=== PATIENT | female | born 1940 | race Caucasian/White ===

== ENCOUNTER 2022-06-08 12:00 | Outpatient (CLI) | payer MEDICARE, BC, OTHER, SELFPAY ==
[2022-06-08 17:24] LABS: Chloride* 105 mmol/L (96-114); Potassium* 4.5 mmol/L (3.6-5.1); Sodium* 137 mmol/L (135-149)
[2022-06-08 17:27] LABS: Blood Urea Nitrogen* 34 mg/dL (7-30); Carbon Dioxide* 27 mmol/L (20-32); Cholesterol* 129 mg/dL (90-199); Estimated Glomerular Filt Rate 56 ml/min; Glucose* 78 mg/dL (60-115); Triglycerides* 92 mg/dL (40-149)
[2022-06-08 17:28] LABS: Calcium* 8.8 mg/dL (8.4-10.6); HDL Cholesterol* 63 mg/dL (>=50); LDL Cholesterol Calculated 48 mg/dL (<100)
== END 2022-06-08 12:01 | disposition home or self-care (01) ==
PROVIDERS: PCP Family Medicine; Visit Provider Family Medicine
DX: I10 Essential (primary) hypertension (principal); R53.83 Other fatigue; E78.5 Hyperlipidemia, unspecified; I48.0 Paroxysmal atrial fibrillation; M10.9 Gout, unspecified; I50.30 Unspecified diastolic (congestive) heart failure; K21.9 Gastro-esophageal reflux disease without esophagitis; G47.00 Insomnia, unspecified
CPT/HCPCS: 80048; 80061; 84443

== ENCOUNTER 2022-07-10 09:15 | Emergency (ER) | payer MEDICARE, OTHER, BC, SELFPAY ==
[2022-07-10 09:28] VITALS: BP 163/100; PULSE 82; RESP 18; TEMP 36.3; O2SAT 97; BMI 27.4
--- NOTE | 2022-07-10 09:42 | CRLHL7_ITS ---
For Patients: As a result of the Cures Act, medical imaging exams and procedure reports are released immediately into your electronic medical record. You may view this report before your referring provider. If you have questions, please contact your health care provider. Indication: Injury and pain. Technique: Right knee 3 views Comparison: Findings: Osteopenia. Chondrocalcinosis. Vascular calcifications. Mild degenerative changes. No joint effusion or fracture. Impression: No sign of acute injury. Dictated by Barry Boss MD @ 07/10/2022 10:36:30 AM (Electronically Signed)
--- NOTE | 2022-07-10 09:42 | CRLHL7_ITS ---
For Patients: As a result of the Cures Act, medical imaging exams and procedure reports are released immediately into your electronic medical record. You may view this report before your referring provider. If you have questions, please contact your health care provider. Indication: Injury and pain. Technique: Left knee 3 views Comparison: None Findings: Osteopenia. No fracture. No joint effusion. Vascular calcifications. Mild chondrocalcinosis. Patellofemoral narrowing. Impression: No sign of acute injury. Dictated by Barry Boss MD @ 07/10/2022 10:35:25 AM (Electronically Signed)
--- NOTE | 2022-07-10 10:14 | ED.LOWEXIN ---
HPI - Extremity Injury (Lower) General Date Seen: 07/10/22 Chief Complaint: Extremity Pain/Injury, Lower Stated Complaint: Fell hurt right knee Time Seen by Provider: 07/10/22 09:20 Source: patient and family Mode of arrival: ambulatory Limitations: no limitations History of Present Illness HPI Narrative: Patient is a delightful 82-year-old female who presents here with right knee but really bilateral knee symptoms. She was getting offer deck approximately 1 week ago and fell with blunt force to her knees bilaterally. Since then she has had increased pain more in her right than her left knee, more swelling, and pain with mobility and moving around. She took some leftover medication hydrocodone she had from previous surgery, that help this discomfort. She feels she needs an x-ray, given the length of time that her pain has been. She denies any history of fevers chills or sweats, she has decreased range of motion of her right knee, and she showed me pictures of her right knee with considerable bruising that is now abated. This knee as a history of previous infection with the wound VAC just below the right knee secondary to vein ligation and stripping. complaint: knee injury Onset (ago): week(s) Injury: Bilateral: knee Type of Injury: blunt Place: home Severity: moderate Relieving factors: NSAID and cold therapy Exacerbating factors: weight bearing and movement Context: fall and direct blow Associated symptoms: able to partially bear weight and ambulatory Other symptoms: none Treatments prior to arrival: cold therapy and NSAIDS Related Data Home Medications Medication Instructions Recorded Confirmed acetaminophen 500 mg tablet 1,000 mg PO Q6H PRN 06/08/22 ascorbic acid (vitamin C) 250 mg 250 mg PO DAILY 06/08/22 tablet ferrous gluconate 324 mg (38 mg 324 mg PO QDAY 06/08/22 iron) tablet melatonin 3 mg capsule 3 mg PO .Bedtime as needed PRN 06/08/22 multivitamin 1 tab PO QDAY 06/08/22 omega-3 fatty acids-fish oil 300 cap PO 06/08/22 mg-500 mg capsule (Fish Oil) oxycodone 5 mg tablet 5 mg PO Q4H PRN 06/08/22 Previous Rx's Medication Instructions Recorded allopurinol 100 mg tablet 100 mg PO QDAY #90 tabs 06/08/22 apixaban 2.5 mg tablet 2.5 mg PO BID #180 tabs 06/08/22 atorvastatin 40 mg tablet 40 mg PO .QHS #90 tabs 06/08/22 escitalopram oxalate 5 mg tablet 5 mg PO DAILY #90 tabs 06/08/22 furosemide 40 mg tablet 40 mg PO BID #180 tabs 06/08/22 metoprolol tartrate 25 mg tablet 25 mg PO BID #180 tabs 06/08/22 omeprazole 20 mg capsule,delayed 20 mg PO DAILY #90 caps 06/08/22 release tramadol 50 mg tablet 50 mg PO Q6H PRN pain #60 tabs 06/08/22 trazodone 50 mg tablet 25 - 50 mg PO QPM #90 tabs 06/08/22 Allergies Allergy/AdvReac Type Severity Reaction Status Date / Time cephalexin Allergy Unknown RASH/HIVES Verified 06/08/22 11:15 Review of Systems Status of ROS: Reports: 6 or more systems reviewed and unremarkable except as noted in History and below [facility] Medical History Health care directive on file Surgical History H/O Whipple procedure History of blepharoplasty History of bunionectomy (06/19/09) Status post cataract extraction Status post tubal ligation Social History Smoking Status: Former smoker Do you use any of these nicotine containing products: None How often do you have a drink containing alcohol: monthly or less AUDIT-C Alcohol total score: 1 Non-prescribed substance use: denies use Exam Narrative: Exam Narrative: Patient is delightful lady, she has notable valgus deformity of her right knee in comparison to the left, is able to extend her knee fully, and flex it to 90? on the right she can come approximately 12/16/2019 on the left. Scarring from previous surgeries noted inferiorly medial on the right knee. Mildly tender along the joint line on the right side, her ACL PCL MCL and LCL are all seemingly intact. Popliteal fossa is normal, patella is normal has full range of motion, popliteal artery and posterior tibial artery are palpated and normal. Sensation is normal also. Her bruising on the right knee is abating. But still visible on the lateral part of her knee. Left knee has full range of motion from 0-120, and no palpable tenderness no free fluid, ligaments are all intact, normal pulses in the left leg. Const: Vital Signs, click to edit/add: Vital Signs - 24 hr 07/10/22 09:28 Temperature 97.4 F L Pulse Rate [Right Pulse Oximeter] 82 Respiratory Rate 18 Blood Pressure [Ri ght Upper Arm] 163/100 H Pulse Oximetry 97 Oxygen Delivery Me thod Room Air Documenting provider has reviewed patient's vital signs: yes Course Course Hospital Course: I discussed with her and her daughter that the x-ray looked good there is no evidence of acute fracture, I think this is more of a cartilage type injury. And I recommend Tylenol more regularly, icing, and she will slowly improve if she is not then follow up with Orthopedics is suggested. And she was comfortable with this plan. Vital Signs Vital signs: Initial Vital Signs Temperature 97.4 F L 07/10/22 09:28 Temperature Source Temporal Artery Scan 07/10/22 09:28 Pulse Rate 82 07/10/22 09:28 Respiratory Rate 18 07/10/22 09:28 Blood Pressure 163/100 H 07/10/22 09:28 Blood Pressure Mean 121 07/10/22 09:28 Pulse Oximetry 97 07/10/22 09:28 Oxygen Delivery Method 07/10/22 09:28 Vital Signs Temperature 97.4 F L 07/10/22 09:28 Pulse Rate 82 07/10/22 09:28 Respiratory Rate 18 07/10/22 09:28 Blood Pressure 163/100 H 07/10/22 09:28 Pulse Oximetry 97 07/10/22 09:28 Oxygen Delivery Method 07/10/22 09:28 Temperature 97.4 F L 07/10/22 09:28 Pulse Rate 82 07/10/22 09:28 Respiratory Rate 18 07/10/22 09:28 Blood Pressure 163/100 H 07/10/22 09:28 Pulse Oximetry 97 07/10/22 09:28 Oxygen Delivery Method 07/10/22 09:28 MDM - Extremity Injury (Lower) MDM Narrative Medical decision making narrative: I discussed with her that I am in agreement that an x-ray should be done of both of her knees bilaterally, we will go ahead with this. See suspect this is more of a cartilage type situation, and less likely a fracture,. I am reassured by the fact there is no significant hematoma formation despite the fact she is on Eliquis. Medical Records Attestation: I reviewed the patient's medical records. Imaging Data xray: Attestation: I have reviewed the pertinent imaging results. My impression: No evidence of acute findings, mild to moderate arthritis Radiologist's impression: No acute fracture seen Discharge Plan Discharge Clinical Impression: Strain of right knee Patient Disposition: Home w/ Parent or Adult Condition: Stable Instructions: Knee Sprain (ED), Knee Pain (ED) Additional Instructions: Home rest icing 2 to 3 times a day decrease activity use your crutches to offload her knee. This will slowly improve, Tylenol extra-strength 1 tablet 4 times a day is suggested. If this is not improving in the next 10 days then consideration of follow-up with orthopedics. Reassuring knee x-ray Prescriptions: No Action melatonin 3 mg capsule 3 mg PO .Bedtime as needed PRN ascorbic acid (vitamin C) 250 mg tablet 250 mg PO DAILY ferrous gluconate 324 mg (38 mg iron) tablet 324 mg PO QDAY multivitamin Tablet 1 tab PO QDAY oxycodone 5 mg tablet 5 mg PO Q4H PRN acetaminophen 500 mg tablet 1,000 mg PO Q6H PRN Rx Instructions: NO MORE THAN 4000 MG/DAY Fish Oil 300-500 mg capsule PO allopurinol 100 mg tablet 100 mg PO QDAY Qty: 90 3RF apixaban 2.5 mg tablet 2.5 mg PO BID Qty: 180 3RF atorvastatin 40 mg tablet 40 mg PO .QHS Qty: 90 3RF escitalopram oxalate 5 mg tablet 5 mg PO DAILY Qty: 90 3RF furosemide 40 mg tablet 40 mg PO BID Qty: 180 3RF metoprolol tartrate 25 mg tablet 25 mg PO BID Qty: 180 3RF omeprazole 20 mg capsule,delayed release(DR/EC) 20 mg PO DAILY Qty: 90 3RF trazodone 50 mg tablet 25 - 50 mg PO QPM Qty: 90 3RF Rx Instructions: 1/2 tab at HS tramadol 50 mg tablet 50 mg PO Q6H PRN (Reason: pain) Qty: 60 1RF Follow Up/Referrals: Gómez Bermudez MD [Primary Care Provider] - Stand Alone Forms: [facility] Info Instructions
== END 2022-07-10 11:35 | disposition home or self-care (01) ==
PROVIDERS: Emergency Provider Family Medicine; PCP Family Medicine
DX: S83.91XA Sprain of unspecified site of right knee, initial encounter (principal); W17.89XA Other fall from one level to another, initial encounter
CPT/HCPCS: 73562; 99283

== ENCOUNTER 2023-01-23 07:36 | Inpatient (IN) | payer MEDICARE, OTHER, BC, SELFPAY ==
[2023-01-23] VITALS (13 sets, daily range): BP systolic 160–213; BP diastolic 63–95; PULSE 49–71; RESP 18–26; TEMP 36.3–36.7; O2SAT 92–97; BMI 28.3; BMI 28.4
--- NOTE | 2023-01-23 08:15 | ED_ITS ---
HPI - General Adult General Time Seen by Provider: 08:15 Date Seen: 01/23/23 Chief complaint: Shortness of Breath/Dyspnea Stated complaint: difficulty breathing Time Seen by Provider: 01/23/23 07:48 Source: patient Mode of arrival: wheelchair Limitations: no limitations History of Present Illness HPI narrative: Patient is a 82-year-old female that feels progressive shortness of breath with exertion over the last week. She reports she has had some nasal congestion and a slight cough. 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 She has had mitral valve regurgitation as well. The patient is on blood thinner apixaban. She has had congestion as mention, had a negative COVID in I believe RSV test this week in the clinic. She does not had any orthopnea she does have dyspnea on exertion has occasional cough nasal congestion. She has not had leg swelling or edema. Not notice substantial weight gain. She is not under a good amount of stress as she is oxygenating her home items as her has passed and she is quite stressed by this. She is here with her daughter Hermila. Patient also complains of dysuria and urine odor and will get a urinalysis, she feels like she has got some urinary frequency as well. Related Data Home Medications Medication Instructions Recorded Confirmed acetaminophen 500 mg tablet 1,000 mg PO Q6H PRN 06/08/22 01/23/23 ascorbic acid (vitamin C) 250 mg 250 mg PO DAILY 06/08/22 01/23/23 tablet melatonin 3 mg capsule 3 mg PO HS PRN 06/08/22 01/23/23 multivitamin 1 tab PO DAILY 06/08/22 01/23/23 omega-3 fatty acids-fish oil 300 1 cap PO DAILY 06/08/22 01/23/23 mg-500 mg capsule (Fish Oil) oxycodone 5 mg tablet 5 mg PO Q4H PRN 06/08/22 01/23/23 allopurinol 100 mg tablet 100 mg PO DAILY 01/23/23 01/23/23 atorvastatin 40 mg tablet 40 mg PO HS 01/23/23 01/23/23 trazodone 50 mg tablet 25 mg PO HS 01/23/23 01/23/23 triamcinolone acetonide 0.1 % 1 applic topical BID PRN 01/23/23 01/23/23 topical cream Previous Rx's Medication Instructions Recorded apixaban 2.5 mg tablet 2.5 mg PO BID #180 tabs 06/08/22 escitalopram oxalate 5 mg tablet 5 mg PO DAILY #90 tabs 06/08/22 furosemide 40 mg tablet 40 mg PO BID #180 tabs 06/08/22 metoprolol tartrate 25 mg tablet 25 mg PO BID #180 tabs 06/08/22 omeprazole 20 mg capsule,delayed 20 mg PO DAILY #90 caps 06/08/22 release ferrous gluconate 324 mg (38 mg 324 mg PO BID #100 tabs 07/12/22 iron) tablet tramadol 50 mg tablet 50 mg PO Q6H PRN pain #60 tabs 12/30/22 Allergies Allergy/AdvReac Type Severity Reaction Status Date / Time cephalexin Allergy Unknown RASH/HIVES Verified 01/23/23 07:54 Review of Systems Status of ROS: Reports: 10 or more systems reviewed and unremarkable except as noted in History and below [facility] Medical History (Updated 01/23/23 @ 13:12 by Eris Bal MD) Anemia Anxiety Articular gout Chronic back pain Chronic kidney disease Diastolic congestive heart failure GERD (gastroesophageal reflux disease) Health care directive on file Hyperlipemia Hypertension (06/19/09) Insomnia Left shoulder pain Methicillin resistant Staphylococcus aureus culture positive Mitral valve regurgitation (07/24/09) Paroxysmal atrial fibrillation Peripheral vascular disease Pulmonary hypertension (07/24/09) Stasis edema (06/19/09) Venous stasis dermatitis Surgical History H/O Whipple procedure History of blepharoplasty History of bunionectomy (06/19/09) Status post cataract extraction Status post tubal ligation Social History Smoking Status: Never smoker Do you use any of these nicotine containing products: None Second hand tobacco smoke exposure: Yes How often do you have a drink containing alcohol: monthly or less How many standard drinks containing alcohol do you have on a typical day: 1 or 2 How often do you have six or more drinks on one occasion: Never AUDIT-C Alcohol total score: 1 Non-prescribed substance use: denies use service: No Exam Narrative: Exam Narrative: Objective: Patient's vital signs show elevated blood pressure 213/95, otherwise respiratory rate is just minimally elevated, O2 sat 93% on room air. HEENT is unremarkable, takes patient talks in even unlabored sentences, no cyanosis Neck is supple Chest is diminished air exchange bilaterally some crackles at the base Heart rhythm regular with 2/6 out murmur occasional ectopic beat noted abdomen benign soft nontender extremities are no edema neurologic nonfocal good peripheral perfusion noted Const: Vital Signs, click to edit/add: Vital Signs - 24 hr 01/23/23 07:55 01/23/23 08:12 01/23/23 08:32 Temperature 97.8 F Pulse Rate 53 L Pulse Rate [Apical ] 60 Respiratory Rate 26 H Blood Pressure 187/87 H Blood Pressure [Ri ght Upper Arm] 213/95 H Pulse Oximetry 93 93 94 Oxygen Delivery Me thod Room Air 01/23/23 09:06 01/23/23 09:30 01/23/23 10:02 Temperature Pulse Rate 55 L 71 52 L Pulse Rate [Apical ] Respiratory Rate Blood Pressure 204/91 H Blood Pressure [Ri ght Upper Arm] Pulse Oximetry 96 92 95 Oxygen Delivery Me thod Course Vital Signs Vital signs: Initial Vital Signs Temperature 97.8 F 01/23/23 07:55 Temperature Source Temporal Artery Scan 01/23/23 07:55 Pulse Rate 60 01/23/23 07:55 Pulse Rhythm 01/23/23 07:55 Respiratory Rate 26 H 01/23/23 07:55 Blood Pressure 213/95 H 01/23/23 07:55 Blood Pressure Mean 134 01/23/23 07:55 Blood Pressure Position Supine 01/23/23 07:55 Pulse Oximetry 93 01/23/23 07:55 Oxygen Delivery Method 01/23/23 07:55 Vital Signs Temperature 97.8 F 01/23/23 07:55 Pulse Rate 60 01/23/23 07:55 Respiratory Rate 26 H 01/23/23 07:55 Blood Pressure 213/95 H 01/23/23 07:55 Pulse Oximetry 93 01/23/23 07:55 Oxygen Delivery Method 01/23/23 07:55 Temperature 97.8 F 01/23/23 07:55 Pulse Rate 52 L 01/23/23 10:02 Respiratory Rate 26 H 01/23/23 07:55 Blood Pressure 204/91 H 01/23/23 10:02 Pulse Oximetry 95 01/23/23 10:02 Oxygen Delivery Method 01/23/23 07:55 Medical Decision Making MDM Narrative Medical decision making narrative: Patient is an 82 year white female with a history of paroxysmal atrial fibrillation, congestive heart failure, chronic renal disease. Who is on apixaban. She presents with shortness of breath primarily with exertion over the last week. She denies diaphoresis, nausea vomiting, neck or arm pain other than her chronic rotator cuff tenderness. The patient has had no leg swelling of significance, had a negative COVID test earlier in the week. At this point I think could be appropriate to rule out any pulmonary issue with a chest x-ray, will given she is on apixaban a wood and has chronic renal disease would not do CT of the chest with contrast as pulmonary embolus would be very unlikely given her presentation, would also do a troponin, EKG, awake overnight monitor, oximetry, will give her Lasix 40 mg IV and aspirin orally. Disposition pending findings and labs in her clinical status. Certainly there is lot of anxiety overlay over her situation but I think rule out of organic issues would be appropriate. Patient has had urinary frequency and some malodorous urine and will check a UA she has had says history of increased urine frequency as well. Addendum: Patient has elevated troponin I think that is likely related to cardiac strain given her congestive heart failure. Her BNP is markedly elevated, I think it be reasonable to diurese her keep her in the hospital watch cardiac monitoring her EKG appears reassuring, follow troponins. Dr. Aaron kindly will follow in hospital. Patient family were in agreement with the plan Lab Data Labs: Lab Results 01/23/23 01/23/23 01/23/23 Range/Units 08:30 08:30 08:30 WBC 8.58 (4.50-11.00) K/uL RBC 3.96 L (4.00-5.20) m/uL Hgb 12.1 (12.0-16.0) gm/dL Hct 37.5 (33.0-51.0) % MCV 95 (80-100) fL MCH 31 (26-34) pg MCHC 32 (32-36) gm/dL RDW Coeff of Phoebe 13.8 (11.5-15.5) % Plt Count 207 (140-440) K/uL Neut % (Auto) 78.6 H (42.0-72.0) % Lymph % (Auto) 13.3 L (20-44) % Kimball % (Auto) 6.6 (0.0-11.0) % Eos % (Auto) 0.9 (0.0-7.0) % Baso % (Auto) 0.3 (0.0-3.0) % Neut # (Auto) 6.70 (1.7-7.0) K/uL Lymph # (Auto) 1.10 (0.90-2.90) K/uL Kimball # (Auto) 0.60 (0.00-0.90) K/UL Eos # (Auto) 0.08 (0.00-0.50) K/uL Baso # (Auto) 0.03 (0.00-0.30) K/uL INR (0.91-1.10) APTT (23-33) Seconds VBG pH (7.32-7.43) VBG pCO2 (40-50) mmHG VBG pO2 (25-47) mmHG VBG HCO3 (21-28) mmol/L Sodium 135 (135-149) mmol/L Potassium 3.9 (3.6-5.1) mmol/L Chloride 103 (96-114) mmol/L Carbon Dioxide 27 (20-32) mmol/L BUN 26 (7-30) mg/dL Creatinine 0.9 (0.5-1.5) mg/dL Estimated Creat Clear 33.12 Estimated GFR 63 ml/min Glucose 164 H (60-115) mg/dL Calcium 8.7 (8.4-10.6) mg/dL Total Bilirubin (0.1-1.5) mg/dL Direct Bilirubin (0.0-0.5) mg/dL AST (12-35) U/L ALT (4-35) U/L Alkaline Phosphatase (40-150) U/L Troponin I (0.01-0.04) ng/mL C-Reactive Protein 2.6 H (0.5-1.0) mg/dL NT-Pro-B Natriuret Pep pg/mL Total Protein (6.0-8.3) g/dL Albumin (3.3-5.0) g/dL Urine Color (Yellow) Urine Appearance (Clear) Urine pH (5.0-8.5) Ur Specific Elim (1.000-1.030) Urine Protein (Negative) Urine Glucose (UA) (Negative) Urine Ketones (Negative) Urine Blood (Negative) Urine Nitrite (Negative) Urine Bilirubin (Negative) Urine Urobilinogen (0.2-1.0) Ur Leukocyte Esterase (Negative) Urine RBC (0-2) Urine WBC (0-5) Ur Squamous Epith Cells (None-Few) Urine Bacteria (None) SARS-CoV-2 (PCR) Negative SARS-CoV-2 (Negative) Influenza Type A (PCR) Negative PCR FLU A (Negative) Influenza Type B (PCR) Negative PCR FLU B (Negative) RSV (PCR) Negative PCR RSV (Negative) 01/23/23 01/23/23 01/23/23 Range/Units 08:30 08:30 08:30 WBC (4.50-11.00) K/uL RBC (4.00-5.20) m/uL Hgb (12.0-16.0) gm/dL Hct (33.0-51.0) % MCV (80-100) fL MCH (26-34) pg MCHC (32-36) gm/dL RDW Coeff of Phoebe (11.5-15.5) % Plt Count (140-440) K/uL Neut % (Auto) (42.0-72.0) % Lymph % (Auto) (20-44) % Kimball % (Auto) (0.0-11.0) % Eos % (Auto) (0.0-7.0) % Baso % (Auto) (0.0-3.0) % Neut # (Auto) (1.7-7.0) K/uL Lymph # (Auto) (0.90-2.90) K/uL Kimball # (Auto) (0.00-0.90) K/UL Eos # (Auto) (0.00-0.50) K/uL Baso # (Auto) (0.00-0.30) K/uL INR 1.15 H (0.91-1.10) APTT 35 H (23-33) Seconds VBG pH 7.392 (7.32-7.43) VBG pCO2 45 (40-50) mmHG VBG pO2 29.9 (25-47) mmHG VBG HCO3 27 (21-28) mmol/L Sodium (135-149) mmol/L Potassium (3.6-5.1) mmol/L Chloride (96-114) mmol/L Carbon Dioxide (20-32) mmol/L BUN (7-30) mg/dL Creatinine (0.5-1.5) mg/dL Estimated Creat Clear Estimated GFR ml/min Glucose (60-115) mg/dL Calcium (8.4-10.6) mg/dL Total Bilirubin 0.6 (0.1-1.5) mg/dL Direct Bilirubin 0.2 (0.0-0.5) mg/dL AST 53 H (12-35) U/L ALT 42 H (4-35) U/L Alkaline Phosphatase 78 (40-150) U/L Troponin I 0.08 H* (0.01-0.04) ng/mL C-Reactive Protein (0.5-1.0) mg/dL NT-Pro-B Natriuret Pep 4480 pg/mL Total Protein 6.9 (6.0-8.3) g/dL Albumin 3.6 (3.3-5.0) g/dL Urine Color (Yellow) Urine Appearance (Clear) Urine pH (5.0-8.5) Ur Specific Elim (1.000-1.030) Urine Protein (Negative) Urine Glucose (UA) (Negative) Urine Ketones (Negative) Urine Blood (Negative) Urine Nitrite (Negative) Urine Bilirubin (Negative) Urine Urobilinogen (0.2-1.0) Ur Leukocyte Esterase (Negative) Urine RBC (0-2) Urine WBC (0-5) Ur Squamous Epith Cells (None-Few) Urine Bacteria (None) SARS-CoV-2 (PCR) (Negative) Influenza Type A (PCR) (Negative) Influenza Type B (PCR) (Negative) RSV (PCR) (Negative) 01/23/23 Range/Units 09:03 WBC (4.50-11.00) K/uL RBC (4.00-5.20) m/uL Hgb (12.0-16.0) gm/dL Hct (33.0-51.0) % MCV (80-100) fL MCH (26-34) pg MCHC (32-36) gm/dL RDW Coeff of Phoebe (11.5-15.5) % Plt Count (140-440) K/uL Neut % (Auto) (42.0-72.0) % Lymph % (Auto) (20-44) % Kimball % (Auto) (0.0-11.0) % Eos % (Auto) (0.0-7.0) % Baso % (Auto) (0.0-3.0) % Neut # (Auto) (1.7-7.0) K/uL Lymph # (Auto) (0.90-2.90) K/uL Kimball # (Auto) (0.00-0.90) K/UL Eos # (Auto) (0.00-0.50) K/uL Baso # (Auto) (0.00-0.30) K/uL INR (0.91-1.10) APTT (23-33) Seconds VBG pH (7.32-7.43) VBG pCO2 (40-50) mmHG VBG pO2 (25-47) mmHG VBG HCO3 (21-28) mmol/L Sodium (135-149) mmol/L Potassium (3.6-5.1) mmol/L Chloride (96-114) mmol/L Carbon Dioxide (20-32) mmol/L BUN (7-30) mg/dL Creatinine (0.5-1.5) mg/dL Estimated Creat Clear Estimated GFR ml/min Glucose (60-115) mg/dL Calcium (8.4-10.6) mg/dL Total Bilirubin (0.1-1.5) mg/dL Direct Bilirubin (0.0-0.5) mg/dL AST (12-35) U/L ALT (4-35) U/L Alkaline Phosphatase (40-150) U/L Troponin I (0.01-0.04) ng/mL C-Reactive Protein (0.5-1.0) mg/dL NT-Pro-B Natriuret Pep pg/mL Total Protein (6.0-8.3) g/dL Albumin (3.3-5.0) g/dL Urine Color Yellow (Yellow) Urine Appearance Clear (Clear) Urine pH 7.0 (5.0-8.5) Ur Specific Elim 1.020 (1.000-1.030) Urine Protein 1+ A (Negative) Urine Glucose (UA) Negative (Negative) Urine Ketones Negative (Negative) Urine Blood Trace-lysed A (Negative) Urine Nitrite Negative (Negative) Urine Bilirubin Negative (Negative) Urine Urobilinogen 0.2 (0.2-1.0) Ur Leukocyte Esterase Trace A (Negative) Urine RBC 2-5 A (0-2) Urine WBC 2-5 (0-5) Ur Squamous Epith Cells Few (None-Few) Urine Bacteria Few A (None) SARS-CoV-2 (PCR) (Negative) Influenza Type A (PCR) (Negative) Influenza Type B (PCR) (Negative) RSV (PCR) (Negative) Discharge Plan Discharge Clinical Impression: Diastolic congestive heart failure Patient Disposition: Admitted As Inpatient Condition: Stable
--- NOTE | 2023-01-23 08:17 | CRLHL7_ITS ---
For Patients: As a result of the Century Cures Act, medical imaging exams and procedure reports are released immediately into your electronic medical record. You may view this report before your referring provider. If you have questions, please contact your health care provider. INDICATION: SOB TECHNIQUE: Chest 1 views. COMPARISON: June 19, 2018. FINDINGS: Moderate cardiomegaly. Central vascular congestion and interstitial prominence. Bibasilar atelectasis and moderate pleural effusions. No pneumothorax. IMPRESSION: Cardiomegaly with pulmonary edema pattern and moderate bibasilar fluid and atelectasis. Dictated by Jayden Hdaley MD @ 01/23/2023 8:56:27 AM (Electronically Signed)
[2023-01-23 08:34] LABS: HCO3 VBG 27 mmol/L (21-28); PCO2 VBG 45 mmHG (40-50); PO2 VBG 29.9 mmHG (25-47); pH VBG 7.392 (7.32-7.43)
[2023-01-23] MEDS: FUROSEMIDE 10 MG/ML inj 40 MG IV (08:34)
[2023-01-23] MEDS: ASPIRIN 81 MG TAB.CHEW 324 MG PO (08:34)
[2023-01-23 08:38] LABS: Basophils Absolute Auto 0.03 K/uL (0.00-0.30); Basophils Percent Auto 0.3 % (0.0-3.0); Eosinophils Absolute Auto 0.08 K/uL (0.00-0.50); Eosinophils Percent Auto 0.9 % (0.0-7.0); Hematocrit 37.5 % (33.0-51.0); Hemoglobin* 12.1 gm/dL (12.0-16.0); Immature Granulocytes Abs Auto 0.03 K/uL (0.00-0.30); Immature Granulocytes Pct Auto 0.3 %; Lymphocytes Percent Auto 13.3 % (20-44); Mean Corpuscular HGB Conc 32 gm/dL (32-36); Mean Corpuscular Hemoglobin 31 pg (26-34); Mean Corpuscular Volume 95 fL (80-100); Monocytes Percent Auto 6.6 % (0.0-11.0); Neutrophils Percent Auto 78.6 % (42.0-72.0); Platelet Count* 207 K/uL (140-440); RDW Coefficient of Variation % 13.8 % (11.5-15.5); Red Blood Count 3.96 m/uL (4.00-5.20); White Blood Count* 8.58 K/uL (4.50-11.00)
[2023-01-23 08:40] LABS: Slide Review Reflex No
[2023-01-23 08:51] LABS: INR 1.15 (0.91-1.10); Prothrombin Time 15.4 Seconds
[2023-01-23 08:52] LABS: Partial Thromboplastin Time* 35 Seconds (23-33)
--- NOTE | 2023-01-23 08:55 | ED.NURSE ---
House Sup notified of possible admission.
[2023-01-23 09:07] LABS: Chloride* 103 mmol/L (96-114)
[2023-01-23 09:08] LABS: Potassium* 3.9 mmol/L (3.6-5.1); Sodium* 135 mmol/L (135-149)
[2023-01-23 09:10] LABS: Creatinine* 0.9 mg/dL (0.5-1.5); Est. Creatinine Clearance* 33.12; Estimated Glomerular Filt Rate 63 ml/min
[2023-01-23 09:11] LABS: Albumin* 3.6 g/dL (3.3-5.0); Blood Urea Nitrogen* 26 mg/dL (7-30); Calcium* 8.7 mg/dL (8.4-10.6); Carbon Dioxide* 27 mmol/L (20-32); Glucose* 164 mg/dL (60-115)
[2023-01-23 09:12] LABS: Appearance Urine Clear (Clear); Bilirubin Urine Negative (Negative); Blood Urine Trace-lysed (Negative); Color Urine Yellow (Yellow); Glucose Urine Negative (Negative); Ketones Urine Negative (Negative); Leukocyte Esterase Urine Trace (Negative); Nitrite Urine Negative (Negative); Protein Urine 1+ (Negative); Urobilinogen Urine 0.2 (0.2-1.0)
[2023-01-23 09:14] LABS: Alkaline Phosphatase* 78 U/L (40-150); Aspartate Amino Transferase* 53 U/L (12-35); Bilirubin Direct* 0.2 mg/dL (0.0-0.5); Bilirubin Total* 0.6 mg/dL (0.1-1.5); C Reactive Protein* 2.6 mg/dL (0.5-1.0); Total Protein* 6.9 g/dL (6.0-8.3)
[2023-01-23 09:15] LABS: Alanine Aminotransferase* 42 U/L (4-35)
[2023-01-23 09:23] LABS: Bacteria Urine Few; Squamous Epithelial Cell Urine Few (None-Few)
[2023-01-23 09:33] LABS: NT Pro B Type NatriureticPept* 4480 pg/mL; Troponin I* 0.08 ng/mL (0.01-0.04)
--- NOTE | 2023-01-23 09:36 | ED.NURSE ---
dr mcmillan aware of cr trop of 0.08.
[2023-01-23 09:54] LABS: PCR FLU A Negative PCR FLU A (Negative); PCR FLU B Negative PCR FLU B (Negative); PCR RSV Negative PCR RSV (Negative)
[2023-01-23 09:56] LABS: SARS PCR* Negative SARS-CoV-2 (Negative)
--- NOTE | 2023-01-23 10:06 | ED.NURSE ---
Per Dr. lAaniz, Hospitalist has not accepted until hospitalist exam of Pt in ED is complete.
--- NOTE | 2023-01-23 10:29 | ED.NURSE ---
Hospitalist now at bedside to speak with Pt.
--- NOTE | 2023-01-23 11:12 | ED.NURSE ---
Report given to Sajan Toure RN. Pt will go to [facility].
--- NOTE | 2023-01-23 11:24 | P.IMHP_ITS ---
Hospitalist- H&P: HPI History of Present Illness Time Seen by Provider: 11:00 Date Seen: 01/23/23 Chief complaint: difficulty breathing Narrative: Corine Foreman is a 82 year old woman presents to the emergency department for further assessment and supportive increasing dyspnea with exertion. Was in her usual state of health until earlier in the week. About 4 days ago she noticed a definite increase in dyspnea with exertion. Has has intermittent 1 pillow paroxysmal nocturnal dyspnea without orthopnea. No cough, fevers, rigors, or diaphoresis. Has noted gradual increase in dependent edema bilaterally. Has chronic venous insufficiency. Uses compression wraps in lower extremities during the day. Also uses a venous pumping system for lower extremities daily. Denies dyspnea at rest. Daughter notes tachypnea at rest. Patient denies chest heaviness, pressure, tightness, or pain. She denies syncope or near-syncope. Denies nausea or vomiting. Denies palpitations or chest fluttering. She tells me how her weight has increased by about 10 lb over 2 days. Denies change in her diet, including denies increasing sodium consumption. Patient and daughter acknowledge patient undergoing a number of anxiety evoking experiences in relation to the recent passing of her , trying to downsize, getting ready for an auction, trying to deal with family members who are refusing to receive vaccines against COVID or take any measures to try to pr event the spread of COVID. These anxiety evoking experiences are taking their toll on her. Review of Systems Status of ROS: Reports: 10 or more systems reviewed and unremarkable except as noted in History and below Narrative: Still grieving the passing away of her . Lives alone in her home with daughters visiting her daily. Generally doing well with this arrangement. Bowel and bladder function are satisfactory for the most part. Over the past couple of days patient notes urinary frequency with foul-smelling urine. Denies dysuria, urgency, or hematuria. No focal motor neurologic deficits. Fastidious about taking care of her lower extremities daily with compression wraps and use of her venous compression pumps. Designates her daughter, Naomie, as her power of manufacturing weaver for health should that be required. Naomie cell phone number is [phone]. Patient elects DNR DNI resuscitation status. Her primary care physician is Dr. Bermudez. [facility] Medical History (Updated 01/23/23 @ 13:12 by Eris Bal MD) Anemia Anxiety Articular gout Chronic back pain Chronic kidney disease Diastolic congestive heart failure GERD (gastroesophageal reflux disease) Health care directive on file Hyperlipemia Hypertension (06/19/09) Insomnia Left shoulder pain Methicillin resistant Staphylococcus aureus culture positive Mitral valve regurgitation (07/24/09) Paroxysmal atrial fibrillation Peripheral vascular disease Pulmonary hypertension (07/24/09) Stasis edema (06/19/09) Venous stasis dermatitis Surgical History H/O Whipple procedure History of blepharoplasty History of bunionectomy (06/19/09) Status post cataract extraction Status post tubal ligation Social History Smoking Status: Never smoker Do you use any of these nicotine containing products: None Second hand tobacco smoke exposure: Yes How often do you have a drink containing alcohol: monthly or less How many standard drinks containing alcohol do you have on a typical day: 1 or 2 How often do you have six or more drinks on one occasion: Never AUDIT-C Alcohol total score: 1 Non-prescribed substance use: denies use service: No Meds Home Medications and Allergies Home Medications Medication Instructions Recorded Confirmed Type acetaminophen 500 mg tablet 1,000 mg PO Q6H PRN 06/08/22 01/23/23 History ascorbic acid (vitamin C) 250 mg 250 mg PO DAILY 06/08/22 01/23/23 History tablet melatonin 3 mg capsule 3 mg PO HS PRN 06/08/22 01/23/23 History multivitamin 1 tab PO DAILY 06/08/22 01/23/23 History omega-3 fatty acids-fish oil 300 1 cap PO DAILY 06/08/22 01/23/23 History mg-500 mg capsule (Fish Oil) oxycodone 5 mg tablet 5 mg PO Q4H PRN 06/08/22 01/23/23 History allopurinol 100 mg tablet 100 mg PO DAILY 01/23/23 01/23/23 History atorvastatin 40 mg tablet 40 mg PO HS 01/23/23 01/23/23 History trazodone 50 mg tablet 25 mg PO HS 01/23/23 01/23/23 History triamcinolone acetonide 0.1 % 1 applic topical BID PRN 01/23/23 01/23/23 History topical cream Allergies Allergy/AdvReac Type Severity Reaction Status Date / Time cephalexin Allergy Unknown RASH/HIVES Verified 01/23/23 07:54 Exam Narrative: Exam Narrative: Tachypneic at rest. Claims she is not dyspneic. Appears anxious otherwise in no acute distress. Friendly, articulate, cooperative. Alert and oriented to self, place, time, situation. Mood and affect are congruent. Vision and hearing are grossly normal. Right conjunctival injection. No icterus. Neck is supple. Has jugular venous distention and hepatojugular reflux in the sitting upright position. No carotid bruits. Bibasilar end inspiratory rales without wheezing. Occasional scattered rhonchi. Chest wall excursions full. Heart tones with regular rhythm, normal S1-S2. Murmur across the precordium, grade 2/6. Abdomen with active bowel sounds, soft, nontender. Edema of lower extremities and the feet and pretibial area. No edema in the thighs. Trace edema in presacral area. No focal motor neurologic deficits. Independent transfer, station, and gait. Skin is intact. Const: Vital Signs, click to edit/add: Vital Signs - 24 hr 01/23/23 07:55 01/23/23 08:12 01/23/23 08:32 Temperature 97.8 F Pulse Rate 53 L Pulse Rate [Apical ] 60 Respiratory Rate 26 H Blood Pressure 187/87 H Blood Pressure [Ri ght Upper Arm] 213/95 H Pulse Oximetry 93 93 94 Oxygen Delivery Me thod Room Air 01/23/23 09:06 01/23/23 09:30 01/23/23 10:02 Temperature Pulse Rate 55 L 71 52 L Pulse Rate [Apical ] Respiratory Rate Blood Pressure 204/91 H Blood Pressure [Ri ght Upper Arm] Pulse Oximetry 96 92 95 [facility] - [facility]: Result Labs Labs: Short CBC 01/23/23 Range/Units 08:30 WBC 8.58 (4.50-11.00) K/uL Hgb 12.1 (12.0-16.0) gm/dL Hct 37.5 (33.0-51.0) % Plt Count 207 (140-440) K/uL [facility] 01/23/23 08:30 Sodium 135 Potassium 3.9 Chloride 103 Carbon Dioxide 27 BUN 26 Creatinine 0.9 Glucose 164 H Calcium 8.7 Cardiac Enzymes 01/23/23 Range/Units 08:30 Troponin I 0.08 H* (0.01-0.04) ng/mL Liver Function 01/23/23 Range/Units 08:30 Total Bilirubin 0.6 (0.1-1.5) mg/dL Direct Bilirubin 0.2 (0.0-0.5) mg/dL AST 53 H (12-35) U/L ALT 42 H (4-35) U/L Alkaline Phosphatase 78 (40-150) U/L Albumin 3.6 (3.3-5.0) g/dL Urine 01/23/23 Range/Units 09:03 Urine Color Yellow (Yellow) Urine Appearance Clear (Clear) Urine pH 7.0 (5.0-8.5) Ur Specific [place] 1.020 (1.000-1.030) Urine Protein 1+ A (Negative) Urine Glucose (UA) Negative (Negative) Assessment and Plan Assessment and plan (1) Acute on chronic heart failure with preserved ejection fraction (HFpEF): Status: Acute (2) Hypertensive heart disease with acute diastolic congestive heart failure: Status: Acute (3) Hypertensive urgency: Status: Acute (4) Hypertensive cardiomegaly with heart failure: Status: Acute (5) Demand ischemia of myocardium: Status: Acute (6) Mitral valve regurgitation: Problem comment: Transthoracic echocardiogram 06/19/2018: Normal left ventricular function, wall thickness, ejection fraction of 60%. Severe left atrial enlargement. Moderate mitral regurgitation. Moderate elevation in pulmonary artery pressures, 51 mmHg plus right atrial pressure. Status: Acute (7) Paroxysmal atrial fibrillation: Problem comment: Transthoracic echocardiogram 06/19/2018: Normal left ventricular function, wall thickness, ejection fraction of 60%. Severe left atrial enlargement. Moderate mitral regurgitation. Moderate elevation in pulmonary artery pressures, 51 mmHg plus right atrial pressure. Chronically anticoagulated with apixaban 2.5 mg twice daily. On metoprolol tartrate 25 mg twice daily. Status: Acute (8) Anxiety: Status: Acute Plan 1. Reviewed impression with the patient and her daughter, Naomie. 2. Answered their questions. 3. Admit to inpatient status. Telemetry, serial troponins and EKGs, and recheck echocardiogram. 4. IV furosemide. In time will attempt to change back to oral furosemide. 5. Switch from metoprolol tartrate to metoprolol succinate. 6. Add losartan. 7. Daily weight, low-sodium diet, resume home compression wraps and lower extremity venous pumps. 8. Patient and daughter agreeable to above stated plans and recommendations.
--- NOTE | 2023-01-23 11:31 | ED.NURSE ---
Pt brought to CCU2 via w/c with belongings. Continues to ambulate independently and tolerate well. Does report some SOB w/exertion, that resolves with rest.
[2023-01-23] MEDS: LOSARTAN POTASSIUM 50 MG TABLET PO (12:17)
[2023-01-23 12:32] LABS: Troponin I* 0.12 ng/mL (0.01-0.04)
[2023-01-23] MEDS: METOPROLOL SUCCINATE (XL) 50 MG TAB PO (12:43)
[2023-01-23] MEDS: FUROSEMIDE 10 MG/ML inj 40 MG IVP (14:08)
[2023-01-23] MEDS: SODIUM CHLORIDE 0.9 % (FLUSH) 10 ML SYRINGE 5 ML IVF ×2 (14:08→21:20)
--- NOTE | 2023-01-23 15:55 | PC.NURSE ---
Pt up independently with use of personal 4prong cane. 3 daughters attentive and supportive. Pt is alert and oriented, pleasant and cooperative. Educated on medication changes. Pt brought in personal bilat lymphedema pumps,she uses them for 1 hr daily around the lunch hour, okay to use per Dr. Banks. Educated on daily weight to monitor fluid retention.
[2023-01-23] MEDS: FERROUS SULFATE 325 MG TABLET PO (18:02)
--- NOTE | 2023-01-23 18:08 | PC.NURSE ---
Shift Summary 15-19: Patient pleasant and cooperative. Up independently in room with cane. Tolerating regular diet well. States she still feels some SOB with exertion, o2 sats >90% on RA following ambulation. Denies SOB at rest. Denies pain and nausea.
[2023-01-23] MEDS: ATORVASTATIN CALCIUM 40 MG TABLET PO (21:20)
[2023-01-23] MEDS: TRAZODONE HCL 50 MG TABLET 25 MG PO (21:21)
[2023-01-23] MEDS: MELATONIN 3 MG TABLET PO (21:21)
[2023-01-23] MEDS: APIXABAN 5 MG TABLET 2.5 MG PO (21:21)
[2023-01-24] VITALS (7 sets, daily range): BP systolic 147–195; BP diastolic 63–107; PULSE 54–74; RESP 18; TEMP 36.2–36.8; O2SAT 95–98
[2023-01-24 07:01] LABS: Troponin I* 0.06 ng/mL (0.01-0.04)
[2023-01-24] MEDS: OMEPRAZOLE 20 MG CAPSULE DR PO (07:11)
--- NOTE | 2023-01-24 07:11 | PC.NURSE ---
Pt pleasant and cooperative. Up Independantly in her room. Uses a quad cane during the day and [facility] to help her get around. Lung sounds are clear she is on RA with sats in the mid 90's. Other VSS. Trop at .06 this am.
[2023-01-24 07:46] LABS: Potassium* 3.6 mmol/L (3.6-5.1)
[2023-01-24 07:49] LABS: Est. Creatinine Clearance* 34.64; Estimated Glomerular Filt Rate 56 ml/min
[2023-01-24 07:50] LABS: Magnesium* 2.1 mg/dL (1.5-2.6)
[2023-01-24] MEDS: ASCORBIC ACID 500 MG TABLET 250 MG PO (08:28)
[2023-01-24] MEDS: ESCITALOPRAM 10 MG TABLET 5 MG PO (08:28)
[2023-01-24] MEDS: FERROUS SULFATE 325 MG TABLET PO ×2 (08:28→18:00)
[2023-01-24] MEDS: METOPROLOL SUCCINATE (XL) 50 MG TAB PO (08:29)
[2023-01-24] MEDS: FUROSEMIDE 10 MG/ML inj 40 MG IVP (08:29)
[2023-01-24] MEDS: APIXABAN 5 MG TABLET 2.5 MG PO ×2 (08:29→20:56)
[2023-01-24] MEDS: SODIUM CHLORIDE 0.9 % (FLUSH) 10 ML SYRINGE 5 ML IVF ×2 (08:29→20:56)
[2023-01-24] MEDS: LOSARTAN POTASSIUM 50 MG TABLET PO (08:29)
[2023-01-24] MEDS: allopurinoL 100 MG TABLET PO (08:29)
--- NOTE | 2023-01-24 15:30 | PM.IMPN1 ---
Progress Note: A&P Assessment and plan (1) Acute on chronic heart failure with preserved ejection fraction (HFpEF): Status: Acute Assessment and Plan: Transthoracic echocardiogram from today is still pending. Weight today 71.5 kg. Weight yesterday 72.2 kg. Responding to diuresis efforts. Will administer another 40 mg of intravenous furosemide this morning then switch her to 60 mg of furosemide orally twice daily starting this afternoon. (2) Hypertensive heart disease with acute diastolic congestive heart failure: Status: Acute Assessment and Plan: Slowly improving. (3) Hypertensive urgency: Status: Acute Assessment and Plan: Despite changes in antihypertensive medication regimen she remains hypertensive at this time. Will double the dose of losartan to 50 mg twice daily. (4) Hypertensive cardiomegaly with heart failure: Status: Acute (5) Demand ischemia of myocardium: Status: Acute Assessment and Plan: Troponin I is gradually normalizing. (6) Mitral valve regurgitation: Problem details: Transthoracic echocardiogram 06/19/2018: Normal left ventricular function, wall thickness, ejection fraction of 60%. Severe left atrial enlargement. Moderate mitral regurgitation. Moderate elevation in pulmonary artery pressures, 51 mmHg plus right atrial pressure. Status: Acute Assessment and Plan: Await results of today's echo. (7) Paroxysmal atrial fibrillation: Problem details: Transthoracic echocardiogram 06/19/2018: Normal left ventricular function, wall thickness, ejection fraction of 60%. Severe left atrial enlargement. Moderate mitral regurgitation. Moderate elevation in pulmonary artery pressures, 51 mmHg plus right atrial pressure. Chronically anticoagulated with apixaban 2.5 mg twice daily. Came in on metoprolol tartrate 25 mg twice daily. We switched to metoprolol succinate 50 mg once daily. Status: Acute Assessment and Plan: Continue with current plan of care. (8) Anxiety: Status: Acute Assessment and Plan: Stable at this juncture. Plan 1. Reviewed with patient. 2. Answered her questions. 3. Patient agreeable to above stated plans and recommendations. Time Spent With Patient Total time spent: 30 minutes Subjective Time Seen by Provider: 08:30 Date Seen: 01/24/23 Interval history: 82-year-old woman with exacerbation of diastolic heart failure. This is hospital day 2. She feels a little improved compared to yesterday. Dyspnea on exertion is less profound than yesterday. Able to more easily walk from bedside to bathroom and back with less dyspnea on exertion. Denies paroxysmal nocturnal dyspnea or orthopnea. Denies chest heaviness, pressure, tightness, or pain. Denies syncope or near-syncope. Denies orthostasis. Exam Narrative: Exam Narrative: The most part appears comfortable. Less tachypneic than previously. On room air now with saturations in the mid to upper 90s. Right conjunctival injection unchanged from yesterday. Vision and hearing are grossly normal. Midline trachea. Supple neck. Positive JVD and hepatojugular reflux in the sitting upright position. Still has trace edema pretibially bilaterally. Lungs for the most part clear with scattered rhonchi left more so than right. No wheezing. No rales. Moves all 4 extremities without focal motor deficits. No tremor, asterixis, or ataxia Skin with diffuse subcutaneous atrophy with areas of ecchymosis upper and lower extremities. Const: Vital Signs, click to edit/add: Vital Signs - 24 hr 01/23/23 15:05 01/23/23 16:08 01/23/23 16:08 Temperature 97.4 F L Pulse Rate 56 L Pulse Rate [Pulse Oximeter] 57 L Respiratory Rate 20 20 Blood Pressure [Le ft Arm] 184/76 H Pulse Oximetry 96 96 Oxygen Delivery Me thod Room Air Room Air 01/23/23 23:05 01/23/23 23:21 01/23/23 23:32 Temperature Pulse Rate 49 L Pulse Rate [Pulse Oximeter] 51 L Respiratory Rate Blood Pressure [Le ft Arm] Pulse Oximetry Oxygen Delivery Me thod Room Air 01/23/23 19:25 01/23/23 19:00 01/24/23 03:00 Temperature 98 F 98.2 F Pulse Rate 62 Pulse Rate [Pulse Oximeter] 57 L 56 L Respiratory Rate 20 18 Blood Pressure [Le ft Arm] 160/63 H 166/63 H Pulse Oximetry 97 97 Oxygen Delivery Me thod Room Air 01/24/23 08:09 01/24/23 08:10 01/24/23 08:10 Temperature 97.5 F L Pulse Rate 60 Pulse Rate [Pulse Oximeter] 74 Respiratory Rate 18 18 Blood Pressure [Le ft Arm] 188/107 H Pulse Oximetry 97 97 Oxygen Delivery Me thod Room Air Room Air 01/24/23 11:00 Temperature 97.4 F L Pulse Rate Pulse Rate [Pulse Oximeter] 57 L Respiratory Rate 18 Blood Pressure [Le ft Arm] 195/75 H Pulse Oximetry 98 Oxygen Delivery Me thod Room Air Documenting provider has reviewed patient's vital signs: yes Labs Labs: Laboratory Results - last 24 hr 01/23/23 01/24/23 15:15 05:57 Potassium 3.6 Creatinine 1.0 Estimated Creat Clear 34.64 Estimated GFR 56 Magnesium 2.1 Troponin I 0.10 H* 0.06 H* ECG Attestation: I personally reviewed and interpreted this ECG as follows: Prior ECG tracings: available for review Interpretation: Sinus rhythm, bradycardia. Unchanged from yesterday.
[2023-01-24] MEDS: FUROSEMIDE 20 MG TABLET 60 MG PO (15:52)
[2023-01-24] MEDS: DOCUSATE SODIUM 100 MG CAPSULE PO (18:00)
--- NOTE | 2023-01-24 19:02 | PC.NURSE ---
shift note: pt up indept in room with cane. pt states she becomes sob with ambulating in room but it resolved after sitting for a short time. LS clr. HR reg. pt requested colace for constipation. colace ordered and given. Echo done
[2023-01-24] MEDS: ATORVASTATIN CALCIUM 40 MG TABLET PO (20:55)
[2023-01-24] MEDS: TRAZODONE HCL 50 MG TABLET 25 MG PO (20:56)
[2023-01-24] MEDS: MELATONIN 3 MG TABLET PO (20:56)
[2023-01-25 05:30] VITALS: BP 174/72; PULSE 54; RESP 18; TEMP 36.6; O2SAT 97
[2023-01-25] MEDS: OMEPRAZOLE 20 MG CAPSULE DR PO (06:20)
[2023-01-25 07:00] VITALS: BP 192/84; PULSE 58; RESP 18; TEMP 36.5; O2SAT 97
--- NOTE | 2023-01-25 07:03 | PC.NURSE ---
Pt pleasant and cooperative. VSS. Moved rooms and she was a little upset with that although understood. Just didn't sleep well. VSS. Up Independantly.
[2023-01-25] MEDS: FUROSEMIDE 20 MG TABLET 60 MG PO (08:41)
[2023-01-25] MEDS: FERROUS SULFATE 325 MG TABLET PO (08:41)
[2023-01-25] MEDS: ESCITALOPRAM 10 MG TABLET 5 MG PO (08:41)
[2023-01-25] MEDS: allopurinoL 100 MG TABLET PO (08:44)
[2023-01-25] MEDS: ASCORBIC ACID 500 MG TABLET 250 MG PO (08:44)
[2023-01-25] MEDS: METOPROLOL SUCCINATE (XL) 50 MG TAB PO (08:44)
[2023-01-25] MEDS: LOSARTAN POTASSIUM 50 MG TABLET PO (08:45)
[2023-01-25] MEDS: APIXABAN 5 MG TABLET 2.5 MG PO (08:45)
--- NOTE | 2023-01-25 11:55 | NUTR.NU ---
OPALn with MD consult for diet education related to CHF Exacerbation. RDN visited with patient and daughter (Chelsi) whom reported she has had low sodium diet education multiple times in the past. She declined diet education at this time, for her and designated caregiver. RDN did provide educational materials to patient's daughter. RDN's contact information was provided and patient/family was encouraged to call with questions.
[2023-01-25 12:44] VITALS: BP 204/91; PULSE 56; RESP 18; TEMP 36.5
--- NOTE | 2023-01-25 14:02 | PC.NURSE ---
Discharge: Pt pleasant and cooperative. VSS. Up Independantly in room and tolerating well. Pt. denies, pain, N/V/SOB. Pt. has a Productive cough. Discharged today at 1330 accompanied by dtr. Pt's IV removed intact. Discharge instructions given and signed, pt. verbalized understanding of instructions.
--- NOTE | 2023-01-25 15:59 | P.DS_ITS ---
DS: Providers Provider Time Seen by Provider: 11:00 Date Seen: 01/25/23 Date of admission: 01/23/23 11:43 Primary care physician: Gómez Butler MD Admitting Clinician: Eris Bal MD Consults: 01/23/23 11:43 Consult to Nutrition [CONS] Routine Comment: Reason for consult:: Miscellaneous Comment: HFpEF Attending Physician on discharge: Eris Bal MD Date of Discharge: 01/25/23 DS: Diagnosis Discharge Diagnosis (1) Acute on chronic heart failure with preserved ejection fraction (HFpEF): Status: Acute (2) Hypertensive heart disease with acute diastolic congestive heart failure: Status: Acute (3) Hypertensive cardiomegaly with heart failure: Status: Acute (4) Demand ischemia of myocardium: Status: Acute (5) Hypertensive urgency: Status: Acute (6) Paroxysmal atrial fibrillation: Status: Acute Problem details: Transthoracic echocardiogram 06/19/2018: Normal left ventricular function, wall thickness, ejection fraction of 60%. Severe left atrial enlargement. Moderate mitral regurgitation. Moderate elevation in pulmonary artery pressures, 51 mmHg plus right atrial pressure. Chronically anticoagulated with apixaban 2.5 mg twice daily. Came in on metoprolol tartrate 25 mg twice daily. We switched to metoprolol succinate 50 mg once daily. (7) Mitral valve regurgitation: Status: Acute Problem details: Transthoracic echocardiogram 06/19/2018: Normal left ventricular function, wall thickness, ejection fraction of 60%. Severe left atrial enlargement. Moderate mitral regurgitation. Moderate elevation in pulmonary artery pressures, 51 mmHg plus right atrial pressure. (8) Anxiety: Status: Acute DS: Summary Hospital Course Hospital Course: Corine Foreman is a 82 year old woman presents to the emergency department for further assessment and supportive increasing dyspnea with exertion.? Was in her usual state of health until earlier in the week.? About 4 days ago she noticed a definite increase in dyspnea with exertion.? Has has intermittent 1 pillow paroxysmal nocturnal dyspnea without orthopnea.? No cough, fevers, rigors, or diaphoresis.? Has noted gradual increase in dependent edema bilaterally.? Has chronic venous insufficiency.? Uses compression wraps in lower extremities during the day.? Also uses a venous pumping system for lower extremities daily.? Denies dyspnea at rest.? Daughter notes tachypnea at rest.? Patient denies chest heaviness, pressure, tightness, or pain.? She denies syncope or near-syncope.? Denies nausea or vomiting.? Denies palpitations or chest fluttering.? She tells me how her weight has increased by about 10 lb over 2 days.? Denies change in her diet, including denies increasing sodium consumption. Patient and daughter acknowledge patient undergoing a number of anxiety evoking experiences in relation to the recent passing of her , trying to downs ize, getting ready for an auction, trying to deal with family members who are refusing to receive vaccines against COVID or take any measures to try to prevent the spread of COVID.? These anxiety evoking experiences are taking their toll on her. On initial assessment she has jugular venous distention and hepatojugular reflux in the sitting upright position. She has minimal bilateral lower extremity edema. Bibasilar end inspiratory rales. Chest X-ray demonstrates pulmonary edema. She is admitted to the hospital and treated with furosemide 40 mg IV twice daily until such time as we switched over to furosemide 60 mg p.o. twice daily (was taking furosemide 40 mg p.o. b.i.d. on presentation). Weight on presentation was 72.7 kg. Weight at time of discharge down to 70.9 kg. She lost roughly a 5 lb while in hospital. No longer has dyspnea with minimal exertion. Able to walk up and down the halls in the hospital twice without dyspnea or hypoxia. Blood pressure is markedly elevated on presentation with systolic values of 210- 230 and diastolic values of 100-130. I switched her metoprolol tartrate 25 mg p.o. b.i.d. to metoprolol succinate 50 mg once daily. I added losartan 50 mg o nce daily. The dose of both of these medicines may need to be adjusted in the future. Blood pressures much improved prior to discharge. Still has elevated blood pressures nonetheless. Status at Discharge Functional status at discharge: uses cane/walker Overall status at discharge: patient is progressing back to baseline Time Spent with Patient Time attestation: Total time spent providing and/or coordinating discharge services: Time spent: Greater than 30 minutes Exam Narrative: Exam Narrative: Somewhat anxious. Nevertheless friendly, cooperative. Articulate. Alert and oriented to self, place, time, situation. Her jugular venous distention hepatojugular reflux are improved from presentation. When she 1st presented was up to the angle of the jaw. Now it is down to half way upper neck. No longer has dependent edema. Lungs now clear to auscultation without wheezing, rhonchi, or rales. Heart tones with regular rhythm, normal S1-S2. Independent transfer, station, and gait. Independent with her walker and walking up and down the halls in a hospital. Const: Vital Signs, click to edit/add: Vital Signs - 24 hr 01/24/23 19:00 01/24/23 23:00 01/24/23 23:00 Temperature 97.9 F Pulse Rate 56 L Pulse Rate [Pulse Oximeter] 54 L Respiratory Rate 18 Blood Pressure Blood Pressure [Le ft Arm] 147/73 H Pulse Oximetry 95 95 Oxygen Delivery Me thod Room Air Room Air 01/24/23 23:00 01/25/23 05:30 01/25/23 07:00 Temperature 97.2 F L 98 F Pulse Rate Pulse Rate [Pulse Oximeter] 54 L 54 L 58 L Respiratory Rate 18 18 18 Blood Pressure Blood Pressure [Le ft Arm] 167/71 H 174/72 H Pulse Oximetry 95 97 Oxygen Delivery Me thod Room Air Room Air 01/25/23 07:00 01/25/23 07:00 01/25/23 12:44 Temperature 97.7 F 97.7 F Pulse Rate 56 L Pulse Rate [Pulse Oximeter] 58 L Respiratory Rate 18 18 18 Blood Pressure 204/91 H Blood Pressure [Le ft Arm] 192/84 H Pulse Oximetry 97 97 Oxygen Delivery Me thod Room Air Room Air Documenting provider has reviewed patient's vital signs: yes DS: Data Imaging Echo: Radiologist's impression: Preliminary report of transthoracic echocardiogram obtained during the course hospitalization demonstrates hyperdynamic LV function with no regional wall motion abnormalities. Await final report. Discharge Plan Discharge Disposition: Home, Self-Care Date of Admission: 01/23/23 11:43 Attending Provider on Discharge: Eris Bal Primary Care Provider: Gómez Butler Condition: Improved Anticipated Discharge Date/Time: 01/25/23 13:00 Discharge Medications: New metoprolol succinate 50 mg Tablet Extended Release 24 Hr 50 mg PO DAILY 30 Days Qty: 30 1RF furosemide 20 mg Tablet 60 mg PO BID@0800,1400 30 Days Qty: 180 1RF losartan 50 mg Tablet 50 mg PO DAILY 30 Days Qty: 30 1RF Continued melatonin 3 mg capsule 3 mg PO HS PRN ascorbic acid (vitamin C) 250 mg tablet 250 mg PO DAILY multivitamin Tablet 1 tab PO DAILY oxycodone 5 mg tablet 5 mg PO Q4H PRN acetaminophen 500 mg tablet 1,000 mg PO Q6H PRN Rx Instructions: NO MORE THAN 4000 MG/DAY Fish Oil 300-500 mg capsule 1 cap PO DAILY apixaban 2.5 mg tablet 2.5 mg PO BID Qty: 180 3RF escitalopram oxalate 5 mg tablet 5 mg PO DAILY Qty: 90 3RF omeprazole 20 mg capsule,delayed release(DR/EC) 20 mg PO DAILY Qty: 90 3RF atorvastatin 40 mg tablet 40 mg PO HS trazodone 50 mg tablet 25 mg PO HS Rx Instructions: 1/2 tab at HS allopurinol 100 mg tablet 100 mg PO DAILY triamcinolone acetonide 0.1 % cream 1 applic topical BID PRN ferrous gluconate 324 mg (38 mg iron) tablet 324 mg PO BID Qty: 100 3RF tramadol 50 mg tablet 50 mg PO Q6H PRN (Reason: pain) Qty: 60 1RF Discontinued furosemide 40 mg tablet 40 mg PO BID Qty: 180 3RF metoprolol tartrate 25 mg tablet 25 mg PO BID Qty: 180 3RF Discharge Orders: Discharge Order (Routine); Ordered 01/25/23 Ordered By: Eris Bal Patient Education: Metoprolol (By mouth), Furosemide (By mouth), Losartan (By mouth), Heart Failure (IP), Low-Sodium Diet (GEN) Activity Level: Activity as Tolerated Discharge Diet: 2 gm Sodium Follow Up Appointments: Gómez Butler MD [Primary Care Provider] - 02/02/23 9:00 am (Dr. Butler follow-up in 4-7 days with pre-visit kidney function panel. MERLENE PIERCE, DR BUTLER is not available ) Forms: Virtual 3-D Display for Smartphones Info Instructions
== END 2023-01-25 13:30 | disposition home or self-care (01) | DRG 291 ==
LOC: ED 08:55 → MEDSURG 11:30
PROVIDERS: Admitting Provider Internal Medicine; Emergency Provider Family Medicine; PCP Family Medicine; Visit Provider Internal Medicine
DX: I13.0 Hypertensive heart and chronic kidney disease with heart failure and stage 1 through stage 4 chronic kidney disease, or unspecified chronic kidney disease (principal); I50.33 Acute on chronic diastolic (congestive) heart failure; I24.8 Other forms of acute ischemic heart disease; N18.9 Chronic kidney disease, unspecified; I16.0 Hypertensive urgency; I34.0 Nonrheumatic mitral (valve) insufficiency; I48.0 Paroxysmal atrial fibrillation; F41.9 Anxiety disorder, unspecified; I73.9 Peripheral vascular disease, unspecified; I87.2 Venous insufficiency (chronic) (peripheral); K21.9 Gastro-esophageal reflux disease without esophagitis; E78.5 Hyperlipidemia, unspecified; M10.9 Gout, unspecified; Z79.01 Long term (current) use of anticoagulants; R30.0 Dysuria; R35.0 Frequency of micturition
CPT/HCPCS: 36415; 71045; 80048; 80076; 81001; 82565; 82803; 83735; 83880; 84132; 84484; 85025; 85610; 85730; 86140; 87086; 87502; 87631; 87634; 87635; 93005; 93306; 94761; 99285; A9270; J1940

== ENCOUNTER 2023-02-01 09:12 | Emergency (ER) | payer MEDICARE, OTHER, BC, SELFPAY ==
[2023-02-01 09:19] VITALS: BP 169/84; PULSE 64; RESP 16; TEMP 36.1; O2SAT 98; BMI 27.6
[2023-02-01 10:21] LABS: Lactate* 0.8 mmol/L (0.5-1.9)
[2023-02-01 10:25] LABS: Basophils Absolute Auto 0.02 K/uL (0.00-0.30); Basophils Percent Auto 0.2 % (0.0-3.0); Eosinophils Absolute Auto 0.04 K/uL (0.00-0.50); Eosinophils Percent Auto 0.4 % (0.0-7.0); Hematocrit 38.9 % (33.0-51.0); Hemoglobin* 12.3 gm/dL (12.0-16.0); Immature Granulocytes Abs Auto 0.02 K/uL (0.00-0.30); Immature Granulocytes Pct Auto 0.2 %; Mean Corpuscular HGB Conc 32 gm/dL (32-36); Mean Corpuscular Hemoglobin 30 pg (26-34); Mean Corpuscular Volume 96 fL (80-100); Neutrophils Percent Auto 79.2 % (42.0-72.0); Platelet Count* 180 K/uL (140-440); RDW Coefficient of Variation % 14.4 % (11.5-15.5); Red Blood Count 4.06 m/uL (4.00-5.20); White Blood Count* 10.91 K/uL (4.50-11.00)
[2023-02-01 10:34] LABS: Slide Review Reflex No
[2023-02-01 10:44] LABS: Chloride* 104 mmol/L (96-114); Potassium* 4.3 mmol/L (3.6-5.1); Sodium* 136 mmol/L (135-149)
[2023-02-01 10:46] LABS: Est. Creatinine Clearance* 34.64; Estimated Glomerular Filt Rate 56 ml/min
[2023-02-01 10:47] LABS: Blood Urea Nitrogen* 32 mg/dL (7-30); Carbon Dioxide* 26 mmol/L (20-32); Glucose* 94 mg/dL (60-115)
[2023-02-01 10:50] LABS: C Reactive Protein* 1.4 mg/dL (0.5-1.0)
[2023-02-01 11:43] LABS: Erythrocyte SedimentationRate* 46 mm/hr (2-20)
[2023-02-01 11:48] VITALS: BP 152/61; PULSE 57; RESP 18; TEMP 36.6; O2SAT 96
--- NOTE | 2023-02-01 14:31 | ED_ITS ---
HPI - General Adult General Date Seen: 02/01/23 Chief complaint: Skin/Abscess/Foreign Body Stated complaint: Facial rash Time Seen by Provider: 02/01/23 09:31 Source: patient and family Mode of arrival: ambulatory Limitations: no limitations History of Present Illness HPI narrative: Patient is an 82-year-old woman here with her daughter for evaluation of a rash. She was admitted to the hospital recently with congestive heart failure and was discharged on 2 new medications, metoprolol and losartan secondary to worsening hypertension. Her dose of Lasix was also increased. Her daughter is concerned because her blood pressure is not yet under control. Medications were changed 6 days ago. This morning she woke up with a rash across her face, essentially across both cheeks and the bridge of her nose. The area above her upper lip is spared. The rash is not itchy, it is tender to touch and slightly warm. She is not running fevers. She has never had a rash like this before. She does have a daughter with lupus but does not carry this diagnosis herself. She is not having any breathing symptoms, she is still having little bit of dyspnea with exertion but says it is much better than it was. She has been taking her medications, has generally been checking her weight although she forgot the past couple of days. They are wondering if we could check it today here. They were concerned that her rash might be an allergic reaction to 1 of her medications. Related Data Home Medications Medication Instructions Recorded Confirmed acetaminophen 500 mg tablet 1,000 mg PO Q6H PRN 06/08/22 02/01/23 ascorbic acid (vitamin C) 250 mg 250 mg PO DAILY 06/08/22 02/01/23 tablet melatonin 3 mg capsule 3 mg PO HS PRN 06/08/22 02/01/23 multivitamin 1 tab PO DAILY 06/08/22 02/01/23 omega-3 fatty acids-fish oil 300 1 cap PO DAILY 06/08/22 02/01/23 mg-500 mg capsule (Fish Oil) oxycodone 5 mg tablet 5 mg PO Q4H PRN 06/08/22 02/01/23 allopurinol 100 mg tablet 100 mg PO DAILY 01/23/23 02/01/23 atorvastatin 40 mg tablet 40 mg PO HS 01/23/23 02/01/23 trazodone 50 mg tablet 25 mg PO HS 01/23/23 01/23/23 triamcinolone acetonide 0.1 % 1 applic topical BID PRN 01/23/23 02/01/23 topical cream Previous Rx's Medication Instructions Recorded apixaban 2.5 mg tablet 2.5 mg PO BID #180 tabs 06/08/22 escitalopram oxalate 5 mg tablet 5 mg PO DAILY #90 tabs 06/08/22 omeprazole 20 mg capsule,delayed 20 mg PO DAILY #90 caps 06/08/22 release ferrous gluconate 324 mg (38 mg 324 mg PO BID #100 tabs 07/12/22 iron) tablet tramadol 50 mg tablet 50 mg PO Q6H PRN pain #60 tabs 12/30/22 furosemide 20 mg tablet 60 mg PO BID@0800,1400 30 days 01/25/23 #180 tabs losartan 50 mg tablet 50 mg PO DAILY 30 days #30 tabs 01/25/23 metoprolol succinate 50 mg 50 mg PO DAILY 30 days #30 tabs 01/25/23 tablet,extended release 24 hr Allergies Allergy/AdvReac Type Severity Reaction Status Date / Time cephalexin Allergy Unknown RASH/HIVES Verified 02/01/23 09:26 Review of Systems Status of ROS: Reports: 6 or more systems reviewed and unremarkable except as noted in History and below [facility] Medical History Anemia Anxiety Articular gout Chronic back pain Chronic kidney disease Diastolic congestive heart failure GERD (gastroesophageal reflux disease) Health care directive on file Hyperlipemia Hypertension (06/19/09) Insomnia Left shoulder pain Methicillin resistant Staphylococcus aureus culture positive Mitral valve regurgitation (07/24/09) Paroxysmal atrial fibrillation Peripheral vascular disease Pulmonary hypertension (07/24/09) Stasis edema (06/19/09) Venous stasis dermatitis Surgical History H/O Whipple procedure History of blepharoplasty History of bunionectomy (06/19/09) Status post cataract extraction Status post tubal ligation Social History Smoking Status: Never smoker Do you use any of these nicotine containing products: None Second hand tobacco smoke exposure: Yes How often do you have a drink containing alcohol: never How often do you have six or more drinks on one occasion: Never AUDIT-C Alcohol total score: 0 Non-prescribed substance use: denies use service: No Exam Narrative: Exam Narrative: Vital signs as noted above. In general, an alert, nontoxic elderly woman. Head: Normocephalic, atraumatic. Eyes: Pupils are equal reactive. Extraocular movements are full. Conjunctivae are normal. ENT: Mucous membranes are moist. Throat is normal. No intraoral lesions. Neck: Supple without lymphadenopathy. Heart: Regular rate and rhythm. No murmur or rub. Lungs: Clear bilaterally. No increased work of breathing, crackles or wheezes. Extremities: Well perfused. No edema. Neurologic: Patient is alert and oriented to person and place. Speech is fluent. Face is symmetric. Moves all extremities equally. Affect: Normal. Skin: Warm and dry. Well perfused. She has an erythematous and slightly warm rash noted across her cheeks and the bridge of her nose with sparing of the nasal labial folds and area above her upper lip. Slightly tender to palpation without fluctuance or blisters. No other rashes. Const: Vital Signs, click to edit/add: Vital Signs - 24 hr 02/01/23 09:19 02/01/23 11:48 Temperature 97.0 F L 97.8 F Pulse Rate [Right Pulse Oximeter] 64 57 L Respiratory Rate 16 18 Blood Pressure [Ri ght Upper Arm] 169/84 H 152/61 H Pulse Oximetry 98 96 Oxygen Delivery Me thod Room Air Documenting provider has reviewed patient's vital signs: yes Course Course Hospital Course: Patient presents with a malar rash. I have read about her medications, none seem to be associated with significant side effects of rash, particularly this type of rash. Given that it is somewhat painful, i.e. do think that cellulitis has to be considered, something like erysipelas. Certainly would be unusual to diagnose lupus at her age unless it has been quiescent to this point. I did do a couple of labs, her white blood cell count is normal at 10.9, slight left shift. Her CRP is minimally elevated at 1.4, sed rate is somewhat more elevated at 46. Electrolytes are normal, potassium is 4.3 today. Creatinine is 1.0. Lactate is 0.8. She has an appointment scheduled tomorrow with Dr. Vallejo to follow-up on her blood pressure medications. I would doubt that this is a side effect from her medications so for now I have recommended that she stay on those. Her weight today is 70.76, which is stable from hospital discharge, so I have congratulated her on that. I would start her on doxycycline, she does have a Keflex allergy. If she worsens at any point in the next 24 hours, return to the emergency department, otherwise follow up for recheck with Dr. Vallejo, will see how she responds to antibiotics and proceed from there in terms of whether she needs any further workup. Vital Signs Vital signs: Initial Vital Signs Temperature 97.0 F L 02/01/23 09:19 Temperature Source Temporal Artery Scan 02/01/23 09:19 Pulse Rate 64 02/01/23 09:19 Respiratory Rate 16 02/01/23 09:19 Blood Pressure 169/84 H 02/01/23 09:19 Blood Pressure Mean 112 02/01/23 09:19 Blood Pressure Position Sitting 02/01/23 09:19 Pulse Oximetry 98 02/01/23 09:19 Oxygen Delivery Method 02/01/23 09:19 Vital Signs Temperature 97.0 F L 02/01/23 09:19 Pulse Rate 64 02/01/23 09:19 Respiratory Rate 16 02/01/23 09:19 Blood Pressure 169/84 H 02/01/23 09:19 Pulse Oximetry 98 02/01/23 09:19 Oxygen Delivery Method 02/01/23 09:19 Temperature 97.8 F 02/01/23 11:48 Pulse Rate 57 L 02/01/23 11:48 Respiratory Rate 18 02/01/23 11:48 Blood Pressure 152/61 H 02/01/23 11:48 Pulse Oximetry 96 02/01/23 11:48 Oxygen Delivery Method 02/01/23 09:19 Medical Decision Making Lab Data Labs: Lab Results 02/01/23 02/01/23 02/01/23 Range/Units 10:16 10:16 10:16 WBC 10.91 (4.50-11.00) K/uL RBC 4.06 (4.00-5.20) m/uL Hgb 12.3 (12.0-16.0) gm/dL Hct 38.9 (33.0-51.0) % MCV 96 (80-100) fL MCH 30 (26-34) pg MCHC 32 (32-36) gm/dL RDW Coeff of Phoebe 14.4 (11.5-15.5) % Plt Count 180 (140-440) K/uL Neut % (Auto) 79.2 H (42.0-72.0) % Lymph % (Auto) 12.0 L (20-44) % [place] % (Auto) 8.0 (0.0-11.0) % Eos % (Auto) 0.4 (0.0-7.0) % Baso % (Auto) 0.2 (0.0-3.0) % Neut # (Auto) 8.60 H (1.7-7.0) K/uL Lymph # (Auto) 1.30 (0.90-2.90) K/uL [place] # (Auto) 0.90 (0.00-0.90) K/UL Eos # (Auto) 0.04 (0.00-0.50) K/uL Baso # (Auto) 0.02 (0.00-0.30) K/uL ESR 46 H (2-20) mm/hr Sodium 136 (135-149) mmol/L Potassium 4.3 (3.6-5.1) mmol/L Chloride 104 (96-114) mmol/L Carbon Dioxide 26 (20-32) mmol/L BUN 32 H (7-30) mg/dL Creatinine 1.0 (0.5-1.5) mg/dL Estimated Creat Clear 34.64 Estimated GFR 56 ml/min Glucose 94 (60-115) mg/dL Lactate (0.5-1.9) mmol/L Calcium 9.0 (8.4-10.6) mg/dL C-Reactive Protein 1.4 H (0.5-1.0) mg/dL 02/01/23 Range/Units 10:16 WBC (4.50-11.00) K/uL RBC (4.00-5.20) m/uL Hgb (12.0-16.0) gm/dL Hct (33.0-51.0) % MCV (80-100) fL MCH (26-34) pg MCHC (32-36) gm/dL RDW Coeff of Phoebe (11.5-15.5) % Plt Count (140-440) K/uL Neut % (Auto) (42.0-72.0) % Lymph % (Auto) (20-44) % [place] % (Auto) (0.0-11.0) % Eos % (Auto) (0.0-7.0) % Baso % (Auto) (0.0-3.0) % Neut # (Auto) (1.7-7.0) K/uL Lymph # (Auto) (0.90-2.90) K/uL [place] # (Auto) (0.00-0.90) K/UL Eos # (Auto) (0.00-0.50) K/uL Baso # (Auto) (0.00-0.30) K/uL ESR (2-20) mm/hr Sodium (135-149) mmol/L Potassium (3.6-5.1) mmol/L Chloride (96-114) mmol/L Carbon Dioxide (20-32) mmol/L BUN (7-30) mg/dL Creatinine (0.5-1.5) mg/dL Estimated Creat Clear Estimated GFR ml/min Glucose (60-115) mg/dL Lactate 0.8 (0.5-1.9) mmol/L Calcium (8.4-10.6) mg/dL C-Reactive Protein (0.5-1.0) mg/dL Discharge Plan Discharge Clinical Impression: Malar rash Patient Disposition: Home, Self-Care Condition: Stable Instructions: Cellulitis (ED) Additional Instructions: For now, I am going to treat this as possible infection. I do not think this rash is likely due to your medications. I would recommend taking the antibiotic as prescribed and then will have you follow-up with Dr. Vallejo tomorrow as planned. If you are worsening in the meantime, developed fever, significant worsening redness, pain, swelling etcetera, return to the emergency department. In the meantime, continue your current blood pressure medicines. Your weight today is 70.8 kilos, stable compared to hospital discharge. Prescriptions: No Action melatonin 3 mg capsule 3 mg PO HS PRN ascorbic acid (vitamin C) 250 mg tablet 250 mg PO DAILY multivitamin Tablet 1 tab PO DAILY oxycodone 5 mg tablet 5 mg PO Q4H PRN acetaminophen 500 mg tablet 1,000 mg PO Q6H PRN Rx Instructions: NO MORE THAN 4000 MG/DAY Fish Oil 300-500 mg capsule 1 cap PO DAILY apixaban 2.5 mg tablet 2.5 mg PO BID Qty: 180 3RF escitalopram oxalate 5 mg tablet 5 mg PO DAILY Qty: 90 3RF omeprazole 20 mg capsule,delayed release(DR/EC) 20 mg PO DAILY Qty: 90 3RF atorvastatin 40 mg tablet 40 mg PO HS trazodone 50 mg tablet 25 mg PO HS Rx Instructions: 1/2 tab at HS allopurinol 100 mg tablet 100 mg PO DAILY triamcinolone acetonide 0.1 % cream 1 applic topical BID PRN metoprolol succinate 50 mg Tablet Extended Release 24 Hr 50 mg PO DAILY 30 Days Qty: 30 1RF furosemide 20 mg Tablet 60 mg PO BID@0800,1400 30 Days Qty: 180 1RF losartan 50 mg Tablet 50 mg PO DAILY 30 Days Qty: 30 1RF ferrous gluconate 324 mg (38 mg iron) tablet 324 mg PO BID Qty: 100 3RF tramadol 50 mg tablet 50 mg PO Q6H PRN (Reason: pain) Qty: 60 1RF Follow Up/Referrals: Gómez Bermudez MD [Primary Care Provider] - Stand Alone Forms: [facility] Info Instructions
== END 2023-02-01 12:00 | disposition home or self-care (01) ==
PROVIDERS: Emergency Provider Emergency Medicine; PCP Family Medicine
DX: R21 Rash and other nonspecific skin eruption (principal)
CPT/HCPCS: 36415; 80048; 83605; 85025; 85651; 86140; 99283; 99284

== ENCOUNTER 2023-02-08 09:29 | Outpatient (CLI) | payer MEDICARE, BC, OTHER, SELFPAY | END 2023-02-08 09:30 | disposition home or self-care (01) | PROVIDERS: PCP Family Medicine; Visit Provider Internal Medicine | DX: I50.33 Acute on chronic diastolic (congestive) heart failure (principal) | CPT/HCPCS: 80048 ==

== ENCOUNTER 2023-02-18 10:22 | Outpatient (CLI) | payer MEDICARE, BC, OTHER, SELFPAY ==
--- OUTSIDE RECORDS SUMMARY | 2023-03-06 00:07 | XMS_ITS | Continuity of Care Document ---
Author Name Unknown Organization [facility] Address [address] [address] [place] [address] Phone Care Team Providers Care Guest Services Name Role Phone Rafael Artis MD Unavailable Unavailable Allergies, Adverse Reactions, Alerts Substance Reaction Status Criticality No Known allergies Medications Medication Instructions Dosage Effective Dates (start - stop) Status Comments SODIUM CHLORIDE (unknown strength) One tablet 3 time daily Not Available - Active multivitamin Tab Take one tablet by mouth daily - Active lisinopril 40 mg Tab Take one tablet by mouth daily - Active atenolol 50 mg Tab one tablet a day - Acti ve Procedures Procedure Date Ugi Endo; W/us Guid Asp/bx Ugi Endo; W/bx 1/mx Offic Cons New/estab Mod-hi 60 09 [id number] Advance Directives Directive Yes / No Effective Date File Name No Information Encounters Encounter Description Practice Location Reason(s) For Visit Diagnoses Date Provider Providers Copied on Encounter [facility], [address] [address], [place], [id number], [place] tel:[phone] [facility] No Information [address] [facility], [facility] [address], [place], [place], [id number], [place]. tel:[phone] Referring Provider: [place], [address] [facility], [place], [address]. tel:[phone] Offic Cons New/estab Mod-hi 60 [facility], [address] [address], [place], [id number], tel:[phone] [facility] Abnormal GI study (chief complaint) Dis Of Biliary Tract Nec 9 No Information Referring Provider: Angel Bermudez MD C, [address], [place], [address]. tel:[phone] Family History Family Member Type Diagnosis Age At Onset First degree family history Problem (finding) No history of Cancer, colon First degree family history Problem (finding) asthma First degree family history Problem (finding) No history of Crohn's First degree family history Problem (finding) No history of Ulcerative Colitis First degree family history Problem (finding) No Family history of No history of Colon Polyps Payers Payer name Insurance type Covered constitution party ID Authoriza titracy(s) Medicare NGS MB [id number] [facility] [employer] [place] [id number] [facility] [id number] For Life CI [id number] Social History Type Description Quantity Date Captured Comments Sex Female Smoking Status No Information Chief Complaint And Reason For Visit No Information Reason For Referral Reason For Referral No Information Plan Of Treatment Date Type Action Status No Information History Of Present Illness Encounter Date Complaint History Of Prese nt Illness No Information Functional Status Date Functional Assessmen t No Information Instructions Date Instruction Additional Infor mation No Information Assessments Type Assessment Date No Information Patient Care Teams Name Effective Dates (start - stop) Status Members No Information
== END 2023-02-18 10:23 | disposition home or self-care (01) ==
LOC: AMB 03-06 00:05
PROVIDERS: PCP Internal Medicine; Visit Provider Internal Medicine
DX: S59.912A Unspecified injury of left forearm, initial encounter (principal); W18.30XA Fall on same level, unspecified, initial encounter; Y92.003 Bedroom of unspecified non-institutional (private) residence as the place of occurrence of the external cause
CPT/HCPCS: A0425; A0427

== ENCOUNTER 2023-02-18 11:08 | Inpatient (IN) | payer MEDICARE, BC, OTHER, SELFPAY ==
[2023-02-18] VITALS (18 sets, daily range): BP systolic 122–154; BP diastolic 61–88; PULSE 80–130; RESP 16–22; TEMP 36.3–39.3; O2SAT 92–96; BMI 27.5
--- NOTE | 2023-02-18 11:20 | CRLHL7_ITS ---
For Patients: As a result of the Century Cures Act, medical imaging exams and procedure reports are released immediately into your electronic medical record. You may view this report before your referring provider. If you have questions, please contact your health care provider. INDICATION: Injury COMPARISON: None TECHNIQUE: CT examination of the cervical spine is performed without contrast using spiral technique. Thin axial, sagittal and coronal reconstructions were made. Please note that all CT scans at this facility use dose modulation, iterative reconstruction, and/or weight-based dosing when appropriate to reduce radiation dose to as low as reasonably achievable. FINDINGS: : Decreased bone mineral density. Moderate to severe degenerative changes mainly affect in the mid and lower cervical spine. No acute fracture, dislocation or destructive process. Atherosclerotic vascular calcifications. Right thyroid nodule which would best be studied by sonography. This is only marginally visualized. IMPRESSION: Demineralization and degenerative change. No visible acute fracture, dislocation or destructive process. Partial visualization of a right thyroid nodule. This would best be studied by sonography. Please note that all CT scans at this facility use dose modulation, iterative reconstruction, and/or weight-based dosing when appropriate to reduce radiation dose to as low as reasonably achievable. Dictated by Nathan Moore MD @ 02/18/2023 2:09:27 PM (Electronically Signed)
--- NOTE | 2023-02-18 11:20 | CRLHL7_ITS ---
For Patients: As a result of the Cures Act, medical imaging exams and procedure reports are released immediately into your electronic medical record. You may view this report before your referring provider. If you have questions, please contact your health care provider. INDICATION: Fall. COMPARISON: None. TECHNIQUE: AP and lateral views. FINDINGS: The bones are osteopenic. There are degenerative arthritic changes within the elbow and wrist joints. No displaced fracture or dislocation is identified. The forearm soft tissues are unremarkable. IMPRESSION: No acute fracture or dislocation. Dictated by Roman Rodriguez MD @ 02/18/2023 2:31:30 PM (Electronically Signed)
--- NOTE | 2023-02-18 11:20 | CRLHL7_ITS ---
For Patients: As a result of the Century Cures Act, medical imaging exams and procedure reports are released immediately into your electronic medical record. You may view this report before your referring provider. If you have questions, please contact your health care provider. INDICATION: Injury COMPARISON: None TECHNIQUE: CT examination of the head was performed as axial sections without intravenous contrast. Images were obtained from the vertex of the skull through the skull base. Please note that all CT scans at this facility use dose modulation, iterative reconstruction, and/or weight-based dosing when appropriate to reduce radiation dose to as low as reasonably achievable. FINDINGS: The brain shows no sign of mass lesion, mass effect, hemorrhage, or edema. There are involutional changes. There is moderate to severe cortical atrophy and there is moderate white matter disease. There is no hydrocephalus. Nonacute infarcts including subcortical infarcts and old inferomedial right cerebellar infarct. The visualized portions of the orbits are normal in appearance. The osseous structures are normal in appearance with no sign of abnormality in the skull base or calvarium. IMPRESSION: Involutional changes consisting of atrophy and white matter disease. 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 No evidence for acute posttraumatic finding Please note that all CT scans at this facility use dose modulation, iterative reconstruction, and/or weight-based dosing when appropriate to reduce radiation dose to as low as reasonably achievable. Dictated by Nathan Moore MD @ 02/18/2023 2:06:09 PM (Electronically Signed)
[2023-02-18 11:49] LABS: Appearance Urine Cloudy (Clear); Bilirubin Urine Negative (Negative); Blood Urine 3+ (Negative); Color Urine Amber (Yellow); Glucose Urine Negative (Negative); Ketones Urine Trace (Negative); Leukocyte Esterase Urine 1+ (Negative); Nitrite Urine Negative (Negative); Protein Urine 3+ (Negative); Urobilinogen Urine 0.2 (0.2-1.0); pH Urine 5.5 (5.0-8.5)
[2023-02-18 11:59] LABS: Bacteria Urine Many; Squamous Epithelial Cell Urine Few (None-Few); WBC Urine 50-100 (0-5)
--- NOTE | 2023-02-18 11:59 | CRLHL7_ITS ---
For Patients: As a result of the Cures Act, medical imaging exams and procedure reports are released immediately into your electronic medical record. You may view this report before your referring provider. If you have questions, please contact your health care provider. INDICATION: Fall. COMPARISON: None. TECHNIQUE: Three views of the left shoulder were obtained. FINDINGS: The acromion is nearly absent, either the sequelae of previous surgical resection or chronic erosion and bone resorption. There is hypertrophy at the distal clavicle. The humerus is superiorly elevated consistent with chronic rotator cuff rupture. 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 The bones are osteopenic. No acute fracture or dislocation is identified. IMPRESSION: No fracture. Dictated by Roman Rodriguez MD @ 02/18/2023 2:28:56 PM (Electronically Signed)
--- NOTE | 2023-02-18 12:25 | P.GSCN_ITS ---
History of Present Illness Consult details Date Seen: 02/18/23 Consult date: 02/18/23 Narrative: The patient is an 82-year-old female who sometime last evening got up in the middle the night and fell. She is not sure why she fell or what time of the evening it was. She laid there for some time until she was able to call for help. She sustained a laceration to her left forearm either on the bed or on the table. She does not think she lost consciousness. She denies any other pain at this time. I was asked to evaluate her wound. [facility] Medical History Anemia ?D64.9 - Anemia, unspecified (ICD-10) Anxiety ?F41.9 - Anxiety disorder, unspecified (ICD-10) 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 - Gout, unspecified (ICD-10) Back pain ?M54.9 - Dorsalgia, unspecified (ICD-10) Chronic back pain ?M54.9 - Dorsalgia, unspecified (ICD-10) ?G89.29 - Other chronic pain (ICD-10) Chronic kidney disease ?N18.9 - Chronic kidney disease, unspecified (ICD-10) Diastolic congestive heart failure ?I50.30 - Unspecified diastolic (congestive) heart failure (ICD-10) Facial cellulitis ?L03.211 - Cellulitis of face (ICD-10) GERD (gastroesophageal reflux disease) ?K21.9 - Gastro-esophageal reflux disease without esophagitis (ICD-10) Health care directive on file ?Z78.9 - Other specified health status (ICD-10) Hyperlipemia ?E78.5 - Hyperlipidemia, unspecified (ICD-10) Hypertension (06/19/09) ?I10 - Essential (primary) hypertension (ICD-10) Insomnia ?G47.00 - Insomnia, unspecified (ICD-10) Insomnia ?G47.00 - Insomnia, unspecified (ICD-10) Left shoulder pain ?M25.512 - Pain in left shoulder (ICD-10) Methicillin resistant Staphylococcus aureus culture positive ?Z22.322 - Carrier or suspected carrier of Methicillin resistant Staphylococcus aureus (ICD-10) Mitral valve regurgitation (07/24/09) ?I34.0 - Nonrheumatic mitral (valve) insufficiency (ICD-10) Paroxysmal atrial fibrillation ?I48.0 - Paroxysmal atrial fibrillation (ICD-10) Peripheral vascular disease ?I73.9 - Peripheral vascular disease, unspecified (ICD-10) Pulmonary hypertension (07/24/09) ?I27.20 - Pulmonary hypertension, unspecified (ICD-10) Stasis edema (06/19/09) ?I87.309 - Chronic venous hypertension (idiopathic) without complications of unspecified lower extremity (ICD-10) Venous stasis dermatitis ?I87.2 - Venous insufficiency (chronic) (peripheral) (ICD-10) Surgical History 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) ?Z90.49 - Acquired absence of other specified parts of digestive tract (ICD- 10) History of blepharoplasty ?Z98.890 - Other specified postprocedural states (ICD-10) History of bunionectomy (06/19/09) ?Z98.890 - Other specified postprocedural states (ICD-10) Status post cataract extraction ?Z98.49 - Cataract extraction status, unspecified eye (ICD-10) Status post tubal ligation ?Z98.51 - Tubal ligation status (ICD-10) Social History Smoking Status: Never smoker Do you use any of these nicotine containing products: None Second hand tobacco smoke exposure: Yes How often do you have a drink containing alcohol: never How often do you have six or more drinks on one occasion: Never AUDIT-C Alcohol total score: 0 Non-prescribed substance use: denies use service: No Meds Home Medications and Allergies Home Medications Medication Instructions Recorded Confirmed Type acetaminophen 500 mg tablet 1,000 mg PO Q6H PRN 06/08/22 02/08/23 History ascorbic acid (vitamin C) 250 mg 250 mg PO DAILY 06/08/22 02/08/23 History tablet melatonin 3 mg capsule 3 mg PO HS PRN 06/08/22 02/08/23 History multivitamin 1 tab PO DAILY 06/08/22 02/08/23 History omega-3 fatty acids-fish oil 300 1 cap PO DAILY 06/08/22 02/08/23 History mg-500 mg capsule (Fish Oil) oxycodone 5 mg tablet 5 mg PO Q4H PRN 06/08/22 02/08/23 History allopurinol 100 mg tablet 100 mg PO DAILY 01/23/23 02/08/23 History atorvastatin 40 mg tablet 40 mg PO HS 01/23/23 02/08/23 History triamcinolone acetonide 0.1 % 1 applic topical BID PRN 01/23/23 02/08/23 History topical cream Allergies Allergy/AdvReac Type Severity Reaction Status Date / Time cephalexin Allergy Unknown RASH/HIVES Verified 02/18/23 11:34 Exam Narrative: Exam Narrative: General: No acute distress Respiratory: Breathing nonlabored on room air Extremities: Using on both upper arms. Left is worse than right. She has approximately 4 x 4 cm laceration of her skin down to fascia. The wound appears clean. No bleeding noted. There is devitalized skin at the edges. Neuro: No focal deficits Procedure: Sharp excisional debridement down to fascia, left forearm, 4 x 4 cm Description: The area was irrigated with saline. Necrotic skin was sharply debrided on the edges of the wound. Devascularized fat at the radial aspect of the wound was then also sharply debrided with a scissor down to the fascia. The remainder of the wound appeared to be healthy. This was then irrigated with Betadine and saline. Adaptic was placed over the wound followed by wet to dry dressing. This was wrapped in Kerlix and Coban. Const: Vital Signs, click to edit/add: Vital Signs - 24 hr 02/18/23 11:34 Temperature 97.3 F L Pulse Rate [Pulse Oximeter] 95 Respiratory Rate 18 Blood Pressure [Ri ght Upper Arm] 147/76 H Pulse Oximetry 95 Oxygen Delivery Me thod Room Air Results Labs Labs: Abnormal lab results 02/18/23 Range/Units 11:40 Urine Color Lynn A (Yellow) Urine Appearance Cloudy A (Clear) Urine Protein 3+ A (Negative) Urine Ketones Trace A (Negative) Urine Blood 3+ A (Negative) Ur Leukocyte Esterase 1+ A (Negative) Urine RBC 2-5 A (0-2) Urine WBC 50-100 A (0-5) Urine Bacteria Many A (None) White blood cell count is 26. Imaging Additional studies: Images and reports reviewed Shoulder x-ray showed no fracture. forearm x-ray shows no fracture. No acute findings on head CT or C-spine CT. Assessment and Plan Assessment and plan (1) Laceration of left forearm: Status: Acute (2) Fall: Status: Acute (3) Urinary tract infection: Status: Acute Plan The patient is an 82-year-old female status post fall now with forearm laceration. Also found to have a urinary tract infection. Management of medical comorbidities and disposition per ER. The patient discharges home, she will follow-up with wound clinic tomorrow. If patient remains inpatient, I will see her and help determine the wound care plan. Currently she should keep the wet to dry dressing in place until tomorrow. This was explained to the patient and her daughter.
--- NOTE | 2023-02-18 12:39 | ED.NURSE ---
This RN was present in the room when wound care was in the room to clean and dress patients wound on her L forearm. Patient tolerated well.
[2023-02-18 12:40] LABS: Hematocrit 40.8 % (33.0-51.0); Immature Granulocytes Pct Auto 0.2 %; Lymphocytes Percent Auto 3.8 % (20-44); Mean Corpuscular HGB Conc 32 gm/dL (32-36); Mean Corpuscular Hemoglobin 30 pg (26-34); Mean Corpuscular Volume 94 fL (80-100); Monocytes Percent Auto 3.3 % (0.0-11.0); Neutrophils Percent Auto 92.7 % (42.0-72.0); Platelet Count* 144 K/uL (140-440); Red Blood Count 4.32 m/uL (4.00-5.20)
--- NOTE | 2023-02-18 12:47 | ED.FALL ---
HPI - Fall General Chief Complaint: Fall/Minor Trauma Stated Complaint: Fall Time Seen by Provider: 02/18/23 11:20 History of Present Illness HPI Narrative: Patient is 82-year-old woman who I know from my primary care practice who lives alone outside of [place]. She sometime during the night fell at home and was unable to get up. She is only down for short time before she is able to call for help. She had significant bleeding from the left posterior forearm. She is not certain whether she hit her head or lost consciousness. She also has pain in the left shoulder. Patient is very thin atrophic skin is prone to skin tears. She is up-to-date on her tetanus shot. She has history of paroxysmal atrial fibrillation and is on low-dose 2.5 mg b.i.d. of apixaban. Patient has minimal pain. She has not needed any pain control. The wound of the left forearm was dressed at the scene. Related Data Home Medications Medication Instructions Recorded Confirmed acetaminophen 500 mg tablet 1,000 mg PO Q6H PRN 06/08/22 02/08/23 ascorbic acid (vitamin C) 250 mg 250 mg PO DAILY 06/08/22 02/08/23 tablet melatonin 3 mg capsule 3 mg PO HS PRN 06/08/22 02/08/23 multivitamin 1 tab PO DAILY 06/08/22 02/08/23 omega-3 fatty acids-fish oil 300 1 cap PO DAILY 06/08/22 02/08/23 mg-500 mg capsule (Fish Oil) oxycodone 5 mg tablet 5 mg PO Q4H PRN 06/08/22 02/08/23 allopurinol 100 mg tablet 100 mg PO DAILY 01/23/23 02/08/23 atorvastatin 40 mg tablet 40 mg PO HS 01/23/23 02/08/23 triamcinolone acetonide 0.1 % 1 applic topical BID PRN 01/23/23 02/08/23 topical cream Previous Rx's Medication Instructions Recorded apixaban 2.5 mg tablet 2.5 mg PO BID #180 tabs 06/08/22 escitalopram oxalate 5 mg tablet 5 mg PO DAILY #90 tabs 06/08/22 omeprazole 20 mg capsule,delayed 20 mg PO DAILY #90 caps 06/08/22 release ferrous gluconate 324 mg (38 mg 324 mg PO BID #100 tabs 07/12/22 iron) tablet tramadol 50 mg tablet 50 mg PO Q6H PRN pain #60 tabs 12/30/22 furosemide 20 mg tablet 60 mg PO BID@0800,1400 30 days 01/25/23 #180 tabs losartan 50 mg tablet 50 mg PO DAILY 30 days #30 tabs 01/25/23 metoprolol succinate 50 mg 50 mg PO DAILY 30 days #30 tabs 01/25/23 tablet,extended release 24 hr alprazolam 0.5 mg tablet 0.5 mg PO QHS PRN anxiety #30 tabs 02/09/23 Allergies Allergy/AdvReac Type Severity Reaction Status Date / Time cephalexin Allergy Unknown RASH/HIVES Verified 02/18/23 11:34 Review of Systems Status of ROS: Reports: 10 or more systems reviewed and unremarkable except as noted in History and below [facility] Medical History Anemia ?D64.9 - Anemia, unspecified (ICD-10) Anxiety ?F41.9 - Anxiety disorder, unspecified (ICD-10) 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 - Gout, unspecified (ICD-10) Back pain ?M54.9 - Dorsalgia, unspecified (ICD-10) Chronic back pain ?M54.9 - Dorsalgia, unspecified (ICD-10) ?G89.29 - Other chronic pain (ICD-10) Chronic kidney disease ?N18.9 - Chronic kidney disease, unspecified (ICD-10) Diastolic congestive heart failure ?I50.30 - Unspecified diastolic (congestive) heart failure (ICD-10) Facial cellulitis ?L03.211 - Cellulitis of face (ICD-10) GERD (gastroesophageal reflux disease) ?K21.9 - Gastro-esophageal reflux disease without esophagitis (ICD-10) Health care directive on file ?Z78.9 - Other specified health status (ICD-10) Hyperlipemia ?E78.5 - Hyperlipidemia, unspecified (ICD-10) Hypertension (06/19/09) ?I10 - Essential (primary) hypertension (ICD-10) Insomnia ?G47.00 - Insomnia, unspecified (ICD-10) Insomnia ?G47.00 - Insomnia, unspecified (ICD-10) Left shoulder pain ?M25.512 - Pain in left shoulder (ICD-10) Methicillin resistant Staphylococcus aureus culture positive ?Z22.322 - Carrier or suspected carrier of Methicillin resistant Staphylococcus aureus (ICD-10) Mitral valve regurgitation (07/24/09) ?I34.0 - Nonrheumatic mitral (valve) insufficiency (ICD-10) Paroxysmal atrial fibrillation ?I48.0 - Paroxysmal atrial fibrillation (ICD-10) Peripheral vascular disease ?I73.9 - Peripheral vascular disease, unspecified (ICD-10) Pulmonary hypertension (07/24/09) ?I27.20 - Pulmonary hypertension, unspecified (ICD-10) Stasis edema (06/19/09) ?I87.309 - Chronic venous hypertension (idiopathic) without complications of unspecified lower extremity (ICD-10) Venous stasis dermatitis ?I87.2 - Venous insufficiency (chronic) (peripheral) (ICD-10) Surgical History 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) ?Z90.49 - Acquired absence of other specified parts of digestive tract (ICD-10) History of blepharoplasty ?Z98.890 - Other specified postprocedural states (ICD-10) History of bunionectomy (06/19/09) ?Z98.890 - Other specified postprocedural states (ICD-10) Status post cataract extraction ?Z98.49 - Cataract extraction status, unspecified eye (ICD-10) Status post tubal ligation ?Z98.51 - Tubal ligation status (ICD-10) Social History Smoking Status: Never smoker Do you use any of these nicotine containing products: None Second hand tobacco smoke exposure: Yes How often do you have a drink containing alcohol: never How often do you have six or more drinks on one occasion: Never AUDIT-C Alcohol total score: 0 Non-prescribed substance use: denies use service: No Exam Narrative: Exam Narrative: EXAM GENERAL: Patient appears comfortable and well. No HEENT trauma noted. EYES: No scleral icterus. THYROID: no thyroid nodules or thyromegaly. LYMPH: No supraclavicular or cervical lymphadenopathy. SKIN: Diffuse ecchymoses as well as a 5 x 5 cm full thickness to the fascia skin tear in the posterior left forearm. EXT: No dependent lower extremity pedal edema. HEART: Irregularly irregular with good rate control. LUNGS: Clear to auscultation bilaterally with no crackles or wheezes. ABD: Soft, non tender, non distended. PSYCH: Good eye contact, speech is not pressured. Const: Vital Signs, click to edit/add: Vital Signs - 24 hr 02/18/23 11:34 02/18/23 13:47 02/18/23 13:48 Temperature 97.3 F L Pulse Rate 80 80 Pulse Rate [Pulse Oximeter] 95 Respiratory Rate 18 Blood Pressure 137/66 Blood Pressure [Ri ght Upper Arm] 147/76 H Pulse Oximetry 95 96 96 Oxygen Delivery Me thod Room Air 02/18/23 14:08 Temperature Pulse Rate 89 Pulse Rate [Pulse Oximeter] Respiratory Rate Blood Pressure Blood Pressure [Ri ght Upper Arm] Pulse Oximetry 94 Oxygen Delivery Me thod Course Course Hospital Course: Patient seen examined. I did have General surgery come over and help with wound as it is full-thickness to the fascia. They placed a wet-to-dry dressing. Arranged for wound care tomorrow and wound clinic. CT of the head neck CBC basic metabolic panel UA pending. EKG pending. Reevaluation(s) Reevaluation #1: WBC elevated. Pt requires a lift of 2. Pt will need to be admitted. BC, Troponin, CPK ordered. Time: 14:50 Vital Signs Vital signs: Initial Vital Signs Temperature 97.3 F L 02/18/23 11:34 Temperature Source Temporal Artery Scan 02/18/23 11:34 Pulse Rate 95 02/18/23 11:34 Respiratory Rate 18 02/18/23 11:34 Blood Pressure 147/76 H 02/18/23 11:34 Blood Pressure Mean 99 02/18/23 11:34 Blood Pressure Position Supine 02/18/23 11:34 Pulse Oximetry 95 02/18/23 11:34 Oxygen Delivery Method Room Air 02/18/23 11:34 Vital Signs Temperature 97.3 F L 02/18/23 11:34 Pulse Rate 95 02/18/23 11:34 Respiratory Rate 18 02/18/23 11:34 Blood Pressure 147/76 H 02/18/23 11:34 Pulse Oximetry 95 02/18/23 11:34 Oxygen Delivery Method Room Air 02/18/23 11:34 Temperature 97.3 F L 02/18/23 11:34 Pulse Rate 89 02/18/23 14:08 Respiratory Rate 18 02/18/23 11:34 Blood Pressure 137/66 02/18/23 13:47 Pulse Oximetry 94 02/18/23 14:08 Oxygen Delivery Method Room Air 02/18/23 11:34 MDM - Fall MDM Narrative Medical decision making narrative: Patient is a an 82 year old woman who comes in after being found on the floor by her family. Patient is not certain how long she was on the floor. She is on be bleeding from the left forearm has a large skin tear extending into the fascia. Did have surgery clean the wound and put a wet to dry dressing in place. Patient is noted to have an elevated white blood cell count as well as evidence of UTI. Blood cultures urine culture pending. Patient will be started on IV antibiotics to be determined by hospitalist. Patient is a 2 assist and is unable to go home at this point. Patient is also anticoagulated on Eliquis her EKG shows atrial fibrillation with rate control. Troponin and CPK pending. Patient admitted for further evaluation. X-ray of the forearm and left shoulder are normal upon my review. CT of the head and neck without acute abnormalities. Differential Diagnosis Differential diagnosis: Likely syncope, dislocation of shoulder region, fracture of wrist, compression fracture, concussion with loss of consciousness and concussion without loss of consciousness Lab Data Labs: Lab Results 02/18/23 02/18/23 Range/Units 11:40 12:30 WBC 26.08 H* (4.50-11.00) K/uL RBC 4.32 (4.00-5.20) m/uL Hgb 13.0 (12.0-16.0) gm/dL Hct 40.8 (33.0-51.0) % MCV 94 (80-100) fL MCH 30 (26-34) pg MCHC 32 (32-36) gm/dL RDW Coeff of Phoebe 15.0 (11.5-15.5) % Plt Count 144 (140-440) K/uL Neut % (Auto) 92.7 H (42.0-72.0) % Lymph % (Auto) 3.8 L (20-44) % [place] % (Auto) 3.3 (0.0-11.0) % Eos % (Auto) 0.0 (0.0-7.0) % Baso % (Auto) 0.0 (0.0-3.0) % Neut # (Auto) 24.20 H (1.7-7.0) K/uL Lymph # (Auto) 1.00 (0.90-2.90) K/uL [place] # (Auto) 0.90 (0.00-0.90) K/UL Eos # (Auto) 0.00 (0.00-0.50) K/uL Baso # (Auto) 0.00 (0.00-0.30) K/uL Diff Slide Review Acceptable Review (Acceptable) Sodium 138 (135-149) mmol/L Potassium 4.5 (3.6-5.1) mmol/L Chloride 105 (96-114) mmol/L Carbon Dioxide 24 (20-32) mmol/L BUN 44 H (7-30) mg/dL Creatinine 1.5 (0.5-1.5) mg/dL Estimated Creat Clear 23.09 Estimated GFR 34 ml/min Glucose 106 (60-115) mg/dL Calcium 9.5 (8.4-10.6) mg/dL Urine Color Lynn A (Yellow) Urine Appearance Cloudy A (Clear) Urine pH 5.5 (5.0-8.5) Ur Specific [place] 1.020 (1.000-1.030) Urine Protein 3+ A (Negative) Urine Glucose (UA) Negative (Negative) Urine Ketones Trace A (Negative) Urine Blood 3+ A (Negative) Urine Nitrite Negative (Negative) Urine Bilirubin Negative (Negative) Urine Urobilinogen 0.2 (0.2-1.0) Ur Leukocyte Esterase 1+ A (Negative) Urine RBC 2-5 A (0-2) Urine WBC 50-100 A (0-5) Ur Squamous Epith Cells Few (None-Few) Urine Bacteria Many A (None) Discharge Plan Discharge Clinical Impression: Weakness Patient Disposition: Admitted As Inpatient Condition: Stable Activity Level: Other Discharge Diet: Other Prescriptions: No Action melatonin 3 mg capsule 3 mg PO HS PRN ascorbic acid (vitamin C) 250 mg tablet 250 mg PO DAILY multivitamin Tablet 1 tab PO DAILY oxycodone 5 mg tablet 5 mg PO Q4H PRN acetaminophen 500 mg tablet 1,000 mg PO Q6H PRN Rx Instructions: NO MORE THAN 4000 MG/DAY Fish Oil 300-500 mg capsule 1 cap PO DAILY apixaban 2.5 mg tablet 2.5 mg PO BID Qty: 180 3RF escitalopram oxalate 5 mg tablet 5 mg PO DAILY Qty: 90 3RF omeprazole 20 mg capsule,delayed release(DR/EC) 20 mg PO DAILY Qty: 90 3RF atorvastatin 40 mg tablet 40 mg PO HS allopurinol 100 mg tablet 100 mg PO DAILY triamcinolone acetonide 0.1 % cream 1 applic topical BID PRN metoprolol succinate 50 mg Tablet Extended Release 24 Hr 50 mg PO DAILY 30 Days Qty: 30 1RF furosemide 20 mg Tablet 60 mg PO BID@0800,1400 30 Days Qty: 180 1RF losartan 50 mg Tablet 50 mg PO DAILY 30 Days Qty: 30 1RF ferrous gluconate 324 mg (38 mg iron) tablet 324 mg PO BID Qty: 100 3RF tramadol 50 mg tablet 50 mg PO Q6H PRN (Reason: pain) Qty: 60 1RF alprazolam 0.5 mg tablet 0.5 mg PO QHS PRN (Reason: anxiety) Qty: 30 0RF Follow Up/Referrals: Giovanny Vallejo MD [Primary Care Provider] - Stand Alone Forms: [facility] Info Instructions
[2023-02-18 12:52] LABS: Chloride* 105 mmol/L (96-114)
[2023-02-18 12:53] LABS: Potassium* 4.5 mmol/L (3.6-5.1); Sodium* 138 mmol/L (135-149)
[2023-02-18 12:55] LABS: Creatinine* 1.5 mg/dL (0.5-1.5); Est. Creatinine Clearance* 23.09; Estimated Glomerular Filt Rate 34 ml/min
[2023-02-18 12:56] LABS: Blood Urea Nitrogen* 44 mg/dL (7-30); Calcium* 9.5 mg/dL (8.4-10.6); Carbon Dioxide* 24 mmol/L (20-32); Glucose* 106 mg/dL (60-115)
[2023-02-18 13:12] LABS: Slide Review Reflex Yes; White Blood Count* 26.08 K/uL (4.50-11.00)
[2023-02-18 13:15] LABS: Slide Review Acceptable Review (Acceptable)
[2023-02-18 15:46] LABS: Lactate* 1.5 mmol/L (0.5-1.9)
--- NOTE | 2023-02-18 15:46 | P.IMHP_ITS ---
Hospitalist- H&P: HPI History of Present Illness Date Seen: 02/18/23 Chief complaint: Fall Narrative: Corine Foreman is a 82 year old female admitted through the emergency department after being found down at home. She is reported to her daughter not feeling well for the last couple days. She she has had a poor appetite and poor energy. She did not have any specific focal symptoms. She specifically denied a fever, cough, cold, sore throat, chest pain, trouble breathing, abdominal pain, nausea or vomiting, diarrhea or constipation, urinary problems. She does take furosemide and reports chronic urinary frequency but has not had dysuria. When she fell she injured her left forearm with a laceration. This was treated in the emergency department by Dr. Avendano. She denies any other injury. She has chronic back pain and chronic bilateral shoulder pain. She thinks her left s houlder might be bothering her little more than usual today. She cannot report anything about how she fell or when she fell during the night. She wonders if she rolled out of bed. She remembers no details of that. She does not know how long she was on the floor. Her daughter called this morning and when she did molded goods spot picker the phone the police did a welfare check and found her on the floor unable to get up. She lives alone near [place]. She is recently . She walks around her house with a cane or a 4 wheeled walker. She was hospitalized 3-4 weeks ago with heart failure. She reports that she has been generally doing well since then without significant problems with dyspnea. She was also seen in our emergency department couple weeks ago for a facial rash, diagnosis of facial cellulitis. That has resolved. Review of Systems Narrative: Her primary health concerns prior to the last 2 days have been her chronic pain in her shoulders and back and her insomnia. She takes oxycodone 2.5 mg about once a day and acetaminophen once or twice a day and alprazolam 0.5 mg at bedtime for insomnia every day. [facility] Medical History (Updated 02/18/23 @ 16:35 by Pierce Cristobal MD) Anemia ?D64.9 - Anemia, unspecified (ICD-10) Anxiety ?F41.9 - Anxiety disorder, unspecified (ICD-10) 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 - Gout, unspecified (ICD-10) Back pain ?M54.9 - Dorsalgia, unspecified (ICD-10) Chronic back pain ?M54.9 - Dorsalgia, unspecified (ICD-10) ?G89.29 - Other chronic pain (ICD-10) Chronic kidney disease ?N18.9 - Chronic kidney disease, unspecified (ICD-10) Diastolic congestive heart failure ?I50.30 - Unspecified diastolic (congestive) heart failure (ICD-10) Facial cellulitis ?L03.211 - Cellulitis of face (ICD-10) GERD (gastroesophageal reflux disease) ?K21.9 - Gastro-esophageal reflux disease without esophagitis (ICD-10) Health care directive on file ?Z78.9 - Other specified health status (ICD-10) Hyperlipemia ?E78.5 - Hyperlipidemia, unspecified (ICD-10) Hypertension (06/19/09) ?I10 - Essential (primary) hypertension (ICD-10) Insomnia ?G47.00 - Insomnia, unspecified (ICD-10) Insomnia ?G47.00 - Insomnia, unspecified (ICD-10) Left shoulder pain ?M25.512 - Pain in left shoulder (ICD-10) Methicillin resistant Staphylococcus aureus culture positive ?Z22.322 - Carrier or suspected carrier of Methicillin resistant Staphylococcus aureus (ICD-10) Mitral valve regurgitation (07/24/09) ?I34.0 - Nonrheumatic mitral (valve) insufficiency (ICD-10) Paroxysmal atrial fibrillation ?I48.0 - Paroxysmal atrial fibrillation (ICD-10) Peripheral vascular disease ?I73.9 - Peripheral vascular disease, unspecified (ICD-10) Pulmonary hypertension (07/24/09) ?I27.20 - Pulmonary hypertension, unspecified (ICD-10) Rotator cuff tear arthropathy of both shoulders ?M75.101 - Unspecified rotator cuff tear or rupture of right shoulder, not specified as traumatic (ICD-10) ?M12.811 - Other specific arthropathies, not elsewhere classified, right shoulder (ICD-10) ?M12.812 - Other specific arthropathies, not elsewhere classified, left shoulder (ICD-10) ?M75.102 - Unspecified rotator cuff tear or rupture of left shoulder, not specified as traumatic (ICD-10) Stasis edema (06/19/09) ?I87.309 - Chronic venous hypertension (idiopathic) without complications of unspecified lower extremity (ICD-10) Venous stasis dermatitis ?I87.2 - Venous insufficiency (chronic) (peripheral) (ICD-10) Surgical History 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 She lives alone in her own home near [place]. Her daughter Naomie is healthcare power of contract attorney and closest family. Code status is DNR. She uses a 4 wheeled walker with a seat or a cane to get around her house. Smoking Status: Never smoker Do you use any of these nicotine containing products: None Second hand tobacco smoke exposure: Yes How often do you have a drink containing alcohol: never How often do you have six or more drinks on one occasion: Never AUDIT-C Alcohol total score: 0 Non-prescribed substance use: denies use service: No Meds Home Medications and Allergies Home Medications Medication Instructions Recorded Confirmed Type acetaminophen 500 mg tablet 1,000 mg PO Q6H PRN 06/08/22 02/18/23 History ascorbic acid (vitamin C) 250 mg 250 mg PO DAILY 06/08/22 02/18/23 History tablet melatonin 3 mg capsule 3 mg PO HS PRN 06/08/22 02/18/23 History multivitamin 1 tab PO DAILY 06/08/22 02/18/23 History omega-3 fatty acids-fish oil 300 1 cap PO DAILY 06/08/22 02/18/23 History mg-500 mg capsule (Fish Oil) oxycodone 5 mg tablet 5 mg PO Q4H PRN 06/08/22 02/18/23 History allopurinol 100 mg tablet 100 mg PO WE@09 01/23/23 02/18/23 History atorvastatin 40 mg tablet 40 mg PO HS 01/23/23 02/18/23 History triamcinolone acetonide 0.1 % 1 applic topical BID PRN 01/23/23 02/18/23 History topical cream alprazolam 0.5 mg tablet 0.5 mg PO QHS anxiety 02/18/23 02/18/23 History ferrous gluconate 324 mg (38 mg 324 mg PO DAILY 02/18/23 02/18/23 History iron) tablet furosemide 20 mg tablet 20 mg PO TID 02/18/23 02/18/23 History Allergies Allergy/AdvReac Type Severity Reaction Status Date / Time cephalexin Allergy Unknown RASH/HIVES Verified 02/18/23 11:34 Exam Narrative: Exam Narrative: She is alert and appears in no distress. She gives her own history. Lacking some detail about recent events but otherwise able to give most of her past medical history of corroboration by her daughter. Head is without obvious trauma. Eyes are normal. She has erythema of both eyelids. Oropharynx is normal. Good dentition. Neck is supple without mass or adenopathy. No tenderness. Respirations are clear to auscultation. No wheezing rales or rhonchi. Cardiovascular: S1, S2, irregularly irregular rate and rhythm. No murmur gallop or rub. Abdomen: Bowel sounds are active. Abdomen is soft without tenderness or mass. Her lower abdominal pannus has mild erythema and minimal tenderness. Skin folds in the groin are relatively free of erythema or other rash. Left upper extremity is bandaged from recent dressing application to the forearm. Distal that she has intact pulses and sensation. Right upper extremity has some bruising from vena puncture but otherwise appears normal without evidence of trauma. Inspection of her trunk anteriorly and posteriorly without obvious signs of trauma. Lower extremities are examined. Left lower extremity has chronic venous stasis skin changes but is otherwise unremarkable. Diminished but present pedal pulses. Right lower extremity has relatively intense erythema and warmth circumferentially over the distal 3rd of the thigh more prominent posteriorly than anteriorly and extending down over the posterior knee and to a lesser extent the anterior knee to the proximal calf. Chronic venous stasis skin changes be low that with mild erythema. No open ulcers are present. She has a healed scar over her right knee. Const: Vital Signs, click to edit/add: Vital Signs - 24 hr 02/18/23 11:34 02/18/23 13:47 02/18/23 13:48 Temperature 97.3 F L Pulse Rate 80 80 Pulse Rate [Pulse Oximeter] 95 Respiratory Rate 18 Blood Pressure 137/66 Blood Pressure [Ri ght Upper Arm] 147/76 H Pulse Oximetry 95 96 96 Oxygen Delivery Me thod Room Air 02/18/23 14:08 02/18/23 14:30 02/18/23 14:32 Temperature Pulse Rate 89 84 85 Pulse Rate [Pulse Oximeter] Respiratory Rate Blood Pressure 130/61 Blood Pressure [Ri ght Upper Arm] Pulse Oximetry 94 96 95 Oxygen Delivery Me thod 02/18/23 14:33 02/18/23 15:02 Temperature Pulse Rate 89 Pulse Rate [Pulse Oximeter] Respiratory Rate Blood Pressure 122/87 Blood Pressure [Ri ght Upper Arm] Pulse Oximetry 96 Oxygen Delivery Me thod Documenting provider has reviewed patient's vital signs: yes Hospitalist - H&P: Result Labs Labs: Short CBC 02/18/23 Range/Units 12:30 WBC 26.08 H* (4.50-11.00) K/uL Hgb 13.0 (12.0-16.0) gm/dL Hct 40.8 (33.0-51.0) % Plt Count 144 (140-440) K/uL BMP 02/18/23 12:30 Sodium 138 Potassium 4.5 Chloride 105 Carbon Dioxide 24 BUN 44 H Creatinine 1.5 Glucose 106 Calcium 9.5 Urine 02/18/23 Range/Units 11:40 Urine Color Lynn A (Yellow) Urine Appearance Cloudy A (Clear) Urine pH 5.5 (5.0-8.5) Ur Specific [place] 1.020 (1.000-1.030) Urine Protein 3+ A (Negative) Urine Glucose (UA) Negative (Negative) ECG Attestation: I personally reviewed and interpreted this ECG as follows: (Atrial fibrillation without other acute or chronic ischemic changes) Imaging CT- Other: Radiologist's impression: Head and cervical spine CT show no acute injury but chronic changes. Left shoulder and forearm: Attestation: I have reviewed the pertinent imaging results. (Left forearm radiograph shows no fracture. Left shoulder radiograph shows chronic changes including loss of acromion and likely old rotator cuff tear.) Assessment and Plan Assessment and plan (1) Sepsis: Problem comment: Patient with recent illness, marked white count elevation, abnormal urine and right leg cellulitis. Now with CHELY and NSTEMI. Suspect urine infection or cellulitis as the cause of sepsis. Status: Acute (2) Cellulitis of leg, right: Problem comment: No obvious abscess or skin injury. Treat with Zosyn Status: Acute (3) Urinary tract infection: Problem comment: Treat with Zosyn pending cultures Status: Acute (4) Ednqr-ja-lqrghhq kidney injury: Problem comment: Secondary to acute illness/sepsis Status: Acute (5) Elevated troponin: Problem comment: Probably due to demand ischemia rather than acute coronary occlusion Status: Acute (6) Demand ischemia of myocardium: Status: Acute (7) Weakness: Problem comment: Due to acute illness. PT and OT to evaluate Status: Acute (8) Fall: Problem comment: PT and OT to evaluate. Status: Acute (9) Laceration of left forearm: Problem comment: Surgical consultation for wound care Status: Acute (10) Back pain: Problem comment: Acute on chronic. I explained to the patient that opioid pain medicines have significant risk especially in the context of a patient with fall risk. Status: Acute (11) Insomnia: Problem comment: Chronically on alprazolam. I discussed with patient and daughter the risk of benzodiazepines in the context of frailty and falling at home Status: Acute (12) Rotator cuff tear arthropathy of both shoulders: Problem comment: Chronic problem with acute injury on the left side Status: Acute Plan 82-year-old female admitted to the hospital for management of infection with acute organ injury including elevated troponin and acute kidney injury. IV antibiotics. Cautious use of fluid resuscitation due to heart failure and kidney injury. Total time spent today is 90 minutes, 60 minutes in coordination care and discussing with patient, daughter and other providers ongoing evaluation management of sepsis and fall risk, chronic pain and insomnia.
[2023-02-18 16:05] LABS: Albumin* 3.9 g/dL (3.3-5.0)
[2023-02-18 16:07] LABS: SARS PCR* Negative SARS-CoV-2 (Negative)
[2023-02-18 16:08] LABS: Alkaline Phosphatase* 78 U/L (40-150); Aspartate Amino Transferase* 400 U/L (12-35); Bilirubin Direct* 0.3 mg/dL (0.0-0.5); Total Protein* 7.4 g/dL (6.0-8.3)
[2023-02-18 16:09] LABS: Alanine Aminotransferase* 108 U/L (4-35)
[2023-02-18] MEDS: PIPERACILLIN/TAZOBACTAM 3.375 GM in 0.9 % SODIUM CHLORIDE Mini-bag 100 ML IVPB (16:11)
[2023-02-18 16:25] LABS: Troponin I* 0.72 ng/mL (0.01-0.04)
[2023-02-18 17:15] LABS: Ethanol* < 0.01 % (0.01-0.03)
[2023-02-18 17:18] LABS: C Reactive Protein* 23.3 mg/dL (0.5-1.0)
[2023-02-18] MEDS: LACTATED RINGERS 1000 ML 1,000 ML 500 ML IV (17:55)
[2023-02-18] MEDS: METOPROLOL SUCCINATE (XL) 50 MG TAB PO (17:58)
[2023-02-18] MEDS: LACTATED RINGERS 1000 ML 1,000 ML 200 ML IV (18:10)
--- NOTE | 2023-02-18 19:18 | ED.NURSE ---
pt pleasant, a/ox3. catheter inserted without complication, pt tolerated well. pt denies any pain. ate dinner 100%.
[2023-02-18] MEDS: FUROSEMIDE 10 MG/ML inj 20 MG IVP ×2 (19:32→23:53)
[2023-02-18] MEDS: ALPRAZolam 0.25 MG TABLET 0.5 MG PO (21:25)
[2023-02-18] MEDS: APIXABAN 5 MG TABLET 2.5 MG PO (21:26)
[2023-02-18] MEDS: ATORVASTATIN CALCIUM 40 MG TABLET PO (21:26)
[2023-02-18] MEDS: SODIUM CHLORIDE 0.9 % (FLUSH) 10 ML SYRINGE 5 ML IVF (21:26)
[2023-02-18] MEDS: PIPERACILLIN/TAZOBACTAM 2.25 GM in 0.9 % SODIUM CHLORIDE Mini-bag 100 ML IVPB (21:35)
[2023-02-18] MEDS: ACETAMINOPHEN 500 MG TABLET 1000 MG PO (22:05)
[2023-02-19] VITALS (12 sets, daily range): BP systolic 97–140; BP diastolic 61–84; PULSE 85–107; RESP 16–20; TEMP 36.4–36.9; O2SAT 92–96
[2023-02-19] MEDS: PIPERACILLIN/TAZOBACTAM 2.25 GM in 0.9 % SODIUM CHLORIDE Mini-bag 100 ML IVPB ×4 (03:40→21:34)
[2023-02-19] MEDS: LACTATED RINGERS 1000 ML 1,000 ML 200 ML IV ×4 (03:40→22:11)
[2023-02-19] MEDS: FUROSEMIDE 10 MG/ML inj 20 MG IVP ×4 (06:19→23:17)
[2023-02-19] MEDS: OMEPRAZOLE 20 MG CAPSULE DR PO (06:20)
[2023-02-19] MEDS: SODIUM CHLORIDE 0.9 % (FLUSH) 10 ML SYRINGE 5 ML IVF ×2 (06:20→20:19)
[2023-02-19 06:41] LABS: Hemoglobin* 11.5 gm/dL (12.0-16.0); Immature Granulocytes Pct Auto 1.6 %; Lymphocytes Percent Auto 4.6 % (20-44); Mean Corpuscular HGB Conc 33 gm/dL (32-36); Mean Corpuscular Hemoglobin 31 pg (26-34); Mean Corpuscular Volume 94 fL (80-100); Monocytes Percent Auto 4.6 % (0.0-11.0); Neutrophils Percent Auto 89.2 % (42.0-72.0); Platelet Count* 129 K/uL (140-440); Red Blood Count 3.73 m/uL (4.00-5.20)
[2023-02-19] MEDS: 0.9 % SODIUM CHLORIDE 250 ml IV (07:00)
--- NOTE | 2023-02-19 07:00 | PC.NURSE ---
[id number]: Patient pleasant, cooperative and talkative. Denies pain/SOB/CP/N/V. C/o feeling like I am falling forward while in semi-fowlers position and visibly grasping sheets with both hands as to hang on. Patient does this numerous times. MD updated and reassessed patient. MRI ordered for a.m. Tylenol administered for 102.8 oral temp with results. A&Ox3 with confusion and visual hallucinations. Multiple bruises on arms. L. arm dressing C/D/I. Cellulitis on R. leg outlined. Butterfly rash under eyes. aware. Wil patent.
--- NOTE | 2023-02-19 07:18 | P.IMPN_ITS ---
Progress Note: A&P Assessment and plan (1) Sepsis: Problem details: - marked leukocytosis, fever on admission, abnormal urine, RLE cellulitis. No hypotension or tachycardia, no hypoxia, mentation significantly improved from admission - + Urine culture (GNR) and + blood culture (GPC) Status: Acute (2) Cellulitis of leg, right: Problem details: - obvious abscess or skin injury - continue Zosyn Status: Acute (3) Urinary tract infection: Problem details: - culture growing GNR, on Zosyn Status: Acute (4) Laceration of left forearm: Problem details: - Dr. Avendano of general surgery following for wound care Status: Acute (5) Paroxysmal atrial fibrillation: Problem details: - rate controlled a fib at this time, on Metoprolol - anticoagulated with apixaban 2.5 mg twice daily Status: Acute (6) Zfqem-mz-[id number] kidney injury: Problem details: - 2/2 acute illness/sepsis, improving with IV fluids Status: Acute (7) Elevated troponin: Problem details: - most likely related to demand ischemia rather than acute coronary occlusion, asymptomatic - follow to [facility], TTE ordered for 02/19 Status: Acute (8) Weakness: Problem details: - 2/2 acute illness, PT and OT to evaluate - difficulty with ambulation and requiring EZ Stand; will leave salazar catheter in place today and remove when patient able to transfer Status: Acute (9) Back pain: Problem details: - acute on chronic with no red flag symptoms upon admission, typically on daily opiates as an outpatient Status: Acute (10) Insomnia: Problem details: - Chronically on alprazolam Status: Acute Plan - per above - continue antibiotics, await culture results - Eliquis for prophylaxis - daughter Naomie updated at bedside, questions answered Subjective Date Seen: 02/19/23 Interval history: No further fevers overnight, vital signs otherwise remained stable. Corine feels significantly better this morning. Both her blood and urine cultures are positive (GNR in urine, GPC in blood). Exam Narrative: Exam Narrative: GEN: Corine is alert and oriented answering questions appropriately. She is sitting in her bedside chair and having breakfast HEENT: Edema of bilateral lower eyelids noted with mild erythema, EOMIs bilaterally CV: Irregularly irregular rhythm R: LCTA bilaterally without concerning wheezing, air movement adequate Back: Normal contours, no concerning skin lesions, no concerning tenderness over spinous processes Abdomen: Soft and nontender Ext: No concerning edema noted, left forearm wound is wrapped and not formally examined as patient was seen by General surgery this morning for wound care Skin: Hyperpigmentation of bilateral lower extremities consistent with PVD. Erythema of RLE noted, does not extend past borders that were drawn on admission Neuro: No focal deficits, no resting tremor, gait not observed Psych: Appropriate Const: Vital Signs, click to edit/add: Vital Signs - 24 hr 02/18/23 11:34 02/18/23 13:47 02/18/23 13:48 Temperature 97.3 F L Pulse Rate 80 80 Pulse Rate [Left B rachial] Pulse Rate [Pulse Oximeter] 95 Respiratory Rate 18 Blood Pressure 137/66 Blood Pressure [Le ft Arm] Blood Pressure [Ri ght Upper Arm] 147/76 H Pulse Oximetry 95 96 96 Oxygen Delivery Me thod Room Air 02/18/23 14:08 02/18/23 14:30 02/18/23 14:32 Temperature Pulse Rate 89 84 85 Pulse Rate [Left B rachial] Pulse Rate [Pulse Oximeter] Respiratory Rate Blood Pressure 130/61 Blood Pressure [Le ft Arm] Blood Pressure [Ri ght Upper Arm] Pulse Oximetry 94 96 95 Oxygen Delivery Me thod 02/18/23 14:33 02/18/23 15:02 02/18/23 17:04 Temperature 98.1 F Pulse Rate 89 Pulse Rate [Left B rachial] 91 Pulse Rate [Pulse Oximeter] Respiratory Rate 16 Blood Pressure 122/87 Blood Pressure [Le ft Arm] 146/88 H Blood Pressure [Ri ght Upper Arm] Pulse Oximetry 96 96 Oxygen Delivery Me thod Room Air 02/18/23 20:02 02/18/23 20:04 02/18/23 22:05 Temperature 98.5 F 102.8 F H Pulse Rate Pulse Rate [Left B rachial] 102 H Pulse Rate [Pulse Oximeter] Respiratory Rate 20 20 Blood Pressure Blood Pressure [Le ft Arm] 126/78 Blood Pressure [Ri ght Upper Arm] Pulse Oximetry 95 95 Oxygen Delivery Me thod Room Air Room Air 02/18/23 22:06 02/18/23 22:51 02/18/23 22:55 Temperature 102.8 F H Pulse Rate Pulse Rate [Left B rachial] 130 H 107 H Pulse Rate [Pulse Oximeter] Respiratory Rate 22 22 Blood Pressure Blood Pressure [Le ft Arm] 154/80 H Blood Pressure [Ri ght Upper Arm] Pulse Oximetry 92 92 Oxygen Delivery Me thod Room Air Room Air 02/18/23 23:05 02/18/23 23:05 02/18/23 17:30 Temperature 100.3 F H 100.3 F H Pulse Rate 97 Pulse Rate [Left B rachial] Pulse Rate [Pulse Oximeter] Respiratory Rate Blood Pressure Blood Pressure [Le ft Arm] Blood Pressure [Ri ght Upper Arm] Pulse Oximetry Oxygen Delivery Me thod 02/18/23 23:00 02/19/23 02:03 Temperature 98.3 F Pulse Rate 97 Pulse Rate [Left B rachial] 99 Pulse Rate [Pulse Oximeter] Respiratory Rate 20 Blood Pressure Blood Pressure [Le ft Arm] 97/61 Blood Pressure [Ri ght Upper Arm] Pulse Oximetry 92 Oxygen Delivery Me thod Room Air Labs Labs: Laboratory Results - last 24 hr 02/18/23 02/18/23 02/18/23 11:40 12:30 15:25 WBC 26.08 H* RBC 4.32 Hgb 13.0 Hct 40.8 MCV 94 MCH 30 MCHC 32 RDW Coeff of [place] 15.0 Plt Count 144 Neut % (Auto) 92.7 H Lymph % (Auto) 3.8 L [place] % (Auto) 3.3 Eos % (Auto) 0.0 Baso % (Auto) 0.0 Neut # (Auto) 24.20 H Lymph # (Auto) 1.00 [place] # (Auto) 0.90 Eos # (Auto) 0.00 Baso # (Auto) 0.00 Diff Slide Review Acceptable Review Sodium 138 Potassium 4.5 Chloride 105 Carbon Dioxide 24 BUN 44 H Creatinine 1.5 Estimated Creat Clear 23.09 Estimated GFR 34 Glucose 106 Lactate Calcium 9.5 Total Bilirubin Direct Bilirubin AST ALT Alkaline Phosphatase Total Creatine Kinase Troponin I C-Reactive Protein Total Protein Albumin Urine Color Lynn A Urine Appearance Cloudy A Urine pH 5.5 Ur Specific [place] 1.020 Urine Protein 3+ A Urine Glucose (UA) Negative Urine Ketones Trace A Urine Blood 3+ A Urine Nitrite Negative Urine Bilirubin Negative Urine Urobilinogen 0.2 Ur Leukocyte Esterase 1+ A Urine RBC 2-5 A Urine WBC 50-100 A Ur Squamous Epith Cells Few Urine Bacteria Many A Ethyl Alcohol SARS-CoV-2 (PCR) Negative SARS-CoV-2 02/18/23 15:40 WBC RBC Hgb Hct MCV MCH MCHC RDW Coeff of [place] Plt Count Neut % (Auto) Lymph % (Auto) [place] % (Auto) Eos % (Auto) Baso % (Auto) Neut # (Auto) Lymph # (Auto) [place] # (Auto) Eos # (Auto) Baso # (Auto) Diff Slide Review Sodium Potassium Chloride Carbon Dioxide BUN Creatinine Estimated Creat Clear Estimated GFR Glucose Lactate 1.5 Calcium Total Bilirubin 1.0 Direct Bilirubin 0.3 AST 400 H ALT 108 H Alkaline Phosphatase 78 Total Creatine Kinase > 98808 H Troponin I 0.72 H* C-Reactive Protein 23.3 H Total Protein 7.4 Albumin 3.9 Urine Color Urine Appearance Urine pH Ur Specific [place] Urine Protein Urine Glucose (UA) Urine Ketones Urine Blood Urine Nitrite Urine Bilirubin Urine Urobilinogen Ur Leukocyte Esterase Urine RBC Urine WBC Ur Squamous Epith Cells Urine Bacteria Ethyl Alcohol < 0.01 L SARS-CoV-2 (PCR)
[2023-02-19 07:19] LABS: White Blood Count* 25.66 K/uL (4.50-11.00)
[2023-02-19 07:20] LABS: Albumin* 2.9 g/dL (3.3-5.0); Chloride* 106 mmol/L (96-114); Slide Review Reflex No
[2023-02-19 07:21] LABS: Potassium* 3.2 mmol/L (3.6-5.1); Sodium* 136 mmol/L (135-149)
[2023-02-19 07:23] LABS: Alkaline Phosphatase* 66 U/L (40-150); Aspartate Amino Transferase* 322 U/L (12-35); Bilirubin Direct* 0.3 mg/dL (0.0-0.5); Blood Urea Nitrogen* 45 mg/dL (7-30); Carbon Dioxide* 24 mmol/L (20-32); Creatinine* 1.4 mg/dL (0.5-1.5); Est. Creatinine Clearance* 24.74; Estimated Glomerular Filt Rate 37 ml/min
[2023-02-19 07:24] LABS: Alanine Aminotransferase* 110 U/L (4-35); Calcium* 8.4 mg/dL (8.4-10.6); Glucose* 100 mg/dL (60-115)
[2023-02-19 07:43] LABS: C Reactive Protein* 25.6 mg/dL (0.5-1.0); Troponin I* 0.74 ng/mL (0.01-0.04)
[2023-02-19] MEDS: APIXABAN 5 MG TABLET 2.5 MG PO ×2 (09:01→20:14)
[2023-02-19] MEDS: ASCORBIC ACID 500 MG TABLET 250 MG PO (09:02)
[2023-02-19] MEDS: METOPROLOL SUCCINATE (XL) 50 MG TAB PO (09:02)
[2023-02-19] MEDS: MULTIVITAMIN/MINERALS 1 TABLET 1 TAB PO (09:02)
[2023-02-19] MEDS: FERROUS SULFATE 325 MG TABLET PO (09:03)
[2023-02-19] MEDS: ESCITALOPRAM 10 MG TABLET 5 MG PO (09:03)
--- NOTE | 2023-02-19 09:24 | PM.GSPN ---
Subjective Subjective Date Seen: 02/19/23 Interval history: Patient is doing well. She states she feels better today than yesterday. Blood cultures are positive. No pain in her arm. Exam Narrative: Exam Narrative: General: No acute distress Extremities: Left arm with ecchymosis. Wound is clean and dry. There the subcutaneous fat has sheared away from the underlying fascia, however this is healthy and well vascularized. Const: Vital Signs, click to edit/add: Vital Signs - 24 hr 02/18/23 11:34 02/18/23 13:47 02/18/23 13:48 Temperature 97.3 F L Pulse Rate 80 80 Pulse Rate [Left B rachial] Pulse Rate [Pulse Oximeter] 95 Respiratory Rate 18 Blood Pressure 137/66 Blood Pressure [Le ft Arm] Blood Pressure [Ri ght Upper Arm] 147/76 H Pulse Oximetry 95 96 96 Oxygen Delivery Me thod Room Air 02/18/23 14:08 02/18/23 14:30 02/18/23 14:32 Temperature Pulse Rate 89 84 85 Pulse Rate [Left B rachial] Pulse Rate [Pulse Oximeter] Respiratory Rate Blood Pressure 130/61 Blood Pressure [Le ft Arm] Blood Pressure [Ri ght Upper Arm] Pulse Oximetry 94 96 95 Oxygen Delivery Me thod 02/18/23 14:33 02/18/23 15:02 02/18/23 17:04 Temperature 98.1 F Pulse Rate 89 Pulse Rate [Left B rachial] 91 Pulse Rate [Pulse Oximeter] Respiratory Rate 16 Blood Pressure 122/87 Blood Pressure [Le ft Arm] 146/88 H Blood Pressure [Ri ght Upper Arm] Pulse Oximetry 96 96 Oxygen Delivery Me thod Room Air 02/18/23 20:02 02/18/23 20:04 02/18/23 22:05 Temperature 98.5 F 102.8 F H Pulse Rate Pulse Rate [Left B rachial] 102 H Pulse Rate [Pulse Oximeter] Respiratory Rate 20 20 Blood Pressure Blood Pressure [Le ft Arm] 126/78 Blood Pressure [Ri ght Upper Arm] Pulse Oximetry 95 95 [facility] 02/18/23 22:06 02/18/23 22:51 02/18/23 22:55 Temperature 102.8 F H Pulse Rate Pulse Rate [Left B rachial] 130 H 107 H Pulse Rate [Pulse Oximeter] Respiratory Rate 22 22 Blood Pressure Blood Pressure [Le ft Arm] 154/80 H Blood Pressure [Ri ght Upper Arm] Pulse Oximetry 92 92 Oxygen Delivery Me thod Room Air Room Air 02/18/23 23:05 02/18/23 23:05 02/18/23 17:30 Temperature 100.3 F H 100.3 F H Pulse Rate 97 Pulse Rate [Left B rachial] Pulse Rate [Pulse Oximeter] Respiratory Rate Blood Pressure Blood Pressure [Le ft Arm] Blood Pressure [Ri ght Upper Arm] Pulse Oximetry Oxygen Delivery Me thod 02/18/23 23:00 02/19/23 02:03 02/19/23 07:00 Temperature 98.3 F 98.4 F Pulse Rate 97 Pulse Rate [Left B rachial] 99 Pulse Rate [Pulse Oximeter] 96 Respiratory Rate 20 16 Blood Pressure Blood Pressure [Le ft Arm] 97/61 136/69 Blood Pressure [Ri ght Upper Arm] Pulse Oximetry 92 92 Oxygen Delivery Me thod Room Air Room Air Progress Note: A&P Assessment and plan (1) Sepsis: Problem details: - marked leukocytosis, fever on admission, abnormal urine, RLE cellulitis. No hypotension or tachycardia, no hypoxia - + Urine culture (GNR) and + blood culture (GPC) Status: Acute (2) Laceration of left forearm: Problem details: - Dr. Avendano of general surgery following for wound care Status: Acute Plan The patient is an 82-year-old female with a left arm laceration after fall. The wound appears healthy. I recommend daily dressing changes by a nursing with Xeroform followed by saline soaked gauze followed by Kerlix and an Edis wrap. -orders placed. -if patient discharges to a subacute facility they should continue with this management and then she should follow up to establish care in the Wound Center. -if she is able to be discharged home, her daughter should be taught the daily dressing changes and then she should follow up in the Wound Center. -wound center will put the patient on the schedule for next week.
--- NOTE | 2023-02-19 11:15 | CRLHL7_ITS ---
For Patients: As a result of the Century Cures Act, medical imaging exams and procedure reports are released immediately into your electronic medical record. You may view this report before your referring provider. If you have questions, please contact your health care provider. Indication: altered mental status, vertigo Technique: Noncontrast sagittal T1 weighted, axial T2 fast spin echo, axial SWI and FLAIR, and axial diffusion weighted images of the head. 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 Moderate scattered patchy foci of increased T2 signal within the periventricular and subcortical white matter of both cerebral hemispheres. Moderate cerebral parenchymal volume loss. The ventricles, sulci and gyri are of normal size, shape and contour for age and degree of atrophy. No regions of restricted diffusion. Midline structures are centrally located. No convincing evidence of suspicious intra- or extra-axial fluid collections. Thinning of the ocular lenses likely due to prior cataract surgery changes. The paranasal sinuses are clear. Impression: 1. No radiographic evidence of acute intracranial abnormalities. 2. Moderate supratentorial white matter changes are non-specific but statistically most likely related to small vessel ischemic disease. Moderate cerebral volume loss. Dictated by Barry Davis MD @ 02/19/2023 12:23:28 PM (Electronically Signed)
[2023-02-19] MEDS: POTASSIUM BICARB 25 MEQ EFFERVESCENT TAB PO (12:36)
[2023-02-19] MEDS: ACETAMINOPHEN 500 MG TABLET 1000 MG PO ×2 (12:44→20:16)
[2023-02-19 13:32] LABS: Troponin I* 0.56 ng/mL (0.01-0.04)
[2023-02-19 14:02] LABS: Creatine Kinase* 9282 U/L (41-117)
--- NOTE | 2023-02-19 15:13 | PC.SOCIAL ---
Discharge planning: Met with pt's dtr and Naomie HERNANDEZ, regarding d/c plan. Dtr shared that she is the [facility] ombudsman so is familiar with the discharge process. Dtr shared that pt's recently at a care home and pt will not want to go to a care home at discharge. Per dtr, pt was living in her own home in [place] and was getting along well with her walker and cane at home. One of her daughters visits daily and helps her at home as needed. Dtr shared that the family will provide additional assistance at home as needed at discharge. Dtr shared that pt's had home care through [facility] in [place] and that if pt needs home care at discharge, this would be their first choice. Dtr states that if pt does not make enough rehab progress to return home safely with family assistance, that they could consider care home for short term rehab. However, family does not want to work on care home placement at this time. Dtr Naomie will be contact for discharge planning. Called [facility] and spoke with staff who state they have RN and PT home care services but do not offer OT services. If pt has order for home care at discharge, information can be sent for review to see if it can be staffed by this agency. , fax#[phone]. workers compensation attorney to follow up as needed.
--- NOTE | 2023-02-19 18:08 | PC.NURSE ---
End of Shift: Patient is A&O with periods of confusion/forgetfulness, and also reported seeing four men outside when there was no one. Pt vitally stable, lungs clear, bowel sounds active with two loose bowel movements today. De La Torre intact and draining. Reported 9/10 back pain relieved with PRN Tylenol x1. A2 w/ EZ stand, pt has been in chair most of day. Cellulitis on R thigh receding from ordinal marking, but pink and warm. Cellulitis on R knee appears to have no change. PT has own venous pumps and TEDs, venous pumps applied for 1 hour as directed by pt. Tolerated regular diet. TELE=AFIB
[2023-02-19] MEDS: OXYCODONE 5 MG TABLET 2.5 MG PO (20:14)
[2023-02-19] MEDS: MELATONIN 3 MG TABLET PO (20:15)
[2023-02-19] MEDS: ATORVASTATIN CALCIUM 40 MG TABLET PO (20:16)
[2023-02-19] MEDS: ALPRAZolam 0.25 MG TABLET 0.5 MG PO (20:17)
[2023-02-20] MEDS: LACTATED RINGERS 1000 ML 1,000 ML 200 ML IV (03:17)
[2023-02-20 03:40] VITALS: BP 127/75; PULSE 97; RESP 18; TEMP 36.8; O2SAT 91
[2023-02-20] MEDS: PIPERACILLIN/TAZOBACTAM 2.25 GM in 0.9 % SODIUM CHLORIDE Mini-bag 100 ML IVPB ×4 (04:02→21:34)
[2023-02-20] MEDS: 0.9 % SODIUM CHLORIDE 250 ml IV (04:03)
[2023-02-20] MEDS: FUROSEMIDE 10 MG/ML inj 20 MG IVP ×3 (06:15→18:14)
[2023-02-20] MEDS: ACETAMINOPHEN 500 MG TABLET 1000 MG PO (06:16)
[2023-02-20] MEDS: OMEPRAZOLE 20 MG CAPSULE DR PO (06:17)
[2023-02-20] MEDS: OXYCODONE 5 MG TABLET 2.5 MG PO ×2 (06:17→12:45)
[2023-02-20 07:00] VITALS: BP 123/75; PULSE 102; PULSE 104; PULSE 90; RESP 20; TEMP 36.6; O2SAT 91
--- NOTE | 2023-02-20 07:20 | PC.NURSE ---
Pt is alert and oriented x3 but is forgetful at times. Afebrile.?Pt reports pain 7/10 in lower back, pain managed with PRN medications. ?Pt?s left forearm dressing?is CDI.?Pt denies chest pain,?and N/V. Pt?s salazar catheter is patent and draining. Pt is tolerating a regular diet, and is up with easy stand. ?
[2023-02-20 08:27] LABS: Albumin* 2.6 g/dL (3.3-5.0); Basophils Percent Auto 0.1 % (0.0-3.0); Chloride* 108 mmol/L (96-114); Hematocrit 33.3 % (33.0-51.0); Hemoglobin* 10.8 gm/dL (12.0-16.0); Immature Granulocytes Pct Auto 0.6 %; Lymphocytes Percent Auto 7.1 % (20-44); Mean Corpuscular HGB Conc 32 gm/dL (32-36); Mean Corpuscular Hemoglobin 31 pg (26-34); Mean Corpuscular Volume 94 fL (80-100); Monocytes Percent Auto 4.9 % (0.0-11.0); Neutrophils Percent Auto 87.3 % (42.0-72.0); Platelet Count* 119 K/uL (140-440); RDW Coefficient of Variation % 14.8 % (11.5-15.5); Red Blood Count 3.53 m/uL (4.00-5.20); Sodium* 138 mmol/L (135-149); White Blood Count* 20.55 K/uL (4.50-11.00)
[2023-02-20 08:29] LABS: Slide Review Reflex No
[2023-02-20 08:30] LABS: Alkaline Phosphatase* 93 U/L (40-150); Aspartate Amino Transferase* 234 U/L (12-35); Bilirubin Total* 0.7 mg/dL (0.1-1.5); Blood Urea Nitrogen* 43 mg/dL (7-30); Carbon Dioxide* 28 mmol/L (20-32); Creatinine* 1.3 mg/dL (0.5-1.5); Est. Creatinine Clearance* 26.65; Estimated Glomerular Filt Rate 41 ml/min; Total Protein* 5.6 g/dL (6.0-8.3)
[2023-02-20 08:31] LABS: Alanine Aminotransferase* 115 U/L (4-35); Calcium* 7.8 mg/dL (8.4-10.6); Glucose* 98 mg/dL (60-115); Magnesium* 1.7 mg/dL (1.5-2.6)
[2023-02-20 08:37] LABS: Potassium* 2.8 mmol/L (3.6-5.1)
[2023-02-20 08:44] LABS: C Reactive Protein* 25.7 mg/dL (0.5-1.0)
--- NOTE | 2023-02-20 08:53 | CRLHL7_ITS ---
For Patients: As a result of the Century Cures Act, medical imaging exams and procedure reports are released immediately into your electronic medical record. You may view this report before your referring provider. If you have questions, please contact your health care provider. INDICATION: Status post Whipple. COMPARISON: None. TECHNIQUE: The grayscale and color Doppler images of the abdomen. FINDINGS: The partially visualized pancreas is unremarkable. The reported pancreaticojejunostomy is difficult to evaluate on ultrasound. The aorta and IVC are unremarkable. The visualized portions of the liver are unremarkable and without focal lesion. T He gallbladder has been removed. The common bile duct is not well visualized. The portal vein appears patent with normal direction of flow. The right kidney measures 8.3 cm and appears normal. IMPRESSION: Nonvisualization of the common bile duct without obvious intrahepatic biliary dilatation. Dictated by Levon Parra MD @ 02/20/2023 12:33:17 PM (Electronically Signed)
--- NOTE | 2023-02-20 08:55 | P.IMPN_ITS ---
Progress Note: A&P Assessment and plan (1) Sepsis: Problem details: - marked leukocytosis, fever on admission, abnormal urine, RLE cellulitis. No hypotension, no hypoxia, mentation significantly improved from admission - RLE cellulitis possible source. Had a root canal in December - + Urine culture (GNR) and + blood culture (GPC), awaiting further identification Status: Acute (2) Cellulitis of leg, right: Problem details: - obvious abscess or skin injury - continue Zosyn Status: Acute (3) Urinary tract infection: Problem details: - culture growing GNR, on Zosyn Status: Acute (4) Laceration of left forearm: Problem details: - Dr. Avendano of general surgery following for wound care Status: Acute (5) Paroxysmal atrial fibrillation: Problem details: - rate controlled a fib at this time, on Metoprolol - anticoagulated with apixaban 2.5 mg twice daily Status: Acute (6) Sdrxg-[id number] kidney injury: Problem details: - 2/2 acute illness/sepsis, improving with IV fluids Status: Acute (7) Elevated troponin: Problem details: - most likely related to demand ischemia rather than acute coronary occlusion, asymptomatic - peaked at 0.74, TTE 02/19: Final Impressions: 1. Normal LV size, normal wall thickness, normal global systolic function with an estimated EF of 55 - 60%. 2. Right ventricular cavity size is normal, global systolic RV function is normal. 3. Severely enlarged left atrium. 4. The aortic valve is trileaflet and sclerotic, no stenosis and no regurgitation. 5. The mitral valve is normal, moderate mitral regurgitation. 6. Mild-moderate tricuspid regurgitation. 7. Borderline increased estimated pulmonary systolic pressures by tricuspid regurgitation velocity and right atrial pressure (~35 mmHg). 8. No obvious valvular vegetation noted. If clinically indicated, a FLORENCIA could be performed. Status: Acute (8) Weakness: Problem details: - 2/2 acute illness, PT and OT to evaluate - difficulty with ambulation and requiring assistance; will leave salazar catheter in place and remove when patient able to transfer Status: Acute (9) Back pain: Problem details: - acute on chronic with no red flag symptoms upon admission, typically on daily opiates as an outpatient Status: Acute (10) Insomnia: Problem details: - Chronically on alprazolam Status: Acute (11) Elevated LFTs: Problem details: - likely related to acute illness, asymptomatic - RUQ ultrasound 02/20, results pending Status: Acute Plan - continue IV antibiotics, therapies - Apixaban for ppx Subjective Date Seen: 02/20/23 Interval history: Corine remains afebrile and normotensive, has not required any supplemental oxygen. She did not sleep well last night secondary to beeping from her IV. She feels sore but is working with our therapy teams. She has no concerns for the hospitalist team today. Both her blood and urine cultures are positive (GNR in urine, GPC in blood). Exam Narrative: Exam Narrative: GEN: Alert and laying comfortably in bed HEENT: EOMIs bilaterally, no scleral icterus CV: Irregularly irregular R: LCTA bilaterally without concerning wheezing, air movement adequate Ext: Wearing BLE leg wraps from home. + erythema over RLE, continues to improve from previous outline Skin: Bruising L shoulder, scattered bruising extremities, no other concerning skin lesions Neuro: No focal deficits Psych: Appropriate Const: Vital Signs, click to edit/add: Vital Signs - 24 hr 02/19/23 09:10 02/19/23 11:00 02/19/23 15:00 Temperature 98.2 F Pulse Rate 99 Pulse Rate [Apical ] Pulse Rate [Pulse Oximeter] 87 Respiratory Rate 16 16 Blood Pressure [Le ft Arm] 119/69 Pulse Oximetry 93 94 Oxygen Delivery Me thod Room Air Room Air 02/19/23 15:00 02/19/23 15:00 02/19/23 15:00 Temperature 97.6 F Pulse Rate 89 Pulse Rate [Apical ] 90 Pulse Rate [Pulse Oximeter] 90 Respiratory Rate 16 Blood Pressure [Le ft Arm] 106/64 Pulse Oximetry 94 Oxygen Delivery Ne thod Room Air 02/19/23 19:44 02/19/23 20:16 02/19/23 21:34 Temperature 98.2 F 98.2 F 98.2 F Pulse Rate Pulse Rate [Apical ] 85 Pulse Rate [Pulse Oximeter] Respiratory Rate 16 Blood Pressure [Le ft Arm] 140/84 H Pulse Oximetry 96 Oxygen Delivery Ne thod Room Air 02/19/23 22:16 02/19/23 22:16 02/19/23 22:19 Temperature 98.2 F Pulse Rate 107 H Pulse Rate [Apical ] 88 88 Pulse Rate [Pulse Oximeter] Respiratory Rate 16 16 Blood Pressure [Le ft Arm] 108/68 Pulse Oximetry 94 Oxygen Delivery Me thod Room Air 02/19/23 22:20 02/20/23 03:40 02/20/23 07:00 Temperature 98.2 F Pulse Rate Pulse Rate [Apical ] Pulse Rate [Pulse Oximeter] 97 102 H Respiratory Rate 18 20 Blood Pressure [Le ft Arm] 127/75 Pulse Oximetry 94 91 Oxygen Delivery Me thod Room Air Room Air 02/20/23 07:00 02/20/23 07:00 Temperature 98 F Pulse Rate Pulse Rate [Apical ] Pulse Rate [Pulse Oximeter] 102 H Respiratory Rate 20 Blood Pressure [Le ft Arm] 123/75 Pulse Oximetry 91 91 Oxygen Delivery Me thod Room Air Room Air Labs Labs: Laboratory Results - last 24 hr 02/19/23 02/20/23 12:37 06:00 WBC 20.55 H RBC 3.53 L Hgb 10.8 L Hct 33.3 MCV 94 MCH 31 MCHC 32 RDW Coeff of Phoebe 14.8 Plt Count 119 L Neut % (Auto) 87.3 H Lymph % (Auto) 7.1 L [place] % (Auto) 4.9 Eos % (Auto) 0.0 Baso % (Auto) 0.1 Neut # (Auto) 17.90 H Lymph # (Auto) 1.50 [place] # (Auto) 1.00 H Eos # (Auto) 0.00 Baso # (Auto) 0.00 Sodium 138 Potassium 2.8 L* Chloride 108 Carbon Dioxide 28 BUN 43 H Creatinine 1.3 Estimated Creat Clear 26.65 Estimated GFR 41 Glucose 98 Calcium 7.8 L Magnesium 1.7 Total Bilirubin 0.7 AST 234 H ALT 115 H Alkaline Phosphatase 93 Total Creatine Kinase 9282 H Troponin I 0.56 H* C-Reactive Protein 25.7 H Total Protein 5.6 L Albumin 2.6 L
[2023-02-20] MEDS: APIXABAN 5 MG TABLET 2.5 MG PO ×2 (09:21→21:34)
[2023-02-20] MEDS: ASCORBIC ACID 500 MG TABLET 250 MG PO (09:22)
[2023-02-20] MEDS: METOPROLOL SUCCINATE (XL) 50 MG TAB PO (09:22)
[2023-02-20] MEDS: ESCITALOPRAM 10 MG TABLET 5 MG PO (09:22)
[2023-02-20] MEDS: FERROUS SULFATE 325 MG TABLET PO (09:22)
[2023-02-20] MEDS: MULTIVITAMIN/MINERALS 1 TABLET 1 TAB PO (09:23)
[2023-02-20] MEDS: POTASSIUM BICARB 25 MEQ EFFERVESCENT TAB PO ×3 (09:27→12:45)
[2023-02-20 11:00] VITALS: BP 107/62; PULSE 91; RESP 24; TEMP 36.3; O2SAT 94
[2023-02-20] MEDS: LIDOCAINE 5% PATCH 1 PATCH TRANSDERMA ×2 (13:05→13:07)
[2023-02-20] MEDS: ACETAMINOPHEN 325 MG TABLET 975 MG PO (13:07)
[2023-02-20 15:00] VITALS: BP 133/78; PULSE 77; PULSE 81; RESP 20; TEMP 36.5; O2SAT 94
[2023-02-20 15:40] LABS: Potassium* 3.7 mmol/L (3.6-5.1)
[2023-02-20] MEDS: SODIUM CHLORIDE 0.9 % (FLUSH) 10 ML SYRINGE 5 ML IVF ×2 (16:31→21:35)
--- NOTE | 2023-02-20 18:30 | PC.NURSE ---
End of Shift: Patient pleasant and cooperative, with some confusion at times. Patient vitally stable, lungs clear, BS WNL, IV intact. Patient with salazar, intact and draining, patient had 1 loose BM by commode. Patient 2 assist with walker, gb. Patient rates pain at most 7/10, tylenol and 2.5 oxy given once, pain has been as low as 3/10. Lidocaine patch applied to left shoulder, there is a bruise on the left shoulder. Wound care performed with drainage through kerlix but not on to buck bandage, serosanguineous, wound is beefy red. Cellulitis on right knee and thigh are improving. Tele=A.fib.
[2023-02-20 20:02] VITALS: BP 95/71; PULSE 87; RESP 20; TEMP 36.6; O2SAT 94
[2023-02-20] MEDS: ATORVASTATIN CALCIUM 40 MG TABLET PO (21:34)
[2023-02-20] MEDS: MELATONIN 3 MG TABLET PO (21:34)
[2023-02-20 23:00] VITALS: PULSE 76; RESP 20; O2SAT 94
[2023-02-21] VITALS (8 sets, daily range): BP systolic 130–151; BP diastolic 64–84; PULSE 77–94; RESP 18–24; TEMP 36.3–37.3; O2SAT 91–94
[2023-02-21] MEDS: FUROSEMIDE 10 MG/ML inj 20 MG IVP ×4 (00:01→17:49)
[2023-02-21] MEDS: SODIUM CHLORIDE 0.9 % (FLUSH) 10 ML SYRINGE 5 ML IVF ×6 (00:01→22:05)
[2023-02-21] MEDS: 0.9 % SODIUM CHLORIDE 250 ml IV (04:01)
[2023-02-21] MEDS: PIPERACILLIN/TAZOBACTAM 2.25 GM in 0.9 % SODIUM CHLORIDE Mini-bag 100 ML IVPB ×4 (04:01→22:05)
[2023-02-21] MEDS: ACETAMINOPHEN 325 MG TABLET 975 MG PO ×3 (04:11→19:56)
--- NOTE | 2023-02-21 05:27 | PC.NURSE ---
[id number]: Patient pleasant and cooperative. De La Torre intact. Heavy A2/walker/GB. Frequent T&R. Cellulitis on R. thigh and knee receding within drawn line. Tylenol administered for mild fever. Appeared to rest well during noc.
[2023-02-21] MEDS: OMEPRAZOLE 20 MG CAPSULE DR PO (06:10)
[2023-02-21] MEDS: OXYCODONE 5 MG TABLET 2.5 MG PO ×3 (07:51→22:04)
[2023-02-21] MEDS: APIXABAN 5 MG TABLET 2.5 MG PO ×2 (09:35→21:03)
[2023-02-21] MEDS: ESCITALOPRAM 10 MG TABLET 5 MG PO (09:35)
[2023-02-21] MEDS: ASCORBIC ACID 500 MG TABLET 250 MG PO (09:36)
[2023-02-21] MEDS: METOPROLOL SUCCINATE (XL) 50 MG TAB PO (09:37)
[2023-02-21] MEDS: FERROUS SULFATE 325 MG TABLET PO (09:38)
[2023-02-21] MEDS: MULTIVITAMIN/MINERALS 1 TABLET 1 TAB PO (09:38)
[2023-02-21 10:01] LABS: Lactate* 2.1 mmol/L (0.5-1.9)
[2023-02-21 10:05] LABS: Eosinophils Percent Auto 0.1 % (0.0-7.0); Hematocrit 38.9 % (33.0-51.0); Hemoglobin* 12.5 gm/dL (12.0-16.0); Immature Granulocytes Pct Auto 0.8 %; Lymphocytes Percent Auto 8.8 % (20-44); Mean Corpuscular HGB Conc 32 gm/dL (32-36); Mean Corpuscular Hemoglobin 31 pg (26-34); Mean Corpuscular Volume 95 fL (80-100); Monocytes Percent Auto 5.1 % (0.0-11.0); Neutrophils Percent Auto 85.2 % (42.0-72.0); Platelet Count* 153 K/uL (140-440); RDW Coefficient of Variation % 14.6 % (11.5-15.5); White Blood Count* 15.55 K/uL (4.50-11.00)
[2023-02-21 10:10] LABS: Slide Review Reflex No
[2023-02-21 10:18] LABS: Albumin* 3.4 g/dL (3.3-5.0); Chloride* 103 mmol/L (96-114); Sodium* 137 mmol/L (135-149)
[2023-02-21 10:19] LABS: Potassium* 3.3 mmol/L (3.6-5.1)
[2023-02-21 10:20] LABS: Creatinine* 1.3 mg/dL (0.5-1.5); Est. Creatinine Clearance* 26.65; Estimated Glomerular Filt Rate 41 ml/min
[2023-02-21 10:21] LABS: Alkaline Phosphatase* 91 U/L (40-150); Aspartate Amino Transferase* 330 U/L (12-35); Bilirubin Direct* 0.3 mg/dL (0.0-0.5); Bilirubin Total* 1.1 mg/dL (0.1-1.5); Blood Urea Nitrogen* 37 mg/dL (7-30); Carbon Dioxide* 29 mmol/L (20-32); Total Protein* 6.9 g/dL (6.0-8.3)
[2023-02-21 10:22] LABS: Alanine Aminotransferase* 175 U/L (4-35); Calcium* 8.4 mg/dL (8.4-10.6); Glucose* 196 mg/dL (60-115); Magnesium* 1.7 mg/dL (1.5-2.6)
[2023-02-21 10:39] LABS: C Reactive Protein* 22.3 mg/dL (0.5-1.0)
[2023-02-21] MEDS: 0.9 % SODIUM CHLORIDE 250 ml 250 ML IV (10:49)
--- NOTE | 2023-02-21 11:17 | P.IMPN_ITS ---
Progress Note: A&P Assessment and plan (1) Sepsis: Problem details: - marked leukocytosis, fever on admission, abnormal urine, RLE cellulitis. No hypotension, no hypoxia, mentation significantly improved from admission - RLE cellulitis likely source. Had a root canal in December - + Urine culture for E. Fergusonii and + admission Blood culture for GBS, on Zosyn - repeat blood cultures NGTD Status: Acute (2) Cellulitis of leg, right: Problem details: - no obvious abscess or skin injury - continue Zosyn Status: Acute (3) Urinary tract infection: Problem details: - E Fergusonii, on Zosyn Status: Acute (4) Laceration of left forearm: Problem details: - Dr. Avendano of General Surgery following for wound care Status: Acute (5) Paroxysmal atrial fibrillation: Problem details: - rate controlled a fib at this time, on Metoprolol - anticoagulated with apixaban 2.5 mg twice daily Status: Acute (6) Kydtg-[id number] kidney injury: Problem details: - 2/2 acute illness/sepsis, improving with IV fluids Status: Acute (7) Elevated troponin: Problem details: - most likely related to demand ischemia rather than acute coronary occlusion, asymptomatic - peaked at 0.74, TTE 02/19: Final Impressions: 1. Normal LV size, normal wall thickness, normal global systolic function with an estimated EF of 55 - 60%. 2. Right ventricular cavity size is normal, global systolic RV function is normal. 3. Severely enlarged left atrium. 4. The aortic valve is trileaflet and sclerotic, no stenosis and no regurgitat ion. 5. The mitral valve is normal, moderate mitral regurgitation. 6. Mild-moderate tricuspid regurgitation. 7. Borderline increased estimated pulmonary systolic pressures by tricuspid regurgitation velocity and right atrial pressure (~35 mmHg). 8. No obvious valvular vegetation noted. If clinically indicated, a FLORENCIA could be performed. Status: Acute (8) Weakness: Problem details: - 2/2 acute illness, PT and OT to evaluate - difficulty with ambulation and requiring assistance; has salazar catheter in place and will remove when patient able to transfer independently Status: Acute (9) Back pain: Problem details: - acute on chronic with no red flag symptoms upon admission, typically on daily opiates as an outpatient Status: Acute (10) Insomnia: Problem details: - Chronically on alprazolam, stopped this and transitioned to melatonin 02/20 Status: Acute (11) Elevated LFTs: Problem details: - likely related to acute illness, asymptomatic - RUQ ultrasound 02/20, no acute findings noted - continue to follow Status: Acute Plan - per above - Eliquis for ppx - dispo: continues to require IVFs and antibiotics for rhabdo/bacteremia, SNF vs home with HH when medically stable for discharge - daughter Naomie updated at bedside, questions answered Subjective Date Seen: 02/21/23 Interval history: Corine remains afebrile and normotensive, has not required any supplemental oxygen. She continues to feel little better each day; not yet back to baseline, but requiring less support from therapies. No abdominal pain, tolerating po intake. Urine culture has grown E. Fergusononii and admission blood cultures have grown group B strep. She is tolerating antibiotics. White blood count and inflammatory markers overall improved; mild increase in lactate and LFTs this morning. She is amenable to an IV fluid bolus. Exam Narrative: Exam Narrative: GEN: Alert and oriented, sitting comfortably in bedside chair HEENT: EOMIs bilaterally, no scleral icterus CV: RRR, No concerning murmurs, no carotid bruits R: LCTA bilaterally without concerning wheezing, rales, or rhonchi Back: Normal contours, no tenderness to palpation over spinous processes Ext: Wearing wraps bilateral lower extremities Skin: Scattered bruising of extremities, right upper extremity wrapped, no other concerning skin lesions or rashes on exposed skin Neuro: No focal deficits Psych: Appropriate Const: Vital Signs, click to edit/add: Vital Signs - 24 hr 02/20/23 15:00 02/20/23 15:00 02/20/23 15:00 Temperature 97.7 F Pulse Rate Pulse Rate [Pulse Oximeter] 81 81 Respiratory Rate 20 20 20 Blood Pressure [Le ft Arm] Blood Pressure [Ri ght Arm] 133/78 Pulse Oximetry 94 94 Oxygen Delivery Me thod Room Air Room Air 02/20/23 15:00 02/20/23 20:02 02/21/23 00:06 Temperature 97.9 F 98.5 F Pulse Rate 77 Pulse Rate [Pulse Oximeter] 87 89 Respiratory Rate 20 20 Blood Pressure [Le ft Arm] 95/71 Blood Pressure [Ri ght Arm] 139/74 Pulse Oximetry 94 94 Oxygen Delivery Me thod Room Air Room Air 02/20/23 23:00 02/20/23 23:00 02/21/23 04:07 Temperature 99.1 F Pulse Rate 76 Pulse Rate [Pulse Oximeter] 94 Respiratory Rate 20 20 Blood Pressure [Le ft Arm] Blood Pressure [Ri ght Arm] 130/64 Pulse Oximetry 94 91 Oxygen Delivery Me thod Room Air Room Air 02/21/23 04:11 02/21/23 07:00 02/21/23 07:00 Temperature 99.1 F 97.9 F Pulse Rate Pulse Rate [Pulse Oximeter] 87 87 Respiratory Rate 20 20 Blood Pressure [Le ft Arm] Blood Pressure [Ri ght Arm] 147/84 H Pulse Oximetry 94 Oxygen Delivery Me thod Room Air 02/21/23 07:00 Temperature Pulse Rate Pulse Rate [Pulse Oximeter] Respiratory Rate 20 Blood Pressure [Le ft Arm] Blood Pressure [Ri ght Arm] Pulse Oximetry 94 Oxygen Delivery Me thod Room Air Labs Labs: Laboratory Results - last 24 hr 02/20/23 02/21/23 15:20 09:55 WBC 15.55 H RBC 4.10 Hgb 12.5 Hct 38.9 MCV 95 MCH 31 MCHC 32 RDW Coeff of Phoebe 14.6 Plt Count 153 Neut % (Auto) 85.2 H Lymph % (Auto) 8.8 L [place] % (Auto) 5.1 Eos % (Auto) 0.1 Baso % (Auto) 0.0 Neut # (Auto) 13.20 H Lymph # (Auto) 1.40 [place] # (Auto) 0.80 Eos # (Auto) 0.00 Baso # (Auto) 0.00 Sodium 137 Potassium 3.7 3.3 L Chloride 103 Carbon Dioxide 29 BUN 37 H Creatinine 1.3 Estimated Creat Clear 26.65 Estimated GFR 41 Glucose 196 H Lactate 2.1 H Calcium 8.4 Magnesium 1.7 Total Bilirubin 1.1 Direct Bilirubin 0.3 AST 330 H ALT 175 H Alkaline Phosphatase 91 C-Reactive Protein 22.3 H Total Protein 6.9 Albumin 3.4
[2023-02-21] MEDS: 0.9 % SODIUM CHLORIDE 1000 ml 1,000 ML 125 ML IV (11:53)
[2023-02-21 11:54] LABS: Creatine Kinase* 4533 U/L (41-117)
[2023-02-21] MEDS: POTASSIUM BICARB 25 MEQ EFFERVESCENT TAB PO ×2 (13:10→15:17)
[2023-02-21] MEDS: LIDOCAINE 5% PATCH 1 PATCH TRANSDERMA (13:10)
[2023-02-21] MEDS: ATORVASTATIN CALCIUM 40 MG TABLET PO (21:03)
[2023-02-21] MEDS: TRIAMCINOLONE ACETONIDE CREAM 0.1 % 1 APPLIC TOPICAL (21:04)
[2023-02-21] MEDS: MELATONIN 3 MG TABLET PO (22:04)
--- NOTE | 2023-02-21 22:49 | PC.NURSE ---
Addendum entered by Kristina Fraire RN 02/21/23 23:04: Wound change competed, C/D/I. Tele-deepti. Original Note: End of Shift ([id number]) Patient pleasant and cooperative. Patient vitally stable, lungs clear, BS WNL, IV intact. Patient rates pain at most 7/10, tylenol and oxy 2.5 given x2. Patient 2 assist, walker, gb. Patient salazar draining and intact. Patient had 2 loose/soft stools by commode. Patient was up in chair majority of day with many visitors. Lidocaine patch applied to left shoulder. Patient tolerating regular diet.
[2023-02-22] VITALS (11 sets, daily range): BP systolic 113–145; BP diastolic 57–85; PULSE 80–879; RESP 14–18; TEMP 36.5–36.8; O2SAT 93–96
[2023-02-22] MEDS: 0.9 % SODIUM CHLORIDE 250 ml IV (04:10)
[2023-02-22] MEDS: PIPERACILLIN/TAZOBACTAM 2.25 GM in 0.9 % SODIUM CHLORIDE Mini-bag 100 ML IVPB ×4 (04:18→22:32)
[2023-02-22] MEDS: OMEPRAZOLE 20 MG CAPSULE DR PO (06:22)
[2023-02-22] MEDS: FUROSEMIDE 10 MG/ML inj 20 MG IVP ×4 (06:22→17:31)
[2023-02-22 06:51] LABS: Lactate* 0.7 mmol/L (0.5-1.9)
[2023-02-22 07:09] LABS: Eosinophils Percent Auto 0.5 % (0.0-7.0); Hematocrit 34.8 % (33.0-51.0); Hemoglobin* 11.2 gm/dL (12.0-16.0); Immature Granulocytes Pct Auto 1.4 %; Lymphocytes Percent Auto 11.9 % (20-44); Mean Corpuscular HGB Conc 32 gm/dL (32-36); Mean Corpuscular Hemoglobin 30 pg (26-34); Mean Corpuscular Volume 94 fL (80-100); Monocytes Percent Auto 9.4 % (0.0-11.0); Neutrophils Percent Auto 76.8 % (42.0-72.0); Platelet Count* 150 K/uL (140-440); RDW Coefficient of Variation % 14.6 % (11.5-15.5); White Blood Count* 12.48 K/uL (4.50-11.00)
[2023-02-22 07:14] LABS: INR 1.22 (0.91-1.10); Prothrombin Time 16.1 Seconds
[2023-02-22 07:21] LABS: Albumin* 2.6 g/dL (3.3-5.0); Chloride* 102 mmol/L (96-114); Slide Review Reflex No
[2023-02-22 07:22] LABS: Potassium* 3.3 mmol/L (3.6-5.1); Sodium* 135 mmol/L (135-149)
[2023-02-22 07:23] LABS: Creatinine* 1.1 mg/dL (0.5-1.5); Est. Creatinine Clearance* 31.49; Estimated Glomerular Filt Rate 50 ml/min
[2023-02-22 07:24] LABS: Alkaline Phosphatase* 68 U/L (40-150); Aspartate Amino Transferase* 219 U/L (12-35); Bilirubin Direct* 0.3 mg/dL (0.0-0.5); Bilirubin Total* 0.9 mg/dL (0.1-1.5); Blood Urea Nitrogen* 32 mg/dL (7-30); Carbon Dioxide* 29 mmol/L (20-32); Gamma Glutamyl Transpeptidase* 37 U/L (8-55); Glucose* 98 mg/dL (60-115); Total Protein* 5.8 g/dL (6.0-8.3)
[2023-02-22 07:25] LABS: Alanine Aminotransferase* 151 U/L (4-35); Calcium* 7.9 mg/dL (8.4-10.6)
--- NOTE | 2023-02-22 07:28 | PC.NURSE ---
Pt is alert and oriented x3 but is forgetful at times. Afebrile.?Pt reports pain 7/10 in lower back, pain managed with PRN medications. ?Pt?s left forearm dressing?is CDI.?Pt denies chest pain,?and N/V. Pt?s salazar catheter is patent and draining. Pt is tolerating a regular diet, and is up with easy stand. Pt slept intermittently throughout night. Pt on tele, afib with normal ventricular rhythm. ?
[2023-02-22] MEDS: ACETAMINOPHEN 325 MG TABLET 975 MG PO ×2 (08:33→17:29)
[2023-02-22] MEDS: FERROUS SULFATE 325 MG TABLET PO (08:33)
[2023-02-22] MEDS: POTASSIUM BICARB 25 MEQ EFFERVESCENT TAB PO ×3 (08:34→11:48)
[2023-02-22] MEDS: MULTIVITAMIN/MINERALS 1 TABLET 1 TAB PO (08:35)
[2023-02-22] MEDS: APIXABAN 5 MG TABLET 2.5 MG PO ×2 (08:35→21:55)
[2023-02-22] MEDS: METOPROLOL SUCCINATE (XL) 50 MG TAB PO (08:35)
[2023-02-22] MEDS: ESCITALOPRAM 10 MG TABLET 5 MG PO (08:36)
[2023-02-22] MEDS: ASCORBIC ACID 500 MG TABLET 250 MG PO (08:36)
[2023-02-22] MEDS: SODIUM CHLORIDE 0.9 % (FLUSH) 10 ML SYRINGE 5 ML IVF ×2 (08:40→21:55)
--- NOTE | 2023-02-22 09:52 | CRLHL7_ITS ---
For Patients: As a result of the Century Cures Act, medical imaging exams and procedure reports are released immediately into your electronic medical record. You may view this report before your referring provider. If you have questions, please contact your health care provider. INDICATION: Low back pain, bacteremia. TECHNIQUE: CT lumbar spine without contrast. COMPARISON: None. FINDINGS: Vertebrae: 5 [id number], lumbar type vertebral bodies. Mild convex leftward curvature centered at T12. No fracture. 4 millimeters of L3 anterolisthesis in 7 millimeters of L4 anterolisthesis. No suspicious osseous lesion. No CT findings concerning for osteomyelitis. Discs and facet joints: Severe disc space narrowing at T12-L1 and moderate disc space narrowing at L3-L4 and L4-5. moderate/severe central canal stenosis at L3-L4 and severe central canal stenosis at L4-L5. Advanced multilevel facet arthrosis. Extraspinal findings: Small/moderate bilateral pleural effusions. Atherosclerosis. IMPRESSION: 1. No CT findings of osteomyelitis. If there is ongoing concern, consider MRI. 2. Degenerative spondylosis, including advanced multilevel facet arthrosis is at L3-L4 and severe central canal stenosis at L4-L5. Please note that all CT scans at this facility use dose modulation, iterative reconstruction, and/or weight-based dosing when appropriate to reduce radiation dose to as low as reasonably achievable. Dictated by Andrew Fields MD @ 02/22/2023 2:32:50 PM (Electronically Signed)
--- NOTE | 2023-02-22 09:53 | PM.IMPN1 ---
Progress Note: A&P Assessment and plan (1) Sepsis: Problem details: - marked leukocytosis, fever on admission, abnormal urine, RLE cellulitis. No hypotension, no hypoxia, mentation significantly improved from admission - RLE cellulitis likely source. Had a root canal in December - + Urine culture for E. Fergusonii and + admission Blood culture for GBS, on Zosyn - repeat blood cultures NGTD Status: Acute (2) Cellulitis of leg, right: Problem details: - no obvious abscess or skin injury - no acute findings on ultrasound 02/22 - continue Zosyn Status: Acute (3) Urinary tract infection: Problem details: - E Fergusonii, on Zosyn Status: Acute (4) Laceration of left forearm: Problem details: - Dr. Avendano of General Surgery following for wound care Status: Acute (5) Paroxysmal atrial fibrillation: Problem details: - rate controlled a fib at this time, on Metoprolol - anticoagulated with apixaban 2.5 mg twice daily - continue Telemetry Status: Acute (6) Glvta-nt-bkalwcc kidney injury: Problem details: - 2/2 acute illness/sepsis, improving with IV fluids Status: Acute (7) Elevated troponin: Problem details: - most likely related to demand ischemia rather than acute coronary occlusion, asymptomatic - peaked at 0.74, TTE 02/19: Final Impressions: 1. Normal LV size, normal wall thickness, normal global systolic function with an estimated EF of 55 - 60%. 2. Right ventricular cavity size is normal, global systolic RV function is normal. 3. Severely enlarged left atrium. 4. The aortic valve is trileaflet and sclerotic, no stenosis and no regurgitation. 5. The mitral valve is normal, moderate mitral regurgitation. 6. Mild-moderate tricuspid regurgitation. 7. Borderline increased estimated pulmonary systolic pressures by tricuspid regurgitation velocity and right atrial pressure (~35 mmHg). 8. No obvious valvular vegetation noted. If clinically indicated, a FLORENCIA could be performed. Status: Acute (8) Weakness: Problem details: - 2/2 acute illness, PT and OT to evaluate - difficulty with ambulation and requiring assistance; has salazar catheter in place and will remove when patient able to transfer independently Status: Acute (9) Back pain: Problem details: - acute on chronic, will obtain CT 02/22 to evaluate Status: Acute (10) Insomnia: Problem details: - Chronically on alprazolam, stopped this and transitioned to melatonin 02/20 Status: Acute (11) Elevated LFTs: Problem details: - likely related to acute illness, asymptomatic - RUQ ultrasound 02/20, no acute findings noted - continue to follow Status: Acute Plan - per above - may require SNF upon discharge when medically stable, appreciate input from therapies and social work team - daughter Naomie updated at bedside, questions answered Subjective Date Seen: 02/22/23 Interval history: Corine notes LBP this morning (history of this), near sacrum. Also having edema of RLE. Cellulitis continues to improve. Continues to feel weak, intermittently requiring EZ stand with therapies. Exam Narrative: Exam Narrative: GEN: Alert and oriented, sitting comfortably in bed HEENT: EOMIs bilaterally, no scleral icterus CV: RRR, No concerning murmurs R: LCTA bilaterally without concerning wheezing, air movement adequate Ext:? Wearing wraps bilateral lower extremities Skin:? Scattered bruising of extremities, right upper extremity wrapped. RLE exhibits improvement of erythema Neuro:? No focal deficits, no resting tremor Psych: Appropriate ? Const: Vital Signs, click to edit/add: Vital Signs - 24 hr 02/21/23 15:00 02/21/23 15:00 02/21/23 15:00 Temperature Pulse Rate 87 Pulse Rate [Pulse Oximeter] 91 Respiratory Rate 20 20 Blood Pressure [Le ft Arm] Pulse Oximetry 94 Oxygen Delivery Me thod Room Air 02/21/23 19:30 02/21/23 11:50 02/21/23 11:50 Temperature 97.4 F L Pulse Rate 92 Pulse Rate [Pulse Oximeter] 81 92 Respiratory Rate 24 18 Blood Pressure [Le ft Arm] 151/79 H Pulse Oximetry 94 Oxygen Delivery Me thod Room Air 02/21/23 11:50 02/21/23 23:30 02/22/23 06:00 Temperature Pulse Rate Pulse Rate [Pulse Oximeter] Respiratory Rate 20 20 18 Blood Pressure [Le ft Arm] Pulse Oximetry Oxygen Delivery Me thod Room Air Labs Labs: Laboratory Results - last 24 hr 02/21/23 02/22/23 09:55 06:22 WBC 15.55 H 12.48 H RBC 4.10 3.70 L Hgb 12.5 11.2 L Hct 38.9 34.8 MCV 95 94 MCH 31 30 MCHC 32 32 RDW Coeff of Phoebe 14.6 14.6 Plt Count 153 150 Neut % (Auto) 85.2 H 76.8 H Lymph % (Auto) 8.8 L 11.9 L [place] % (Auto) 5.1 9.4 Eos % (Auto) 0.1 0.5 Baso % (Auto) 0.0 0.0 Neut # (Auto) 13.20 H 9.60 H Lymph # (Auto) 1.40 1.50 [place] # (Auto) 0.80 1.20 H Eos # (Auto) 0.00 0.10 Baso # (Auto) 0.00 0.00 INR 1.22 H Sodium 137 135 Potassium 3.3 L 3.3 L Chloride 103 102 Carbon Dioxide 29 29 BUN 37 H 32 H Creatinine 1.3 1.1 Estimated Creat Clear 26.65 31.49 Estimated GFR 41 50 Glucose 196 H 98 Lactate 2.1 H 0.7 Calcium 8.4 7.9 L Magnesium 1.7 Total Bilirubin 1.1 0.9 Direct Bilirubin 0.3 0.3 GGT 37 AST 330 H 219 H ALT 175 H 151 H Alkaline Phosphatase 91 68 Total Creatine Kinase 4533 H C-Reactive Protein 22.3 H Total Protein 6.9 5.8 L Albumin 3.4 2.6 L
--- NOTE | 2023-02-22 11:15 | CRLHL7_ITS ---
For Patients: As a result of the Century Cures Act, medical imaging exams and procedure reports are released immediately into your electronic medical record. You may view this report before your referring provider. If you have questions, please contact your health care provider. INDICATION: Cellulitis, edema TECHNIQUE: Ultrasound venous duplex lower right extremity. Compression venous exam was performed using padilla-scale, color Doppler, and spectral Doppler imaging. COMPARISON: None. FINDINGS: Sonographic imaging demonstrates the right common femoral, deep femoral, superficial femoral, popliteal, posterior tibial and greater saphenous and the contralateral left common femoral veins to be fully compressible with normal color Doppler blood flow. IMPRESSION: Normal right lower extremity venous ultrasound, no sign of deep venous thrombosis. Dictated by Hermes Camp MD @ 02/22/2023 12:39:23 PM (Electronically Signed)
--- NOTE | 2023-02-22 11:20 | PM.GSPN ---
Subjective Subjective Date Seen: 02/22/23 Interval history: Corine says that her arm hurts slightly. She has been working with therapy. Exam Narrative: Exam Narrative: General: No acute distress Extremities: Dressing taken down of left arm. No erythema. Tissue appears viable. Dressing replaced. Const: Vital Signs, click to edit/add: Vital Signs - 24 hr 02/21/23 15:00 02/21/23 15:00 02/21/23 15:00 Temperature Pulse Rate 87 Pulse Rate [Pulse Oximeter] 91 Respiratory Rate 20 20 Blood Pressure [Le ft Arm] Blood Pressure [Ri ght Arm] Pulse Oximetry 94 Oxygen Delivery Me thod Room Air 02/21/23 19:30 02/21/23 11:50 02/21/23 11:50 Temperature 97.4 F L Pulse Rate 92 Pulse Rate [Pulse Oximeter] 81 92 Respiratory Rate 24 18 Blood Pressure [Le ft Arm] 151/79 H Blood Pressure [Ri ght Arm] Pulse Oximetry 94 Oxygen Delivery Me thod Room Air 02/21/23 11:50 02/21/23 23:30 02/22/23 06:00 Temperature Pulse Rate Pulse Rate [Pulse Oximeter] Respiratory Rate 20 20 18 Blood Pressure [Le ft Arm] Blood Pressure [Ri ght Arm] Pulse Oximetry Oxygen Delivery Me thod Room Air 02/22/23 07:00 02/22/23 08:00 Temperature 98.2 F Pulse Rate Pulse Rate [Pulse Oximeter] 104 H Respiratory Rate 16 16 Blood Pressure [Le ft Arm] Blood Pressure [Ri ght Arm] 144/85 H Pulse Oximetry 93 93 Oxygen Delivery Me thod Room Air Room Air Progress Note: A&P Assessment and plan (1) Laceration of left forearm: Problem details: - Dr. Avendano of General Surgery following for wound care Status: Acute Assessment and Plan: Left arm wound is stable without signs of erythema or tissue ischemia in need of debridement. Continue daily dressing changes with Xeroform gauze. When patient discharges, she should follow up in wound clinic.
[2023-02-22] MEDS: LIDOCAINE 5% PATCH 1 PATCH TRANSDERMA ×2 (12:33)
--- NOTE | 2023-02-22 16:14 | PC.SOCIAL ---
Discharge plans: Spoke with pt's dtr, Bisi, by phone regarding d/c plans. Bisi states she is thinking pt will benefit from short term rehab stay prior to returning home. Dtr states she will discuss this with pt and call social insurance adviser with [facility] jail facilities to check regarding bed availability. floor service worker spring to follow up as needed.
--- NOTE | 2023-02-22 18:35 | PC.NURSE ---
End of shift: Pt A&O. In the am pt companied of achy body with 8/10 pain, EZ stand used and PRN Tylenol given. Pt needing continued queuing upon standing and ambulation. Pivoting to the commode with A2 w/ waker. Pt used home compression device for 1 hour per home routine. Pt quiet and flat affect compared to senior technical writer's prior shift with pt. Tolerating meals. Pt had 3 loose stools, c-diff sample pending.
[2023-02-22 19:34] LABS: C.Difficile Negative (Negative); CDIFFEPI 027 PRESUMPTIVE NEGATIVE (Negative)
[2023-02-22] MEDS: ATORVASTATIN CALCIUM 40 MG TABLET PO (21:55)
[2023-02-23] VITALS (8 sets, daily range): BP systolic 106–159; BP diastolic 66–103; PULSE 89–104; RESP 16–18; TEMP 36.3–37.1; O2SAT 91–94
[2023-02-23] MEDS: FUROSEMIDE 10 MG/ML inj 20 MG IVP ×4 (00:24→18:11)
[2023-02-23] MEDS: PIPERACILLIN/TAZOBACTAM 2.25 GM in 0.9 % SODIUM CHLORIDE Mini-bag 100 ML IVPB ×4 (05:09→22:10)
[2023-02-23] MEDS: OXYCODONE 5 MG TABLET 2.5 MG PO ×2 (05:34→16:59)
[2023-02-23 06:37] LABS: Ionized Calcium* 1.09 mmol/L (1.11-1.30)
--- NOTE | 2023-02-23 06:37 | PC.NURSE ---
[address] Fall? Pt rested the majority of the night with restful vials. Awake with chronic back pain and given 2.5mg of oxy. Declined Tylenol. Topical applied to legs and heels per pt request.?Bilat shoulder Lido patches removed. Given IV abx and IV furosemide. De La Torre in place. Pt not OOB this shift. C. Diff still pending but no BMs overnight. Flat affect per day report but pt pleasant with cares overnight.? Anderson Westfall [id number] 02/23/2023?
[2023-02-23 06:45] LABS: Basophils Percent Auto 0.1 % (0.0-3.0); Eosinophils Percent Auto 0.6 % (0.0-7.0); Hematocrit 35.5 % (33.0-51.0); Hemoglobin* 11.5 gm/dL (12.0-16.0); Immature Granulocytes Pct Auto 1.8 %; Lymphocytes Percent Auto 12.2 % (20-44); Mean Corpuscular HGB Conc 32 gm/dL (32-36); Mean Corpuscular Hemoglobin 30 pg (26-34); Mean Corpuscular Volume 93 fL (80-100); Monocytes Percent Auto 10.3 % (0.0-11.0); Platelet Count* 187 K/uL (140-440); RDW Coefficient of Variation % 14.7 % (11.5-15.5); Red Blood Count 3.81 m/uL (4.00-5.20); White Blood Count* 12.58 K/uL (4.50-11.00)
[2023-02-23 07:00] LABS: Slide Review Reflex No
[2023-02-23 07:11] LABS: Chloride* 99 mmol/L (96-114)
[2023-02-23 07:12] LABS: Potassium* 3.6 mmol/L (3.6-5.1); Sodium* 134 mmol/L (135-149)
[2023-02-23 07:14] LABS: Creatine Kinase* 1358 U/L (41-117); Creatinine* 1.1 mg/dL (0.5-1.5); Est. Creatinine Clearance* 31.49; Estimated Glomerular Filt Rate 50 ml/min
[2023-02-23 07:15] LABS: Blood Urea Nitrogen* 27 mg/dL (7-30); Calcium* 8.1 mg/dL (8.4-10.6); Carbon Dioxide* 32 mmol/L (20-32); Glucose* 107 mg/dL (60-115); Magnesium* 1.6 mg/dL (1.5-2.6)
[2023-02-23] MEDS: OMEPRAZOLE 20 MG CAPSULE DR PO (07:39)
[2023-02-23 07:58] LABS: Albumin* 2.7 g/dL (3.3-5.0)
[2023-02-23 08:01] LABS: Alanine Aminotransferase* 143 U/L (4-35); Alkaline Phosphatase* 76 U/L (40-150); Aspartate Amino Transferase* 177 U/L (12-35); Bilirubin Direct* 0.3 mg/dL (0.0-0.5); Bilirubin Total* 0.9 mg/dL (0.1-1.5)
[2023-02-23] MEDS: MULTIVITAMIN/MINERALS 1 TABLET 1 TAB PO (09:45)
[2023-02-23] MEDS: ESCITALOPRAM 10 MG TABLET 5 MG PO (09:46)
[2023-02-23] MEDS: METOPROLOL SUCCINATE (XL) 50 MG TAB PO (09:46)
[2023-02-23] MEDS: APIXABAN 5 MG TABLET 2.5 MG PO ×2 (09:46→21:09)
[2023-02-23] MEDS: ASCORBIC ACID 500 MG TABLET 250 MG PO (09:46)
[2023-02-23] MEDS: FERROUS SULFATE 325 MG TABLET PO (09:47)
[2023-02-23] MEDS: SODIUM CHLORIDE 0.9 % (FLUSH) 10 ML SYRINGE 5 ML IVF ×2 (09:47→21:10)
--- NOTE | 2023-02-23 10:31 | PM.IMPN1 ---
Progress Note: A&P Assessment and plan (1) Sepsis: Problem details: - marked leukocytosis, fever on admission, +UTI, RLE cellulitis. No hypotension, no hypoxia, mentation significantly improved from admission - RLE cellulitis likely source. Had a root canal in December, reassuring TTE. - + Urine culture for E. Fergusonii and + admission Blood culture for GBS, on Zosyn. - repeat blood cultures x3 NGTD, inflammatory markers downtrending Status: Acute (2) Cellulitis of leg, right: Problem details: - no obvious abscess or skin injury - no acute findings on ultrasound 02/22 - continue Zosyn, transition to oral abx upon discharge Status: Acute (3) Urinary tract infection: Problem details: - E Fergusonii, on Zosyn Status: Acute (4) Laceration of left forearm: Problem details: - Dr. Avendano of General Surgery following for wound care Status: Acute (5) Paroxysmal atrial fibrillation: Problem details: - rate controlled a fib at this time, on Metoprolol - anticoagulated with apixaban 2.5 mg twice daily - has remained stable on telemetry, will d/c 02/23 Status: Acute (6) Mllvn-bj-edcgaxw kidney injury: Problem details: - 2/2 acute illness/sepsis, improved to baseline with IVFs Status: Acute (7) Elevated troponin: Problem details: - most likely related to demand ischemia rather than acute coronary occlusion, asymptomatic - peaked at 0.74, TTE 02/19: Final Impressions: 1. Normal LV size, normal wall thickness, normal global systolic function with an estimated EF of 55 - 60%. 2. Right ventricular cavity size is normal, global systolic RV function is normal. 3. Severely enlarged left atrium. 4. The aortic valve is trileaflet and sclerotic, no stenosis and no regurgitation. 5. The mitral valve is normal, moderate mitral regurgitation. 6. Mild-moderate tricuspid regurgitation. 7. Borderline increased estimated pulmonary systolic pressures by tricuspid regurgitation velocity and right atrial pressure (~35 mmHg). 8. No obvious valvular vegetation noted. If clinically indicated, a FLORENCIA could be performed. Status: Acute (8) Weakness: Problem details: - 2/2 acute illness, PT and OT to evaluate - difficulty with ambulation and requiring assistance; has salazar catheter in place and plan to remove 02/24 Status: Acute (9) Back pain: Problem details: - acute on chronic, CT 02/22 exhibits no acute abnormalities Status: Acute (10) Insomnia: Problem details: - Chronically on alprazolam, stopped this and transitioned to melatonin 02/20 Status: Acute (11) Elevated LFTs: Problem details: - likely related to acute illness, asymptomatic - RUQ ultrasound 02/20, no acute findings noted - down trending Status: Acute Plan - salazar out 02/24 - continue to follow labs, inflammatory markers - anticipate that patient will be medically stable for d/c to SNF later this week - daughter Naomie updated at bedside, questions answered Subjective Date Seen: 02/23/23 Interval history: Corine is feeling a little better each day. She continues to deny fevers or abdominal pain. She continues to work with therapies, labs continue to improve. Exam Narrative: Exam Narrative: GEN: Alert and oriented, sitting comfortably in bedside chair and answering questions appropriately HEENT: EOMIs bilaterally, no scleral icterus CV: RRR, S1/S2, No concerning murmurs R: LCTA bilaterally without concerning wheezing, air movement adequate Ext:? 1-2+ edema BLE, stable Skin:? Scattered bruising of extremities, right upper extremity wound wrapped. RLE exhibits continued improvement of cellulitis Neuro:? No focal deficits, no resting tremor Psych: Appropriate Const: Vital Signs, click to edit/add: Vital Signs - 24 hr 02/22/23 11:15 02/22/23 15:23 02/22/23 15:00 Temperature 97.7 F Pulse Rate 81 Pulse Rate [Apical ] Pulse Rate [Pulse Oximeter] 103 H Respiratory Rate 14 16 Blood Pressure [Ri t Arm] 143/76 H Pulse Oximetry 95 96 Oxygen Delivery Me thod Room Air Room Air 02/22/23 15:00 02/22/23 20:45 02/22/23 23:43 Temperature 98.0 F Pulse Rate 80 Pulse Rate [Apical ] Pulse Rate [Pulse Oximeter] 91 91 Respiratory Rate 16 16 Blood Pressure [Ri ght Arm] 145/81 H 113/57 L Pulse Oximetry 96 93 Oxygen Delivery Me thod Room Air Room Air 02/22/23 23:00 02/22/23 23:00 02/22/23 23:30 Temperature Pulse Rate Pulse Rate [Apical ] 104 H Pulse Rate [Pulse Oximeter] 91 Respiratory Rate 16 16 18 Blood Pressure [Ri ght Arm] Pulse Oximetry 93 Oxygen Delivery Me thod Room Air 02/23/23 05:30 02/23/23 06:00 02/23/23 07:40 Temperature 98.2 F Pulse Rate Pulse Rate [Apical ] 104 H Pulse Rate [Pulse Oximeter] 93 Respiratory Rate 18 18 18 Blood Pressure [Ri ght Arm] 120/75 Pulse Oximetry 93 Oxygen Delivery Me thod Room Air 02/23/23 07:40 02/23/23 07:40 Temperature 98.0 F Pulse Rate Pulse Rate [Apical ] Pulse Rate [Pulse Oximeter] 104 H Respiratory Rate 18 18 Blood Pressure [Ri ght Arm] 159/81 H Pulse Oximetry 92 93 Oxygen Delivery Me thod Room Air Room Air Labs Labs: Laboratory Results - last 24 hr 02/22/23 02/23/23 18:28 06:03 WBC 12.58 H RBC 3.81 L Hgb 11.5 L Hct 35.5 MCV 93 MCH 30 MCHC 32 RDW Coeff of Phoebe 14.7 Plt Count 187 Neut % (Auto) 75.0 H Lymph % (Auto) 12.2 L [place] % (Auto) 10.3 Eos % (Auto) 0.6 Baso % (Auto) 0.1 Neut # (Auto) 9.40 H Lymph # (Auto) 1.50 [place] # (Auto) 1.30 H Eos # (Auto) 0.10 Baso # (Auto) 0.00 Sodium 134 L Potassium 3.6 Chloride 99 Carbon Dioxide 32 BUN 27 Creatinine 1.1 Estimated Creat Clear 31.49 Estimated GFR 50 Glucose 107 Calcium 8.1 L Ionized Calcium Debora 1.09 L Magnesium 1.6 Total Bilirubin 0.9 Direct Bilirubin 0.3 AST 177 H ALT 143 H Alkaline Phosphatase 76 Total Creatine Kinase 1358 H Total Protein 6.0 Albumin 2.7 L Stl C.difficile Tox PCR Negative St C. diff Tox Epid 027 PRESUMPTIVE NEGATIVE
[2023-02-23] MEDS: 0.9 % SODIUM CHLORIDE 250 ml IV (11:13)
[2023-02-23] MEDS: LIDOCAINE 5% PATCH 1 PATCH TRANSDERMA ×2 (12:28)
--- NOTE | 2023-02-23 14:38 | PC.SOCIAL ---
Addendum entered by KIMMY Pepe 02/23/23 16:16: Updated pt.'s daughter Naomie that pt. has been accepted to [facility] for if pt. is ready for discharge. Original Note: Met with pt. and daughter to discuss discharge plans. Pt. and daughter have decided they want pt. to go to the [facility] for short term rehab. Pt.'s granddaughter works there. Pt has been tentatively accepted for at 11am with the [facility] van transporting.
--- NOTE | 2023-02-23 18:40 | PC.NURSE ---
End of shift nursing note: Pt alert and oriented this shift, pleasant and cooperative. Pt up to chair for portion of the day, up to commode for BM, then back to bed this evening. Pt washed up in bed, new gown, hair washed this shift. Continues with IV abx and IV lasix. IV saline locked at this time. Daughters visited pt this shift. PRN Oxycodone admin this evening for pain, pt declined need for it before, stated effectiveness in treating low back pain this evening along with ice pack and repositioning of pillows. Lidocaine patches applied, one to each shoulder. De La Torre in place and patent, plan to likely d/c tomorrow. Calcium gluconate admin this shift. Dressing changed to L forearm. Ax2 w/ walker for transfers, pt takes small steps. Pt and family state they have bed ready at [facility] when pt ready to d/c from hospital. Telemetry d/c'd this shift. Pt has call light within reach, last repositioned around 1814, comfortable and uses call light appropriately.
[2023-02-23] MEDS: TRIAMCINOLONE ACETONIDE OINTMENT 0.1 % 1 APPLIC TOPICAL (21:05)
[2023-02-23] MEDS: ATORVASTATIN CALCIUM 40 MG TABLET PO (21:09)
[2023-02-23] MEDS: MELATONIN 3 MG TABLET PO (21:18)
[2023-02-23] MEDS: ACETAMINOPHEN 325 MG TABLET 975 MG PO (21:18)
[2023-02-24] VITALS (8 sets, daily range): BP systolic 105–135; BP diastolic 61–77; PULSE 73–93; RESP 14–16; TEMP 36.4–36.7; O2SAT 93–94
[2023-02-24] MEDS: FUROSEMIDE 10 MG/ML inj 20 MG IVP ×2 (00:15→06:46)
[2023-02-24] MEDS: PIPERACILLIN/TAZOBACTAM 2.25 GM in 0.9 % SODIUM CHLORIDE Mini-bag 100 ML IVPB ×4 (04:48→23:10)
--- NOTE | 2023-02-24 05:25 | PC.NURSE ---
[address] Fall? Pt Not OOB this shift. De La Torre in place, possibly DCing today. No BM overnight. Pt c/o chronic back pain and given Tylenol. Declined oxy. Given PRN melatonin and pt slept well. IV abx given. Shoulder patches removed.?L forearm dressing clean dry intact. Anderson Westfall [id number]?
[2023-02-24 06:59] LABS: Basophils Percent Auto 0.2 % (0.0-3.0); Eosinophils Percent Auto 1.4 % (0.0-7.0); Hematocrit 32.9 % (33.0-51.0); Hemoglobin* 10.8 gm/dL (12.0-16.0); Immature Granulocytes Pct Auto 3.4 %; Lymphocytes Percent Auto 14.9 % (20-44); Mean Corpuscular HGB Conc 33 gm/dL (32-36); Mean Corpuscular Hemoglobin 31 pg (26-34); Mean Corpuscular Volume 93 fL (80-100); Monocytes Percent Auto 10.3 % (0.0-11.0); Neutrophils Percent Auto 69.8 % (42.0-72.0); Platelet Count* 193 K/uL (140-440); RDW Coefficient of Variation % 14.4 % (11.5-15.5); Red Blood Count 3.54 m/uL (4.00-5.20); White Blood Count* 11.38 K/uL (4.50-11.00)
[2023-02-24 07:22] LABS: Chloride* 98 mmol/L (96-114)
[2023-02-24 07:23] LABS: Albumin* 2.6 g/dL (3.3-5.0); Potassium* 3.4 mmol/L (3.6-5.1); Sodium* 133 mmol/L (135-149)
[2023-02-24 07:25] LABS: Est. Creatinine Clearance* 34.64; Estimated Glomerular Filt Rate 56 ml/min
[2023-02-24 07:26] LABS: Alanine Aminotransferase* 131 U/L (4-35); Alkaline Phosphatase* 64 U/L (40-150); Aspartate Amino Transferase* 136 U/L (12-35); Bilirubin Direct* 0.3 mg/dL (0.0-0.5); Bilirubin Total* 0.8 mg/dL (0.1-1.5); Blood Urea Nitrogen* 26 mg/dL (7-30); Carbon Dioxide* 33 mmol/L (20-32); Glucose* 103 mg/dL (60-115); Total Protein* 5.7 g/dL (6.0-8.3)
[2023-02-24 07:27] LABS: Calcium* 8.1 mg/dL (8.4-10.6); Magnesium* 1.7 mg/dL (1.5-2.6)
[2023-02-24] MEDS: ACETAMINOPHEN 325 MG TABLET 975 MG PO ×2 (07:27→16:32)
[2023-02-24] MEDS: OMEPRAZOLE 20 MG CAPSULE DR PO (07:29)
[2023-02-24 08:13] LABS: Slide Review Reflex Yes
[2023-02-24 08:14] LABS: Slide Review Acceptable Review (Acceptable)
--- NOTE | 2023-02-24 08:44 | PM.IMPN1 ---
Progress Note: A&P Assessment and plan (1) Sepsis: Problem details: - marked leukocytosis, fever on admission, +UTI, RLE cellulitis. No hypotension, no hypoxia, mentation significantly improved from admission - RLE cellulitis likely source. Had a root canal in December, reassuring TTE. - + Urine culture for E. Fergusonii and + admission Blood culture for GBS, on Zosyn. - repeat blood cultures x3 NGTD, inflammatory markers downtrending Status: Acute (2) Cellulitis of leg, right: Problem details: - no obvious abscess or skin injury/breakdown - no acute findings on ultrasound 02/22 - continue Zosyn, transition to oral abx upon discharge Status: Acute (3) Urinary tract infection: Problem details: - E Fergusonii, on Zosyn Status: Acute (4) Laceration of left forearm: Problem details: - Dr. Avendano of General Surgery following for wound care Status: Acute (5) Paroxysmal atrial fibrillation: Problem details: - rate controlled a fib at this time, on Metoprolol - anticoagulated with apixaban 2.5 mg twice daily - has remained stable on telemetry, will d/c 02/23 Status: Acute (6) Xtxog-sg-nxcplwk kidney injury: Problem details: - 2/2 acute illness/sepsis, improved to baseline with IVFs Status: Acute (7) Elevated troponin: Problem details: - most likely related to demand ischemia rather than acute coronary occlusion, asymptomatic - peaked at 0.74, TTE 02/19: Final Impressions: 1. Normal LV size, normal wall thickness, normal global systolic function with an estimated EF of 55 - 60%. 2. Right ventricular cavity size is normal, global systolic RV function is normal. 3. Severely enlarged left atrium. 4. The aortic valve is trileaflet and sclerotic, no stenosis and no regurgitation. 5. The mitral valve is normal, moderate mitral regurgitation. 6. Mild-moderate tricuspid regurgitation. 7. Borderline increased estimated pulmonary systolic pressures by tricuspid regurgitation velocity and right atrial pressure (~35 mmHg). 8. No obvious valvular vegetation noted. If clinically indicated, a FLORENCIA could be performed. Status: Acute (8) Weakness: Problem details: - 2/2 acute illness, PT and OT to evaluate - difficulty with ambulation and requiring assistance; has salazar catheter in place and plan to remove 02/24 Status: Acute (9) Back pain: Problem details: - acute on chronic, CT 02/22 exhibits no acute abnormalities - would like to f/u with Dr. Urbina at the [facility] clinic upon discharge Status: Acute (10) Insomnia: Problem details: - Chronically on alprazolam, stopped this and transitioned to melatonin 02/20 Status: Acute (11) Elevated LFTs: Problem details: - likely related to acute illness, asymptomatic - RUQ ultrasound 02/20, no acute findings noted - down trending Status: Acute Plan - to SNF on oral antibiotics 02/25, wound care per Dr. Avendano of General Surgery - home Xarelto for prophylaxis - daughter Naomie updated by phone, questions answered Subjective Date Seen: 02/24/23 Interval history: Corine feels a little stiff this morning, no other concerns for me today. She continues to deny fevers, abdominal pain, or any other symptoms. She continues to work with therapies, labs continue to improve. Plan is for SNF discharge 02/25. Exam Narrative: Exam Narrative: GEN: Alert and oriented, nontoxic in appearance, sitting comfortably in bed HEENT: EOMIs bilaterally, no scleral icterus CV: RRR, No concerning murmurs R: LCTA bilaterally without concerning wheezing, air movement is adequate Ext: Wearing bilateral lower extremity wraps, LUE is also wrapped without any concerning features around bandage Skin: Scattered bruising of extremities, stable. No other concerning skin lesions or rashes on exposed skin Neuro: No focal deficits, no resting tremor, gait not observed Psych: Appropriate Const: Vital Signs, click to edit/add: Vital Signs - 24 hr 02/23/23 11:30 02/23/23 15:00 02/23/23 15:00 Temperature 97.9 F Pulse Rate [Pulse Oximeter] 89 98 Respiratory Rate 18 18 18 Blood Pressure [Le ft Arm] Blood Pressure [Ri ght Arm] 142/103 H Pulse Oximetry 94 93 Oxygen Delivery Me thod Room Air Room Air 02/23/23 15:00 02/23/23 19:00 02/23/23 23:00 Temperature 98.5 F 98.7 F 97.3 F L Pulse Rate [Pulse Oximeter] 98 89 93 Respiratory Rate 18 18 16 Blood Pressure [Le ft Arm] 143/75 H 106/68 108/66 Blood Pressure [Ri ght Arm] Pulse Oximetry 93 92 91 Oxygen Delivery Me thod Room Air Room Air Room Air 02/23/23 23:30 02/23/23 23:00 02/24/23 05:48 Temperature Pulse Rate [Pulse Oximeter] Respiratory Rate 16 16 Blood Pressure [Le ft Arm] Blood Pressure [Ri ght Arm] Pulse Oximetry Oxygen Delivery Me thod Room Air 02/24/23 07:00 02/24/23 07:00 Temperature 97.9 F Pulse Rate [Pulse Oximeter] 83 Respiratory Rate 14 14 Blood Pressure [Le ft Arm] Blood Pressure [Ri ght Arm] 135/77 Pulse Oximetry 94 94 Oxygen Delivery Me thod Room Air Room Air Labs Labs: Laboratory Results - last 24 hr 02/24/23 05:45 WBC 11.38 H RBC 3.54 L Hgb 10.8 L Hct 32.9 L MCV 93 MCH 31 MCHC 33 RDW Coeff of Phoebe 14.4 Plt Count 193 Neut % (Auto) 69.8 Lymph % (Auto) 14.9 L [place] % (Auto) 10.3 Eos % (Auto) 1.4 Baso % (Auto) 0.2 Neut # (Auto) 7.90 H Lymph # (Auto) 1.70 [place] # (Auto) 1.20 H Eos # (Auto) 0.20 Baso # (Auto) 0.00 Diff Slide Review Acceptable Review Sodium 133 L Potassium 3.4 L Chloride 98 Carbon Dioxide 33 H BUN 26 Creatinine 1.0 Estimated Creat Clear 34.64 Estimated GFR 56 Glucose 103 Calcium 8.1 L Ionized Calcium Debora 1.10 L Magnesium 1.7 Total Bilirubin 0.8 Direct Bilirubin 0.3 AST 136 H ALT 131 H Alkaline Phosphatase 64 C-Reactive Protein 20.0 H Total Protein 5.7 L Albumin 2.6 L
[2023-02-24] MEDS: MULTIVITAMIN/MINERALS 1 TABLET 1 TAB PO (08:47)
[2023-02-24] MEDS: APIXABAN 5 MG TABLET 2.5 MG PO ×2 (08:47→20:45)
[2023-02-24] MEDS: METOPROLOL SUCCINATE (XL) 50 MG TAB PO (08:47)
[2023-02-24] MEDS: ASCORBIC ACID 500 MG TABLET 250 MG PO (08:47)
[2023-02-24] MEDS: ESCITALOPRAM 10 MG TABLET 5 MG PO (08:47)
[2023-02-24] MEDS: FERROUS SULFATE 325 MG TABLET PO (08:48)
[2023-02-24] MEDS: SODIUM CHLORIDE 0.9 % (FLUSH) 10 ML SYRINGE 5 ML IVF ×2 (08:48→22:37)
[2023-02-24] MEDS: allopurinoL 100 MG TABLET PO (08:48)
--- NOTE | 2023-02-24 09:31 | PC.SOCIAL ---
Met with pt. today and gave her a copy of her Medicare Rights form with instructions on how to appeal her discharge if pt. felt she was being discharged too soon. Pt. is set to discharge to the [facility] tomorrow and their van will transport at 11am.
[2023-02-24] MEDS: 0.9 % SODIUM CHLORIDE 250 ml IV (09:42)
[2023-02-24] MEDS: OXYCODONE 5 MG TABLET 2.5 MG PO ×2 (10:45→20:45)
[2023-02-24] MEDS: LIDOCAINE 5% PATCH 1 PATCH TRANSDERMA (11:45)
[2023-02-24] MEDS: FUROSEMIDE 40 MG TABLET 20 MG PO (14:20)
--- NOTE | 2023-02-24 19:12 | PC.NURSE ---
End of Shift: Pt A&O. Reports chronic shoulder pain 5-05/24, PRN Tylenol and Oxycodone given. A2 w/walker, requires prompting. Tolerating regular diet. De La Torre removed, pt voided since. Edema in right and left legs, reminded of importance of elevation.
[2023-02-24] MEDS: TRIAMCINOLONE ACETONIDE OINTMENT 0.1 % 1 APPLIC TOPICAL (20:03)
[2023-02-24] MEDS: ATORVASTATIN CALCIUM 40 MG TABLET PO (20:45)
[2023-02-24] MEDS: MELATONIN 3 MG TABLET PO (20:46)
[2023-02-25] MEDS: OXYCODONE 5 MG TABLET 2.5 MG PO ×2 (03:54→11:04)
[2023-02-25] MEDS: PIPERACILLIN/TAZOBACTAM 2.25 GM in 0.9 % SODIUM CHLORIDE Mini-bag 100 ML IVPB ×2 (04:12→09:52)
--- NOTE | 2023-02-25 05:20 | PC.NURSE ---
[id number] Shift Summary? [address] Fall? Pt slept on and off this shift. C/o pain in back, given 2.5 oxy x2 and Tylenol with some relief. Up to commode x2 with Ao2 to void. Small formed BM. IV abx given, restful vitals done. Plans to DC today to [facility] at 1100.?Please do dressing LUE change prior to DC.? Supplies on counter in room?
[2023-02-25 07:00] VITALS: RESP 16; O2SAT 93
[2023-02-25 07:58] VITALS: BP 138/94; PULSE 101; RESP 16; TEMP 36.8; O2SAT 93
[2023-02-25] MEDS: FUROSEMIDE 40 MG TABLET 20 MG PO (08:00)
[2023-02-25] MEDS: OMEPRAZOLE 20 MG CAPSULE DR PO (08:01)
[2023-02-25] MEDS: METOPROLOL SUCCINATE (XL) 50 MG TAB PO (09:47)
[2023-02-25] MEDS: FERROUS SULFATE 325 MG TABLET PO (09:48)
[2023-02-25] MEDS: ASCORBIC ACID 500 MG TABLET 250 MG PO (09:49)
[2023-02-25] MEDS: APIXABAN 5 MG TABLET 2.5 MG PO (09:50)
[2023-02-25] MEDS: ESCITALOPRAM 10 MG TABLET 5 MG PO (09:50)
[2023-02-25] MEDS: SODIUM CHLORIDE 0.9 % (FLUSH) 10 ML SYRINGE 5 ML IVF (09:51)
[2023-02-25] MEDS: MULTIVITAMIN/MINERALS 1 TABLET 1 TAB PO (09:51)
--- NOTE | 2023-02-25 10:01 | PC.SOCIAL ---
Discharge plan: Met with pt who is aware and agreeable to plan for discharge today to [facility] for short term rehab with their facility van picking pt up at 11:00 today. She states her daughters are bringing clothes for her today and they are aware of the plans. Called pt's dtr, Bisi, who confirms they are aware and agree with discharge plans. SAMUEL was complted and submitted yesterday, confirmation number SAMUEL [id number].
--- NOTE | 2023-02-25 10:08 | P.DS_ITS ---
DS: Providers Provider Date Seen: 02/25/23 Date of admission: 02/18/23 17:30 Primary care physician: Giovanny Vallejo MD Admitting Clinician: Pierce Cristobal MD Consults: PT, OT, SW Attending Physician on discharge: Anna Casas MD Date of Discharge: 02/25/23 DS: Diagnosis Discharge Diagnosis (1) Sepsis: Status: Acute Problem details: - marked leukocytosis, fever on admission, confusion, +UTI, RLE cellulitis. No hypotension or hypoxia, mentation significantly improved throughout stay - RLE cellulitis likely source. Had a root canal in December, reassuring TTE. - + Urine culture for E. Fergusonii and + admission Blood culture for GBS, on Zosyn. - repeat blood cultures x3 NGTD, inflammatory markers and WBC down trended appropriately during stay - will be discharged on Amoxicillin orally (2) Cellulitis of leg, right: Status: Acute Problem details: - no obvious abscess or skin injury/breakdown - no acute findings on ultrasound 02/22 - treated with IV Zosyn inpt, transitioning to oral Amoxicillin upon discharge (3) Urinary tract infection: Status: Acute Problem details: - E Fergusonii, treated with Zosyn (4) Laceration of left forearm: Status: Acute Problem details: - Dr. Avendano of General Surgery following for wound care (5) Paroxysmal atrial fibrillation: Status: Acute Problem details: - rate controlled a fib throughout stay, on Metoprolol - anticoagulated with apixaban 2.5 mg twice daily (6) Tcykk-zo-jdfujst kidney injury: Status: Acute Problem details: - 2/2 acute illness/sepsis, improved to baseline with IVFs (7) Elevated troponin: Status: Acute Problem details: - most likely related to demand ischemia rather than acute coronary occlusion, asymptomatic - peaked at 0.74, TTE 02/19: Final Impressions: 1. Normal LV size, normal wall thickness, normal global systolic function with an estimated EF of 55 - 60%. 2. Right ventricular cavity size is normal, global systolic RV function is normal. 3. Severely enlarged left atrium. 4. The aortic valve is trileaflet and sclerotic, no stenosis and no regurgitation. 5. The mitral valve is normal, moderate mitral regurgitation. 6. Mild-moderate tricuspid regurgitation. 7. Borderline increased estimated pulmonary systolic pressures by tricuspid regurgitation velocity and right atrial pressure (~35 mmHg). 8. No obvious valvular vegetation noted. If clinically indicated, a FLORENCIA could be performed. (8) Weakness: Status: Acute Problem details: - 2/2 acute illness, PT and OT followed during stay - SNF recommended upon d/c 02/25 (9) Back pain: Status: Acute Problem details: - acute on chronic, CT 02/22 exhibits no acute abnormalities - would like to f/u with Dr. Urbina at the Ortho[facility]Spine clinic upon discharge, referral placed (10) Insomnia: Status: Acute Problem details: - Chronically on alprazolam, stopped this and transitioned to melatonin 02/20, patient tolerated well (11) Elevated LFTs: Status: Acute Problem details: - likely related to acute illness and rhabdo, asymptomatic - RUQ ultrasound 02/20, no acute findings noted - down trending (12) Rhabdomyolysis: Status: Acute Problem details: - 2/2 fall and being found down for an extended period of time, CK and muscle aches improved with IVF resuscitation DS: Summary Hospital Course Hospital Course: Corine is a very pleasant 82-year-old female who was admitted to the hospital on 02/18 after being found down at home and suffering a L forearm laceration. She was subsequently diagnosed with rhabdomyolysis, acute kidney injury, elevated LFTs, bacteremia, and UTI. Urine culture + for E. Fergussoni, admission Blood cultures + for GBS (followup cultures x3 were negative); Corine was treated with IV Zosyn during her inpatient stay. CK, LFTs, renal function, WBC all improved with IVFs and antibiotics. General Surgery followed patient for her laceration, therapies followed for weakness and SNF stay recommended. Patient was medically stable and appropriate for d/c to SNF on 02/25/23. Status at Discharge Functional status at discharge: uses cane/walker Overall status at discharge: patient is progressing back to baseline Time Spent with Patient Time attestation: Total time spent providing and/or coordinating discharge services: Time spent: Greater than 30 minutes Specific discharge activities: Medication reconciliation, care coordination with multidisciplinary team, family updates Exam Narrative: Exam Narrative: GEN: Alert and oriented, appears nontoxic HEENT: EOMIs bilaterally, no scleral icterus CV: RRR, No concerning murmurs, rubs, or gallops R: LCTA bilaterally without concerning wheezing, air movement adequate Ext: Left upper extremity is wrapped per wound care instructions, bilateral lower extremities exhibit 2+ edema which is stable Skin: Lower extremity cellulitis has significantly improved Neuro: No focal deficits, no resting tremor Psych: Appropriate Const: Vital Signs, click to edit/add: Vital Signs - 24 hr 02/24/23 11:37 02/24/23 15:00 02/24/23 16:00 Temperature 97.6 F 98.1 F Pulse Rate [Pulse Oximeter] 73 87 Respiratory Rate 14 16 16 Blood Pressure [Le ft Arm] 121/63 111/61 Pulse Oximetry 94 93 93 Oxygen Delivery Me thod Room Air Room Air Room Air 02/24/23 15:00 02/24/23 19:00 02/24/23 23:00 Temperature 98.1 F Pulse Rate [Pulse Oximeter] 87 93 Respiratory Rate 16 Blood Pressure [Le ft Arm] 105/63 Pulse Oximetry 93 Oxygen Delivery Me thod Room Air 02/24/23 23:00 02/24/23 23:26 02/25/23 07:58 Temperature 98.3 F Pulse Rate [Pulse Oximeter] 101 H Respiratory Rate 16 16 16 Blood Pressure [Le ft Arm] 138/94 H Pulse Oximetry 93 93 Oxygen Delivery Me thod Room Air Room Air DS: Data Data Completed and Pending Labs on day of discharge: Preliminary micro results at discharge 02/21/23 09:55 Blood Culture - Preliminary Blood NO GROWTH AFTER 96 HOURS Discharge Plan Discharge Disposition: [facility] Date of Admission: 02/18/23 17:30 Attending Provider on Discharge: Anna Casas Primary Care Provider: Giovanny Vallejo Condition: Stable Anticipated Discharge Date/Time: 02/25/23 11:00 Discharge Medications: New furosemide 40 mg Tablet 20 mg PO BID@0800,1400 Qty: 60 0RF sennosides-docusate sodium [Stool Softener-Laxative] 8.6-50 mg Tablet 1 tab PO DAILY PRNQty: 20 0RF Rx Instructions: prn constipation lidocaine 5 % Adhesive Patch,Medicated 1 patch transdermal Q24H Qty: 30 0RF Rx Instructions: apply to L and R shoulders please oxycodone 5 mg Tablet 2.5 mg PO Q6H PRNQty: 20 0RF Rx Instructions: prn severe pain in between APAP doses amoxicillin 875 mg tablet 875 mg PO BID 7 Days Qty: 14 0RF Continued melatonin 3 mg capsule 3 mg PO HS PRN ascorbic acid (vitamin C) 250 mg tablet 250 mg PO DAILY multivitamin Tablet 1 tab PO DAILY acetaminophen 500 mg tablet 1,000 mg PO Q6H PRN Rx Instructions: NO MORE THAN 4000 MG/DAY Fish Oil 300-500 mg capsule 1 cap PO DAILY apixaban 2.5 mg tablet 2.5 mg PO BID Qty: 180 3RF escitalopram oxalate 5 mg tablet 5 mg PO DAILY Qty: 90 3RF omeprazole 20 mg capsule,delayed release(DR/EC) 20 mg PO DAILY Qty: 90 3RF ferrous gluconate 324 mg (38 mg iron) tablet 324 mg PO DAILY atorvastatin 40 mg tablet 40 mg PO HS allopurinol 100 mg tablet 100 mg PO WE@09 Patient Comments: Prescription is for daily use but patient takes it about once a week triamcinolone acetonide 0.1 % cream 1 applic topical BID PRN metoprolol succinate 50 mg Tablet Extended Release 24 Hr 50 mg PO DAILY 30 Days Qty: 30 1RF Held losartan 50 mg Tablet 50 mg PO DAILY 30 Days Qty: 30 1RF Hold Instructions: Resume on 03/01/23. Hold upon discharge. Recommend BP checks once/day, restart on Wednesday, 03/01 if BP consistently >140/90. Discontinued oxycodone 5 mg tablet 5 mg PO Q4H PRN alprazolam 0.5 mg tablet 0.5 mg PO QHS furosemide 20 mg Tablet 20 mg PO TID Patient Comments: Prescription is for 60 mg twice daily. Patient is taking 20 mg 3 times a day tramadol 50 mg tablet 50 mg PO Q6H PRN (Reason: pain) Qty: 60 1RF Discharge Orders: Discharge Order (Routine); Ordered 02/25/23 Ordered By: Anna Casas Activity Level: Activity as Tolerated and Other Activity Detail: per PT/OT Discharge Diet: Regular Follow Up Appointments: [facility] [Outside] (Patient discharged to [facility]) Giovanny Vallejo MD [Primary Care Provider] - Sandor Urbina MD [Staff Physician] - (Please schedule an appt with Dr. Urbina at the Ortho/Spine clinic ([phone]) for mid-May for followup) Zuleima Michaels CNP [Nurse Practitioner] - 03/04/23 12:45 pm (Wound Clinic!) Forms: [facility] Info Instructions Discharge Comments: Refer to [facility] wound center for ongoing cares after discharge. Patient's daughter should be taught to perform and/or SNF should perform daily dressing changes as described below until her follow-up appointment. Wound Care: Remove dressing daily. Place a square of Xeroform gauze over the wound. On top of this place a dry square of gauze. Wrap arm in Kerlix followed by an Edis wrap. Admit to: SNF Discharge Potential: Good Length of Stay: <30 days Can use facility standing orders?: Yes Code Status: DNR/DNI Rehab Potential: Good Therapy: Physical Therapy and Occupational Therapy Therapy Orders: Evaluate and Treat and Gait Training Therapy Orders Additional Information: Patient has her own legs wraps - may use daily Oxygen: No Urinary Catheter: No Glucose Checks: n/a Next INR: n/a Lab Orders: CMP in 7-10 days Orders are good >30 days: Yes Signature: Anna Casas MD
[2023-02-25 10:56] VITALS: BP 122/87; PULSE 80; RESP 16; TEMP 36.8
--- NOTE | 2023-02-25 12:14 | PC.NURSE ---
D/c: Pt A&O. A2 w/walker. VS stable. Premedicated with PRN Oxycodone and dressing change completed prior to transfer. Nurse to nurse report was given to [facility]. IV removed with tip intact.
== END 2023-02-25 11:12 | DRG 854 ==
LOC: ED 14:55 → MEDSURG 16:20
PROVIDERS: Family Medicine; Admitting Provider Family Medicine; Emergency Provider Internal Medicine; PCP Internal Medicine; Visit Provider Family Medicine
DX: A41.9 Sepsis, unspecified organism (principal); N39.0 Urinary tract infection, site not specified; L03.115 Cellulitis of right lower limb; N17.9 Acute kidney failure, unspecified; I24.8 Other forms of acute ischemic heart disease; I13.0 Hypertensive heart and chronic kidney disease with heart failure and stage 1 through stage 4 chronic kidney disease, or unspecified chronic kidney disease; I50.30 Unspecified diastolic (congestive) heart failure; M62.82 Rhabdomyolysis; S51.812A Laceration without foreign body of left forearm, initial encounter; W19.XXXA Unspecified fall, initial encounter; F41.9 Anxiety disorder, unspecified; N18.9 Chronic kidney disease, unspecified; I27.20 Pulmonary hypertension, unspecified; I48.0 Paroxysmal atrial fibrillation; I73.9 Peripheral vascular disease, unspecified; K21.9 Gastro-esophageal reflux disease without esophagitis; G89.29 Other chronic pain; M54.9 Dorsalgia, unspecified; M75.102 Unspecified rotator cuff tear or rupture of left shoulder, not specified as traumatic; M75.101 Unspecified rotator cuff tear or rupture of right shoulder, not specified as traumatic; M25.512 Pain in left shoulder; M25.511 Pain in right shoulder; G47.00 Insomnia, unspecified
CPT/HCPCS: 36415; 51702; 70450; 70551; 72125; 72131; 73030; 73090; 76705; 80048; 80053; 80076; 81001; 82077; 82330; 82550; 82977; 83605; 83735; 84132; 84484; 85025; 85610; 86140; 87040; 87086; 87186; 87493; 87635; 93005; 93306; 93971; 97110; 97162; 97166; 97530; 97535; 99283; 99284; 99285; A9153; A9270; J0610; J1940; J2543; J7030; J7050; J7120

== ENCOUNTER 2023-03-29 09:36 | Outpatient (CLI) | payer MEDICARE, BC, OTHER, SELFPAY | END 2023-03-29 09:37 | disposition home or self-care (01) | LOC: AMB 04-05 13:49 | PROVIDERS: PCP Internal Medicine; Visit Provider Family Medicine | DX: R06.02 Shortness of breath (principal) | CPT/HCPCS: A0425; A0429 ==

== ENCOUNTER 2023-03-29 10:00 | Inpatient (IN) | payer MEDICARE, BC, OTHER, SELFPAY ==
[2023-03-29] VITALS (9 sets, daily range): BP systolic 147–210; BP diastolic 73–99; PULSE 50–67; RESP 18–20; TEMP 35.9–36.6; O2SAT 91–96; BMI 29.6
--- NOTE | 2023-03-29 10:35 | ED.GENADULT ---
HPI - General Adult General Time Seen by Provider: 10:35 Date Seen: 03/29/23 Chief complaint: Shortness of Breath/Dyspnea Stated complaint: shortness of breath Time Seen by Provider: 03/29/23 10:13 Source: patient, family, RN notes reviewed and old records reviewed Mode of arrival: EMS Limitations: no limitations History of Present Illness HPI narrative: 83-year-old female with history of heart failure, paroxysmal atrial fibrillation, anticoagulated who presents today with shortness of breath and hypertension. Patient has had shortness of breath for about a week, recently had Lasix increased to 40 mg twice a day but feels like that has not made much difference in spite of being on this for 5 days. Denies chest pain, denies abdominal pain, nausea, vomiting, diarrhea. Blood pressure is elevated this morning and so was sent to the emergency department. Here, oxygen saturation 90-91% on room air. Patient is hypertensive with mild crackles bilaterally. Labs and chest x-ray ordered, consider CT PE protocol although patient anticoagulated. Albuterol, atorvastatin, Eliquis, escitalopram, iron, Lasix 40 mg twice a day, losartan 50 mg daily, metoprolol 50 mg daily, omeprazole, oxycodone 2.5 mg every 6 hours as needed Related Data Home Medications Medication Instructions Recorded Confirmed acetaminophen 500 mg tablet 1,000 mg PO Q6H PRN 06/08/22 02/18/23 ascorbic acid (vitamin C) 250 mg 250 mg PO DAILY 06/08/22 02/18/23 tablet melatonin 3 mg capsule 3 mg PO HS PRN 06/08/22 02/18/23 multivitamin 1 tab PO DAILY 06/08/22 02/18/23 omega-3 fatty acids-fish oil 300 1 cap PO DAILY 06/08/22 02/18/23 mg-500 mg capsule (Fish Oil) allopurinol 100 mg tablet 100 mg PO WE@09 01/23/23 02/18/23 atorvastatin 40 mg tablet 40 mg PO HS 01/23/23 02/18/23 triamcinolone acetonide 0.1 % 1 applic topical BID PRN 01/23/23 02/18/23 topical cream ferrous gluconate 324 mg (38 mg 324 mg PO DAILY 02/18/23 02/18/23 iron) tablet Previous Rx's Medication Instructions Recorded apixaban 2.5 mg tablet 2.5 mg PO BID #180 tabs 06/08/22 escitalopram oxalate 5 mg tablet 5 mg PO DAILY #90 tabs 06/08/22 omeprazole 20 mg capsule,delayed 20 mg PO DAILY #90 caps 06/08/22 release losartan 50 mg tablet 50 mg PO DAILY 30 days #30 tabs 01/25/23 metoprolol succinate 50 mg 50 mg PO DAILY 30 days #30 tabs 01/25/23 tablet,extended release 24 hr amoxicillin 875 mg tablet 875 mg PO BID 7 days #14 tabs 02/25/23 furosemide 40 mg tablet 20 mg (1/2 x 40 mg) PO 02/25/23 BID@0800,1400 #60 tabs lidocaine 5 % topical patch 1 patch transdermal Q24H #30 ea 02/25/23 oxycodone 5 mg tablet 2.5 mg (1/2 x 5 mg) PO Q6H PRN #20 02/25/23 tabs sennosides 8.6 mg-docusate sodium 1 tab PO DAILY PRN #20 tabs 02/25/23 50 mg tablet (Stool Softener-Laxative) Allergies Allergy/AdvReac Type Severity Reaction Status Date / Time cephalexin Allergy Unknown RASH/HIVES Verified 03/29/23 10:08 [facility] Medical History (Updated 03/29/23 @ 11:45 by Jey Emmanuel MD) Rotator cuff tear arthropathy of both shoulders ?M75.101 - Unspecified rotator cuff tear or rupture of right shoulder, not specified as traumatic (ICD-10) ?M12.811 - Other specific arthropathies, not elsewhere classified, right shoulder (ICD-10) ?M12.812 - Other specific arthropathies, not elsewhere classified, left shoulder (ICD-10) ?M75.102 - Unspecified rotator cuff tear or rupture of left shoulder, not specified as traumatic (ICD-10) Weakness ?R53.1 - Weakness (ICD-10) Fall ?W19.XXXA - Unspecified fall, initial encounter (ICD-10) Laceration of left forearm ?S51.812A - Laceration without foreign body of left forearm, initial encounter (ICD-10) Back pain ?M54.9 - Dorsalgia, unspecified (ICD-10) Facial cellulitis ?L03.211 - Cellulitis of face (ICD-10) Insomnia ?G47.00 - Insomnia, unspecified (ICD-10) Anemia ?D64.9 - Anemia, unspecified (ICD-10) GERD (gastroesophageal reflux disease) ?K21.9 - Gastro-esophageal reflux disease without esophagitis (ICD-10) Stasis edema (06/19/09) ?I87.309 - Chronic venous hypertension (idiopathic) without complications of unspecified lower extremity (ICD-10) Venous stasis dermatitis ?I87.2 - Venous insufficiency (chronic) (peripheral) (ICD-10) Pulmonary hypertension (07/24/09) ?I27.20 - Pulmonary hypertension, unspecified (ICD-10) Peripheral vascular disease ?I73.9 - Peripheral vascular disease, unspecified (ICD-10) Paroxysmal atrial fibrillation ?I48.0 - Paroxysmal atrial fibrillation (ICD-10) Mitral valve regurgitation (07/24/09) ?I34.0 - Nonrheumatic mitral (valve) insufficiency (ICD-10) Methicillin resistant Staphylococcus aureus culture positive ?Z22.322 - Carrier or suspected carrier of Methicillin resistant Staphylococcus aureus (ICD-10) Left shoulder pain ?M25.512 - Pain in left shoulder (ICD-10) Insomnia ?G47.00 - Insomnia, unspecified (ICD-10) Hypertension (06/19/09) ?I10 - Essential (primary) hypertension (ICD-10) Health care directive on file ?Z78.9 - Other specified health status (ICD-10) Diastolic congestive heart failure ?I50.30 - Unspecified diastolic (congestive) heart failure (ICD-10) Chronic kidney disease ?N18.9 - Chronic kidney disease, unspecified (ICD-10) Chronic back pain ?M54.9 - Dorsalgia, unspecified (ICD-10) ?G89.29 - Other chronic pain (ICD-10) 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 - Gout, unspecified (ICD-10) Anxiety ?F41.9 - Anxiety disorder, unspecified (ICD-10) Hyperlipemia ?E78.5 - Hyperlipidemia, unspecified (ICD-10) Surgical History 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 She lives alone in her own home near [place]. Her daughter Naomie is healthcare power of insurance defense attorney and closest family. Code status is DNR. She uses a 4 wheeled walker with a seat or a cane to get around her house. Smoking Status: Never smoker Do you use any of these nicotine containing products: None Second hand tobacco smoke exposure: Yes How often do you have a drink containing alcohol: never How often do you have six or more drinks on one occasion: Never AUDIT-C Alcohol total score: 0 Non-prescribed substance use: denies use service: No Exam Narrative: Exam Narrative: General: Well-developed and well-nourished, no acute distress Head: Atraumatic and normocephalic Eyes: Pupils are equal reactive, extraocular motions intact, conjunctiva clear ENT: External nose and ears are normal, posterior pharynx without erythema or exudate Neck: No midline cervical tenderness, full spontaneous range of motion the neck, trachea midline, no adenopathy Heart: Regular rate and rhythm no murmurs or thrills, occasional extrasystole Lungs: Bibasilar crackles Abdomen: Soft, nontender, nondistended with active bowel sounds Musculoskeletal: No tenderness, deformity, or edema Neurologic: Awake, alert, and oriented x3, no gross focal neurologic deficits, cranial nerves intact as tested Psych: Mood and affect are appropriate Skin: No rashes Const: Vital Signs, click to edit/add: Vital Signs - 24 hr 03/29/23 10:00 03/29/23 10:04 Temperature 96.7 F L Pulse Rate [Right Pulse Oximeter] 67 Respiratory Rate 20 18 Blood Pressure [Ri ght Upper Arm] 191/99 H Pulse Oximetry 96 93 Oxygen Delivery Me thod Nasal Cannula Room Air Oxygen Flow Rate 2 Course Course Hospital Course: Patient seen and examined, prior records reviewed. Patient with history of heart failure, continued shortness of breath in spite of increased dose of Lasix. In the emergency department, oxygen saturation 90% on room air, crackles in the bases. EKG independently interpreted by is reassuring. Patient is hypertensive at 191/83 on my initial exam although did improve a little bit while we were talking. Patient likely continues to have pulmonary edema, hypertension may be contributing to this. Also consider pericardial effusion, pneumonia. Labs and chest x-ray ordered. Reevaluation(s) Reevaluation #1: Chest x-ray into panel interpreted by me demonstrates bilateral pleural effusions with pulmonary edema, no recent prior for comparison. Labs independently interpreted by me demonstrates slightly elevated troponin at 0.2 to likely related to strain, no ischemic changes on EKG and no chest pain. Time: 11:07 Reevaluation #2: Care discussed with hospitalist for admission. Agrees with plan for Lasix, no further anti hypertensives for now Time: 11:44 Reevaluation #3: Labs independently interpreted by me-Basic panel is reassuring with normal potassium, normal creatinine. COVID and influenza negative. Time: 12:03 Vital Signs Vital signs: Initial Vital Signs Respiratory Rate 20 03/29/23 10:00 Respiratory Effort Normal, Spontaneous, SOB at Exertion 03/29/23 10:00 Pulse Oximetry 96 03/29/23 10:00 Oxygen Delivery Method Nasal Cannula 03/29/23 10:00 Oxygen Flow Rate 2 03/29/23 10:00 Vital Signs Respiratory Rate 20 03/29/23 10:00 Pulse Oximetry 96 03/29/23 10:00 Oxygen Delivery Method Nasal Cannula 03/29/23 10:00 Oxygen Flow Rate 2 03/29/23 10:00 Temperature 96.7 F L 03/29/23 10:04 Pulse Rate 67 03/29/23 10:04 Respiratory Rate 18 03/29/23 10:04 Blood Pressure 191/99 H 03/29/23 10:04 Pulse Oximetry 93 03/29/23 10:04 Oxygen Delivery Method Room Air 03/29/23 10:04 Oxygen Flow Rate 2 03/29/23 10:00 Medical Decision Making Lab Data Labs: Lab Results 03/29/23 03/29/23 Range/Units 10:48 11:40 Sodium 136 (135-149) mmol/L Potassium 3.9 (3.6-5.1) mmol/L Chloride 102 (96-114) mmol/L Carbon Dioxide 26 (20-32) mmol/L BUN 26 (7-30) mg/dL Creatinine 0.9 (0.5-1.5) mg/dL Estimated Creat Clear 34.02 Estimated GFR 63 ml/min Glucose 106 (60-115) mg/dL Calcium 8.9 (8.4-10.6) mg/dL Magnesium 2.0 (1.5-2.6) mg/dL Total Bilirubin 0.7 (0.1-1.5) mg/dL Direct Bilirubin 0.2 (0.0-0.5) mg/dL AST 30 (12-35) U/L ALT 26 (4-35) U/L Alkaline Phosphatase 69 (40-150) U/L NT-Pro-B Natriuret Pep 4770 pg/mL Total Protein 7.2 (6.0-8.3) g/dL Albumin 3.6 (3.3-5.0) g/dL Urine Color Yellow (Yellow) Urine Appearance Clear (Clear) Urine pH 6.0 (5.0-8.5) Ur Specific [place] 1.020 (1.000-1.030) Urine Protein 2+ A (Negative) Urine Glucose (UA) Negative (Negative) Urine Ketones Negative (Negative) Urine Blood Trace-intact A (Negative) Urine Nitrite Negative (Negative) Urine Bilirubin Negative (Negative) Urine Urobilinogen 0.2 (0.2-1.0) Ur Leukocyte Esterase Negative (Negative) Urine RBC 2-5 A (0-2) Urine WBC 0-2 (0-5) Ur Squamous Epith Cells Few (None-Few) Urine Bacteria Few A (None) SARS-CoV-2 (PCR) Negative SARS-CoV-2 (Negative) Influenza Type A (PCR) Negative PCR FLU A (Negative) Influenza Type B (PCR) Negative PCR FLU B (Negative) RSV (PCR) Negative PCR RSV (Negative) POC Troponin I 0.22 H (0.01-0.04) ng/ml ECG Data Attestation: I personally reviewed and interpreted this ECG as follows: Prior ECG tracings: not available for review Interpretation: Performed at 11:19 a.m. demonstrates sinus bradycardia with PACs rate 54, no acute ST elevations or depressions, normal intervals, normal axis, QTC 464, UT 146. Compared to prior of February 19, sinus rhythm has replaced atrial fibrillation Discharge Plan Discharge Clinical Impression: Hypertensive urgency, Acute on chronic heart failure with preserved ejection fraction (HFpEF), Hypertensive cardiomegaly with heart failure, Hypoxia Patient Disposition: Admitted As Inpatient
--- NOTE | 2023-03-29 10:39 | RESP.RT ---
Patient arrived via EMS, EMS placed patient on Nasal Cannula 2 Lpm to increase SaO2 from 88% to 94%. Post moving patient to ED bed; patient breathing regular/easy, SaO2 96% on NC 2 Lpm. Bilateral breath sound with scattered crackles all phillips. Patient capillary refill less than 3 seconds. Patient NC weaned to room air, SaO2 92%.
--- NOTE | 2023-03-29 10:40 | CRLHL7_ITS ---
For Patients: As a result of the Century Cures Act, medical imaging exams and procedure reports are released immediately into your electronic medical record. You may view this report before your referring provider. If you have questions, please contact your health care provider. Indication: Dyspnea. Technique: Chest 1 view. Comparison: 02/08/2023. Findings/Impression: Cardiovascular and mediastinum: Stable moderate cardiomegaly. Lungs and pleural space: Limited assessment due to shallow depth of inspiration. Persistent bibasilar pleural effusions are unchanged if not increased. No focal infiltrate and no pneumothorax. Prominence of the lung interstitium could be secondary to shallow depth of inspiration or vascular congestion. Bones and soft tissues: No acute findings. Dictated by Thad Urbina MD @ 03/29/2023 11:59:39 AM (Electronically Signed)
[2023-03-29 11:05] LABS: Troponin, Point-of-Care* 0.22 ng/ml (0.01-0.04)
[2023-03-29 11:15] LABS: Albumin* 3.6 g/dL (3.3-5.0); Chloride* 102 mmol/L (96-114); Sodium* 136 mmol/L (135-149)
[2023-03-29 11:16] LABS: Potassium* 3.9 mmol/L (3.6-5.1)
[2023-03-29 11:18] LABS: Alanine Aminotransferase* 26 U/L (4-35); Alkaline Phosphatase* 69 U/L (40-150); Aspartate Amino Transferase* 30 U/L (12-35); Bilirubin Direct* 0.2 mg/dL (0.0-0.5); Bilirubin Total* 0.7 mg/dL (0.1-1.5); Blood Urea Nitrogen* 26 mg/dL (7-30); Calcium* 8.9 mg/dL (8.4-10.6); Carbon Dioxide* 26 mmol/L (20-32); Creatinine* 0.9 mg/dL (0.5-1.5); Est. Creatinine Clearance* 34.02; Estimated Glomerular Filt Rate 63 ml/min; Glucose* 106 mg/dL (60-115); Total Protein* 7.2 g/dL (6.0-8.3)
[2023-03-29 11:29] LABS: NT Pro B Type NatriureticPept* 4770 pg/mL
[2023-03-29] MEDS: FUROSEMIDE 10 MG/ML inj 40 MG IVP ×2 (11:32→15:53)
[2023-03-29 11:33] LABS: PCR FLU A Negative PCR FLU A (Negative); PCR FLU B Negative PCR FLU B (Negative); PCR RSV Negative PCR RSV (Negative)
[2023-03-29 11:35] LABS: SARS PCR* Negative SARS-CoV-2 (Negative)
[2023-03-29 11:45] LABS: Appearance Urine Clear (Clear); Bilirubin Urine Negative (Negative); Blood Urine Trace-intact (Negative); Color Urine Yellow (Yellow); Glucose Urine Negative (Negative); Ketones Urine Negative (Negative); Leukocyte Esterase Urine Negative (Negative); Nitrite Urine Negative (Negative); Protein Urine 2+ (Negative); Urobilinogen Urine 0.2 (0.2-1.0)
[2023-03-29 11:55] LABS: Bacteria Urine Few; Squamous Epithelial Cell Urine Few (None-Few); WBC Urine 0-2 (0-5)
[2023-03-29 12:08] LABS: Basophils Percent Auto 0.1 % (0.0-3.0); Eosinophils Percent Auto 0.4 % (0.0-7.0); Hematocrit 36.9 % (33.0-51.0); Hemoglobin* 11.5 gm/dL (12.0-16.0); Lymphocytes Percent Auto 17.5 % (20-44); Mean Corpuscular HGB Conc 31 gm/dL (32-36); Mean Corpuscular Hemoglobin 30 pg (26-34); Mean Corpuscular Volume 95 fL (80-100); Neutrophils Percent Auto 73.9 % (42.0-72.0); Platelet Count* 217 K/uL (140-440); RDW Coefficient of Variation % 15.9 % (11.5-15.5); Red Blood Count 3.87 m/uL (4.00-5.20); White Blood Count* 8.29 K/uL (4.50-11.00)
[2023-03-29 12:09] LABS: Immature Granulocytes Pct Auto 1.1 %; Slide Review Reflex No
--- NOTE | 2023-03-29 13:37 | PC.NURSE ---
End of shift note: Patient was admitted from the ER shortly after lunch. Patient arrived per wheelchair. Was admitted for increased SOB. When she arrived they had 2L per nc on patient and she was having O2 sats of 98%. Turned off oxygen and continued to monitor. She did not go below 93% on room air. Removed nc. Patient is sitting at bedside eating lunch currently with daughter and granddaughter present. Have asked her to not get up alone that she needs to use the call light and ask for help first. Since she is at bedside and family is present have not turned on the fall alarm as of yet. Will continue to monitor patient. Did not appear to have any SOB when she arrived. Tele placed on patient.
[2023-03-29] MEDS: POTASSIUM BICARB 25 MEQ EFFERVESCENT TAB PO (13:47)
[2023-03-29] MEDS: SPIRONOLACTONE 25 MG TABLET PO (13:47)
[2023-03-29] MEDS: LOSARTAN POTASSIUM 50 MG TABLET PO (13:47)
[2023-03-29] MEDS: FUROSEMIDE 40 MG TABLET PO (13:48)
--- NOTE | 2023-03-29 15:09 | P.IMHP_ITS ---
Hospitalist- H&P: ROYA History of Present Illness Date Seen: 03/29/23 Chief complaint: shortness of breath Narrative: Corine Foreman is a 83 year old female with history of heart failure with preserved ejection fraction and paroxysmal atrial fibrillation with anticoagulation, who presents with a 1 week history of worsening dyspnea. She reports she was generally doing well up until about a week ago when she began to have worsening dyspnea. Chest x-ray was done in the senior living where she is currently residing and showed pleural effusions. On this basis her furosemide was increased from 20 mg b.i.d. to 40 mg b.i.d.. Despite that change she continued to get worse. She has also developed orthopnea. She has not had syncope. She has a slight cough productive of a whitish sputum. He has had no fever and no chest pain. She is not aware of significant extremity edema. She does wear compression wraps on her legs. She was hospitalized here 1 month ago. At that time she was living independently and had fallen at home sustaining a laceration to her arm as well as rhabdomyolysis with acute kidney injury. She had elevated LFTs bacteremia and a UTI. She was treated with antibiotics and fluids and her multiple problems all improved. She was discharged to the [facility] for rehabilitation. She has been doing well there until this past week. During that hospitalization last month she had an echocardiogram showing ejection fraction of 55-60%. Right ventricle was relatively normal. Moderate mitral regurgitation was noted [id number] tricuspid regurgitation also noted. In the emergency department she had a chest x-ray which showed findings consistent with heart failure with bilateral pleural effusions and increased vascular congestion. She was given furosemide 40 mg IV and already reports improvement in her respiratory status. Review of Systems Narrative: Except as noted above she reports no other concerns since she was hospitalized here in the beginning of February [facility] Medical History (Updated 03/29/23 @ 15:20 by Pierce Cristobal MD) Rotator cuff tear arthropathy of both shoulders ?M75.101 - Unspecified rotator cuff tear or rupture of right shoulder, not specified as traumatic (ICD-10) ?M12.811 - Other specific arthropathies, not elsewhere classified, right shoulder (ICD-10) ?M12.812 - Other specific arthropathies, not elsewhere classified, left shoulder (ICD-10) ?M75.102 - Unspecified rotator cuff tear or rupture of left shoulder, not specified as traumatic (ICD-10) Weakness ?R53.1 - Weakness (ICD-10) Fall ?W19.XXXA - Unspecified fall, initial encounter (ICD-10) Laceration of left forearm ?S51.812A - Laceration without foreign body of left forearm, initial encounter (ICD-10) Back pain ?M54.9 - Dorsalgia, unspecified (ICD-10) Facial cellulitis ?L03.211 - Cellulitis of face (ICD-10) Insomnia ?G47.00 - Insomnia, unspecified (ICD-10) Anemia ?D64.9 - Anemia, unspecified (ICD-10) GERD (gastroesophageal reflux disease) ?K21.9 - Gastro-esophageal reflux disease without esophagitis (ICD-10) Stasis edema (06/19/09) ?I87.309 - Chronic venous hypertension (idiopathic) without complications of unspecified lower extremity (ICD-10) Venous stasis dermatitis ?I87.2 - Venous insufficiency (chronic) (peripheral) (ICD-10) Pulmonary hypertension (07/24/09) ?I27.20 - Pulmonary hypertension, unspecified (ICD-10) Peripheral vascular disease ?I73.9 - Peripheral vascular disease, unspecified (ICD-10) Paroxysmal atrial fibrillation ?I48.0 - Paroxysmal atrial fibrillation (ICD-10) Mitral valve regurgitation (07/24/09) ?I34.0 - Nonrheumatic mitral (valve) insufficiency (ICD-10) Methicillin resistant Staphylococcus aureus culture positive ?Z22.322 - Carrier or suspected carrier of Methicillin resistant Staphylococcus aureus (ICD-10) Left shoulder pain ?M25.512 - Pain in left shoulder (ICD-10) Insomnia ?G47.00 - Insomnia, unspecified (ICD-10) Hypertension (06/19/09) ?I10 - Essential (primary) hypertension (ICD-10) Health care directive on file ?Z78.9 - Other specified health status (ICD-10) Diastolic congestive heart failure ?I50.30 - Unspecified diastolic (congestive) heart failure (ICD-10) Chronic kidney disease ?N18.9 - Chronic kidney disease, unspecified (ICD-10) Chronic back pain ?M54.9 - Dorsalgia, unspecified (ICD-10) ?G89.29 - Other chronic pain (ICD-10) 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 - Gout, unspecified (ICD-10) Anxiety ?F41.9 - Anxiety disorder, unspecified (ICD-10) Hyperlipemia ?E78.5 - Hyperlipidemia, unspecified (ICD-10) Surgical History 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 She was living independently until the beginning of February when she fell. Discharge from our hospital to [facility] for rehabilitation. Her daughter Naomie is healthcare power of transactional attorney and closest family. Code status is DNR. She uses a 4 wheeled walker with a seat or a cane to get around her house. Highest level of school completed/degree received: high school graduate Smoking Status: Never smoker Do you use any of these nicotine containing products: None Second hand tobacco smoke exposure: Yes How often do you have a drink containing alcohol: never How often do you have six or more drinks on one occasion: Never AUDIT-C Alcohol total score: 0 Non-prescribed substance use: denies use Caffeine: Yes (1 cup) service: No Meds Home Medications and Allergies Home Medications Medication Instructions Recorded Confirmed Type acetaminophen 500 mg tablet 1,000 mg PO Q6H PRN 06/08/22 03/29/23 History melatonin 3 mg capsule 9 mg PO HS PRN 06/08/22 03/29/23 History allopurinol 100 mg tablet 100 mg PO WE@01/23/23 03/29/23 History atorvastatin 40 mg tablet 40 mg PO HS 01/23/23 03/29/23 History triamcinolone acetonide 0.1 % 1 applic topical BID PRN 01/23/23 03/29/23 History topical cream ferrous gluconate 324 mg (38 mg 324 mg PO DAILY 02/18/23 03/29/23 History iron) tablet escitalopram oxalate 5 mg tablet 10 mg PO DAILY 03/29/23 03/29/23 History furosemide 40 mg tablet 40 mg PO BID@0800,1400 03/29/23 03/29/23 History sennosides 8.6 mg-docusate sodium 1 tab PO BID PRN 03/29/23 03/29/23 History 50 mg tablet (Stool Softener-Laxative) Allergies Allergy/AdvReac Type Severity Reaction Status Date / Time cephalexin Allergy Unknown RASH/HIVES Verified 03/29/23 10:08 Exam Narrative: Exam Narrative: She is alert and appears in mild respiratory distress with increased rate and work of breathing with supplemental oxygen. She is oriented to her circumstances and able to give significant details of recent history. Head is normal. Eyes normal. Oropharynx with small airway. Neck is supple without mass or adenopathy. I do not appreciate jugular venous distension. Respirations are clear to auscultation except for bibasilar crackles. No wheezing. Fair air exchange in all lung phillips. Cardiovascular: S1, S2, regular rate and rhythm. 1/6 systolic murmur. No gallop or rub. Abdomen: Bowel sounds active. Abdomen is soft without tenderness or mass. External genitalia normal. Legs are on wrapped from her compressive wraps and her support hose. She has chronic venous stasis skin changes no significant ulcerations erythema tenderness. Minimal edema. Feet are somewhat cool to touch diminished pedal pulses. Const: Vital Signs, click to edit/add: Vital Signs - 24 hr 03/29/23 10:00 03/29/23 10:04 03/29/23 11:45 Temperature 96.7 F L Pulse Rate Pulse Rate [Right Pulse Oximeter] 67 Pulse Rate [Right Radial] Respiratory Rate 20 18 Blood Pressure [Ri ght Arm] Blood Pressure [Ri ght Upper Arm] 191/99 H 174/81 H Pulse Oximetry 96 93 93 Oxygen Delivery Me thod Nasal Cannula Room Air Nasal Cannula Oxygen Flow Rate 2 2 03/29/23 12:07 03/29/23 12:21 03/29/23 12:21 Temperature Pulse Rate Pulse Rate [Right Pulse Oximeter] Pulse Rate [Right Radial] 56 L Respiratory Rate 20 20 Blood Pressure [Ri ght Arm] 191/82 H Blood Pressure [Ri ght Upper Arm] 210/87 H Pulse Oximetry 92 93 93 Oxygen Delivery Me thod Nasal Cannula Room Air Room Air Oxygen Flow Rate 03/29/23 14:46 Temperature Pulse Rate 56 L Pulse Rate [Right Pulse Oximeter] Pulse Rate [Right Radial] Respiratory Rate Blood Pressure [Ri ght Arm] Blood Pressure [Ri ght Upper Arm] Pulse Oximetry Oxygen Delivery Me thod Oxygen Flow Rate Documenting provider has reviewed patient's vital signs: yes Hospitalist - H&P: Result Labs Labs: Short CBC 03/29/23 Range/Units 10:48 WBC 8.29 (4.50-11.00) K/uL Hgb 11.5 L (12.0-16.0) gm/dL Hct 36.9 (33.0-51.0) % Plt Count 217 (140-440) K/uL BMP 03/29/23 10:48 Sodium 136 Potassium 3.9 Chloride 102 Carbon Dioxide 26 BUN 26 Creatinine 0.9 Glucose 106 Calcium 8.9 Liver Function 03/29/23 Range/Units 10:48 Total Bilirubin 0.7 (0.1-1.5) mg/dL Direct Bilirubin 0.2 (0.0-0.5) mg/dL AST 30 (12-35) U/L ALT 26 (4-35) U/L Alkaline Phosphatase 69 (40-150) U/L Albumin 3.6 (3.3-5.0) g/dL Urine 03/29/23 Range/Units 11:40 Urine Color Yellow (Yellow) Urine Appearance Clear (Clear) Urine pH 6.0 (5.0-8.5) Ur Specific [place] 1.020 (1.000-1.030) Urine Protein 2+ A (Negative) Urine Glucose (UA) Negative (Negative) Assessment and Plan Assessment and plan (1) Acute on chronic heart failure with preserved ejection fraction (HFpEF): Problem comment: Patient appears to be having an acute heart failure exacerbation. Will diurese with IV furosemide. Also add in spironolactone. Status: Acute (2) Hypertensive heart disease with acute diastolic congestive heart failure: Problem comment: Blood pressure is quite high today likely a contributor to her heart failure. Will increase her losartan in addition to more aggressive diuresis. Closely monitor blood pressure response. Status: Acute (3) Hypoxia: Problem comment: On admission is currently needing supplemental oxygen. Anticipate this will improve with diuresis. Status: Acute Plan Patient is admitted to the hospital for cardia respiratory monitoring and treatment of congestive heart failure. Anticipate discharge back to the senior living in 1-2 days. Total time spent today is 70 minutes, 40 minutes in coordination of care and discussing with patient, granddaughter and other providers ongoing evaluation management of heart failure
--- NOTE | 2023-03-29 16:33 | PC.NURSE ---
PATIENT PLEASANT AND COOPERATIVE, ALERT AND ORIENTED, UP A1 WITH WALKER AND BELT, TELE SHOWING SINUS SHELIA, LUNG CLEAR TO AUSCULTATION, DECLINING SOB AT REST, STATES I'M FEELING BETTER THAN EARLIER TODAY.
[2023-03-29] MEDS: ATORVASTATIN CALCIUM 40 MG TABLET PO (21:09)
[2023-03-29] MEDS: SENNOSIDES 1 TAB TABLET PO (21:09)
[2023-03-29] MEDS: APIXABAN 5 MG TABLET 2.5 MG PO (21:09)
[2023-03-29] MEDS: SODIUM CHLORIDE 0.9 % (FLUSH) 10 ML SYRINGE 5 ML IVF (21:17)
[2023-03-29] MEDS: ACETAMINOPHEN 500 MG TABLET 1000 MG PO (21:29)
[2023-03-29] MEDS: MELATONIN 3 MG TABLET 9 MG PO (21:59)
[2023-03-30] VITALS (8 sets, daily range): BP systolic 142–178; BP diastolic 61–86; PULSE 41–62; RESP 16–20; TEMP 36.1–36.4; O2SAT 92–98
--- NOTE | 2023-03-30 06:41 | PC.NURSE ---
[id number] Shift Summary? [address] SOB, Pleural effusions, orthopnea, recent fall (rhabdo and CHELY) DNR? Hx: Chronic back pain, GERD, Stasis edema, PVD, HTN, Falls, AFib, CKD, CHF? Slept well overnight. Given Tylenol for chronic back pain. Requested home TEDs (and braces) off for bed. On room air, sating well. Pt was up to commode with walker and Ao1 x2, 1 small loose green BM. 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 Regular diet. On PO Augmentin. Allowed pt to sleep, did not get daily weight yet. Tele in place.
[2023-03-30 06:59] LABS: Chloride* 101 mmol/L (96-114); Sodium* 138 mmol/L (135-149)
[2023-03-30 07:02] LABS: Blood Urea Nitrogen* 35 mg/dL (7-30); Carbon Dioxide* 31 mmol/L (20-32); Creatinine* 1.1 mg/dL (0.5-1.5); Est. Creatinine Clearance* 30.93; Estimated Glomerular Filt Rate 49 ml/min
[2023-03-30 07:03] LABS: Glucose* 89 mg/dL (60-115); Magnesium* 2.1 mg/dL (1.5-2.6)
[2023-03-30] MEDS: SODIUM CHLORIDE 0.9 % (FLUSH) 10 ML SYRINGE 5 ML IVF (09:02)
[2023-03-30] MEDS: OMEPRAZOLE 20 MG CAPSULE DR PO (09:02)
[2023-03-30] MEDS: SPIRONOLACTONE 25 MG TABLET PO (09:02)
[2023-03-30] MEDS: ESCITALOPRAM 10 MG TABLET PO (09:02)
[2023-03-30] MEDS: AMLODIPINE 5 MG TABLET PO (09:02)
[2023-03-30] MEDS: LOSARTAN POTASSIUM 50 MG TABLET PO ×2 (09:02→20:15)
[2023-03-30] MEDS: FERROUS SULFATE 325 MG TABLET PO (09:03)
[2023-03-30] MEDS: APIXABAN 5 MG TABLET 2.5 MG PO ×2 (09:03→20:16)
--- NOTE | 2023-03-30 13:30 | PM.IMPN1 ---
Progress Note: A&P Assessment and plan (1) Acute on chronic heart failure with preserved ejection fraction (HFpEF): Problem details: Patient appears to be having an acute heart failure exacerbation. Will diurese with IV furosemide. Also add in spironolactone. More aggressive blood pressure control. Hypertension likely contributing to heart failure exacerbation Status: Acute (2) Hypertensive heart disease with acute diastolic congestive heart failure: Problem details: Blood pressure is quite high today likely a contributor to her heart failure. Will increase her losartan in addition to more aggressive diuresis. Closely monitor blood pressure response. Status: Acute (3) Hypoxia: Problem details: On admission is currently needing supplemental oxygen. Has weaned off oxygen overnight. Status: Acute Plan Patient has had multiple changes to her medications including adding 2 new diuretics, increasing her losartan and adding amlodipine. With her history of acute kidney injury recently and multiple medication changes I have recommended she stay in the hospital for another day for monitoring of her blood pressure, respiratory status and renal and electrolyte functions. Time Spent With Patient Total time spent: Total time spent today is 35 minutes, 25 minutes in coordination of care discussing with patient and her daughter ongoing management of heart failure with preserved ejection fraction Subjective Date Seen: 03/30/23 Interval history: 83-year-old female seen in followup of hospitalization for heart failure with preserved ejection fraction. Patient had 1 week history of increasing dyspnea and orthopnea. Radiographically she was found to have pleural effusions and pulmonary edema. On admission she was started on furosemide intravenously and has diuresed well. She reports feeling better today is been able to wean off oxygen. Also the time of admission she was noted to be markedly hypertension with systolic blood pressures exceeding 200. This is felt to be contributing to her heart failure. Blood pressure medications have been increased along with her diuretics to address this. Modest improvement in her blood pressure overnight. She has a history of chronic kidney disease. Close monitor renal function continues with diuresis and titration of blood pressure medications. She otherwise reports generally feeling well today. She has not had cough, fever, chest pain, abdominal pain, nausea, vomiting. Exam Narrative: Exam Narrative: She is alert and appears in no distress. She is oriented to her circumstances. Respirations are clear to auscultation. No wheezing rales or rhonchi. Cardiovascular: S1, S2, irregular rhythm. Abdomen: Bowel sounds active. Abdomen is soft without tenderness. Extremities with mild edema above her knee high compression wraps Const: Vital Signs, click to edit/add: Vital Signs - 24 hr 03/29/23 14:46 03/29/23 15:00 03/29/23 15:00 Temperature Pulse Rate 56 L Pulse Rate [Pulse Oximeter] Pulse Rate [Right Radial] 58 L Respiratory Rate 18 18 Blood Pressure [Ri ght Arm] Pulse Oximetry 91 Oxygen Delivery Me thod Room Air 03/29/23 15:00 03/29/23 19:10 03/29/23 23:00 Temperature 97.0 F L 98 F Pulse Rate Pulse Rate [Pulse Oximeter] Pulse Rate [Right Radial] 58 L 58 L 50 L Respiratory Rate 18 18 18 Blood Pressure [Ri ght Arm] 168/73 H 147/79 H Pulse Oximetry 91 95 Oxygen Delivery Me thod Room Air Room Air 03/29/23 23:00 03/29/23 23:00 03/30/23 03:00 Temperature Pulse Rate Pulse Rate [Pulse Oximeter] 50 L 50 L Pulse Rate [Right Radial] Respiratory Rate 18 18 18 Blood Pressure [Ri ght Arm] 157/77 H Pulse Oximetry 96 95 Oxygen Delivery Me thod Room Air Room Air Room Air 03/30/23 06:58 03/30/23 07:06 03/30/23 08:15 Temperature Pulse Rate 41 L 57 L Pulse Rate [Pulse Oximeter] Pulse Rate [Right Radial] Respiratory Rate Blood Pressure [Ri ght Arm] Pulse Oximetry 92 Oxygen Delivery Me thod Room Air 03/30/23 08:15 03/30/23 12:26 Temperature 96.9 F L 97.3 F L Pulse Rate Pulse Rate [Pulse Oximeter] 62 56 L Pulse Rate [Right Radial] Respiratory Rate 18 20 Blood Pressure [Ri ght Arm] 178/86 H 163/73 H Pulse Oximetry 92 93 Oxygen Delivery Me thod Room Air Room Air Documenting provider has reviewed patient's vital signs: yes Labs Labs: Laboratory Results - last 24 hr 03/30/23 05:44 Sodium 138 Potassium 4.0 Chloride 101 Carbon Dioxide 31 BUN 35 H Creatinine 1.1 Estimated Creat Clear 30.93 Estimated GFR 49 Glucose 89 Calcium 9.0 Magnesium 2.1
[2023-03-30] MEDS: TORSEMIDE 20 MG TABLET PO ×2 (14:28→20:16)
[2023-03-30] MEDS: ACETAMINOPHEN 500 MG TABLET 1000 MG PO ×2 (15:18→20:40)
[2023-03-30] MEDS: MELATONIN 3 MG TABLET 9 MG PO (20:15)
[2023-03-30] MEDS: SENNOSIDES 1 TAB TABLET PO (20:16)
[2023-03-30] MEDS: ATORVASTATIN CALCIUM 40 MG TABLET PO (20:17)
[2023-03-31 03:20] VITALS: BP 135/80; PULSE 65; RESP 18; TEMP 36.1; O2SAT 95
[2023-03-31 06:19] LABS: Chloride* 101 mmol/L (96-114)
[2023-03-31 06:20] LABS: Potassium* 4.3 mmol/L (3.6-5.1); Sodium* 138 mmol/L (135-149)
[2023-03-31 06:22] LABS: Creatinine* 1.2 mg/dL (0.5-1.5); Est. Creatinine Clearance* 28.35; Estimated Glomerular Filt Rate 44 ml/min
[2023-03-31 06:23] LABS: Blood Urea Nitrogen* 39 mg/dL (7-30); Carbon Dioxide* 31 mmol/L (20-32); Glucose* 86 mg/dL (60-115)
--- NOTE | 2023-03-31 07:44 | PC.NURSE ---
[id number] Shift Summary? [address] 83 SOB, Pleural effusions, orthopnea, recent fall (rhabdo and CHELY) DNR? Hx: Chronic back pain, GERD, Stasis edema, PVD, HTN, Falls, AFib, CKD, CHF? Pt slept soundly between bathroom breaks. Increased voiding d/t torsemide. Up with Ao1 with walker and gb. Chronic back pain managed with Tylenol and positioning. On room air. No PIV. BP machine in pt?s room was reading 190s-210s, rechecked with portable machine to be 135 SBP. DC tbd pending BP stability. ?
--- NOTE | 2023-03-31 08:10 | PM.DS1 ---
DS: Providers Provider Date Seen: 03/31/23 Date of admission: 03/30/23 13:29 Primary care physician: Giovanny Vallejo MD Admitting Clinician: Jey Emmanuel MD Attending Physician on discharge: Pierce Cristobal MD Date of Discharge: 03/31/23 DS: Diagnosis Discharge Diagnosis (1) Acute on chronic heart failure with preserved ejection fraction (HFpEF): Status: Acute Problem details: Patient appears to be having an acute heart failure exacerbation. Will diurese with IV furosemide. Also add in spironolactone. More aggressive blood pressure control. Hypertension likely contributing to heart failure exacerbation. Close followup of weight, volume status and electrolytes after discharge to titrate her diuretic (2) Hypertensive heart disease with acute diastolic congestive heart failure: Status: Acute Problem details: Blood pressure is quite high today likely a contributor to her heart failure. Will increase her losartan to b.i.d. and add amlodipine in addition to more aggressive diuresis. Closely monitor blood pressure response. If continuing to be hypertensive would increase amlodipine to 10 mg daily (3) Hypoxia: Status: Acute Problem details: On admission is currently needing supplemental oxygen. Has weaned off oxygen overnight. (4) Bradycardia: Status: Acute Problem details: pulse in the upper 40s. Improved with decrease in metoprolol from 50-25 mg daily DS: Summary Hospital Course Hospital Course: 83-year-old female admitted with 1 week history of progressive dyspnea hypoxia and orthopnea. Time of admission she was found to have bilateral pleural effusions and pulmonary edema. Symptoms were thought due to heart failure. Recent echo showed preserved ejection fraction. Her blood pressure is quite high with systolics over 200 and this was felt to be a significant contributor to her heart failure. She was given diuresis with intravenous furosemide and then switched to oral torsemide. Oral spironolactone was added. For improved blood pressure control her losartan was increased to twice daily administration and amlodipine was added. She was mildly bradycardic and her metoprolol dose was decreased from 50 mg to 25 mg daily. With this treatment her hypoxia resolved. She diuresed approximately 3.4 kg. Status at Discharge Functional status at discharge: uses cane/walker Overall status at discharge: patient is progressing back to baseline Time Spent with Patient Time attestation: Total time spent providing and/or coordinating discharge services: Time spent: Greater than 30 minutes Exam Narrative: Exam Narrative: She is alert and appears in no distress. She is oriented to her circumstances. Respirations are unlabored. Lung sounds are clear. Cardiovascular: S1, S2, regular rate and rhythm. Abdomen is soft without tenderness or mass. Extremities with 1+ edema above her compression wraps Const: Vital Signs, click to edit/add: Vital Signs - 24 hr 03/30/23 08:15 03/30/23 08:15 03/30/23 12:26 Temperature 96.9 F L 97.3 F L Pulse Rate [Pulse Oximeter] 62 56 L Respiratory Rate 18 20 Blood Pressure [Ri ght Arm] 178/86 H 163/73 H Pulse Oximetry 92 92 93 Oxygen Delivery Me thod Room Air Room Air Room Air Oxygen Flow Rate 03/30/23 15:21 03/30/23 15:21 03/30/23 20:00 Temperature 97.6 F Pulse Rate [Pulse Oximeter] 57 L 59 L Respiratory Rate 18 16 Blood Pressure [Ri ght Arm] 142/61 H 157/68 H Pulse Oximetry 95 95 96 Oxygen Delivery Me thod Room Air Room Air Room Air Oxygen Flow Rate 03/30/23 23:00 03/30/23 23:00 03/30/23 23:00 Temperature Pulse Rate [Pulse Oximeter] 60 60 Respiratory Rate 16 16 16 Blood Pressure [Ri ght Arm] 153/63 H Pulse Oximetry 98 98 Oxygen Delivery Me thod Room Air Room Air Oxygen Flow Rate 2 03/31/23 03:20 Temperature 97 F L Pulse Rate [Pulse Oximeter] 65 Respiratory Rate 18 Blood Pressure [Ri ght Arm] 135/80 Pulse Oximetry 95 Oxygen Delivery Me thod Room Air Oxygen Flow Rate Documenting provider has reviewed patient's vital signs: yes DS: Data Data Completed and Pending Completed studies during hospitalization: Procedures Excision of Left Lower Arm Subcutaneous Tissue and Fascia, Open Approach (02/18/23) Labs on day of discharge: Labs from last 24 hours 03/31/23 05:45 Sodium 138 Potassium 4.3 Chloride 101 Carbon Dioxide 31 BUN 39 H Creatinine 1.2 Estimated Creat Clear 28.35 Estimated GFR 44 Glucose 86 Calcium 9.0 Preliminary micro results at discharge 03/29/23 Unknown Urine Culture - Preliminary Urine,Clean Catch No growth. Discharge Plan Discharge Disposition: [facility] Date of Admission: 03/30/23 13:29 Attending Provider on Discharge: Pierce Cristobal Primary Care Provider: Giovanny Vallejo Discharge Medications: New losartan 50 mg Tablet 50 mg PO BID Qty: 60 0RF torsemide 20 mg Tablet 20 mg PO BID@1400,2000 Qty: 60 0RF spironolactone 25 mg Tablet 25 mg PO DAILY Qty: 30 0RF amlodipine 5 mg Tablet 5 mg PO DAILY Qty: 30 0RF metoprolol succinate 25 mg Tablet Extended Release 24 Hr 25 mg PO DAILY Qty: 30 0RF Continued melatonin 3 mg capsule 9 mg PO HS PRN acetaminophen 500 mg tablet 1,000 mg PO Q6H PRN Rx Instructions: NO MORE THAN 4000 MG/DAY apixaban 2.5 mg tablet 2.5 mg PO BID Qty: 180 3RF omeprazole 20 mg capsule,delayed release(DR/EC) 20 mg PO DAILY Qty: 90 3RF ferrous gluconate 324 mg (38 mg iron) tablet 324 mg PO DAILY oxycodone 5 mg Tablet 2.5 mg PO Q6H PRNQty: 20 0RF Rx Instructions: prn severe pain in between APAP doses atorvastatin 40 mg tablet 40 mg PO HS allopurinol 100 mg tablet 100 mg PO WE@09 Patient Comments: Prescription is for daily use but patient takes it about once a week triamcinolone acetonide 0.1 % cream 1 applic topical BID PRN sennosides-docusate sodium [Stool Softener-Laxative] 8.6-50 mg Tablet 1 tab PO BID PRN Rx Instructions: prn constipation escitalopram oxalate 5 mg tablet 10 mg PO DAILY Discontinued metoprolol succinate 50 mg Tablet Extended Release 24 Hr 50 mg PO DAILY 30 Days Qty: 30 1RF losartan 50 mg Tablet 50 mg PO DAILY 30 Days Qty: 30 1RF Hold Instructions: Resume on 03/01/23. Hold upon discharge. Recommend BP checks once/day, restart on Wednesday, 03/01 if BP consistently >140/90. furosemide 40 mg Tablet 40 mg PO BID@0800,1400 Discharge Orders: Discharge Order (Routine); Ordered 03/31/23 Ordered By: Pierce Cristobal Additional Instructions: Check weight daily. Activity Level: No Restrictions Discharge Diet: Regular Follow Up Appointments: Giovanny Vallejo MD [Primary Care Provider] - Admit to: SNF Discharge Potential: Fair Can use facility standing orders?: Yes Code Status: DNR/DNI Rehab Potential: Fair Therapy: Physical Therapy and Occupational Therapy Therapy Orders: Evaluate and Treat Oxygen: No Urinary Catheter: No Lab Orders: Basic metabolic panel in one week
[2023-03-31 08:44] VITALS: BP 165/77; PULSE 56; RESP 18; TEMP 36.7; O2SAT 94
[2023-03-31] MEDS: LOSARTAN POTASSIUM 50 MG TABLET PO (08:58)
[2023-03-31] MEDS: OMEPRAZOLE 20 MG CAPSULE DR PO (08:58)
[2023-03-31] MEDS: APIXABAN 5 MG TABLET 2.5 MG PO (08:58)
[2023-03-31] MEDS: allopurinoL 100 MG TABLET PO (08:58)
[2023-03-31] MEDS: FERROUS SULFATE 325 MG TABLET PO (08:58)
[2023-03-31] MEDS: SPIRONOLACTONE 25 MG TABLET PO (08:58)
[2023-03-31] MEDS: METOPROLOL SUCCINATE (XL) 25 MG TAB PO (08:58)
[2023-03-31] MEDS: AMLODIPINE 5 MG TABLET PO (08:58)
[2023-03-31] MEDS: ESCITALOPRAM 10 MG TABLET PO (08:59)
[2023-03-31 09:07] VITALS: PULSE 57; RESP 18; TEMP 36.7
--- NOTE | 2023-03-31 10:50 | PC.NURSE ---
Patient discharged/transferred to [facility]. [id number] report given to Nurse Berta at [facility].
--- NOTE | 2023-03-31 14:09 | PC.SOCIAL ---
Discharge plans- Phone call to Jessicagm Chen ([phone]) at [facility] to discuss discharge plans for pt. Informed that pt is ready for discharge. Jessica informs that the [facility] transportation van can poultry picker pt at 10:15 am. Berta from [facility] will call for a nurse to nurse update. Provided information to charge nurse. Pt is ready for discharge. Phone call to pt's daughter, Naomie, to provide update on discharge. Informed that [facility] will poultry picker pt at 10:15 am. Daughter will come to the hospital. Daughter requests a medical update, transferred her to med/surg to obtain a medical update. Social work will follow up as necessary.
[2023-03-31 16:32] LABS: Troponin I* 0.19 ng/mL (0.01-0.04)
--- NOTE | 2023-03-31 16:41 | PC.NURSE ---
Critical Troponin of 0.19 from 03/29 @[address] Davila.
== END 2023-03-31 10:27 | DRG 291 ==
LOC: ED 11:45 → MEDSURG 12:05
PROVIDERS: Admitting Provider Family Medicine; Emergency Provider Family Medicine; PCP Internal Medicine; Visit Provider Family Medicine
DX: I13.0 Hypertensive heart and chronic kidney disease with heart failure and stage 1 through stage 4 chronic kidney disease, or unspecified chronic kidney disease (principal); I50.33 Acute on chronic diastolic (congestive) heart failure; N18.9 Chronic kidney disease, unspecified; R09.02 Hypoxemia; I48.0 Paroxysmal atrial fibrillation; R00.1 Bradycardia, unspecified; Z79.01 Long term (current) use of anticoagulants; I08.1 Rheumatic disorders of both mitral and tricuspid valves; K21.9 Gastro-esophageal reflux disease without esophagitis; I27.20 Pulmonary hypertension, unspecified; I73.9 Peripheral vascular disease, unspecified; F41.9 Anxiety disorder, unspecified; I87.2 Venous insufficiency (chronic) (peripheral); D64.9 Anemia, unspecified; G47.00 Insomnia, unspecified; M10.9 Gout, unspecified; E78.5 Hyperlipidemia, unspecified
CPT/HCPCS: 36415; 71045; 80048; 80076; 81001; 83735; 83880; 84484; 85025; 87086; 87631; 93005; 99285; G0378; A9270; J1940

== ENCOUNTER 2023-05-04 10:28 | Outpatient (REF) | payer MEDICARE, BC, OTHER, SELFPAY ==
[2023-05-04 12:31] LABS: Chloride* 108 mmol/L (96-114); Potassium* 5.6 mmol/L (3.6-5.1); Sodium* 134 mmol/L (135-149)
[2023-05-04 12:34] LABS: Blood Urea Nitrogen* 92 mg/dL (7-30); Calcium* 9.4 mg/dL (8.4-10.6); Carbon Dioxide* 15 mmol/L (20-32); Creatinine* 1.7 mg/dL (0.5-1.5); Estimated Glomerular Filt Rate 29 ml/min; Glucose* 113 mg/dL (60-115)
== END 2023-05-04 10:29 | disposition home or self-care (01) ==
LOC: NPINS 10:28
PROVIDERS: PCP Internal Medicine; Visit Provider Nurse Practitioner Gerontology
DX: I50.9 Heart failure, unspecified (principal); N18.9 Chronic kidney disease, unspecified
CPT/HCPCS: 80048

== ENCOUNTER 2023-05-13 11:10 | Inpatient (IN) | payer MEDICARE, OTHER, BC, SELFPAY ==
[2023-05-13] VITALS (27 sets, daily range): BP systolic 82–137; BP diastolic 48–123; PULSE 31–50; RESP 16–20; TEMP 35.8–36.5; O2SAT 92–100; BMI 27.5; BMI 28.2
--- NOTE | 2023-05-13 11:32 | ED_ITS ---
HPI - General Adult General Time Seen by Provider: 11:32 Date Seen: 05/13/23 Chief complaint: Unspecified Complaint, Adult Stated complaint: Low kidney levels, high potassium Time Seen by Provider: 05/13/23 11:29 Source: patient, RN notes reviewed and old records reviewed Mode of arrival: ambulatory Limitations: no limitations History of Present Illness HPI narrative: Patient is an 83-year-old female sent in with elevated potassium of 6 and creatinine of 2.1 from a lab draw yesterday. She has been feeling weak and tired. Does feel lightheaded when she gets up but is not short of breath, no chest pain. She does not endorse increased edema. She does have lower extremity wraps on. Her granddaughter is with her. She recently was in the hospital and discharged from our hospital on March 31 for acute on chronic heart failure with preserved ejection fraction, thought to be contributed to by significant hypertension with blood pressures in the low 200s on arrival. She was symptomatic with bilateral pleural effusions and pulmonary edema, diuresed with Lasix. I see she is on torsemide, had losartan initiated. She states she was supposed to have follow-up of her labs but did not until they were checked yesterday. During the hospitalization she was also noted to be bradycardic in the upper 40s, this reportedly improved with decreasing her metoprolol from 50 mg to 25 mg. She states she believes she has only been taking the 25 mg or whatever was given to her on discharge, her care facility is managing her pills. I see her discharge blood pressure looked to be anywhere from 140 to 170s on the last vitals in the discharge summary. She did do a rehab stay and then discharged to [facility] in the assisted living. She had labs yester day that show her sodium to be 136, potassium of 6, bicarb low of 13, BUN 98, creatinine 2.1, glucose 99, calcium 8.8. Her kidney function was normal at the time of discharge. Related Data Home Medications Medication Instructions Recorded Confirmed acetaminophen 500 mg tablet 1,000 mg PO BID 06/08/22 05/13/23 allopurinol 100 mg tablet 100 mg PO WE@01/23/23 05/13/23 atorvastatin 40 mg tablet 40 mg PO HS 01/23/23 05/13/23 triamcinolone acetonide 0.1 % 1 applic topical BID PRN 01/23/23 05/13/23 topical cream ferrous gluconate 324 mg (38 mg 324 mg PO DAILY 02/18/23 05/13/23 iron) tablet escitalopram oxalate 5 mg tablet 10 mg PO DAILY 03/29/23 05/13/23 sennosides 8.6 mg-docusate sodium 1 tab PO BID PRN 03/29/23 05/13/23 50 mg tablet (Stool Softener-Laxative) loperamide 2 mg tablet 2 mg PO Q4H PRN 05/13/23 05/13/23 melatonin 5 mg tablet 10 mg PO HS 05/13/23 05/13/23 oxycodone 5 mg tablet 2.5 mg PO BID PRN 05/13/23 05/13/23 propylene glycol 0.6 % eye drops 1 drp ophthalmic (eye) BID 05/13/23 05/13/23 (Systane Balance) psyllium husk (with sugar) 3 1 tsp PO DAILY PRN 05/13/23 05/13/23 gram/7 gram oral powder (Reguloid (psyllium husk-sucrose)) torsemide 20 mg tablet 20 mg PO DAILY 05/13/23 05/13/23 Previous Rx's Medication Instructions Recorded apixaban 2.5 mg tablet 2.5 mg PO BID #180 tabs 06/08/22 omeprazole 20 mg capsule,delayed 20 mg PO DAILY #90 caps 06/08/22 release amlodipine 5 mg tablet 5 mg PO DAILY #30 tabs 03/31/23 losartan 50 mg tablet 50 mg PO BID #60 tabs 03/31/23 metoprolol succinate 25 mg 25 mg PO DAILY #30 tabs 03/31/23 tablet,extended release 24 hr spironolactone 25 mg tablet 25 mg PO DAILY #30 tabs 03/31/23 Allergies Allergy/AdvReac Type Severity Reaction Status Date / Time cephalexin Allergy Unknown RASH/HIVES Verified 05/13/23 11:22 Review of Systems Status of ROS: Reports: 6 or more systems reviewed and unremarkable except as noted in History and below [facility] Medical History Chronic kidney disease ?N18.9 - Chronic kidney disease, unspecified (ICD-10) Bradycardia ?R00.1 - Bradycardia, unspecified (ICD-10) Rotator cuff tear arthropathy of both shoulders ?M75.101 - Unspecified rotator cuff tear or rupture of right shoulder, not specified as traumatic (ICD-10) ?M12.811 - Other specific arthropathies, not elsewhere classified, right shoulder (ICD-10) ?M12.812 - Other specific arthropathies, not elsewhere classified, left shoulder (ICD-10) ?M75.102 - Unspecified rotator cuff tear or rupture of left shoulder, not specified as traumatic (ICD-10) Weakness ?R53.1 - Weakness (ICD-10) Fall ?W19.XXXA - Unspecified fall, initial encounter (ICD-10) Laceration of left forearm ?S51.812A - Laceration without foreign body of left forearm, initial encounter (ICD-10) Back pain ?M54.9 - Dorsalgia, unspecified (ICD-10) Facial cellulitis ?L03.211 - Cellulitis of face (ICD-10) Insomnia ?G47.00 - Insomnia, unspecified (ICD-10) Anemia ?D64.9 - Anemia, unspecified (ICD-10) GERD (gastroesophageal reflux disease) ?K21.9 - Gastro-esophageal reflux disease without esophagitis (ICD-10) Stasis edema (06/19/09) ?I87.309 - Chronic venous hypertension (idiopathic) without complications of unspecified lower extremity (ICD-10) Venous stasis dermatitis ?I87.2 - Venous insufficiency (chronic) (peripheral) (ICD-10) Pulmonary hypertension (07/24/09) ?I27.20 - Pulmonary hypertension, unspecified (ICD-10) Peripheral vascular disease ?I73.9 - Peripheral vascular disease, unspecified (ICD-10) Paroxysmal atrial fibrillation ?I48.0 - Paroxysmal atrial fibrillation (ICD-10) Mitral valve regurgitation (07/24/09) ?I34.0 - Nonrheumatic mitral (valve) insufficiency (ICD-10) Methicillin resistant Staphylococcus aureus culture positive ?Z22.322 - Carrier or suspected carrier of Methicillin resistant Staphylococcus aureus (ICD-10) Left shoulder pain ?M25.512 - Pain in left shoulder (ICD-10) Insomnia ?G47.00 - Insomnia, unspecified (ICD-10) Hypertension (06/19/09) ?I10 - Essential (primary) hypertension (ICD-10) Health care directive on file ?Z78.9 - Other specified health status (ICD-10) Diastolic congestive heart failure ?I50.30 - Unspecified diastolic (congestive) heart failure (ICD-10) Chronic back pain ?M54.9 - Dorsalgia, unspecified (ICD-10) ?G89.29 - Other chronic pain (ICD-10) 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 - Gout, unspecified (ICD-10) Anxiety ?F41.9 - Anxiety disorder, unspecified (ICD-10) Hyperlipemia ?E78.5 - Hyperlipidemia, unspecified (ICD-10) Surgical History 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 She was living independently until the beginning of February when she fell. Discharge from our hospital to [facility] for rehabilitation. Her daughter Naomie is healthcare power of trust and estates attorney and closest family. Code status is DNR. She uses a 4 wheeled walker with a seat or a cane to get around her house. Highest level of school completed/degree received: high school graduate Smoking Status: Never smoker Do you use any of these nicotine containing products: None Second hand tobacco smoke exposure: Yes How often do you have a drink containing alcohol: never How often do you have six or more drinks on one occasion: Never AUDIT-C Alcohol total score: 0 Non-prescribed substance use: denies use Caffeine: Yes (1 cup) service: No Exam Const: Vital Signs, click to edit/add: Vital Signs - 24 hr 05/13/23 11:24 05/13/23 11:33 05/13/23 11:47 Temperature 96.5 F L Pulse Rate Blood Pressure Pulse Oximetry 97 100 100 Oxygen Delivery Me thod Room Air 05/13/23 11:52 05/13/23 11:53 05/13/23 12:00 Temperature Pulse Rate 42 L Blood Pressure 97/80 Pulse Oximetry 100 100 92 Oxygen Delivery Me thod 05/13/23 12:02 05/13/23 12:03 05/13/23 12:04 Temperature Pulse Rate Blood Pressure 82/59 L 88/62 L Pulse Oximetry 100 100 100 Oxygen Delivery Me thod 05/13/23 12:14 05/13/23 12:15 05/13/23 12:22 Temperature Pulse Rate 39 L 43 L 38 L Blood Pressure 118/92 H 112/53 L Pulse Oximetry 100 100 100 Oxygen Delivery Me thod 05/13/23 12:23 05/13/23 12:30 05/13/23 12:32 Temperature Pulse Rate 36 L 34 L 35 L Blood Pressure 107/53 L Pulse Oximetry 100 100 99 Oxygen Delivery Me thod 05/13/23 12:33 05/13/23 12:42 05/13/23 12:45 Temperature Pulse Rate 34 L 32 L 31 L Blood Pressure 105/48 L Pulse Oximetry 100 100 100 Oxygen Delivery Me thod Documenting provider has reviewed patient's vital signs: yes Common normals: no apparent distress, average body habitus, oriented x3, no limitations and alert General appearance: cooperative, comfortable, well kempt, well developed and frail appearing HENMT: Common normals: normocephalic, head/scalp atraumatic, hearing grossly normal bilaterally and external nose normal Head and scalp: normocephalic and atraumatic Face and sinus: normal facial exam Nose: external nose normal Eye: Common normals: PERRL, EOMs intact bilaterally, conjunctivae normal and no scleral icterus Conjunctiva: conjunctiva(e) normal Pupil: PERRL Neck & C-Spine: Common normals: full ROM, no lymphadenopathy, supple, no meningeal signs and thyroid normal Thyroid: thyroid normal Chest: Common normals: inspection of chest normal and palpation of chest normal Resp: Common normals: normal respiratory effort, no retractions, no use of accessory muscles and clear to auscultation bilaterally Effort & inspection: able to speak in complete sentences Auscultation: clear to auscultation bilaterally Cardio: Common normals: S1 normal heart sound, S2 normal heart sound, no gallops and no clicks Rate: bradycardic Heart sounds: S1 normal and S2 normal Other: Soft systolic murmur heard, is significantly bradycardic but as I am talking to her her systolic blood pressure is 120 and at rest she states she feels fine other than feeling tired. GI: Common normals: Normal to inspection, nondistended, normoactive bowel sounds present, soft to palpation, non-tender, no hepatosplenomegaly and no masses Palpation: soft and no hepatosplenomegaly Extremity: Other: Has wraps on both lower extremities, do not appreciate significant edema but did not take the wraps down. Neuro: Common normals: oriented x3 Sensorium/orientation: alert Meningeal signs: no meningeal signs Psych: Appearance: well kempt Course Course Hospital Course: Medhat is an 83-year-old female with presumably acute renal failure likely contributed to by a new medications with diuresis and potentially losartan. She is also significantly bradycardic, hopefully she is still on the metoprolol 25 mg daily and has not been given the higher dose, she is not managing her pills. We will give her a small 250 mL bolus while we await our kidney functions. Need to be mindful of her recent heart failure although she did have preserved ejection fraction. Did talk to them that she may be developing conduction disease in ultimately may need a pacemaker, unclear if they would want that. We certainly need to get labs and get a more clear picture of what is happening but they will start thinking about whether not they would want transfer to [place] to see Cardiology. At this point her beta-regla likely needs to be withheld and correction of any renal issues before she will qualify for pacemaker. Will get a portable chest x-ray, point of care troponin and full complement of labs. Her code status is DNR. We have put pacer pads on her and despite going into the 20s and 30s with her pulse, seems to be maintaining an adequate blood pressure and mentation. Reevaluation(s) Time of Reevaluation #1: 12:19 Reevaluation #1: Patient recently had a low systolic blood pressure of 80, heart rate was in the 20s to 30s. Did have nursing staff run in the 250 mL bolus we had ordered over an hour as fast as possible, started a another L of normal saline over 2 hours. We did give 0.5 mg of atropine. This time her blood pressure is back up in the 110 systolic range, pulse upper 30s to lower 40s. She really is not noting any significant difference, overall just feels tired and weak. When we discussed appetite, she has not had any nausea but does feel that her appetite might of been lower than normal recently. Her daughter is here now, states she did have electrolytes drawn last week and they were showing some ?dehydration?. She states they told her to drink more, did not make any medication adjustments at that time. Time of Reevaluation #2: 13:01 Reevaluation #2: Have spent 15 minutes discussing with patient and daughter the situation. Patient is mentating, still is just feeling weak, no new symptoms. Pulses in the 30s currently, blood pressure still up above 110 systolic. She is receiving fluids. They understand she is going into the hospital. Consultations Consultation #1: Have reviewed case with Dr. Cristobal, he does accept patient. I do think her status should be CCU initially as she does have the most definite propensity for worsening which could be clinically severe. At this time, do not feel she warrants transfer, her renal failure needs to be corrected, beta-regla withheld. Ultimately, she may be a candidate for pacemaker but these things need to be corrected before cardiology will consider this. She is mentating, maintaining her pressure good enough at this time that I think we need to proceed further here. I do not feel that she is needing a temporary pacemaker. There is the potential for this to be needed which is why she is being hospitalized. Time: 12:36 Vital Signs Vital signs: Initial Vital Signs Temperature 96.5 F L 05/13/23 11:24 Temperature Source Temporal Artery Scan 05/13/23 11:24 Pulse Oximetry 97 05/13/23 11:24 Oxygen Delivery Method Room Air 05/13/23 11:24 Vital Signs Temperature 96.5 F L 05/13/23 11:24 Pulse Oximetry 97 05/13/23 11:24 Oxygen Delivery Method Room Air 05/13/23 11:24 Temperature 96.5 F L 05/13/23 11:24 Pulse Rate 31 L 05/13/23 12:45 Blood Pressure 105/48 L 05/13/23 12:42 Pulse Oximetry 100 05/13/23 12:45 Oxygen Delivery Method Room Air 05/13/23 11:24 Medical Decision Making Lab Data Lab results reviewed: Yes I reviewed the patient's lab results Labs: Lab Results 05/13/23 05/13/23 Range/Units 11:40 11:59 VBG pH 7.182 L* (7.32-7.43) VBG pCO2 44 (40-50) mmHG VBG pO2 38.6 (25-47) mmHG VBG HCO3 17 L (21-28) mmol/L Sodium 135 (135-149) mmol/L Potassium 6.3 H* (3.6-5.1) mmol/L Chloride 107 (96-114) mmol/L Carbon Dioxide 13 L (20-32) mmol/L BUN 103 H (7-30) mg/dL Creatinine 2.2 H (0.5-1.5) mg/dL Estimated Creat Clear 15.47 Estimated GFR 21 ml/min Glucose 70 (60-115) mg/dL Lactate 1.2 (0.5-1.9) mmol/L Calcium 9.0 (8.4-10.6) mg/dL Magnesium 2.6 (1.5-2.6) mg/dL Total Bilirubin 0.5 (0.1-1.5) mg/dL AST 27 (12-35) U/L ALT 20 (4-35) U/L Alkaline Phosphatase 57 (40-150) U/L Total Protein 7.9 (6.0-8.3) g/dL Albumin 4.4 (3.3-5.0) g/dL POC Troponin I 0.01 (0.01-0.04) ng/ml Imaging Data Chest x-ray: Attestation: I have reviewed the pertinent imaging results. My impression: See cardiomegaly without any evidence of CHF. Radiologist's impression: [facility] Patient ID:?[id number] Site Patient ID:?[id number]. Site :?[id number] Study:?XRay Chest PORTABLE-05/13/2023 11:57:31 AM Ordering Physician:Brianda Montenegro Final Report: Indication: Acute renal failure and bradycardia Technique: Chest 1 view Comparison: Chest x-ray 03/29/2023 Findings/Impression: Cardiovascular and mediastinum: Globular cardiomegaly with aortic tortuosity and atherosclerotic calcification. Lungs and pleural space: No pleural effusion or pneumothorax. Mild pulmonary cephalization without focal consolidation. Bones and soft tissues: Narrowing of the acromiohumeral distance bilaterally consistent with rotator cuff disease. Dictated by Hermes Camp MD @ 05/13/2023 12:44:58 PM (Electronic Signature) ECG Data Attestation: I personally reviewed and interpreted this ECG as follows: (Bradycardia, do not appreciate P-waves, possibly junctional but narrow complex QRS. QT corrected 385 milliseconds. Small amount of artifact in V3 and at the end of V5 V6. No definitive ischemic change noted.) Prior ECG tracings: available for review (EKG from 03/29/2023, significant bradycardia today that has worsened.) Critical Care Time Critical Care Time Total Critical Care Time in Minutes: 30 (30 minutes critical care is being assessed to this patient for the episode of the hypokalemia, bradycardia.) Discharge Plan Discharge Clinical Impression: Acute hyperkalemia, Bradycardia, Acute renal failure (ARF), Hypovolemia associated with diuresis Patient Disposition: Admitted As Inpatient Condition: Unchanged Prescriptions: No Action acetaminophen 500 mg tablet 1,000 mg PO BID Rx Instructions: PLUS 1000 MG BID PRN apixaban 2.5 mg tablet 2.5 mg PO BID Qty: 180 3RF omeprazole 20 mg capsule,delayed release(DR/EC) 20 mg PO DAILY Qty: 90 3RF ferrous gluconate 324 mg (38 mg iron) tablet 324 mg PO DAILY Systane Balance 0.6 % drops 1 drp ophthalmic (eye) BID Reguloid (psyllium husk-sucro) 3 gram/7 gram powder 1 tsp PO DAILY PRN melatonin 5 mg tablet 10 mg PO HS torsemide 20 mg Tablet 20 mg PO DAILY oxycodone 5 mg Tablet 2.5 mg PO BID PRN atorvastatin 40 mg tablet 40 mg PO HS allopurinol 100 mg tablet 100 mg PO WE@09 Patient Comments: Prescription is for daily use but patient takes it about once a week triamcinolone acetonide 0.1 % cream 1 applic topical BID PRN sennosides-docusate sodium [Stool Softener-Laxative] 8.6-50 mg Tablet 1 tab PO BID PRN Rx Instructions: prn constipation escitalopram oxalate 5 mg tablet 10 mg PO DAILY losartan 50 mg Tablet 50 mg PO BID Qty: 60 0RF spironolactone 25 mg Tablet 25 mg PO DAILY Qty: 30 0RF amlodipine 5 mg Tablet 5 mg PO DAILY Qty: 30 0RF metoprolol succinate 25 mg Tablet Extended Release 24 Hr 25 mg PO DAILY Qty: 30 0RF Follow Up/Referrals: Giovanny Vallejo MD [Staff Physician] -
--- NOTE | 2023-05-13 11:42 | CRLHL7_ITS ---
For Patients: As a result of the Cures Act, medical imaging exams and procedure reports are released immediately into your electronic medical record. You may view this report before your referring provider. If you have questions, please contact your health care provider. Indication: Acute renal failure and bradycardia Technique: Chest 1 view Comparison: Chest x-ray 03/29/2023 Findings/Impression: Cardiovascular and mediastinum: Globular cardiomegaly with aortic tortuosity and atherosclerotic calcification. Lungs and pleural space: No pleural effusion or pneumothorax. Mild pulmonary cephalization without focal consolidation. Bones and soft tissues: Narrowing of the acromiohumeral distance bilaterally consistent with rotator cuff disease. Dictated by Hermes Camp MD @ 05/13/2023 12:44:58 PM (Electronically Signed)
[2023-05-13 11:49] LABS: HCO3 VBG 17 mmol/L (21-28); Lactate* 1.2 mmol/L (0.5-1.9); PCO2 VBG 44 mmHG (40-50); PO2 VBG 38.6 mmHG (25-47)
[2023-05-13 11:52] LABS: pH VBG 7.182 (7.32-7.43)
--- NOTE | 2023-05-13 11:52 | ED.NURSE ---
Critical lab received:Venous ph: [phone]
[2023-05-13] MEDS: 0.9 % SODIUM CHLORIDE 250 ml 250 ML IV (11:56)
[2023-05-13 12:00] LABS: Troponin, Point-of-Care* 0.01 ng/ml (0.01-0.04)
--- OUTSIDE RECORDS SUMMARY | 2023-05-13 12:05 | XMS_ITS | Continuity of Care Document ---
Author Name Unknown Organization [facility] Address [address] [place] [address] Phone Care Team Providers Care Hand Packer/Packager Name Role Phone Seth Woods MD Unavailable Unavailable Allergies, Adverse Reactions, Alerts Substance Reaction Status Criticality No Known Allergies Active No Inform ation Medications Medication Instructions Dosage Effective Dates (start - stop) Status Comments PREDNISONE (unknown strength) Not Available - Active ASPIRIN (unknown strength) Not Available - Active HYDROCODONE-ACETAMINOPH EN (unknown strength) Not Available - Active AMLODIPINE BESYLATE (unknown strength) Not Available - Active ALLOPURINOL (unknown strength) Not Available - Active IRON (unknown strength) Not Available - Ac tive FUROSEMIDE (unknown strength) Not Available - Active ASCORBIC ACID (unknown strength) Not Available - Active ATENOLOL (unknown strength) Not Available - Active MULTIVITAMINS (unknown strength) Not Available - Active FISH OIL (unknown strength) Not Available - Active OMEPRAZOLE (unknown strength) Not Available - Active SIMVASTATIN (unknown strength) Not Available - Active LISINOPRIL (unknown strength) Not Available - Active Procedures Procedure Date X-Ray Exam Lwr Spine, Min 4 Views Office/Outpatient Visit,Est, Mod 2016 Advance Directives Directive Yes / No Effective Date File Name No Information Encounters Encounter Description Practice Location Reason(s) For Visit Diagnoses Date Provider Providers Copied on Encounter [facility], [address], [place], [id number], tel:[phone] [facility] No Information Peggy Ann. [facility], [address], [address], [place], [place], [id number], [place]. tel:[phone] Office/Outpati ent Visit,Est, Mod [facility], [address], [place], [place], [id number], [place] tel:[phone] [facility] Spondylolisth esis, lumbar region Pierce Jose. [facility], [address], [place], [place], [id number], [place]. tel:[phone] Referring Provider: Angel Jaramillo, [facility] [address] [place], [address]. tel:[phone] Family History Family Member Type Diagnosis Age At Onset No Information Payers Payer name Insurance type Covered alliance party ID Authoriza tion(s) Medicare MB [id number] [facility] [id number] Social History Type Description Quantity Date Captured Comments Sex Female Smoking Status No Information Chief Complaint And Reason For Visit No Information Reason For Referral Reason For Referral No Information Plan Of Treatment Date Type Action Status Future Order: Radiology Order AP /Lat/Flex/Ext Lumb (APLatFlExL), Ordered on: Ordered History Of Present Illness Encounter Date Complaint History Of Prese nt Illness No Information Functional Status Date Functional Assessmen t No Information Instructions Date Instruction Additional Infor mation Weight Management Education Rela jean paul to Overweight Weight management: I nstructed to return to General Practitioner timeframe: 1 Month. Related to Overweight Assessments Type Assessment Date No Information Patient Care Teams Name Effective Dates (start - stop) Status Members No Information
--- OUTSIDE RECORDS SUMMARY | 2023-05-13 12:06 | XMS_ITS | Continuity of Care Document ---
Author Name Unknown Organization [facility] Address [address] [address] [place] [address] Phone Care Team Providers Care Wire Straightener Name Role Phone Rafael Artsi MD Unavailable Unavailable Allergies, Adverse Reactions, Alerts [...] Copied on Encounter [facility], [address] [address], [place], [id number], [place] tel:[phone] [facility] No Information [address] [facility], [facility] [address], [place], [place], [id number], [place]. tel:[phone] Referring Provider: [place], [address] [facility], [place], [address]. tel:[phone] Offic Cons New/estab Mod-hi 60 [facility], [address] [address], [place], [id number], tel:[phone] [facility] Abnormal GI study (chief complaint) Dis Of Biliary Tract Nec 9 No Information Referring Provider: Angel Bermudez MD C, [address], [place], [address]. tel:[phone] Family History Family Member Type Diagnosis Age [...] Polyps Payers Payer name Insurance type Covered green party ID Authoriza titracy(s) Medicare NGS MB [id number] [employer] [place] [id number] [facility] [id number] For Life CI [id number] Social History Type Description Quantity Date Captured [...]
[2023-05-13 12:13] LABS: Albumin* 4.4 g/dL (3.3-5.0)
[2023-05-13] MEDS: ATROPINE 1 MG/10 ML SYRINGE 0.5 MG IVP (12:13)
[2023-05-13 12:14] LABS: Chloride* 107 mmol/L (96-114); Sodium* 135 mmol/L (135-149)
[2023-05-13 12:16] LABS: Bilirubin Total* 0.5 mg/dL (0.1-1.5); Carbon Dioxide* 13 mmol/L (20-32); Creatinine* 2.2 mg/dL (0.5-1.5); Est. Creatinine Clearance* 15.47; Estimated Glomerular Filt Rate 21 ml/min
[2023-05-13] MEDS: 0.9 % SODIUM CHLORIDE 1000 ml 1,000 ML 500 ML IV (12:16)
[2023-05-13 12:17] LABS: Alanine Aminotransferase* 20 U/L (4-35); Alkaline Phosphatase* 57 U/L (40-150); Aspartate Amino Transferase* 27 U/L (12-35); Blood Urea Nitrogen* 103 mg/dL (7-30); Glucose* 70 mg/dL (60-115); Magnesium* 2.6 mg/dL (1.5-2.6); Total Protein* 7.9 g/dL (6.0-8.3)
[2023-05-13 12:26] LABS: Potassium* 6.3 mmol/L (3.6-5.1)
--- NOTE | 2023-05-13 13:05 | ED.NURSE ---
Report called to M/S RN.
[2023-05-13 13:31] LABS: Phosphorus* 6.5 mg/dL (2.5-4.5)
[2023-05-13 13:40] LABS: NT Pro B Type NatriureticPept* 3410 pg/mL
--- NOTE | 2023-05-13 14:22 | P.IMHP_ITS ---
Hospitalist- H&P: HPI History of Present Illness Date Seen: 05/13/23 Chief complaint: Low kidney levels, high potassium Narrative: Corine Foreman is a 83 year old female with heart failure with preserved ejection fraction who presents with progressive fatigue. She was hospitalized here March 30 with heart failure exacerbation. At that time she had adjustments of her medications include switching her from furosemide to torsemide and adding spironolactone 25 mg and decreasing her metoprolol. She was [facility] a [facility] for outpatient follow-up. She was in the correction for about 2 weeks and then discharged to assisted living at [facility]. During this time she reports she has had no breathing problems or chest pain. But she has had progressive fatigue. She has been able to eat and drink without nausea or vomiting. She is doing well with physical therapy. Last week she had laboratory studies done which showed hyperkalemia, increasing creatinine and BUN and decreasing CO2. She tells me at that time she was advised to drink more fluids. She has been trying to drink more fluids but over the last week she has been feeling worse with more fatigued. She has not had a fever, vomiting, diarrhea, chest pain, shortness a breath. No other changes to her medications have been made. Review of Systems Narrative: Other than the issues above she reports doing well. Specifically reports that her breathing has been good and she is feeling good about her progress with physical therapy. She seen with her daughter today in the daughter notes that she also seems to be doing well other than the prominent fatigue. No cognitive problems or confusion.. [facility] Medical History (Updated 05/13/23 @ 14:33 by Pierce Cristobal MD) Heart failure with preserved ejection fraction ?I50.30 - Unspecified diastolic (congestive) heart failure (ICD-10) Chronic kidney disease ?N18.9 - Chronic kidney disease, unspecified (ICD-10) Bradycardia ?R00.1 - Bradycardia, unspecified (ICD-10) Rotator cuff tear arthropathy of both shoulders ?M75.101 - Unspecified rotator cuff tear or rupture of right shoulder, not specified as traumatic (ICD-10) ?M12.811 - Other specific arthropathies, not elsewhere classified, right shoulder (ICD-10) ?M12.812 - Other specific arthropathies, not elsewhere classified, left shoulder (ICD-10) ?M75.102 - Unspecified rotator cuff tear or rupture of left shoulder, not specified as traumatic (ICD-10) Weakness ?R53.1 - Weakness (ICD-10) Fall ?W19.XXXA - Unspecified fall, initial encounter (ICD-10) Laceration of left forearm ?S51.812A - Laceration without foreign body of left forearm, initial encounter (ICD-10) Back pain ?M54.9 - Dorsalgia, unspecified (ICD-10) Facial cellulitis ?L03.211 - Cellulitis of face (ICD-10) Insomnia ?G47.00 - Insomnia, unspecified (ICD-10) Anemia ?D64.9 - Anemia, unspecified (ICD-10) GERD (gastroesophageal reflux disease) ?K21.9 - Gastro-esophageal reflux disease without esophagitis (ICD-10) Stasis edema (06/19/09) ?I87.309 - Chronic venous hypertension (idiopathic) without complications of unspecified lower extremity (ICD-10) Venous stasis dermatitis ?I87.2 - Venous insufficiency (chronic) (peripheral) (ICD-10) Pulmonary hypertension (07/24/09) ?I27.20 - Pulmonary hypertension, unspecified (ICD-10) Peripheral vascular disease ?I73.9 - Peripheral vascular disease, unspecified (ICD-10) Paroxysmal atrial fibrillation ?I48.0 - Paroxysmal atrial fibrillation (ICD-10) Mitral valve regurgitation (07/24/09) ?I34.0 - Nonrheumatic mitral (valve) insufficiency (ICD-10) Methicillin resistant Staphylococcus aureus culture positive ?Z22.322 - Carrier or suspected carrier of Methicillin resistant Staphylococcus aureus (ICD-10) Left shoulder pain ?M25.512 - Pain in left shoulder (ICD-10) Insomnia ?G47.00 - Insomnia, unspecified (ICD-10) Hypertension (06/19/09) ?I10 - Essential (primary) hypertension (ICD-10) Health care directive on file ?Z78.9 - Other specified health status (ICD-10) Diastolic congestive heart failure ?I50.30 - Unspecified diastolic (congestive) heart failure (ICD-10) Chronic back pain ?M54.9 - Dorsalgia, unspecified (ICD-10) ?G89.29 - Other chronic pain (ICD-10) 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 - Gout, unspecified (ICD-10) Anxiety ?F41.9 - Anxiety disorder, unspecified (ICD-10) Hyperlipemia ?E78.5 - Hyperlipidemia, unspecified (ICD-10) Surgical History 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 She was living independently until the beginning of February when she fell. Discharge from our hospital to [facility] for rehabilitation. Now discharged from there to [facility]. Her daughter Naomie is healthcare power of associate attorney and closest family. Code status is DNR. She uses a 4 wheeled walker with a seat or a cane to get around her apartment. Highest level of school completed/degree received: high school graduate Smoking Status: Never smoker Do you use any of these nicotine containing products: None Second hand tobacco smoke exposure: Yes How often do you have a drink containing alcohol: never How often do you have six or more drinks on one occasion: Never AUDIT-C Alcohol total score: 0 Non-prescribed substance use: denies use Caffeine: Yes (1 cup) service: No Meds Home Medications and Allergies Home Medications Medication Instructions Recorded Confirmed Type acetaminophen 500 mg tablet 1,000 mg PO BID 06/08/22 05/13/23 History allopurinol 100 mg tablet 100 mg PO WE@01/23/23 05/13/23 History atorvastatin 40 mg tablet 40 mg PO HS 01/23/23 05/13/23 History triamcinolone acetonide 0.1 % 1 applic topical BID PRN 01/23/23 05/13/23 History topical cream ferrous gluconate 324 mg (38 mg 324 mg PO DAILY 02/18/23 05/13/23 History iron) tablet escitalopram oxalate 5 mg tablet 10 mg PO DAILY 03/29/23 05/13/23 History sennosides 8.6 mg-docusate sodium 1 tab PO BID PRN 03/29/23 05/13/23 History 50 mg tablet (Stool Softener-Laxative) loperamide 2 mg tablet 2 mg PO Q4H PRN 05/13/23 05/13/23 History melatonin 5 mg tablet 10 mg PO HS 05/13/23 05/13/23 History oxycodone 5 mg tablet 2.5 mg PO BID PRN 05/13/23 05/13/23 History propylene glycol 0.6 % eye drops 1 drp ophthalmic (eye) BID 05/13/23 05/13/23 History (Systane Balance) psyllium husk (with sugar) 3 1 tsp PO DAILY PRN 05/13/23 05/13/23 History gram/7 gram oral powder (Reguloid (psyllium husk-sucrose)) torsemide 20 mg tablet 20 mg PO DAILY 05/13/23 05/13/23 History Allergies Allergy/AdvReac Type Severity Reaction Status Date / Time cephalexin Allergy Unknown RASH/HIVES Verified 05/13/23 11:22 Exam Narrative: Exam Narrative: She is alert and appears in no distress. She gives her own history. Eyes normal. Oropharynx with dry mucous membranes. Otherwise normal. Neck is supple without mass or adenopathy. Respirations are clear to auscultation. Breathing is unlabored. Cardiovascular: S1, S2, regular bradycardia. Abdomen is soft without tenderness or mass. Extremities with no edema. Compression stockings and compression wraps on her legs noted. She moves all 4 extremities well. Const: Vital Signs, click to edit/add: Vital Signs - 24 hr 05/13/23 11:24 05/13/23 11:33 05/13/23 11:47 Temperature 96.5 F L Pulse Rate Blood Pressure Pulse Oximetry 97 100 100 Oxygen Delivery Me thod Room Air 05/13/23 11:52 05/13/23 11:53 05/13/23 12:00 Temperature Pulse Rate 42 L Blood Pressure 97/80 Pulse Oximetry 100 100 92 Oxygen Delivery Me thod 05/13/23 12:02 05/13/23 12:03 05/13/23 12:04 Temperature Pulse Rate Blood Pressure 82/59 L 88/62 L Pulse Oximetry 100 100 100 Oxygen Delivery Me thod 05/13/23 12:14 05/13/23 12:15 05/13/23 12:22 Temperature Pulse Rate 39 L 43 L 38 L Blood Pressure 118/92 H 112/53 L Pulse Oximetry 100 100 100 Oxygen Delivery Me thod 05/13/23 12:23 05/13/23 12:30 05/13/23 12:32 Temperature Pulse Rate 36 L 34 L 35 L Blood Pressure 107/53 L Pulse Oximetry 100 100 99 Oxygen Delivery Me thod 05/13/23 12:33 05/13/23 12:42 05/13/23 12:45 Temperature Pulse Rate 34 L 32 L 31 L Blood Pressure 105/48 L Pulse Oximetry 100 100 100 Oxygen Delivery Me thod 05/13/23 12:52 05/13/23 12:53 05/13/23 13:00 Temperature Pulse Rate 34 L 33 L 32 L Blood Pressure 114/52 L Pulse Oximetry 100 100 100 Oxygen Delivery Me thod 05/13/23 13:02 05/13/23 13:08 Temperature Pulse Rate 31 L Blood Pressure 114/48 L 106/71 Pulse Oximetry 100 Oxygen Delivery Me thod Documenting provider has reviewed patient's vital signs: yes Hospitalist - H&P: Result Labs Labs: [facility] 05/13/23 11:40 Sodium 135 Potassium 6.3 H* Chloride 107 Carbon Dioxide 13 L BUN 103 H Creatinine 2.2 H Glucose 70 Calcium 9.0 Liver Function 05/13/23 Range/Units 11:40 Total Bilirubin 0.5 (0.1-1.5) mg/dL AST 27 (12-35) U/L ALT 20 (4-35) U/L Alkaline Phosphatase 57 (40-150) U/L Albumin 4.4 (3.3-5.0) g/dL Assessment and Plan Assessment and plan (1) Acute renal failure (ARF): Problem comment: Underlying chronic kidney disease now worse due to excessive diuresis. Status: Acute (2) Bradycardia: Problem comment: Bradycardia likely due to underlying conduction abnormality plus metoprolol plus hyperkalemia from acute on chronic renal failure. Correct metabolic abnormalities. If bradycardia does not resolve may need pacemaker Status: Acute (3) Acute hyperkalemia: Problem comment: Acute on chronic kidney injury. Stop losartan and spironolactone. Status: Acute (4) Heart failure with preserved ejection fraction: Problem comment: Patient is now well compensated from heart failure point of view but unfortunately appears to have had excessive diuresis causing acute kidney injury and metabolic abnormalities. Status: Acute Plan Patient will be admitted to the hospital for management of acute kidney injury and bradycardia. Initial attempts at correcting hyperkalemia with calcium, possibly glucose and insulin, isotonic fluids and loop diuretics, holding losartan and spironolactone. Bradycardia will be addressed by correcting the potassium and holding the metoprolol. May need pacemaker if symptomatic bradycardia despite these actions. Plan of care discussed with patient and her daughter in their in agreement with this. Total time spent today is 75 minutes, 45 minutes in coordination of care and discussing with patient, daughter and other providers management of hyperkalemia bradycardia acute kidney injury and heart failure
--- NOTE | 2023-05-13 15:36 | PC.NURSE ---
End of shift: Patient up to floor at 1315 accompanied by dtr. Patient is alert and orientedx4. Patient denies new pain but c/o chronic back pain. Requested home TEDs (and braces) off while laying in bed. On room air, sating well. Pt was up to commode with 4-wheeled walker and Ao1. Potassium is low and patient stated she has been feeling like this for a week. HR is low as a result. BP also elevated. Patient received 2 bolus's in ED, c/o feeling thirsty. Patient states she feels Weak and calls appropriately for assistance in and out of the bed. Daughter is at bedside.
[2023-05-13] MEDS: FUROSEMIDE 10 MG/ML inj 20 MG IVP (16:18)
[2023-05-13] MEDS: CALCIUM ACETATE 667 MG CAPSULE PO (17:29)
[2023-05-13 17:58] LABS: Appearance Urine Clear (Clear); Bilirubin Urine Negative (Negative); Blood Urine Negative (Negative); Color Urine Yellow (Yellow); Glucose Urine Negative (Negative); Ketones Urine Negative (Negative); Leukocyte Esterase Urine Negative (Negative); Nitrite Urine Negative (Negative); Protein Urine Negative (Negative); Urobilinogen Urine 0.2 (0.2-1.0)
[2023-05-13 18:06] LABS: Basophils Absolute Auto 0.02 K/uL (0.00-0.30); Basophils Percent Auto 0.3 % (0.0-3.0); Eosinophils Absolute Auto 0.18 K/uL (0.00-0.50); Eosinophils Percent Auto 2.3 % (0.0-7.0); Hematocrit 37.6 % (33.0-51.0); Hemoglobin* 11.7 gm/dL (12.0-16.0); Immature Granulocytes Abs Auto 0.01 K/uL (0.00-0.30); Immature Granulocytes Pct Auto 0.1 %; Lymphocytes Absolute Auto 2.55 K/uL (0.90-2.90); Lymphocytes Percent Auto 33.2 % (20-44); Mean Corpuscular HGB Conc 31 gm/dL (32-36); Mean Corpuscular Hemoglobin 30 pg (26-34); Mean Corpuscular Volume 96 fL (80-100); Monocytes Percent Auto 8.1 % (0.0-11.0); Platelet Count* 101 K/uL (140-440); RDW Coefficient of Variation % 16.3 % (11.5-15.5); Red Blood Count 3.93 m/uL (4.00-5.20); White Blood Count* 7.68 K/uL (4.50-11.00)
[2023-05-13 18:11] LABS: RBC Urine 0-2 (0-2); WBC Urine 0-2 (0-5)
[2023-05-13 19:21] LABS: Slide Review Reflex No
[2023-05-13] MEDS: ACETAMINOPHEN 500 MG TABLET 1000 MG PO (20:19)
[2023-05-13] MEDS: APIXABAN 5 MG TABLET 2.5 MG PO (20:20)
[2023-05-13] MEDS: ATORVASTATIN CALCIUM 40 MG TABLET PO (20:21)
[2023-05-13] MEDS: SODIUM CHLORIDE 0.9 % (FLUSH) 10 ML SYRINGE 5 ML IVF (20:22)
[2023-05-13] MEDS: MELATONIN 3 MG TABLET 9 MG PO (20:22)
[2023-05-13] MEDS: CARBOXYMETHYLCELLULOSE (REFRESH PLUS) TEARS 1 DROP EYE-BOTH (20:22)
[2023-05-13 21:44] LABS: Chloride* 108 mmol/L (96-114); Potassium* 5.1 mmol/L (3.6-5.1); Sodium* 136 mmol/L (135-149)
[2023-05-13 21:47] LABS: Blood Urea Nitrogen* 92 mg/dL (7-30); Carbon Dioxide* 15 mmol/L (20-32); Creatinine* 1.6 mg/dL (0.5-1.5); Est. Creatinine Clearance* 21.26; Estimated Glomerular Filt Rate 31 ml/min
[2023-05-13 21:48] LABS: Calcium* 8.7 mg/dL (8.4-10.6); Glucose* 126 mg/dL (60-115)
[2023-05-13] MEDS: LACTATED RINGERS 1000 ML 1,000 ML 75 ML IV (22:25)
[2023-05-14] VITALS (9 sets, daily range): BP systolic 111–161; BP diastolic 52–81; PULSE 53–65; RESP 16–18; TEMP 36.5–36.8; O2SAT 96–98
--- NOTE | 2023-05-14 05:54 | PC.NURSE ---
Patient had an uneventful night. Patient has no c/o pain. Patient remains on RA. Patient vitally stable. Patient transfers with assist x1 gait belt walker to commode. Patient refused TEDS at this time and request for them to be applied in the am. Patient able to verbalize needs and uses call light appropriate. Patient refuses bed alarm overnight.
[2023-05-14] MEDS: OMEPRAZOLE 20 MG CAPSULE DR PO (06:13)
[2023-05-14 07:41] LABS: Basophils Absolute Auto 0.01 K/uL (0.00-0.30); Basophils Percent Auto 0.2 % (0.0-3.0); Eosinophils Absolute Auto 0.25 K/uL (0.00-0.50); Eosinophils Percent Auto 4.2 % (0.0-7.0); Hematocrit 31.2 % (33.0-51.0); Immature Granulocytes Abs Auto 0.01 K/uL (0.00-0.30); Immature Granulocytes Pct Auto 0.2 %; Lymphocytes Percent Auto 33.4 % (20-44); Mean Corpuscular HGB Conc 32 gm/dL (32-36); Mean Corpuscular Hemoglobin 30 pg (26-34); Mean Corpuscular Volume 94 fL (80-100); Platelet Count* 119 K/uL (140-440); RDW Coefficient of Variation % 16.3 % (11.5-15.5); Red Blood Count 3.32 m/uL (4.00-5.20); White Blood Count* 5.99 K/uL (4.50-11.00)
[2023-05-14 07:48] LABS: Slide Review Reflex No
[2023-05-14 08:02] LABS: Chloride* 110 mmol/L (96-114); Potassium* 5.3 mmol/L (3.6-5.1); Sodium* 135 mmol/L (135-149)
[2023-05-14 08:04] LABS: Creatinine* 1.4 mg/dL (0.5-1.5); Estimated Glomerular Filt Rate 37 ml/min
[2023-05-14 08:05] LABS: Blood Urea Nitrogen* 85 mg/dL (7-30); Calcium* 8.6 mg/dL (8.4-10.6); Carbon Dioxide* 16 mmol/L (20-32); Glucose* 81 mg/dL (60-115); Phosphorus* 4.5 mg/dL (2.5-4.5)
[2023-05-14] MEDS: ACETAMINOPHEN 500 MG TABLET 1000 MG PO ×2 (08:26→21:06)
[2023-05-14] MEDS: CALCIUM ACETATE 667 MG CAPSULE PO (08:26)
[2023-05-14] MEDS: CARBOXYMETHYLCELLULOSE (REFRESH PLUS) TEARS 1 DROP EYE-BOTH ×2 (08:27→21:07)
[2023-05-14] MEDS: FERROUS SULFATE 325 MG TABLET PO (08:27)
[2023-05-14] MEDS: ESCITALOPRAM 10 MG TABLET PO (08:27)
[2023-05-14] MEDS: APIXABAN 5 MG TABLET 2.5 MG PO ×2 (08:28→21:07)
[2023-05-14] MEDS: SODIUM CHLORIDE 0.9 % (FLUSH) 10 ML SYRINGE 5 ML IVF ×2 (08:37→21:07)
[2023-05-14] MEDS: TORSEMIDE 20 MG TABLET PO (08:38)
[2023-05-14] MEDS: AMLODIPINE 5 MG TABLET PO (08:41)
--- NOTE | 2023-05-14 14:43 | PC.NURSE ---
End of shift note... VS on RA, ecchymosis on both hands, venous stasis changes present on BLE. Loose watery green/brown stool this AM. Pt ate 100% of two meals. Urine output >1000. Ax1 w/ RW and gait belt, slightly unsteady at times. Per Dr. Cristobal continuous fluids dc'd. Daughter Hermila visited this AM along with pt's facility [facility]. No reports of pain, N/V. Update given to Halie at [facility] and all questions were answered.
--- NOTE | 2023-05-14 15:10 | PM.IMPN1 ---
Progress Note: A&P Assessment and plan (1) Acute renal failure (ARF): Problem details: Underlying chronic kidney disease now worse due to excessive diuresis. Will definitely need some loop diuretic for volume control with her heart failure. I am going to resume her torsemide but not her spironolactone. For now will stop her losartan though that may be needed for blood pressure control in the future. Patient has a very small window between being volume depleted and volume overloaded, too dry or too wet. Will need close monitoring as an outpatient to assess for this with ongoing adjustments of medications. Status: Acute (2) Bradycardia: Problem details: Much improved today with correction of hyperkalemia. Likely will continue to improve with holding metoprolol. Bradycardia likely due to underlying conduction abnormality plus metoprolol plus hyperkalemia from acute on chronic renal failure. Correct metabolic abnormalities. Hold metoprolol Status: Acute (3) Acute hyperkalemia: Problem details: Acute on chronic kidney injury. Stop losartan and spironolactone. Continue torsemide and follow. Close followup of potassium as an outpatient. If hypokalemia develops consider restarting losartan. Status: Acute (4) Heart failure with preserved ejection fraction: Problem details: Patient is now well compensated from heart failure point of view but unfortunately appears to have had excessive diuresis causing acute kidney injury and metabolic abnormalities. Patient has a small window between being too wet and too dry. This will require close follow-up with daily weights, initially weekly provider monitoring of vital signs fluid status and electrolytes. May need monthly follow-up after that. High risk for decompensation in the future Status: Acute (5) Hypovolemia associated with diuresis: Problem details: Improved with IV hydration and holding some diuretic Status: Acute Plan Continue in-hospital for monitoring of heart failure renal failure and electrolyte abnormalities. Good resume torsemide at 20 mg daily continue to hold spironolactone, metoprolol, losartan for now. Close outpatient follow-up with daily weight checks and weekly provider visits and lab tests for at least a couple weeks. Time Spent With Patient Total time spent: Total time spent today is 40 minutes, 30 minutes in discussing with patient her daughter and other providers the need for close outpatient follow-up to monitor medications, heart failure, renal failure. Subjective Date Seen: 05/14/23 Interval history: Corine Foreman is a 83 year old female with heart failure with preserved ejection fraction who presents with progressive fatigue.? She was hospitalized here March 30 with heart failure exacerbation.? At that time she had adjustments of her medications include switching her from furosemide to torsemide and adding spironolactone 25 mg and decreasing her metoprolol.? She was discharged to a long term facility for outpatient follow-up.? She was in the assisted for about 2 weeks and then discharged to assisted living at [facility].? During this time she reports she has had no breathing problems or chest pain.? But she has had progressive fatigue.? She has been able to eat and drink without nausea or vomiting.? She is doing well with physical therapy. Last week she had laboratory studies done which showed hyperkalemia, increasing creatinine and BUN and decreasing CO2.? She tells me at that time she was advised to drink more fluids.? She has been trying to drink more fluids but over the last week she has been feeling worse with more fatigued.? She has not had a fever, vomiting, diarrhea, chest pain, shortness a breath.? No other changes to her medications have been made. On admission I discontinued her spironolactone and losartan and metoprolol. She was started on IV calcium and glucose and insulin to correct her hyperkalemia. She received IV fluids and IV furosemide to help correct her hyperkalemia as well. Her laboratory studies overnight have markedly improved. She is feeling quite a bit better. She has no breathing problems. She did well with physical therapy. She has been eating normally. She is anxious to go home. Exam Narrative: Exam Narrative: She is alert appears in no distress. Speech is normal. Respirations are clear to auscultation. Cardiovascular: S1, S2, regular rhythm, slightly bradycardic. Abdomen is soft without tenderness. Extremities with no significant edema. Const: Vital Signs, click to edit/add: Vital Signs - 24 hr 05/13/23 15:55 05/13/23 19:45 05/13/23 23:00 Temperature 97.4 F L 97.5 F L Pulse Rate Pulse Rate [Apical ] 50 L 49 L 50 L Respiratory Rate 16 16 16 Blood Pressure [Ri ght Arm] 137/61 127/59 L Pulse Oximetry 100 98 Oxygen Delivery Me thod Room Air Room Air 05/13/23 23:00 05/13/23 23:00 05/14/23 03:00 Temperature 97.7 F 97.7 F Pulse Rate 50 L Pulse Rate [Apical ] 50 L 55 L Respiratory Rate 16 16 Blood Pressure [Ri ght Arm] 98/63 111/63 Pulse Oximetry 96 96 Oxygen Delivery Me thod Room Air Room Air 05/14/23 07:20 05/14/23 08:21 05/14/23 09:44 Temperature 98.2 F Pulse Rate 55 L Pulse Rate [Apical ] 56 L Respiratory Rate 18 Blood Pressure [Ri ght Arm] 161/63 H Pulse Oximetry 98 Oxygen Delivery Me thod Room Air 05/14/23 10:37 Temperature 98.0 F Pulse Rate Pulse Rate [Apical ] 53 L Respiratory Rate 18 Blood Pressure [Ri ght Arm] 128/65 Pulse Oximetry 98 Oxygen Delivery Me thod Room Air Documenting provider has reviewed patient's vital signs: yes Labs Labs: Laboratory Results - last 24 hr 05/13/23 05/13/23 05/13/23 11:40 17:51 21:11 WBC 7.68 RBC 3.93 L Hgb 11.7 L Hct 37.6 MCV 96 MCH 30 MCHC 31 L RDW Coeff of Phoebe 16.3 H Plt Count 101 L Neut % (Auto) 56.0 Lymph % (Auto) 33.2 Harnett % (Auto) 8.1 Eos % (Auto) 2.3 Baso % (Auto) 0.3 Neut # (Auto) 4.30 Lymph # (Auto) 2.55 H[place]ett # (Auto) 0.60 Eos # (Auto) 0.18 Baso # (Auto) 0.02 Sodium 136 Potassium 5.1 Chloride 108 Carbon Dioxide 15 L BUN 92 H Creatinine 1.6 H Estimated Creat Clear 21.26 Estimated GFR 31 Glucose 126 H Calcium 8.7 Phosphorus Urine Color Yellow Urine Appearance Clear Urine pH 5.0 Ur Specific [place] 1.010 Urine Protein Negative Urine Glucose (UA) Negative Urine Ketones Negative Urine Blood Negative Urine Nitrite Negative Urine Bilirubin Negative Urine Urobilinogen 0.2 Ur Leukocyte Esterase Negative Urine RBC 0-2 Urine WBC 0-2 Ur Squamous Epith Cells None Urine Bacteria None 05/14/23 07:00 WBC 5.99 RBC 3.32 L Hgb 10.0 L Hct 31.2 L MCV 94 MCH 30 MCHC 32 RDW Coeff of Phoebe 16.3 H Plt Count 119 L Neut % (Auto) 55.0 Lymph % (Auto) 33.4 [place]ett % (Auto) 7.0 Eos % (Auto) 4.2 Baso % (Auto) 0.2 Neut # (Auto) 3.30 Lymph # (Auto) 2.00 [place]ett # (Auto) 0.40 Eos # (Auto) 0.25 Baso # (Auto) 0.01 Sodium 135 Potassium 5.3 H Chloride 110 Carbon Dioxide 16 L BUN 85 H Creatinine 1.4 Estimated Creat Clear 24.30 Estimated GFR 37 Glucose 81 Calcium 8.6 Phosphorus 4.5 Urine Color Urine Appearance Urine pH Ur Specific [place] Urine Protein Urine Glucose (UA) Urine Ketones Urine Blood Urine Nitrite Urine Bilirubin Urine Urobilinogen Ur Leukocyte Esterase Urine RBC Urine WBC Ur Squamous Epith Cells Urine Bacteria
--- NOTE | 2023-05-14 17:56 | PC.NURSE ---
End of shift-- Very pleasant and cooperative, alert and oriented patient. VSS and pt is afebrile. SPO2 maintained >94% on RA. She denied any pain. Telemetry shows sinus bradycardia to NSR. LS CTA. Pt already voided 400ml of clear yellow urine this evening. BS+ x4. Pt denied nausea and tolerated a regular diet without difficulty. Large BM this morning. She was up to the BR with wheeled walker and SBA this evening and tolerated it well. Improved steadiness noted since this morning. Her daughter was at bedside this afternoon and appears loving and supportive. Report to oncoming shift.
[2023-05-14] MEDS: ATORVASTATIN CALCIUM 40 MG TABLET PO (21:06)
[2023-05-14] MEDS: MELATONIN 3 MG TABLET 9 MG PO (21:06)
[2023-05-14] MEDS: TRIAMCINOLONE ACETONIDE CREAM 0.1 % 1 APPLIC TOPICAL (22:02)
--- NOTE | 2023-05-14 22:30 | PC.NURSE ---
End of Shift ([id number]): Patient pleasant and cooperative. Afebrile. Denies pain. Up to bathroom and chair with 1 assist, walker and gait belt.
[2023-05-15] VITALS (9 sets, daily range): BP systolic 117–177; BP diastolic 54–93; PULSE 51–70; RESP 16–18; TEMP 36.4–36.9; O2SAT 95–98
--- NOTE | 2023-05-15 06:49 | PC.NURSE ---
Shift note: The pt has been pleasant and cooperative. HR has been in the 50s throughout the night; Tele showing Sinus carie. The pt has been denying chest, short of breath, dizziness or other acute distress. Up to the BR with a walker and gait belt
[2023-05-15] MEDS: OMEPRAZOLE 20 MG CAPSULE DR PO (06:58)
[2023-05-15 07:08] LABS: Basophils Absolute Auto 0.01 K/uL (0.00-0.30); Basophils Percent Auto 0.2 % (0.0-3.0); Eosinophils Absolute Auto 0.23 K/uL (0.00-0.50); Eosinophils Percent Auto 4.7 % (0.0-7.0); Hemoglobin* 10.6 gm/dL (12.0-16.0); Immature Granulocytes Abs Auto 0.01 K/uL (0.00-0.30); Immature Granulocytes Pct Auto 0.2 %; Lymphocytes Absolute Auto 1.84 K/uL (0.90-2.90); Lymphocytes Percent Auto 37.4 % (20-44); Mean Corpuscular HGB Conc 32 gm/dL (32-36); Mean Corpuscular Hemoglobin 30 pg (26-34); Mean Corpuscular Volume 94 fL (80-100); Monocytes Percent Auto 8.3 % (0.0-11.0); Neutrophils Absolute Auto 2.42 K/uL (1.7-7.0); Neutrophils Percent Auto 49.2 % (42.0-72.0); Platelet Count* 131 K/uL (140-440); RDW Coefficient of Variation % 16.2 % (11.5-15.5); White Blood Count* 4.92 K/uL (4.50-11.00)
[2023-05-15 07:09] LABS: Slide Review Reflex No
[2023-05-15 07:22] LABS: Chloride* 110 mmol/L (96-114); Sodium* 138 mmol/L (135-149)
[2023-05-15 07:23] LABS: Potassium* 5.6 mmol/L (3.6-5.1)
[2023-05-15 07:25] LABS: Blood Urea Nitrogen* 76 mg/dL (7-30); Carbon Dioxide* 20 mmol/L (20-32); Creatinine* 1.3 mg/dL (0.5-1.5); Est. Creatinine Clearance* 26.17; Estimated Glomerular Filt Rate 40 ml/min; Glucose* 84 mg/dL (60-115)
[2023-05-15 07:26] LABS: Calcium* 8.9 mg/dL (8.4-10.6)
[2023-05-15] MEDS: ACETAMINOPHEN 500 MG TABLET 1000 MG PO ×2 (08:33→20:44)
[2023-05-15] MEDS: AMLODIPINE 5 MG TABLET PO (08:33)
[2023-05-15] MEDS: TORSEMIDE 20 MG TABLET PO (08:33)
[2023-05-15] MEDS: APIXABAN 5 MG TABLET 2.5 MG PO ×2 (08:34→20:45)
[2023-05-15] MEDS: ESCITALOPRAM 10 MG TABLET PO (08:34)
[2023-05-15] MEDS: FERROUS SULFATE 325 MG TABLET PO (08:34)
[2023-05-15] MEDS: CARBOXYMETHYLCELLULOSE (REFRESH PLUS) TEARS 1 DROP EYE-BOTH ×2 (08:34→20:45)
[2023-05-15] MEDS: TRIAMCINOLONE ACETONIDE CREAM 0.1 % 1 APPLIC TOPICAL ×2 (08:51→20:54)
[2023-05-15] MEDS: SODIUM CHLORIDE 0.9 % (FLUSH) 10 ML SYRINGE 5 ML IVF ×2 (10:03→20:45)
--- NOTE | 2023-05-15 12:59 | P.IMPN_ITS ---
Progress Note: A&P Assessment and plan (1) Acute renal failure (ARF): Problem details: Underlying chronic kidney disease worse on presentation to the hospital due to excessive diuresis. Will definitely need some loop diuretic for volume control with her heart failure. Torsemide has been resumed but not her spironolactone. For now her losartan is still on hold. Patient has a very small therapeutic window window between being volume depleted and volume overloaded, too dry or too wet. Will need close monitoring as an outpatient to assess for this with ongoing adjustments of medications. Status: Acute Assessment and Plan: Reviewed with patient and her daughter, Naomie. (2) Bradycardia: Problem details: Much improved today with correction of hyperkalemia. Likely will continue to improve with holding metoprolol. Bradycardia likely due to underlying conduction abnormality plus metoprolol plus hyperkalemia from acute on chronic renal failure. Correct metabolic abnormalities. Hold metoprolol Status: Acute Assessment and Plan: Reviewed with patient and her daughterNaomie. (3) Acute hyperkalemia: Problem details: Acute on chronic kidney injury. Stop losartan and spironolactone. Continue torsemide and follow. Close followup of potassium as an outpatient. If hypokalemia develops consider restarting losartan. If hyperkalemia is persistent, consider assessing for primary adrenal insufficiency as well as hypoaldosteronism by measuring serum aldosterone level, plasma renin activity, and serum cortisol level. Status: Acute Assessment and Plan: Reviewed with patient and her daughter, Naomie. (4) Heart failure with preserved ejection fraction: Problem details: Patient is present well compensated from heart failure point of view but unfortunately appears to have had excessive diuresis causing acute kidney injury and metabolic abnormalities. Patient has a small therapeutic window between being too wet and too dry. This will require close follow-up with daily weights, initially weekly provider monitoring of vital signs fluid status and electrolytes. May need monthly follow-up after that. High risk for decompensation in the future. Status: Acute Assessment and Plan: Reviewed with patient and her daughter, Naomie. (5) Hypovolemia associated with diuresis: Problem details: Improved with IV hydration and holding some diuretic. Presently not orthostatic. Status: Acute Assessment and Plan: Reviewed with patient and her daughter, Naomie. Plan 1. Continue with current plan of intervention and monitoring, including laboratory testing. 2. Anticipate she may be ready for possible discharge back to the assisted living facility sometime in the next 1-3 days. 3. Patient and her daughter, Naomie, are agreeable to above stated plans and recommendations. Time Spent With Patient Total time spent: 50 minutes Subjective Time Seen by Provider: 08:30 Date Seen: 05/15/23 Interval history: Corine Foreman is a 83 year old woman with heart failure and preserved ejection fraction who presents with progressive fatigue.? She was hospitalized here March 30 with heart failure exacerbation.? At that time she had adjustments of her medications include switching her from furosemide to torsemide and adding spironolactone 25 mg and decreasing her metoprolol.? [facility]-up.? She was in the detention for about 2 weeks and then discharged to assisted living at [facility] at the [facility].? During this time she reports she has had no breathing problems or chest pain.? But she has had progressive fatigue.? She has been able to eat and drink without nausea or vomiting.? She is doing well with physical therapy, but is having to rest increasingly in order to participate in physical therapy. Last week she had laboratory studies done which showed hyperkalemia, increasing creatinine and BUN and decreasing CO2 - she was advised to drink more fluids.? She has been trying to drink more fluids but over the last week she has been feeling worse with more fatigued.? She has not had a fever, vomiting, diarrhea, chest pain, shortness a breath.? No other changes to her medications have been made. On admission her spironolactone, losartan and metoprolol were discontinued. She was started on IV calcium and glucose and insulin to correct her hyperkalemia. She received IV fluids and IV furosemide to help correct her hyperkalemia as well. Her laboratory studies have slowly improved. She is feeling quite a bit better. She has no breathing problems. She did well with physical and occupational therapy here in hospital. She has been eating normally. She indicates that she would like to go back to the assisted living facility when it is time. She does not think this is the time because she is still feeling fatigued, albeit improved from when she 1st came to the hospital at this time. Exam Narrative: Exam Narrative: Appears comfortable and in no acute distress. Alert and oriented to self, place, time, situation. Friendly, articulate, cooperative. Mood and affect are congruent. Vision and hearing are grossly normal. Sitting upright she does not have JVD or hepatojugular reflux. Neck is supple. Midline trachea. Lungs are clear to auscultation without wheezing, rhonchi, or rales. Heart tones with regular rhythm, normal S1-S2. Abdomen with active bowel sounds, soft, nontender. Extremities without edema. Able to transfer with assist of 1. Const: Vital Signs, click to edit/add: Vital Signs - 24 hr 05/14/23 15:00 05/14/23 15:00 05/14/23 16:55 Temperature 98.0 F Pulse Rate 58 L Pulse Rate [Apical ] 54 L 58 L Pulse Rate [orthos tatic lying Pulse Oximeter] Pulse Rate [orthos tatic sitting Righ t Pulse Oximeter] Pulse Rate [orthos tatic standing Rig ht Pulse Oximeter] Respiratory Rate 18 18 Blood Pressure [Ri ght Arm] 129/52 L Blood Pressure [or thostatic lying] Blood Pressure [or thostatic sitting Right Arm] Blood Pressure [or thostatic standing Right Arm] Pulse Oximetry 97 Oxygen Delivery Me thod Room Air 05/14/23 19:00 05/14/23 23:50 05/14/23 23:50 Temperature 98.2 F Pulse Rate 53 L Pulse Rate [Apical ] 60 65 Pulse Rate [orthos tatic lying Pulse Oximeter] Pulse Rate [orthos tatic sitting Righ t Pulse Oximeter] Pulse Rate [orthos tatic standing Rig ht Pulse Oximeter] Respiratory Rate 18 18 Blood Pressure [Ri ght Arm] 135/81 Blood Pressure [or thostatic lying] Blood Pressure [or thostatic sitting Right Arm] Blood Pressure [or thostatic standing Right Arm] Pulse Oximetry 98 Oxygen Delivery Me thod Room Air 05/14/23 23:50 05/15/23 05:30 05/15/23 07:00 Temperature 98.2 F 97.6 F Pulse Rate Pulse Rate [Apical ] 53 L 60 60 Pulse Rate [orthos tatic lying Pulse Oximeter] Pulse Rate [orthos tatic sitting Righ t Pulse Oximeter] Pulse Rate [orthos tatic standing Rig ht Pulse Oximeter] Respiratory Rate 18 18 18 Blood Pressure [Ri ght Arm] 143/67 H 161/64 H Blood Pressure [or thostatic lying] Blood Pressure [or thostatic sitting Right Arm] Blood Pressure [or thostatic standing Right Arm] Pulse Oximetry 96 95 Oxygen Delivery Me thod Room Air Room Air 05/15/23 08:17 05/15/23 08:28 05/15/23 10:05 Temperature 97.6 F Pulse Rate 57 L Pulse Rate [Apical ] 60 Pulse Rate [orthos tatic lying Pulse Oximeter] 60 Pulse Rate [orthos tatic sitting Righ t Pulse Oximeter] 66 Pulse Rate [orthos tatic standing Rig ht Pulse Oximeter] 70 Respiratory Rate 18 Blood Pressure [Ri ght Arm] 157/77 H Blood Pressure [or thostatic lying] 157/77 H Blood Pressure [or thostatic sitting Right Arm] 175/93 H Blood Pressure [or thostatic standing Right Arm] 177/76 H Pulse Oximetry 97 Oxygen Delivery Me thod Room Air 05/15/23 11:00 Temperature 97.8 F Pulse Rate Pulse Rate [Apical ] 60 Pulse Rate [orthos tatic lying Pulse Oximeter] Pulse Rate [orthos tatic sitting Righ t Pulse Oximeter] Pulse Rate [orthos tatic standing Rig ht Pulse Oximeter] Respiratory Rate 18 Blood Pressure [Ri ght Arm] 141/73 H Blood Pressure [or thostatic lying] Blood Pressure [or thostatic sitting Right Arm] Blood Pressure [or thostatic standing Right Arm] Pulse Oximetry 98 Oxygen Delivery Me thod Room Air Documenting provider has reviewed patient's vital signs: yes Labs Labs: Laboratory Results - last 24 hr 05/15/23 06:30 WBC 4.92 RBC 3.50 L Hgb 10.6 L Hct 33.0 MCV 94 MCH 30 MCHC 32 RDW Coeff of Phoebe 16.2 H Plt Count 131 L Neut % (Auto) 49.2 Lymph % (Auto) 37.4 Ogle % (Auto) 8.3 Eos % (Auto) 4.7 Baso % (Auto) 0.2 Neut # (Auto) 2.42 Lymph # (Auto) 1.84 Ogle # (Auto) 0.40 Eos # (Auto) 0.23 Baso # (Auto) 0.01 Sodium 138 Potassium 5.6 H Chloride 110 Carbon Dioxide 20 BUN 76 H Creatinine 1.3 Estimated Creat Clear 26.17 Estimated GFR 40 Glucose 84 Calcium 8.9
--- NOTE | 2023-05-15 15:01 | PC.NURSE ---
End of shift-- Very pleasant and cooperative, alert and oriented patient. VSS and pt is afebrile. SPO2 maintained >94% on RA. She denied any pain. Telemetry shows sinus bradycardia. LS CTA. She denied nausea and ate 100% of 2 meals today. Large BM this morning. She was up to the BR with SBA, wheeled walker and gait belt and tolerated it well. Report to oncoming shift.
[2023-05-15] MEDS: MELATONIN 3 MG TABLET 9 MG PO (20:44)
[2023-05-15] MEDS: ATORVASTATIN CALCIUM 40 MG TABLET PO (20:45)
--- NOTE | 2023-05-15 22:47 | PC.NURSE ---
Shift note: Pt is doing well as heart rate improved. Systolic Bp has been recorded above 150. Alert and oriented, pleasant and cooperate with care and treatment. Denied any pain, SOB and cough.
[2023-05-16] VITALS (8 sets, daily range): BP systolic 134–168; BP diastolic 58–69; PULSE 52–66; RESP 16–18; TEMP 36.4–36.8; O2SAT 96–98
[2023-05-16] MEDS: OMEPRAZOLE 20 MG CAPSULE DR PO (06:41)
[2023-05-16 06:46] LABS: Basophils Absolute Auto 0.02 K/uL (0.00-0.30); Basophils Percent Auto 0.4 % (0.0-3.0); Eosinophils Absolute Auto 0.25 K/uL (0.00-0.50); Eosinophils Percent Auto 4.8 % (0.0-7.0); Hematocrit 33.5 % (33.0-51.0); Hemoglobin* 10.7 gm/dL (12.0-16.0); Lymphocytes Absolute Auto 2.17 K/uL (0.90-2.90); Lymphocytes Percent Auto 41.7 % (20-44); Mean Corpuscular HGB Conc 32 gm/dL (32-36); Mean Corpuscular Hemoglobin 30 pg (26-34); Mean Corpuscular Volume 94 fL (80-100); Monocytes Percent Auto 9.6 % (0.0-11.0); Neutrophils Absolute Auto 2.26 K/uL (1.7-7.0); Neutrophils Percent Auto 43.5 % (42.0-72.0); Platelet Count* 124 K/uL (140-440); RDW Coefficient of Variation % 16.1 % (11.5-15.5); Red Blood Count 3.56 m/uL (4.00-5.20)
[2023-05-16 06:54] LABS: Slide Review Reflex No
[2023-05-16 07:12] LABS: Chloride* 111 mmol/L (96-114)
[2023-05-16 07:13] LABS: Potassium* 5.2 mmol/L (3.6-5.1); Sodium* 137 mmol/L (135-149)
[2023-05-16 07:16] LABS: Blood Urea Nitrogen* 68 mg/dL (7-30); Calcium* 8.8 mg/dL (8.4-10.6); Carbon Dioxide* 19 mmol/L (20-32); Est. Creatinine Clearance* 34.02; Estimated Glomerular Filt Rate 55 ml/min; Glucose* 81 mg/dL (60-115)
--- NOTE | 2023-05-16 07:47 | PC.NURSE ---
Pt alert and oriented x3. Afebrile. Pt denies pain, chest pain, SOB, N/V.?Pt was up to the bathroom x2 with SBA/A1 with walker and gait belt, voiding. Pt is tolerating renal diet. Pt?s tele was NSR. Pt slept throughout most of night.??
[2023-05-16] MEDS: CARBOXYMETHYLCELLULOSE (REFRESH PLUS) TEARS 1 DROP EYE-BOTH ×2 (09:01→20:32)
[2023-05-16] MEDS: APIXABAN 5 MG TABLET 2.5 MG PO ×2 (09:01→20:33)
[2023-05-16] MEDS: TORSEMIDE 20 MG TABLET PO (09:02)
[2023-05-16] MEDS: AMLODIPINE 5 MG TABLET PO (09:02)
[2023-05-16] MEDS: FERROUS SULFATE 325 MG TABLET PO (09:02)
[2023-05-16] MEDS: ESCITALOPRAM 10 MG TABLET PO (09:02)
[2023-05-16] MEDS: SODIUM CHLORIDE 0.9 % (FLUSH) 10 ML SYRINGE 5 ML IVF ×2 (09:02→20:33)
[2023-05-16] MEDS: ACETAMINOPHEN 500 MG TABLET 1000 MG PO ×2 (09:02→20:33)
[2023-05-16] MEDS: TRIAMCINOLONE ACETONIDE CREAM 0.1 % 1 APPLIC TOPICAL (10:39)
--- NOTE | 2023-05-16 12:49 | PM.IMPN1 ---
Progress Note: A&P Assessment and plan (1) Acute renal failure (ARF): Problem details: Underlying chronic kidney disease worse on presentation to the hospital due to excessive diuresis. Still needs loop diuretic for volume control with her heart failure. Torsemide has been resumed but not her spironolactone. Will resume her losartan at half the previous dose, starting at 25 mg p.o. b.i.d. today. Patient has a very small therapeutic window between being volume depleted and volume overloaded, too dry or too wet. Will need close monitoring as an outpatient to assess for this with ongoing adjustments of medications. Status: Acute (2) Bradycardia: Problem details: Much improved today with correction of hyperkalemia. Likely will continue to improve with holding metoprolol. Bradycardia likely due to underlying conduction abnormality plus metoprolol plus hyperkalemia from acute on chronic renal failure. Correct metabolic abnormalities. Hold metoprolol still. Status: Acute (3) Acute hyperkalemia: Problem details: Acute on chronic kidney injury. Stop losartan and spironolactone. Continue with torsemide and follow. Close follow-up of potassium as an outpatient. If hypokalemia develops consider restarting losartan. If hyperkalemia is persistent, consider assessing for primary adrenal insufficiency as well as hypoaldosteronism by measuring serum aldosterone level, plasma renin activity, and serum cortisol level. Status: Acute (4) Heart failure with preserved ejection fraction: Problem details: Patient is present well compensated from heart failure point of view but unfortunately appears to have had excessive diuresis causing acute kidney injury and metabolic abnormalities. Patient has a small therapeutic window between being too wet and too dry. This will require close follow-up with daily weights, initially weekly provider monitoring of vital signs fluid status and electrolytes. May need monthly follow-up after that. High risk for decompensation in the future. Status: Acute (5) Hypovolemia associated with diuresis: Problem details: Improved with IV hydration and holding some diuretic. Presently not orthostatic. Status: Acute Plan 1. Reviewed above with patient. 2. Patient agreeable. 3. Possible discharge to assisted living with ongoing support from physical and occupational therapy. Will need to continue to work with physical and occupational therapy in addition to nursing support with medication dispensation and so forth. Time Spent With Patient Total time spent: 40 minutes Subjective Time Seen by Provider: 08:00 Date Seen: 05/16/23 Interval history: Corine Foreman is a 83 year old woman with heart failure and preserved ejection fraction who presents with progressive fatigue.? She was hospitalized here March 30 with heart failure exacerbation.? At that time she had adjustments of her medications include switching her from furosemide to torsemide and adding spironolactone 25 mg and decreasing her metoprolol.? She [facility] a [facility] facility for [facility]-up.? She was in the longterm for about 2 weeks and then discharged to assisted living at [facility] at the [facility].? During this time she reports she has had no breathing problems or chest pain.? But she has had progressive fatigue.? She has been able to eat and drink without nausea or vomiting.? She is doing well with physical therapy, but is having to rest increasingly in order to participate in physical therapy. Last week she had laboratory studies done which showed hyperkalemia, increasing creatinine and BUN and decreasing CO2 - she was advised to drink more fluids.? She has been trying to drink more fluids but over the last week she has been feeling worse with more fatigued.? She has not had a fever, vomiting, diarrhea, chest pain, shortness a breath.? No other changes to her medications have been made. On admission her spironolactone, losartan and metoprolol were discontinued. She was started on IV calcium and glucose and insulin to correct her hyperkalemia. She received IV fluids and IV furosemide to help correct her hyperkalemia as well. Her laboratory studies have slowly improved. She is feeling quite a bit better. She denies dyspnea. She did well with physical and occupational therapy here in hospital. She has been eating normally. She indicates that she would like to go back to the assisted living facility when it is time. She does not think this is the time because she is still feeling fatigued, albeit improved from when she 1st came to the hospital at this time. Exam Narrative: Exam Narrative: Sitting in recliner chair at side of bed, and appears comfortable. Vision and hearing are grossly normal. Awake, alert, oriented to self, place, time, situation. Friendly, articulate, cooperative. Expresses sense of anxiety about her condition worsening. Midline trachea. Neck is supple. Lungs are clear to auscultation. No wheezing, rhonchi, rales. Chest wall excursions are full. Heart tones with regular rhythm, normal S1-S2. Abdomen is obese with active bowel sounds, soft, nontender. Extremities with trace pretibial edema. Skin with diffuse subcutaneous atrophy and pigmentation changes of chronic venous stasis of lower extremities. Transfers with standby assist. Ambulates with a 4 wheel walker with standby assist. Weight today 71.2 kg. Yesterday's weight 71.9 kg. Admission weight was 72.1 kg. Weight prior to discharge from last hospitalization was 77 kg. Const: Vital Signs, click to edit/add: Vital Signs - 24 hr 05/15/23 15:00 05/15/23 15:00 05/15/23 19:00 Temperature 97.7 F 98.5 F Pulse Rate 62 Pulse Rate [Apical ] 62 65 Respiratory Rate 18 18 Blood Pressure [Ri ght Arm] 152/82 H 155/65 H Pulse Oximetry 97 98 Oxygen Delivery Me thod Room Air Room Air 05/15/23 23:50 05/15/23 23:50 05/15/23 23:50 Temperature 98.1 F Pulse Rate 51 L Pulse Rate [Apical ] 58 L Respiratory Rate 16 Blood Pressure [Ri ght Arm] Pulse Oximetry Oxygen Delivery Me thod 05/15/23 23:50 05/16/23 02:40 05/16/23 07:00 Temperature 97.7 F 97.6 F 98.2 F Pulse Rate Pulse Rate [Apical ] 58 L 61 64 Respiratory Rate 16 16 16 Blood Pressure [Ri ght Arm] 117/54 L 168/68 H 160/69 H Pulse Oximetry 97 98 97 Oxygen Delivery Me thod Room Air Room Air Room Air 05/16/23 07:00 05/16/23 07:17 05/16/23 11:00 Temperature 97.7 F Pulse Rate 53 L Pulse Rate [Apical ] 64 52 L Respiratory Rate 16 18 Blood Pressure [Ri ght Arm] 159/66 H Pulse Oximetry 97 Oxygen Delivery Me thod Room Air Documenting provider has reviewed patient's vital signs: yes Labs Labs: Laboratory Results - last 24 hr 05/16/23 06:19 WBC 5.20 RBC 3.56 L Hgb 10.7 L Hct 33.5 MCV 94 MCH 30 MCHC 32 RDW Coeff of Phoebe 16.1 H Plt Count 124 L Neut % (Auto) 43.5 Lymph % (Auto) 41.7 Carter % (Auto) 9.6 Eos % (Auto) 4.8 Baso % (Auto) 0.4 Neut # (Auto) 2.26 Lymph # (Auto) 2.17 Carter # (Auto) 0.50 Eos # (Auto) 0.25 Baso # (Auto) 0.02 Sodium 137 Potassium 5.2 H Chloride 111 Carbon Dioxide 19 L BUN 68 H Creatinine 1.0 Estimated Creat Clear 34.02 Estimated GFR 55 Glucose 81 Calcium 8.8
[2023-05-16] MEDS: LOSARTAN POTASSIUM 50 MG TABLET 25 MG PO ×2 (13:59→20:33)
--- NOTE | 2023-05-16 15:45 | PC.NURSE ---
End of shift-- Very pleasant and cooperative, alert and oriented patient. VSS and pt is afebrile. SPO2 maintained >94% on RA. She c/o mild aches and pains this morning that resolved with scheduled Tylenol only and she has denied any other pain. Telemetry shows sinus bradycardia. LS CTA. She denied nausea and ate 100% of 2 meals today independently and had a BM today x3. She was up to BR and chair with SBA and walker and tolerated it well. Daughter is at bedside and appears loving and supportive. Report to TAWNY Acevedo.
--- NOTE | 2023-05-16 18:16 | PC.NURSE ---
End of Shift([id number]): Patient pleasant and cooperative. Patient vitally stable, lungs clear, BS WNL, IV intact. Patient denies pain. Patient SBA/walker. Patient urinating, no BM this shift. Patient tolerating regular diet.
[2023-05-16] MEDS: ATORVASTATIN CALCIUM 40 MG TABLET PO (20:32)
[2023-05-16] MEDS: MELATONIN 3 MG TABLET 9 MG PO (20:32)
[2023-05-17 03:00] VITALS: BP 154/67; PULSE 60; RESP 20; TEMP 36.6; O2SAT 98
[2023-05-17 06:17] LABS: Basophils Absolute Auto 0.01 K/uL (0.00-0.30); Basophils Percent Auto 0.2 % (0.0-3.0); Eosinophils Absolute Auto 0.26 K/uL (0.00-0.50); Eosinophils Percent Auto 4.6 % (0.0-7.0); Hematocrit 33.5 % (33.0-51.0); Hemoglobin* 10.6 gm/dL (12.0-16.0); Immature Granulocytes Abs Auto 0.01 K/uL (0.00-0.30); Immature Granulocytes Pct Auto 0.2 %; Lymphocytes Absolute Auto 2.18 K/uL (0.90-2.90); Lymphocytes Percent Auto 38.2 % (20-44); Mean Corpuscular HGB Conc 32 gm/dL (32-36); Mean Corpuscular Hemoglobin 30 pg (26-34); Mean Corpuscular Volume 95 fL (80-100); Monocytes Percent Auto 10.2 % (0.0-11.0); Neutrophils Absolute Auto 2.67 K/uL (1.7-7.0); Neutrophils Percent Auto 46.6 % (42.0-72.0); Platelet Count* 127 K/uL (140-440); RDW Coefficient of Variation % 16.4 % (11.5-15.5); Red Blood Count 3.51 m/uL (4.00-5.20); White Blood Count* 5.71 K/uL (4.50-11.00)
[2023-05-17 06:24] LABS: Slide Review Reflex No
[2023-05-17 06:26] LABS: Chloride* 107 mmol/L (96-114); Potassium* 5.1 mmol/L (3.6-5.1); Sodium* 138 mmol/L (135-149)
[2023-05-17 06:29] LABS: Blood Urea Nitrogen* 65 mg/dL (7-30); Carbon Dioxide* 22 mmol/L (20-32); Creatinine* 1.2 mg/dL (0.5-1.5); Est. Creatinine Clearance* 28.35; Estimated Glomerular Filt Rate 44 ml/min
[2023-05-17 06:30] LABS: Calcium* 8.9 mg/dL (8.4-10.6); Glucose* 93 mg/dL (60-115)
[2023-05-17 07:00] VITALS: BP 140/62; PULSE 65; RESP 18; TEMP 36.4; O2SAT 97
--- NOTE | 2023-05-17 07:12 | PC.NURSE ---
Shift note: no c/o pain throughout this shift, pt is afebrile, ambulates with SBA
[2023-05-17] MEDS: OMEPRAZOLE 20 MG CAPSULE DR PO (07:42)
[2023-05-17] MEDS: TORSEMIDE 20 MG TABLET PO (07:42)
[2023-05-17] MEDS: ESCITALOPRAM 10 MG TABLET PO (08:57)
[2023-05-17] MEDS: ACETAMINOPHEN 500 MG TABLET 1000 MG PO (08:57)
[2023-05-17] MEDS: FERROUS SULFATE 325 MG TABLET PO (08:57)
[2023-05-17] MEDS: APIXABAN 5 MG TABLET 2.5 MG PO (08:57)
[2023-05-17] MEDS: CARBOXYMETHYLCELLULOSE (REFRESH PLUS) TEARS 1 DROP EYE-BOTH (08:58)
[2023-05-17] MEDS: LOSARTAN POTASSIUM 50 MG TABLET 25 MG PO (09:02)
[2023-05-17] MEDS: AMLODIPINE 5 MG TABLET PO (09:02)
[2023-05-17] MEDS: TRIAMCINOLONE ACETONIDE CREAM 0.1 % 1 APPLIC TOPICAL (09:03)
[2023-05-17 11:00] VITALS: BP 133/67; PULSE 67; RESP 18; TEMP 36.5; O2SAT 97
--- NOTE | 2023-05-17 11:18 | PC.NURSE ---
Handoff given to TAWNY Sparks at patient assisted living. Facility accepted back.
[2023-05-17 11:19] VITALS: BP 133/67; PULSE 67; RESP 18; TEMP 36.5
--- NOTE | 2023-05-17 11:43 | PC.NURSE ---
discharge note: Patient vitally stable. Patient discharged back to assisted living facility. PIV's removed. All concerns addressed. Patient daughter, Hermial, at hospital with patient at time of discharge.
--- NOTE | 2023-05-17 11:49 | PC.SOCIAL ---
Discharge plan: Called pt's dtr Naomie who is aware and agrees with planned discharge back to [facility] living today by facility van. Provided dtr with information on the Important Message from Medicare. Dtr confirms she is pleased with discharge plans and has no interest in appealing discharge. RN to contact facility with discharge time to schedule van for discharge.
--- NOTE | 2023-05-17 15:41 | PM.DS1 ---
DS: Providers Provider Time Seen by Provider: 07:30 Date Seen: 05/17/23 Date of admission: 05/13/23 13:16 Primary care physician: Levon Jang MD Admitting Clinician: Pierce Cristobal MD Consults: 05/13/23 13:46 Consult to Occupational Therapy [CONS] Routine Comment: Reason(s) for OT Consult:: Evaluate and Treat Any Restrictions?:: No Restrictions Consult to Physical Therapy [CONS] Routine Comment: Reason(s) for PT Consult:: Evaluate and Treat Any Restrictions?:: No Restrictions Attending Physician on discharge: Eris Bal MD Date of Discharge: 05/17/23 DS: Diagnosis Discharge Diagnosis (1) Acute renal failure (ARF): Status: Acute Problem details: Underlying chronic kidney disease worse on presentation to the hospital due to excessive diuresis. Still needs loop diuretic for volume control with her heart failure. Torsemide has been resumed but not her spironolactone. Will resume her losartan at half the previous dose, starting at 25 mg p.o. b.i.d. today. Patient has a very small therapeutic window between being volume depleted and volume overloaded, too dry or too wet. Will need close monitoring as an outpatient to assess for this with ongoing adjustments of medications. (2) Hypovolemia associated with diuresis: Status: Acute Problem details: Improved with IV hydration and holding some diuretic. Presently not orthostatic. (3) Heart failure with preserved ejection fraction: Status: Acute Problem details: Patient is present well compensated from heart failure point of view but unfortunately appears to have had excessive diuresis causing acute kidney injury and metabolic abnormalities. Patient has a small therapeutic window between being too wet and too dry. This will require close follow-up with daily weights, initially weekly provider monitoring of vital signs fluid status and electrolytes. May need monthly follow-up after that. High risk for decompensation in the future. (4) Bradycardia: Status: Acute Problem details: pulse in the upper 40s. Improved with decrease in metoprolol from 50-25 mg daily (5) Acute hyperkalemia: Status: Acute Problem details: Acute on chronic kidney injury. Stop losartan and spironolactone. Continue with torsemide and follow. Close follow-up of potassium as an outpatient. If hypokalemia develops consider restarting losartan. If hyperkalemia is persistent, consider assessing for primary adrenal insufficiency as well as hypoaldosteronism by measuring serum aldosterone level, plasma renin activity, and serum cortisol level. (6) Chronic kidney disease: Status: Acute Problem details: Close monitoring of renal function and electrolytes with multiple changes in heart failure medicines (7) Elevated LFTs: Status: Acute Problem details: - likely related to acute illness and rhabdo, asymptomatic - RUQ ultrasound 02/20, no acute findings noted - down trending (8) Rhabdomyolysis: Status: Acute Problem details: - 2/ fall and being found down for an extended period of time, CK and muscle aches improved with IVF resuscitation (9) Chronic back pain: Status: Acute Problem details: Suspicious for spinal stenosis DS: Summary Hospital Course Hospital Course: Corine Foreman is a 83 year old woman with heart failure and preserved ejection fraction who presents with progressive fatigue.? She was hospitalized here March 30 with heart failure exacerbation.? At that time she had adjustments of her medications include switching her from furosemide to torsemide and adding spironolactone 25 mg and decreasing her metoprolol.? [facility].? She was in the long term for about 2 weeks and then discharged to assisted living at [facility] the [facility].? During this time she reports she has had no breathing problems or chest pain.? But she has had progressive fatigue.? She has been able to eat and drink without nausea or vomiting.? She is doing well with physical therapy, but is having to rest increasingly in order to participate in physical therapy. Last week she had laboratory studies done which showed hyperkalemia, increasing creatinine and BUN and decreasing CO2 - she was advised to drink more fluids.? She has been trying to drink more fluids but over the last week she has been feeling worse with more fatigued.? She has not had a fever, vomiting, diarrhea, chest pain, shortness a breath.? No other changes to her medications have been made. On admission her spironolactone, losartan and metoprolol were discontinued.? She was started on IV calcium and glucose and insulin to correct her hyperkalemia.? She received IV fluids and IV furosemide to help correct her hyperkalemia as well.? Her laboratory studies have slowly improved.? She is feeling quite a bit better.? She denies dyspnea.? She did well with physical and occupational therapy here in hospital.? She has been eating normally.? She indicates that she would like to go back to the assisted living facility when it is time.? She does not think this is the time because she is still feeling fatigued, albeit improved from when she 1st came to the hospital at this time. Weight today is 72.3 kg. Admission weight was 72.1 kg. Time Spent with Patient Time attestation: Total time spent providing and/or coordinating discharge services: Exam Narrative: Exam Narrative: Sitting in recliner chair at side of bed, and appears comfortable.? Vision and hearing are grossly normal. Awake, alert, oriented to self, place, time, situation.? Friendly, articulate, cooperative.? Expresses sense of anxiety about her condition worsening. Midline trachea.? Neck is supple.? Lungs are clear to auscultation.? No wheezing, rhonchi, rales.? Chest wall excursions are full.? Heart tones with regular rhythm, normal S1-S2.? Abdomen is obese with active bowel sounds, soft, nontender.? Extremities with trace pretibial edema. Skin with diffuse subcutaneous atrophy and pigmentation changes of chronic venous stasis of lower extremities. Transfers with standby assist.? Ambulates with a 4 wheel walker with standby assist. Const: Vital Signs, click to edit/add: Vital Signs - 24 hr 05/16/23 19:00 05/16/23 23:00 05/16/23 23:00 Temperature 98 F Pulse Rate 53 L Pulse Rate [Apical ] 66 Respiratory Rate 18 18 Blood Pressure Blood Pressure [Ri ght Arm] 136/65 Pulse Oximetry 97 Oxygen Delivery Me thod Room Air 05/16/23 23:00 05/17/23 03:00 05/17/23 07:00 Temperature 98 F Pulse Rate 65 Pulse Rate [Apical ] 53 L 60 Respiratory Rate 16 20 Blood Pressure Blood Pressure [Ri ght Arm] 154/67 H Pulse Oximetry 96 98 Oxygen Delivery Me thod Room Air Room Air 05/17/23 07:00 05/17/23 07:00 05/17/23 11:00 Temperature 97.6 F 97.7 F Pulse Rate Pulse Rate [Apical ] 65 65 67 Respiratory Rate 18 18 18 Blood Pressure Blood Pressure [Ri ght Arm] 140/62 H 133/67 Pulse Oximetry 97 97 Oxygen Delivery Me thod Room Air Room Air 05/17/23 11:19 Temperature 97.7 F Pulse Rate 67 Pulse Rate [Apical ] Respiratory Rate 18 Blood Pressure 133/67 Blood Pressure [Ri ght Arm] Pulse Oximetry Oxygen Delivery Me thod Documenting provider has reviewed patient's vital signs: yes DS: Data Data Completed and Pending Completed studies during hospitalization: Procedures Excision of Left Lower Arm Subcutaneous Tissue and Fascia, Open Approach (02/18/23) Introduction of Other Gas into Respiratory Tract, Via Natural or Artificial Opening (03/30/23) Labs on day of discharge: Labs from last 24 hours 05/17/23 05:35 WBC 5.71 RBC 3.51 L Hgb 10.6 L Hct 33.5 MCV 95 MCH 30 MCHC 32 RDW Coeff of Phoebe 16.4 H Plt Count 127 L Neut % (Auto) 46.6 Lymph % (Auto) 38.2 Bulloch % (Auto) 10.2 Eos % (Auto) 4.6 Baso % (Auto) 0.2 Neut # (Auto) 2.67 Lymph # (Auto) 2.18 Bulloch # (Auto) 0.60 Eos # (Auto) 0.26 Baso # (Auto) 0.01 Sodium 138 Potassium 5.1 Chloride 107 Carbon Dioxide 22 BUN 65 H Creatinine 1.2 Estimated Creat Clear 28.35 Estimated GFR 44 Glucose 93 Calcium 8.9 Imaging Chest x-ray: Attestation: I have reviewed the pertinent imaging results. Radiologist's impression: Findings/Impression: Cardiovascular and mediastinum: Globular cardiomegaly with aortic tortuosity and atherosclerotic calcification. Lungs and pleural space: No pleural effusion or pneumothorax. Mild pulmonary cephalization without focal consolidation. Bones and soft tissues: Narrowing of the acromiohumeral distance bilaterally consistent with rotator cuff disease. Discharge Plan Discharge Disposition: [facility] [place] Date of Admission: 05/13/23 13:16 Attending Provider on Discharge: Eris Bal Primary Care Provider: Levon Jang Condition: Improved Anticipated Discharge Date/Time: 05/17/23 11:00 Discharge Medications: New losartan 50 mg Tablet 25 mg PO BID 30 Days Qty: 30 0RF Continued acetaminophen 500 mg tablet 1,000 mg PO BID Rx Instructions: PLUS 1000 MG BID PRN apixaban 2.5 mg tablet 2.5 mg PO BID Qty: 180 3RF omeprazole 20 mg capsule,delayed release(DR/EC) 20 mg PO DAILY Qty: 90 3RF ferrous gluconate 324 mg (38 mg iron) tablet 324 mg PO DAILY Systane Balance 0.6 % drops 1 drp ophthalmic (eye) BID Reguloid (psyllium husk-sucro) 3 gram/7 gram powder 1 tsp PO DAILY PRN melatonin 5 mg tablet 10 mg PO HS torsemide 20 mg Tablet 20 mg PO DAILY oxycodone 5 mg Tablet 2.5 mg PO BID PRN loperamide 2 mg tablet 2 mg PO Q4H PRN atorvastatin 40 mg tablet 40 mg PO HS allopurinol 100 mg tablet 100 mg PO WE@09 Patient Comments: Prescription is for daily use but patient takes it about once a week triamcinolone acetonide 0.1 % cream 1 applic topical BID PRN sennosides-docusate sodium [Stool Softener-Laxative] 8.6-50 mg Tablet 1 tab PO BID PRN Rx Instructions: prn constipation escitalopram oxalate 5 mg tablet 10 mg PO DAILY amlodipine 5 mg Tablet 5 mg PO DAILY Qty: 30 0RF Discontinued losartan 50 mg Tablet 50 mg PO BID Qty: 60 0RF spironolactone 25 mg Tablet 25 mg PO DAILY Qty: 30 0RF metoprolol succinate 25 mg Tablet Extended Release 24 Hr 25 mg PO DAILY Qty: 30 0RF Discharge Orders: Discharge Order (Routine); Ordered 05/17/23 Ordered By: Eris Bal Additional Instructions: You will need close follow-up to monitor your heart failure and kidney failure. This will involve measuring and recording your weight daily the next 4 weeks, having a visit with a provider and lab tests (basic metabolic panel) to check your electrolytes, your blood pressure, review your daily weights and monitor your symptoms. Your provider will probably need some ongoing adjustment of your diuretic so that you do not get too dry (kidney failure) or too wet (heart failure). If your weight is increasing you may need more diuretic, torsemide. If your weight is decreasing you may need less diuretic. If you blood pressure is too high you may need more blood pressure medication, increased amlodipine or increased losartan if potassium and kidney function are OK. Your provider can make these decisions depending on how you are doing. Follow-up with Dr. Jang or his colleagues in 7-10 days. Activity Level: Activity as Tolerated and Use Walker Discharge Diet: Regular and 2 gm Sodium Follow Up Appointments: Levon Jang MD [Primary Care Provider] - (weekly provider visit and basic metabolic panel for the next 2 weeks and monthly after that for 2 months) Giovanny Vallejo MD [Staff Physician] - Forms: [employer] Instructions Admit to: Assisted Living Discharge Potential: Fair Length of Stay: 30-90 days Can use facility standing orders?: Yes Code Status: DNR/DNI TEDs: Bilateral Knee Rehab Potential: Fair Therapy: Physical Therapy and Occupational Therapy Therapy Orders: Evaluate and Treat Oxygen: No Urinary Catheter: No Lab Orders: basic metabolic panel in 3-7 days, with results to Dr. Levon Jang. Orders are good >30 days: Yes Signature: Eris Bal
== END 2023-05-17 11:35 | DRG 683 ==
LOC: ED 13:04 → MEDSURG 13:19
PROVIDERS: Family Medicine; Admitting Provider Family Medicine; Emergency Provider Family Medicine; PCP Family Medicine; Visit Provider Family Medicine
DX: N17.9 Acute kidney failure, unspecified (principal); I13.0 Hypertensive heart and chronic kidney disease with heart failure and stage 1 through stage 4 chronic kidney disease, or unspecified chronic kidney disease; I27.20 Pulmonary hypertension, unspecified; D64.9 Anemia, unspecified; K21.9 Gastro-esophageal reflux disease without esophagitis; I73.9 Peripheral vascular disease, unspecified; I48.0 Paroxysmal atrial fibrillation; G47.00 Insomnia, unspecified; I34.0 Nonrheumatic mitral (valve) insufficiency; F41.9 Anxiety disorder, unspecified; Z90.410 Acquired total absence of pancreas; E78.5 Hyperlipidemia, unspecified; T44.7X5A Adverse effect of beta-adrenoreceptor antagonists, initial encounter
CPT/HCPCS: 36415; 71045; 80048; 80053; 81001; 82803; 82947; 82962; 83605; 83735; 83880; 84100; 84484; 85025; 87635; 93005; 94761; 97116; 97161; 97165; 99285; 99291; A9270; J0461; J0610; J1940; J7030; J7050; J7120; S5010

== ENCOUNTER 2023-05-21 11:35 | Outpatient (REF) | payer MEDICARE, BC, OTHER, SELFPAY ==
[2023-05-21 11:54] LABS: Chloride* 105 mmol/L (96-114); Sodium* 138 mmol/L (135-149)
[2023-05-21 11:55] LABS: Potassium* 4.5 mmol/L (3.6-5.1)
[2023-05-21 11:57] LABS: Blood Urea Nitrogen* 61 mg/dL (7-30); Carbon Dioxide* 23 mmol/L (20-32); Creatinine* 1.3 mg/dL (0.5-1.5); Estimated Glomerular Filt Rate 40 ml/min
[2023-05-21 11:58] LABS: Calcium* 9.3 mg/dL (8.4-10.6); Glucose* 91 mg/dL (60-115)
== END 2023-05-21 11:36 | disposition home or self-care (01) ==
LOC: NPINS 11:35
PROVIDERS: PCP Family Medicine; Visit Provider Nurse Practitioner Gerontology
DX: N18.9 Chronic kidney disease, unspecified (principal)
CPT/HCPCS: 80048

== ENCOUNTER 2023-05-26 10:33 | Outpatient (REF) | payer MEDICARE, BC, OTHER, SELFPAY ==
[2023-05-26 11:06] LABS: Chloride* 106 mmol/L (96-114); Potassium* 4.6 mmol/L (3.6-5.1); Sodium* 137 mmol/L (135-149)
[2023-05-26 11:08] LABS: Creatinine* 1.2 mg/dL (0.5-1.5); Estimated Glomerular Filt Rate 44 ml/min
[2023-05-26 11:09] LABS: Blood Urea Nitrogen* 52 mg/dL (7-30); Calcium* 9.2 mg/dL (8.4-10.6); Carbon Dioxide* 22 mmol/L (20-32); Glucose* 115 mg/dL (60-115)
== END 2023-05-26 10:34 | disposition home or self-care (01) ==
LOC: NPINS 10:33
PROVIDERS: PCP Family Medicine; Visit Provider Nurse Practitioner Gerontology
DX: I50.9 Heart failure, unspecified (principal); E87.5 Hyperkalemia
CPT/HCPCS: 80048

== ENCOUNTER 2023-06-01 14:53 | Outpatient (REF) | payer MEDICARE, BC, OTHER, SELFPAY ==
[2023-06-01 15:39] LABS: Chloride* 105 mmol/L (96-114); Potassium* 4.8 mmol/L (3.6-5.1); Sodium* 139 mmol/L (135-149)
[2023-06-01 15:41] LABS: Creatinine* 1.4 mg/dL (0.5-1.5); Estimated Glomerular Filt Rate 37 ml/min
[2023-06-01 15:42] LABS: Blood Urea Nitrogen* 42 mg/dL (7-30); Calcium* 8.8 mg/dL (8.4-10.6); Carbon Dioxide* 25 mmol/L (20-32); Glucose* 91 mg/dL (60-115)
== END 2023-06-01 14:54 | disposition home or self-care (01) ==
LOC: NPINS 14:53
PROVIDERS: PCP Family Medicine; Visit Provider Nurse Practitioner Gerontology
DX: I50.9 Heart failure, unspecified (principal)
CPT/HCPCS: 80048

== ENCOUNTER 2023-06-08 11:13 | Outpatient (REF) | payer MEDICARE, BC, OTHER, SELFPAY ==
--- OUTSIDE RECORDS SUMMARY | 2023-06-08 11:16 | XMS_ITS | Continuity of Care Document ---
Author Name Unknown Organization [facility] Address [address] [place] [address] Phone Care Team Providers Care Dev Technical Mgr Name Role Phone Seth Woods MD Unavailable [...] Copied on Encounter [facility], [address], [place], [id number], tel:[phone] [facility] [place] No Information Peggy Ann. [facility], [address], [address], [place], [place], [id number], [place]. tel:[phone] Office/Outpati ent Visit,Est, Mod [facility], [address], [place], [place], [id number], [place] tel:[phone] [facility] Spondylolist[facility]is, lumbar region Pierce Jose. [facility], [address], [place], [place], [id number], [place]. tel:[phone] Referring Provider: Angel Jaramillo, [facility] [address] [place], [address]. tel:[phone] Family History Family Member Type Diagnosis Age At Onset No Information Payers Payer name Insurance type Covered democrat ID Authoriza tion(s) Medicare MB [id number] [facility] [id number] Social History Type Description Quantity Date Captured [...]
[2023-06-08 12:20] LABS: Chloride* 105 mmol/L (96-114); Potassium* 4.2 mmol/L (3.6-5.1); Sodium* 138 mmol/L (135-149)
[2023-06-08 12:23] LABS: Blood Urea Nitrogen* 43 mg/dL (7-30); Carbon Dioxide* 24 mmol/L (20-32); Creatinine* 1.1 mg/dL (0.5-1.5); Estimated Glomerular Filt Rate 49 ml/min; Glucose* 158 mg/dL (60-115)
[2023-06-08 12:24] LABS: Calcium* 8.7 mg/dL (8.4-10.6)
== END 2023-06-08 11:14 | disposition home or self-care (01) ==
LOC: NPINS 11:13
PROVIDERS: PCP Family Medicine; Visit Provider Family Medicine
DX: I50.9 Heart failure, unspecified (principal)
CPT/HCPCS: 80048

== ENCOUNTER 2023-06-15 11:46 | Outpatient (REF) | payer MEDICARE, BC, OTHER, SELFPAY ==
[2023-06-15 12:15] LABS: Chloride* 106 mmol/L (96-114); Potassium* 4.4 mmol/L (3.6-5.1); Sodium* 137 mmol/L (135-149)
[2023-06-15 12:18] LABS: Blood Urea Nitrogen* 56 mg/dL (7-30); Carbon Dioxide* 24 mmol/L (20-32); Creatinine* 1.2 mg/dL (0.5-1.5); Estimated Glomerular Filt Rate 44 ml/min; Glucose* 99 mg/dL (60-115)
[2023-06-15 12:19] LABS: Calcium* 8.7 mg/dL (8.4-10.6)
== END 2023-06-15 11:47 | disposition home or self-care (01) ==
LOC: NPINS 11:46
PROVIDERS: PCP Family Medicine; Visit Provider Family Medicine
DX: I50.9 Heart failure, unspecified (principal)
CPT/HCPCS: 80048

== ENCOUNTER 2023-06-22 12:10 | Outpatient (REF) | payer MEDICARE, BC, OTHER, SELFPAY ==
[2023-06-22 14:20] LABS: Chloride* 106 mmol/L (96-114); Potassium* 4.7 mmol/L (3.6-5.1); Sodium* 138 mmol/L (135-149)
[2023-06-22 14:23] LABS: Blood Urea Nitrogen* 58 mg/dL (7-30); Carbon Dioxide* 22 mmol/L (20-32); Creatinine* 1.2 mg/dL (0.5-1.5); Estimated Glomerular Filt Rate 44 ml/min
[2023-06-22 14:24] LABS: Calcium* 8.8 mg/dL (8.4-10.6); Glucose* 83 mg/dL (60-115)
== END 2023-06-22 12:11 | disposition home or self-care (01) ==
LOC: NPINS 12:10
PROVIDERS: PCP Internal Medicine; Visit Provider Nurse Practitioner Gerontology
DX: I50.9 Heart failure, unspecified (principal)
CPT/HCPCS: 80048

== ENCOUNTER 2023-06-28 09:12 | Outpatient (REF) | payer MEDICARE, BC, OTHER, SELFPAY ==
[2023-06-28 09:49] LABS: Chloride* 109 mmol/L (96-114); Potassium* 4.4 mmol/L (3.6-5.1); Sodium* 142 mmol/L (135-149)
[2023-06-28 09:52] LABS: Blood Urea Nitrogen* 51 mg/dL (7-30); Carbon Dioxide* 24 mmol/L (20-32); Creatinine* 1.2 mg/dL (0.5-1.5); Estimated Glomerular Filt Rate 44 ml/min; Glucose* 136 mg/dL (60-115)
[2023-06-28 10:05] LABS: NT Pro B Type NatriureticPept* 1200 pg/mL
== END 2023-06-28 09:13 | disposition home or self-care (01) ==
LOC: NPINS 09:12
PROVIDERS: PCP Internal Medicine; Visit Provider Nurse Practitioner Gerontology
DX: I50.9 Heart failure, unspecified (principal)
CPT/HCPCS: 80048; 83880

== ENCOUNTER 2023-07-01 09:58 | Outpatient (CLI) | payer MEDICARE, OTHER, BC, SELFPAY ==
--- NOTE | 2023-07-01 10:15 | MR_ITS ---
[facility] [address] [address] Phone:?[phone] Fax:?[phone] Referring Physician Information: Sandor Urbina M.D. [address] [facility] [address] Phone:?[phone] Fax:?[phone] Patient:Eliot Foreman D.O.B:?1940 Sex:?Female Phone:?[phone] [facility] MRN:?[id number] Exam Date:?07/01/2023 EXAM: MRI OF THE LUMBAR SPINE CLINICAL INFORMATION: 83-year-old female with low back and right leg pain. TECHNICAL INFORMATION: T1, T2 fast spin echo and STIR sagittal thin sections through the lumbar spine with T1 and T2 fast spin echo axial sections at selected levels. INTERPRETATION: There is normal segmentation of the lumbar vertebral elements with hyperlordosis. Grade 1 anterior spondylolisthesis at L4-5 and L3-4 and retrolisthesis at T12-L1 and T11-12 is demonstrated. The conus medullaris has normal appearance at the L1 level. The upper bony sacrum is intact. There is paraspinous muscle atrophy but no mass or soft tissue abnormality. Endplate irregularity and a thoracolumbar distribution is noted at several levels. No evidence for acute vertebral body fracture. Small cortical renal cysts are present bilaterally. At L5-S1 there is normal disc contour and caliber of the canal and foramina. There is mild bilateral facet arthrosis. At L4-5 there is moderate disc degeneration with an unroofed broad-based bulge and central 5 mm protrusion. Facet arthropathy is present at this level as well. There is severe canal stenosis and left greater than right subarticular recess stenosis with impingement of the traversing L5 nerve roots and crowding of all traversing nerve roots. There is moderately severe bilateral foraminal stenosis with ganglionic impingement is well. At L3-4 there is moderate disc degeneration with an unroofed annular bulge due to the anteriorly displaced L3 vertebral body. Facet arthropathy and ligamentous thickening contribute to moderately severe canal stenosis with impingement of the traversing L4 nerve roots bilaterally. There is mild to moderate right and moderate left foraminal stenosis with mild ganglionic impingement due to facet arthropathy. Mild disc degeneration and bilateral facet arthropathy without canal or foraminal stenosis is demonstrated at the L2-3 and L1-2 levels. Moderate to advanced disc degeneration retrolisthesis at T12-L1 is demonstrated. There is no canal compromise. There is moderate right greater than left foraminal stenosis. CONCLUSION: 1. 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 There is severe canal stenosis at L4-5, moderately severe at L3-4 with management of the traversing nerve roots as described. 2. Significant multilevel foraminal stenosis. 3. No acute vertebral body fracture or paraspinous soft tissue pathology. Electronically signed on 07/02/2023 1:35:00 PM by Shane Morillo M.D.
== END 2023-07-01 09:59 | disposition home or self-care (01) ==
LOC: MRI 10:02
PROVIDERS: PCP Internal Medicine; Visit Provider Orthopaedic Surgery Sports Medicine
DX: M54.50 Low back pain, unspecified (principal); M48.061 Spinal stenosis, lumbar region without neurogenic claudication; M79.604 Pain in right leg
CPT/HCPCS: 72148

== ENCOUNTER 2023-07-06 10:27 | Outpatient (REF) | payer MEDICARE, OTHER, BC, SELFPAY ==
[2023-07-06 11:47] LABS: Chloride* 105 mmol/L (96-114)
[2023-07-06 11:48] LABS: Potassium* 5.7 mmol/L (3.6-5.1); Sodium* 140 mmol/L (135-149)
[2023-07-06 11:50] LABS: Creatinine* 1.2 mg/dL (0.5-1.5); Estimated Glomerular Filt Rate 44 ml/min
[2023-07-06 11:51] LABS: Anion Gap 8 mEq/L (7-15); Blood Urea Nitrogen* 53 mg/dL (7-30); Calcium* 9.2 mg/dL (8.4-10.6); Carbon Dioxide* 27 mmol/L (20-32); Glucose* 87 mg/dL (60-115)
== END 2023-07-06 10:28 | disposition home or self-care (01) ==
LOC: NPINS 10:27
PROVIDERS: PCP Internal Medicine; Visit Provider Family Medicine
DX: E87.5 Hyperkalemia (principal); I50.9 Heart failure, unspecified
CPT/HCPCS: 80048

== ENCOUNTER 2023-07-08 10:32 | Outpatient (REF) | payer MEDICARE, OTHER, BC, SELFPAY ==
[2023-07-08 11:12] LABS: Chloride* 107 mmol/L (96-114); Sodium* 140 mmol/L (135-149)
[2023-07-08 11:13] LABS: Potassium* 4.5 mmol/L (3.6-5.1)
[2023-07-08 11:15] LABS: Anion Gap 11 mEq/L (7-15); Carbon Dioxide* 22 mmol/L (20-32); Creatinine* 1.2 mg/dL (0.5-1.5); Estimated Glomerular Filt Rate 44 ml/min
[2023-07-08 11:16] LABS: Blood Urea Nitrogen* 55 mg/dL (7-30); Calcium* 9.1 mg/dL (8.4-10.6); Glucose* 93 mg/dL (60-115)
== END 2023-07-08 10:33 | disposition home or self-care (01) ==
LOC: NPINS 10:32
PROVIDERS: PCP Internal Medicine; Visit Provider Nurse Practitioner Gerontology
DX: E87.5 Hyperkalemia (principal)
CPT/HCPCS: 80048

== ENCOUNTER 2023-07-13 10:49 | Outpatient (REF) | payer MEDICARE, OTHER, BC, SELFPAY ==
[2023-07-13 11:29] LABS: Chloride* 108 mmol/L (96-114); Potassium* 4.6 mmol/L (3.6-5.1); Sodium* 141 mmol/L (135-149)
[2023-07-13 11:32] LABS: Anion Gap 9 mEq/L (7-15); Blood Urea Nitrogen* 48 mg/dL (7-30); Carbon Dioxide* 24 mmol/L (20-32); Estimated Glomerular Filt Rate 55 ml/min; Glucose* 81 mg/dL (60-115)
[2023-07-13 11:33] LABS: Calcium* 8.9 mg/dL (8.4-10.6)
== END 2023-07-13 10:50 | disposition home or self-care (01) ==
LOC: NPINS 10:49
PROVIDERS: PCP Internal Medicine; Visit Provider Nurse Practitioner Gerontology
DX: E87.5 Hyperkalemia (principal)
CPT/HCPCS: 80048

== ENCOUNTER 2023-07-20 10:08 | Outpatient (REF) | payer MEDICARE, OTHER, BC, SELFPAY ==
--- OUTSIDE RECORDS SUMMARY | 2023-07-20 10:11 | XMS_ITS | Continuity of Care Document ---
Author Name Unknown Organization [facility] Address [address] [place] [address] Phone Care Team Providers Care Home Health Care Physician Name Role Phone Seth Woods MD Unavailable [...] Copied on Encounter [facility], [address], [place], [id number], tel:[phone] [facility] [place] No Information Peggy Ann. [facility], [address], [address], [place], [place], [id number], [place]. tel:[phone] Office/Outpati ent Visit,Est, Mod [facility], [address], [place], [place], [id number], [place] tel:[phone] [facility] Spondylolisth esis, lumbar region Pierce Jose. [facility], [address], [place], [place], [id number], [place]. tel:[phone] Referring Provider: Angel Jaramillo, [facility] [address] [place], [address]. tel:[phone] Family History Family Member Type Diagnosis Age At Onset No Information Payers Payer name Insurance type Covered libertarian ID Authoriza tion(s) Medicare MB [id number] [facility] [id number] Social History Type Description Quantity Date Captured [...]
[2023-07-20 11:01] LABS: Chloride* 108 mmol/L (96-114); Potassium* 4.8 mmol/L (3.6-5.1); Sodium* 141 mmol/L (135-149)
[2023-07-20 11:04] LABS: Anion Gap 9 mEq/L (7-15); Blood Urea Nitrogen* 51 mg/dL (7-30); Carbon Dioxide* 24 mmol/L (20-32); Creatinine* 1.3 mg/dL (0.5-1.5); Estimated Glomerular Filt Rate 40 ml/min; Glucose* 111 mg/dL (60-115)
[2023-07-20 11:05] LABS: Calcium* 9.4 mg/dL (8.4-10.6)
== END 2023-07-20 10:09 | disposition home or self-care (01) ==
LOC: NPINS 10:08
PROVIDERS: PCP Internal Medicine; Visit Provider Family Medicine
DX: I50.9 Heart failure, unspecified (principal)
CPT/HCPCS: 80048

== ENCOUNTER 2023-07-27 09:49 | Outpatient (CLI) | payer MEDICARE, OTHER, BC, SELFPAY ==
--- OUTSIDE RECORDS SUMMARY | 2023-07-27 09:52 | XMS_ITS | Continuity of Care Document ---
Author Name Unknown Organization [facility] Address [address] [place] [address] Phone Care Team Providers Care Mechanic/Welder Name Role Phone Seth Woods MD Unavailable [...] Copied on Encounter [facility], [address], [place], [id number], tel:[phone] [facility] [place] No Information Peggy Ann. [facility], [address], [address], [place], [place], [id number], [place]. tel:[phone] Office/Outpati ent Visit,Est, Mod [facility], [address], [place], [place], [id number], [place] tel:[phone] [facility] Spondylolisth esis, lumbar region Pierce Jose. [facility], [address], [place], [place], [id number], [place]. tel:[phone] Referring Provider: Angel Jaramillo, [facility] [address] [place], [address]. tel:[phone] Family History Family Member Type Diagnosis Age At Onset No Information Payers Payer name Insurance type Covered libertarian ID Authoriza tion(s) Medicare MB [id number] [facility] [id number] Social History Type Description Quantity Date Captured [...]
== END 2023-07-27 09:50 | disposition home or self-care (01) ==
LOC: INJ CL 09:50
PROVIDERS: PCP Internal Medicine; Visit Provider Family Medicine
DX: M54.16 Radiculopathy, lumbar region (principal); M51.36 Other intervertebral disc degeneration, lumbar region
CPT/HCPCS: 64483; J1100; Q9966

== ENCOUNTER 2023-08-03 12:06 | Outpatient (REF) | payer MEDICARE, BC, OTHER, SELFPAY ==
[2023-08-03 12:51] LABS: Chloride* 104 mmol/L (96-114); Sodium* 137 mmol/L (135-149)
[2023-08-03 12:52] LABS: Potassium* 5.4 mmol/L (3.6-5.1)
[2023-08-03 12:54] LABS: Estimated Glomerular Filt Rate 55 ml/min
[2023-08-03 12:55] LABS: Anion Gap 7 mEq/L (7-15); Blood Urea Nitrogen* 45 mg/dL (7-30); Calcium* 9.2 mg/dL (8.4-10.6); Carbon Dioxide* 26 mmol/L (20-32); Glucose* 71 mg/dL (60-115)
== END 2023-08-03 12:07 | disposition home or self-care (01) ==
LOC: NPINS 12:06
PROVIDERS: PCP Internal Medicine; Visit Provider Nurse Practitioner Gerontology
DX: I50.9 Heart failure, unspecified (principal)
CPT/HCPCS: 80048

== ENCOUNTER 2023-08-31 07:25 | Outpatient (CLI) | payer MEDICARE, OTHER, BC, SELFPAY | END 2023-08-31 07:26 | disposition home or self-care (01) | LOC: INJ CL 07:27 | PROVIDERS: PCP Internal Medicine; Visit Provider Family Medicine | DX: M51.36 Other intervertebral disc degeneration, lumbar region (principal); M54.16 Radiculopathy, lumbar region | CPT/HCPCS: 64483; 80048; J1100; Q9966 ==

== ENCOUNTER 2023-09-15 15:48 | Outpatient (REF) | payer MEDICARE, OTHER, BC, SELFPAY ==
[2023-09-15 17:43] LABS: Chloride* 101 mmol/L (96-114); Potassium* 4.9 mmol/L (3.6-5.1); Sodium* 139 mmol/L (135-149)
[2023-09-15 17:45] LABS: Creatinine* 1.4 mg/dL (0.5-1.5); Estimated Glomerular Filt Rate 37 ml/min
[2023-09-15 17:46] LABS: Anion Gap 17 mEq/L (7-15); Blood Urea Nitrogen* 45 mg/dL (7-30); Calcium* 8.9 mg/dL (8.4-10.6); Carbon Dioxide* 21 mmol/L (20-32); Glucose* 129 mg/dL (60-115)
== END 2023-09-15 15:49 | disposition home or self-care (01) ==
LOC: NPINS 15:48
PROVIDERS: PCP Internal Medicine; Visit Provider Nurse Practitioner Gerontology
DX: I50.9 Heart failure, unspecified (principal)
CPT/HCPCS: 80048

== ENCOUNTER 2023-09-28 12:03 | Outpatient (REF) | payer MEDICARE, OTHER, BC, SELFPAY ==
[2023-09-28 12:53] LABS: Chloride* 106 mmol/L (96-114); Potassium* 5.2 mmol/L (3.6-5.1); Sodium* 141 mmol/L (135-149)
[2023-09-28 12:56] LABS: Anion Gap 11 mEq/L (7-15); Blood Urea Nitrogen* 54 mg/dL (7-30); Carbon Dioxide* 24 mmol/L (20-32); Creatinine* 1.5 mg/dL (0.5-1.5); Estimated Glomerular Filt Rate 34 ml/min
[2023-09-28 12:57] LABS: Calcium* 8.9 mg/dL (8.4-10.6); Glucose* 94 mg/dL (60-115)
== END 2023-09-28 12:04 | disposition home or self-care (01) ==
LOC: NPINS 12:03
PROVIDERS: PCP Internal Medicine; Visit Provider Nurse Practitioner Gerontology
DX: I10 Essential (primary) hypertension (principal)
CPT/HCPCS: 80048

== ENCOUNTER 2023-10-12 10:10 | Outpatient (REF) | payer MEDICARE, BC, OTHER, SELFPAY ==
--- OUTSIDE RECORDS SUMMARY | 2023-10-12 10:13 | XMS_ITS | Continuity of Care Document ---
Author Name Unknown Organization [facility] Address [address] [place] [address] Phone Care Team Providers Care Expense Clerk Name Role Phone RN, RN Unavailable Unavailable Allergies, Adverse Reactions, Alerts Substance Reaction Status Criticality No Known Drug Allergies Active No I nformation Medications Medication Instructions Dosage Effective Dates (start - stop) Status Comments [place] 5 mg-325 mg tablet take 1-2 tablet(s) by oral route every 4-6 hours as needed for pain - Active Norvasc 5 mg tablet take 1 tablet by ora l route every day 5 MG - Active atenolol 100 mg tablet take 1 tablet by oral route every day 100 MG - Active colchicine 0.6 mg tablet take 1 tablet by oral route every day 0.6 MG - Active furosemide 40 mg tablet take 1 tablet by oral route 2 times every day 40 MG - Active ferrous gluconate 325 mg (36 mg iron) tablet take one tablet by mouth two times daily - Active omeprazole 20 mg capsule,delayed release take 1 capsule by oral route every day 30 minutes to 1 hour before a meal 20 MG - Active simvastatin 20 mg tablet take 1 tablet by oral route every day in the evening 20 MG - Active lidocaine 5 % adhesive patch apply 1 patch by transdermal route every day (May wear up to 12hours.) 1 patch - Active lisinopril 40 mg tablet take 1 tablet by oral route every day 40 MG - Active ascorbic acid 250 mg tablet take one tablet by mouth daily - Active aspirin 81 mg chewable tablet chew 1 tablet by oral route every day 81 MG - Active Fish Oil Concentrate 1,000 mg capsule take one capsule by mouth daily - Active Multiple Vitamins tablet take one tablet by mouth daily - Active Procedures Procedure Date RF Lumbar/Sacral Single Level 6 RF Lumbar/Sacral Addt'l Level 6 RF Lumbar/Sacral Single Level 6 RF Lumbar/Sacral Addt'l Level 6 Adverse Events did not occur Patient without preop order for prophyla ctic IV an RF Lumbar/Sacral Single Level 6 RF Lumbar/Sacral Addtl Level RF Lumbar/Sacral Addt'l Level 6 RF Lumbar/Sacral Single Level 6 Adverse Events did not occur Patient without preop order for prophyla ctic IV an RF Lumbar/Sacral Single Level 6 RF Lumbar/Sacral Addtl Level Inj Anes Facet Jt; Lumb/sac-2nd Level Se Inj Anes Facet Jt; Lumb/sac-1st Level Se Inj Anes Facet Jt; Lumb/sac-1st Level Se Inj Anes Facet Jt; Lumb/sac-1st Level Se Inj Anes Facet Jt; Lumb/sac-2nd Level Se Inj Anes Facet Jt; Lumb/sac-2nd Level Se Adverse Events did not occur Patient without preop order for prophyla ctic IV an Inj Anes Facet Jt; Lumb/sac-1st Level Se Inj Anes Facet Jt; Lumb/sac-2nd Level Se Inj Anes Facet Jt; Lumb/sac-1st Level Au Inj Anes Facet Jt; Lumb/sac-2nd Level Au Inj Anes Facet Jt; Lumb/sac-1st Level Au Inj Anes Facet Jt; Lumb/sac-2nd Level Au Inj-s I Jt Arthrog &/ Anes/sara 16 Fluoro Guidance - NonSpine Sacroiliac Joint Injection Adverse Events did not occur Patient without preop order for prophyla ctic IV an Inject SI Joint Arthrography Arthrocentesis/aspir/inj; [place] 16 Fluoro Guidance - NonSpine Adverse Events did not occur Arthrocentesis/aspir/inj; [place] 16 Fluoro Guidance - NonSpine Adverse Events did not occur Patient without preop order for prophyla ctic IV an Inject Joint Large Fluoro Needle NonSpine Inj-s I Jt Arthrog &/ Anes/sara 16 Fluoro Guidance - NonSpine Adverse Events did not occur Sacroiliac Joint Injection Adverse Events did not occur Patient without preop order for prophyla ctic IV an Inject SI Joint Arthrography New Pt Eval 45 Min Advance Directives Directive Yes / No Effective Date File Name No Information Encounters Encounter Description Practice Location Reason(s) For Visit Diagnoses Date Provider Providers Copied on Encounter [facility], [address], [place], [id number], [place] tel:[phone] [facility] No Information 7 RN RN. [address], [place], [place], [id number], [place]. tel:[phone] [facility], [address], [place], [address], [place] tel:[phone] [facility] [place] Spondylosis w/o myelopathy or radiculopathy, lumbar regionOther specified dorsopathies, lumbar regionOther intervertebral disc degeneration, lumbar region No Information [facility], [address], [place], [place], [id number], [place] tel:[phone] [facility] [place] No Information No Information [facility], [address], [place], [address], [place] tel:[phone] [facility] [place] Spondylosis w/o myelopathy or radiculopathy, lumbar regionOther specified dorsopathies, lumbar region 6 No Information [facility], [address], [place], [place], [address], [place] tel:[phone] [facility] [place] No Information 6 No Information [facility], [address], [place], [address], [place] tel:[phone] [facility] [place] Spondylosis without myelopathy or radiculopathy, lumbar regionOther specified dorsopathies, lumbar region Sep-0 6 No Information [facility], [address], [place], [place], [address], [place] tel:[phone] [facility] [place] No Information Sep-0 6 No Information [facility], [address], [place], [address], [place] tel:[phone] [facility] [place] Spondylosis without myelopathy or radiculopathy, lumbar regionOther specified dorsopathies, lumbar region 6 No Information [facility], [address], [place], [place], [id number], [place] tel:[phone] [facility] [place] No Information 6 No Information [facility], [address], [place], [address], [place] tel:[phone] [facility] [place] Sacroiliitis, not elsewhere classified Jun-0 6 No Information [facility], [address], [place], [place], [address], [place] tel:[phone] [facility] [place] No Information 6 No Information [facility], [address], [place], [address], [place] tel:[phone] [facility] [place] Sacroiliitis, not elsewhere classified 6 No Information [facility], [facility], [address], [place], [place], [address], [place] tel:[phone] [facility] [place] No Information 6 No Information [facility], [address], [place], [address], [place] tel:[phone] [facility] [place] Sacroiliitis, not elsewhere classified 6 No Information [facility], [facility], [address], [place], [place], [address], [place] tel:[phone] [facility] [place] No Information No Information New Pt Eval 45 Min [facility], [address], [place], [place], [address], [place] tel:[phone] [facility] Sacroiliitis, not elsewhere classifiedTroc hanteric bursitis, left hip No Information Referring Provider: Angel Bermudez MD C, [address] , [place], [address]. tel:[phone] Family History Family Member Type Diagnosis Age At Onset Sister Problem (finding) hypertension Brother Problem (finding) hypertension Mother Problem (finding) Heart Disease Father Problem (finding) Heart Disease Sister Problem (finding) Renal disease Payers Payer name Insurance type Covered libertarian ID Authorsivaa tion(s) Medicare Part B [id number] Social History Type Description Quantity Date Captured Comments Sex Female Smoking Status No Information Chief Complaint And Reason For Visit No Information Reason For Referral Reason For Referral No Information Plan Of Treatment Date Type Action Status Future Order: Radiology Order MR I - Lumbar Spine W/O Contrast ([id number]), Ordered on: Ordered History Of Present Illness Encounter Date Complaint History Of Prese nt Illness No Information Functional Status Date Functional Assessmen t No Information Instructions Date Instruction Additional Infor mation No Information Assessments Type Assessment Date No Information Patient Care Teams Name Effective Dates (start - stop) Status Members No Information
--- OUTSIDE RECORDS SUMMARY | 2023-10-12 10:13 | XMS_ITS | Continuity of Care Document ---
Author Name Unknown Organization [facility] Address [address] [place] [address] Phone Care Team Providers Care Mill Operator Name Role Phone Seth Woods MD Unavailable Unavailable Allergies, Adverse Reactions, Alerts Substance Reaction Status Criticality No Known Allergies Active No Inform ation Medications Medication Instructions Dosage Effective Dates (start - stop) Status Comments AMLODIPINE BESYLATE (unknown strength) Not Available - [...] LISINOPRIL (unknown strength) Not Available - Active HYDROCODONE-ACETAMINOPH EN (unknown strength) Not Available - Active ASPIRIN (unknown strength) Not Available - Active PREDNISONE (unknown strength) Not Available - Active Procedures Procedure Date X-Ray Exam Lwr Spine, Min 4 Views Office/Outpatient Visit,Est, Mod 2016 Advance Directives Directive Yes / No Effective Date File Name No Information Encounters Encounter Description Practice Location Reason(s) For Visit Diagnoses Date Provider Providers Copied on Encounter [facility], [address], [place], [id number], tel:[phone] [facility] [place] No Information Peggy Ann. [facility], [address], [place], [place], [address], [place]. tel:[phone] Office/Outpati ent Visit,Est, Mod [facility], [address], [place], [place], [id number], [place] tel:[phone] [facility] Spondylolisth esis, lumbar region Pierce Jose. [facility], [address], [place], [place], [address], [place]. tel:[phone] Referring Provider: Angel Jaramillo, [facility] [address] [place], [address]. tel:[phone] Family History Family Member Type Diagnosis Age At Onset No Information Payers Payer name Insurance type Covered republican ID Authoriza tion(s) Medicare MB [id number] [facility] [id number] Social History Type Description Quantity Date Captured [...]
[2023-10-12 10:53] LABS: Potassium* 4.8 mmol/L (3.6-5.1)
[2023-10-12 10:56] LABS: Creatinine* 1.3 mg/dL (0.5-1.5); Estimated Glomerular Filt Rate 40 ml/min
== END 2023-10-12 10:11 | disposition home or self-care (01) ==
LOC: NPINS 10:10
PROVIDERS: PCP Internal Medicine; Visit Provider Nurse Practitioner Gerontology
DX: N18.9 Chronic kidney disease, unspecified (principal); E87.5 Hyperkalemia
CPT/HCPCS: 82565; 84132

== ENCOUNTER 2023-11-23 11:14 | Outpatient (REF) | payer MEDICARE, BC, OTHER, SELFPAY ==
--- OUTSIDE RECORDS SUMMARY | 2023-11-23 11:17 | XMS_ITS | Continuity of Care Document ---
Author Name Unknown Organization [facility] Address [address] [place] [address] Phone Care Team Providers Care Orthodontic Technician Name Role Phone RN, RN Unavailable Unavailable Allergies, Adverse Reactions, Alerts Substance Reaction Status Criticality No Known Drug Allergies Active No I nformation Medications Medication Instructions Dosage Effective Dates (start - stop) Status Comments [place] 5 mg-325 mg tablet take 1-2 tablet(s) [...] Diagnoses Date Provider Providers Copied on Encounter [facility], [address], [place], [id number], [place] tel:[phone] [facility] No Information 7 RN RN. [address], [place], [place], [address], [place]. tel:[phone] [facility], [address], [place], [address], [place] tel:[phone] [facility] [place] Other intervertebral disc degeneration, lumbar regionOther specified dorsopathies, lumbar regionSpondylo sis w/o myelopathy or radiculopathy, lumbar region No Information [facility], [facility], [address], [place], [place], [address], [place] tel:[phone] [facility] Rachel No Information No Information [facility], [address], [place], [address], [place] tel:[phone] [facility] [place] Other specified dorsopathies, lumbar regionSpondylo sis w/o myelopathy or radiculopathy, lumbar region Aug- 6 No Information [facility], [address], [place], [place], [address], [place] tel:[phone] [facility] [place] No Information 6 No Information [facility], [address], [place], [address], [place] tel:[phone] [facility] [place] Other specified dorsopathies, lumbar regionSpondylo sis without myelopathy or radiculopathy, lumbar region Sep-0 6 No Information [facility], [address], [place], [place], [address], [place] tel:[phone] [facility] [place] No Information Sep-0 6 No Information [facility], [address], [place], [address], [place] tel:[phone] [facility] [place] Spondylosis without myelopathy or radiculopathy, lumbar regionOther specified dorsopathies, lumbar region Jun- 6 No Information [facility], [address], [place], [place], [address], [place] tel:[phone] [facility] [place] No Information 6 No Information [facility], [address], [place], [address], [place] tel:[phone] [facility] [place] Sacroiliitis, not elsewhere classified Jun-0 6 No Information [facility], [address], [place], [place], [address], [place] tel:[phone] [facility] [place] No Information 6 No Information [facility], [address], [place], [address], [place] tel:[phone] [facility] [place] Sacroiliitis, not elsewhere classified No Information [facility], [facility], [address], [place], [place], [address], [place] tel:[phone] [facility] [place] No Information 6 No Information [facility], [address], [place], [address], [place] tel:[phone] [facility] [place] Sacroiliitis, not elsewhere classified No Information [facility], [facility], [address], [place], [place], [address], [place] tel:[phone] [facility] [place] No Information No Information New Pt Eval 45 Min [facility], [address], [place], [place], [address], [place] tel:[phone] [facility] Trochanteric bursitis, left hipSacroiliiti s, not elsewhere classified No Information Referring Provider: Angel Bermudez MD C, [address] [place], [address]. tel:[phone] Family History Family Member Type Diagnosis Age At Onset Sister Problem (finding) hypertension Brother Problem (finding) hypertension Mother Problem (finding) Heart Disease Father Problem (finding) Heart Disease Sister Problem (finding) Renal disease Payers Payer name Insurance type Covered alliance party ID Authoriza tion(s) Medicare Part B [id number] Social History Type Description Quantity Date Captured Comments Sex Female Smoking Status No Information Chief Complaint And Reason For Visit No Information Reason For Referral Reason For Referral No Information Plan Of Treatment Date Type Action Status Future Order: Radiology Order MR I - Lumbar Spine W/O Contrast ([id number]), Ordered on: Ordered History Of Present Illness Encounter Date Complaint History Of Prese nt Illness No Information Functional Status Date Functional Assessmen t No Information Instructions Date Instruction Additional Infor mation No Information Assessments Type Assessment Date No Information Patient Care Teams Name Effective Dates (start - stop) Status Members No Information
--- OUTSIDE RECORDS SUMMARY | 2023-11-23 11:17 | XMS_ITS | Continuity of Care Document ---
Author Name Unknown Organization [facility] Address [address] [place] [address] Phone Care Team Providers Care Chief Vendor Quality Name Role Phone Seth Woods MD Unavailable [...] Copied on Encounter [facility], [address], [place], [id number], tel:[phone] [facility] [place] No Information Peggy Ann. [facility], [address], [place], [place], [address], [place]. tel:[phone] Office/Outpati ent Visit,Est, Mod [facility], [address], [place], [place], [address], [place] tel:[phone] [facility] Spondylolisth esis, lumbar region Pierce Jose. [facility], [address], [place], [place], [address], [place]. tel:[phone] Referring Provider: Angel Jaramillo, [facility] [address] [place], [address]. tel:[phone] Family History Family Member Type Diagnosis Age At Onset No Information Payers Payer name Insurance type Covered libertarian ID Authoriza tion(s) Medicare MB [id number] [facility] [id number] Social History Type Description Quantity Date Captured [...]
--- OUTSIDE RECORDS SUMMARY | 2023-11-23 11:18 | XMS_ITS | Clinical Summary ---
Author Name Unknown Organization [facility] [employer] [facility] Address [place], [place] [address] Care Team Providers Care Newspaper Vendor Name Role Phone Gómez Bermudez MD Primary Care Provider Allergies Active Allergy Reactions Criticality Noted Date Comments Cephalexin Itching 07/04/2020 Medications Medication Sig Dispensed Refills Start Date End Date Status OMEPRAZOLE 20 MG CAP, DELAYED RELEASE 20 mg Oral EVERY DAY 1 month 3 04/10/2009 Active allopurinol (ZYLOPRIM) 100 mg tablet Take 200 mg by mouth once daily. 0 Active furosemide (LASIX) 40 mg tablet Take 40 mg by mouth 2 times daily. 0 Active multivit-minerals/f olic acid (DAILY MULTIPLE FOR WOMEN 50+ ORAL) Take 1 tablet by mouth once daily. 0 Active HYDROcodone-acetami nophen, 5-325 mg, (NORCO) per tablet Take 0.5-1 tablets by mouth every 6 hours if needed for Pain Max acetaminophen dose: 4000 mg in 24 hrs. 0 Active ferrous gluconate 324 mg (37 mg iron) tablet Take 1 tablet by mouth once daily with a meal. 0 Active ascorbic acid, vitamin C, (VITAMIN C) 250 mg tablet Take 250 mg by mouth once daily. 0 Active fish oil-omega-3 fatty acids (FISH OIL) 1,200-360 mg cap Take 1 capsule by mouth once daily. One capsule is 1200 mg-360 mg 0 Active vitamin a-vitamin c-vitamin e-minerals (VISION FORMULA) tablet Take 1 tablet by mouth once daily. 0 Active artificial tears, PEG 400-0.25%, (BLINK GEL TEARS) 0.25 % ophthalmic drop Place 1 Drop into both eyes each time if needed for Dry Eyes. Uses Blink tears (non-gel) formula 0 Active metoprolol tartrate (LOPRESSOR) 50 mg tabletIndications:H ypertension, unspecified type Take 1 tablet by mouth 2 times daily. 60 tablet 0 06/26/2018 Active HYDROcodone-acetami nophen, 5-325 mg, (NORCO) per tabletIndications:P AD (peripheral artery disease) (HC) Take 1 tablet by mouth every 6 hours if needed for Pain Max acetaminophen dose: 4000 mg in 24 hrs. 20 tablet 0 06/26/2018 Active atorvastatin (LIPITOR) 40 mg tabletIndications:P AD (peripheral artery disease) (HC),Permanent atrial fibrillation (HC) Take 1 tablet by mouth at bedtime. 90 tablet 3 07/22/2018 Active apixaban (ELIQUIS) 2.5 mg tabletIndications:P ermanent atrial fibrillation (HC) Take 1 tablet by mouth 2 times daily. Please schedule annual apt for further refills [phone] 180 tablet 0 08/11/2019 Active oxyCODONE (ROXICODONE) 5 mg immediate release tablet 0 07/01/2020 Active SENNA PLUS 8.6-50 mg cap 0 06/24/2020 Active traMADoL (ULTRAM) 50 mg tablet TAKE 1 TABLET (50 MG) BY MOUTH EVERY SIX HOURS NEEDED 0 07/15/2020 Active triamcinolone (ARISTOCORT; KENALOG) 0.1 % creamIndications:Wo und of left lower extremity, subsequent encounter Apply to reddened areas with each dressing change to assist with itching. 15 g 2 12/26/2020 Active medical supply, miscellaneous (GRADUATED COMPRESSION STOCKINGS)Indicatio ns:Venous insufficiency of both lower extremities For personal use. Length: calf Strength: 20-30 mmHg juxtalite velcro compression bilateral left lower extremity 2 Packet 3 12/31/2020 Active Active Problems Problem Noted Date Diagnosed Date Staph infection 08/20/2020 Positive culture finding 08/20/2020 Non-healing non-surgical wound 08/20/2020 Leg wound, left 07/04/2020 Lymphedema 07/04/2020 PAD (peripheral artery disease) 06/23/2018 Diastolic heart failure 06/20/2018 Elevated troponin 06/20/2018 GERD (gastroesophageal reflux disease) 8 Pulmonary hypertension 06/20/2018 Gout 06/20/2018 Atrial fibrillation 06/20/2018 HLD (hyperlipidemia) 06/20/2018 Hypertension 04/05/2009 Stasis edema 04/05/2009 Anemia due to acute blood loss 04/05/2009 IPMN (intraductal papillary mucinous neoplasm) 0 03/30/2009 Critical lower limb ischemia Resolved Problems Problem Noted Date Diagnosed Date Resolved Date Leg wound, right 07/04/2020 10/15/2020 Leukocytosis 04/05/2009 06/20/2018 Hyponatremia 04/05/2009 06/20/2018 Excess fluid volume 04/05/2009 06/20/20 18 Encounters Date Type Department Care Team Description 08/31/2023 8:00 AM CDT Office Visit [facility] at [address] [address] Haroon Kirkpatrick MD Procedure (Right L5-S1 TFESI) from Last 3 Months Immunizations Name Administration Dates Next Due Pneumococcal Poly,23-Valent (Pneumovax) 04/26/20 04 Family History Medical History Relation Name Comments Hypertension Brother 1 Hypertension Brother 2 Hypertension Father Heart Disease Mother ASCVD, CHF Relation Name Status Comments Brother 1 Brother 2 Father (Age 78) Mother (Age 76) Social History Tobacco Use Types Packs/Day Years Used Date Smoking Tobacco: Former Cigarettes 0.3 40 Smokeless Tobacco: Never Tobacco Cessation:Counseling Given: Yes Comments:Smokes about 1 pack/week Alcohol Use Standard Drinks/Week Comments Yes 0 (1 standard drink = 0.6 oz pur e alcohol) rare Social Connections Answer Date Recorded Frequency of Communication with Friends and Fami ly Not on file 07/27/2023 Financial Resource Strain Answer Date R ecorded Difficulty of Paying Living Expenses Not on file 11/15/2021 Difficulty of Paying Living Expenses Not on file 11/15/2021 Sex and Gender Information Value Date Recorded Sex Assigned at Not on file Gender Identity Female 08/20/2020 12:26 PM CDT Sexual Orientation Not on file Obstetrics History Last Filed Vital Signs Vital Sign Reading Time Taken Comments Blood Pressure 136/85 12/31/2020 10: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 Height 160 cm (5' 3) 07/22/2018 11:18 AM CDT Body Mass Index 31.85 07/22/2018 11:18 AM CDT Plan of Treatment Health Maintenance Due Date Last Done Comments Tdap 1949 Depression screening for age 12+ 1950 Tetanus booster 1958 Zoster (shingles) series for age 50+ (1 of 2) 1988 DEXA/DXA scan for age 65+ 2003 Medicare Wellness for age 65+ 2003 Pneumococcal series for age 65+ (2 of 2 - PCV) 04/26/2005 04/26/2004 BMI (ht and wt on same day) for age 18+ 07/22/2019 07/22/2018 COVID-19 vaccine series (2022-24 season) 2023 03/19/2022, 10/03/2021, 01/18/2021, Additional history exists Influenza for age 65+ 07/16/2023 Medical Devices Implanted Type Area Global Safety Officer Device Identifier Shelf Expiration Date Model / Serial / Lot Patch Vasc 0.8x8cm Xenosure Biological Pericardial - [id number] Implanted:Qty: 1 on 06/22/2018 by Zeina Bocanegra MD at [facility] Right: Femoral Artery [employer] 12/12/2023 0.8P8# / / [id number] Procedures Procedure Name Priority Date/Time Associated Diagnosis Comments AMB EPIDURAL STEROID INJECTION Routine 08/31/2023 12:00 AM CDT DDD (degenerative disc disease), lumbar Lumbar radiculopathy from Last 3 Months Results * AMB EPIDURAL STEROID INJECTION (08/31/2023 12:00 AM CDT) Haroon Kirkpatrick MD NEUROLOGY ORD from Last 3 Months Advance Directives Documents on File Type Date Recorded Patient Spring Maker Expl anation Healthcare Directive 04/11/2009 EXP Latest Code Status on File Code Status Date Activated Date Inactivated Comments DNR 06/20/2018 2:10 PM 06/26/2018 5:54 PM Code Status History Code Status Date Activated Date Inactivated Comments Full Code 06/20/2018 12:34 PM 06/20/2018 2:10 PM Full Code 04/15/2009 5:37 PM 04/16/2009 10:32 PM Full Code 04/15/2009 4:49 PM 04/15/2009 5:37 PM Full Code 03/29/2009 3:04 PM 04/10/2009 5:21 PM Care Teams Newspaper Vendor Relationship Specialty Start Date End Date Gómez Bermudez MD PCP - General 09/28/07
[2023-11-23 12:45] LABS: Potassium* 4.4 mmol/L (3.6-5.1)
[2023-11-23 12:48] LABS: Creatinine* 1.4 mg/dL (0.5-1.5); Estimated Glomerular Filt Rate 37 ml/min
== END 2023-11-23 11:15 | disposition home or self-care (01) ==
LOC: NPINS 11:14
PROVIDERS: PCP Internal Medicine; Visit Provider Family Medicine
DX: N18.9 Chronic kidney disease, unspecified (principal); E87.5 Hyperkalemia
CPT/HCPCS: 82565; 84132

== ENCOUNTER 2024-02-22 08:05 | Outpatient (REF) | payer MEDICARE, BC, OTHER, SELFPAY ==
--- OUTSIDE RECORDS SUMMARY | 2024-02-22 08:09 | XMS_ITS | Continuity of Care Document ---
Author Name Unknown Organization [facility] Address [address] [place] [address] Phone Care Team Providers Care Clinical Documentation Consultant Name Role Phone RN, RN Unavailable Unavailable Allergies, Adverse Reactions, Alerts Substance Reaction Status Criticality No Known Drug Allergies Active No I nformation Medications Medication Instructions Dosage Effective Dates (start - stop) Status Comments Burden 5 mg-325 mg tablet take 1-2 tablet(s) [...] Providers Copied on Encounter [facility], [address], [place], [id number], [place] tel:[phone] [facility] No Information 7 RN RN. [address], [address], [place], [place], [id number], [place]. tel:[phone] [facility], [address], [place], [address], [place] tel:[phone] [facility] Other intervertebral disc degeneration, lumbar regionOther specified dorsopathies, lumbar regionSpondylo sis w/o myelopathy or radiculopathy, lumbar region No Information [facility], [facility], [address], [place], [place], [id number], [place] tel:[phone] [facility] [place] No Information No Information [facility], [address], [place], [address], [place] tel:[phone] [facility] Spondylosis w/o myelopathy or radiculopathy, lumbar regionOther specified dorsopathies, lumbar region 6 No Information [facility], [address], [place], [place], [id number], [place] tel:[phone] [facility] [place] No Information 6 No Information [facility], [address], [place], [address], [place] tel:[phone] [facility] Other specified dorsopathies, lumbar regionSpondylo sis without myelopathy or radiculopathy, lumbar region Sep-0 6 No Information [facility], [address], [place], [place], [id number], [place] tel:[phone] [facility] [place] No Information Sep-0 6 No Information [facility], [address], [place], [address], [place] tel:[phone] [facility] [place] Other specified dorsopathies, lumbar regionSpondylo sis without myelopathy or radiculopathy, lumbar region 6 No Information [facility], [address], [place], [place], [id number], [place] tel:[phone] [facility] [place] No Information 6 No Information [facility], [address], [place], [address], [place] tel:[phone] [facility] Sacroiliitis, not elsewhere classified Jun-0 6 No Information [facility], [address], [place], [place], [id number], [place] tel:[phone] [facility] [place] No Information 6 No Information [facility], [address], [place], [address], [place] tel:[phone] [facility] [place] Sacroiliitis, not elsewhere classified No Information [facility], [facility], [address], [place], [place], [id number], [place] tel:[phone] [facility] [place] No Information 6 No Information [facility], [address], [place], [address], [place] tel:[phone] [facility] [place] Sacroiliitis, not elsewhere classified No Information [facility], [facility], [address], [place], [place], [id number], [place] tel:[phone] [facility] [place] No Information No Information New Pt Eval [address] [facility] [facility], [address], [place], [place], [address], [place] tel:[phone] [facility] Trochanteric bursitis, left hipSacroiliiti s, not elsewhere classified No Information Referring Provider: Angel Bermudez MD C, [address] [place], [address]. tel:[phone] Family History Family Member Type Diagnosis Age At Onset Sister Problem (finding) hypertension Brother Problem (finding) hypertension Mother Problem (finding) Heart Disease Father Problem (finding) Heart Disease Sister Problem (finding) Renal disease Payers Payer name Insurance type Covered constitution party ID Authoriza tion(s) Medicare Part B [id number] Social History Type Description Quantity Date Captured Comments Sex Female Smoking Status No Information Chief Complaint And Reason For Visit No Information Reason For Referral Reason For Referral No Information Plan Of Treatment Date Type Action Status Future Order: Radiology Order MR I - Lumbar Spine W/O Contrast ([id number]), Ordered on: Ordered History Of Present Illness Encounter Date Complaint History Of Prese nt Illness No Information Functional Status Date Functional Assessmen t No Information Instructions Date Instruction Additional Infor mation No Information Assessments Type Assessment Date No Information Patient Care Teams Name Effective Dates (start - stop) Status Members No Information
--- OUTSIDE RECORDS SUMMARY | 2024-02-22 08:09 | XMS_ITS | Continuity of Care Document ---
Author Name Unknown Organization [facility] Address [address] [place] [address] Phone Care Team Providers Care Revenue Stamper Name Role Phone Seth Woods MD Unavailable Unavailable Allergies, Adverse Reactions, Alerts Substance Reaction Status Criticality No Known Allergies Active No Inform ation Medications Medication Instructions Dosage Effective Dates (start - stop) Status Comments LISINOPRIL (unknown strength) Not Available - Active SIMVASTATIN (unknown strength) Not Available - Active OMEPRAZOLE (unknown strength) Not Available - Active FISH OIL (unknown strength) Not Available - Active MULTIVITAMINS (unknown strength) Not Available - Active ATENOLOL (unknown strength) Not Available - Active ASCORBIC ACID (unknown strength) Not Available - Active FUROSEMIDE (unknown strength) Not Available - Active IRON (unknown strength) Not Available - Ac tive ALLOPURINOL (unknown strength) Not Available - Active AMLODIPINE BESYLATE (unknown strength) Not Available - Active HYDROCODONE-ACETAMINOPH [...] Copied on Encounter [facility], [address], [place], [id number], tel:[phone] [facility] No Information Peggy Ann. [facility], [address], [place], [place], [id number], [place]. tel:[phone] Office/Outpati ent Visit,Est, Mod [facility], [address], [place], [place], [id number], [place] tel:[phone] [facility] Spondylol[facility], lumbar region Pierce Jose. [facility], [address], [place], [place], [id number], [place]. tel:[phone] Referring Provider: Angel Jaramillo, [facility] [address] [place], [address]. tel:[phone] Family History Family Member Type Diagnosis Age At Onset No Information Payers Payer name Insurance type Covered republican ID Authoriza tion(s) [place] [id number] [facility] [id number] Social History Type Description Quantity Date Captured [...]
--- OUTSIDE RECORDS SUMMARY | 2024-02-22 08:09 | XMS_ITS | Clinical Summary ---
Author Name Unknown Organization [employer] [facility] Address [place], [place] [address] Care Team Providers Care Livestock Buyer Name Role Phone Gómez Bermudez MD Primary Care Provider Allergies Active Allergy Reactions Criticality Noted Date Comments Cephalexin Itching 07/04/2020 Medications Medication Sig Dispensed Refills Start Date End Date Status OMEPRAZOLE 20 MG CAP, DELAYED RELEASE 20 mg Oral EVERY DAY 1 month 3 04/10/2009 Active allopurinol (ZYLOPRIM) 100 mg tablet Take 200 mg by mouth once daily. Active furosemide (LASIX) 40 mg tablet Take 40 mg by mouth 2 times daily. Active multivit-minerals/f olic acid (DAILY MULTIPLE FOR WOMEN 50+ ORAL) Take 1 tablet by mouth once daily. Active HYDROcodone-acetami nophen, 5-325 mg, (NORCO) per tablet Take 0.5-1 tablets by mouth every 6 hours if needed for Pain Max acetaminophen dose: 4000 mg in 24 hrs. Active ferrous gluconate 324 mg (37 mg iron) tablet Take 1 tablet by mouth once daily with a meal. Active ascorbic acid, vitamin C, (VITAMIN C) 250 mg tablet Take 250 mg by mouth once daily. Active fish oil-omega-3 fatty acids (FISH OIL) 1,200-360 mg cap Take 1 capsule by mouth once daily. One capsule is 1200 mg-360 mg Active vitamin a-vitamin c-vitamin e-minerals (VISION FORMULA) tablet Take 1 tablet by mouth once daily. Active artificial tears, PEG 400-0.25%, (BLINK GEL TEARS) 0.25 % ophthalmic drop Place 1 Drop into both eyes each time if needed for Dry Eyes. Uses Blink tears (non-gel) formula Active metoprolol tartrate (LOPRESSOR) 50 mg tabletIndications:H ypertension, unspecified type Take 1 tablet by mouth 2 times daily. 60 tablet 06/26/2018 Active HYDROcodone-acetami nophen, 5-325 mg, (NORCO) per tabletIndications:P AD (peripheral artery disease) (HC) Take 1 tablet by mouth every 6 hours if needed for Pain Max acetaminophen dose: 4000 mg in 24 hrs. 20 tablet 06/26/2018 Active atorvastatin (LIPITOR) 40 mg tabletIndications:P AD (peripheral artery disease) (HC),Permanent atrial fibrillation (HC) Take 1 tablet by mouth at bedtime. 90 tablet 3 07/22/2018 Active apixaban (ELIQUIS) 2.5 mg tabletIndications:P ermanent atrial fibrillation (HC) Take 1 tablet by mouth 2 times daily. Please schedule annual apt for further refills [phone] 180 tablet 08/11/2019 Active oxyCODONE (ROXICODONE) 5 mg immediate release tablet 07/01/2020 Active SENNA PLUS 8.6-50 mg cap 06/24/2020 Active traMADoL (ULTRAM) 50 mg tablet TAKE 1 TABLET (50 MG) BY MOUTH EVERY SIX HOURS NEEDED 07/15/2020 Active triamcinolone (ARISTOCORT; KENALOG) 0.1 % [...] Elevated troponin 06/20/2018 GERD (gastroesophageal reflux disease) 08/06/201 8 Pulmonary hypertension 06/20/2018 Gout 06/20/2018 Atrial fibrillation 06/20/2018 HLD (hyperlipidemia) 06/20/2018 Hypertension 04/05/2009 Stasis edema 04/05/2009 Anemia due to acute blood loss 04/05/2009 IPMN (intraductal papillary mucinous neoplasm) 0 03/30/2009 Critical lower limb ischemia Resolved Problems Problem Noted Date Diagnosed Date Resolved Date Leg wound, right 07/04/2020 10/15/2020 Leukocytosis 04/05/2009 06/20/2018 Hyponatremia 04/05/2009 06/20/2018 Excess fluid volume 04/05/2009 06/20/20 18 Immunizations Name Administration Dates Next Due Pneumococcal [...] Comments Blood Pressure 136/85 12/31/2020 10:15 AM MINUTE CLERK Pulse 94 12/31/2020 10:15 AM MINUTE CLERK Temperature 35.7 ??C (96.2 ??F) 12/31/2020 1 0:15 AM MINUTE CLERK Respiratory Rate 16 12/03/2020 8:57 AM MINUTE CLERK Oxygen Saturation 97% 12/31/2020 10: 15 AM MINUTE CLERK Inhaled Oxygen Concentration - - Weight 81.6 [...] age 18+ 07/22/2019 07/22/2018 COVID-19 vaccine series (2022- season) 2023 03/19/2022, 10/03/2021, 01/18/2021, Additional history exists Influenza for age 65+ 07/16/2024 Medical Devices Implanted Type Area Coding Coordinator Device Identifier Shelf Expiration Date Model / Serial / Lot Patch Vasc 0.8x8cm Xenosure Biological Pericardial - [id number] Implanted:Qty: 1 on 06/22/2018 by Zeina Bocanegra MD at [facility] Right: Femoral Artery [employer] 12/12/2023 0.8P8# / / [id number] Advance Directives Documents on File Type Date Recorded Patient Solderer Production Line Expl anation Healthcare Directive 04/11/2009 EXP * DNR (Latest Code Status on File) Date Activated Date Inactivated Comments 06/20/2018 2:10 PM 06/26/2018 5:54 PM * Full Code Date Activated Date Inactivated Comments 06/20/2018 12:34 PM 06/20/2018 2:10 PM * Full Code Date Activated Date Inactivated Comments 04/15/2009 5:37 PM 04/16/2009 10:32 PM * Full Code Date Activated Date Inactivated Comments 04/15/2009 4:49 PM 04/15/2009 5:37 PM * Full Code Date Activated Date Inactivated Comments 03/29/2009 3:04 PM 04/10/2009 5:21 PM Care Teams Livestock Buyer Relationship Specialty Start Date End Date Gómez Bermudez MD PCP - General 09/28/07
[2024-02-22 08:15] LABS: Hemoglobin* 13.3 gm/dL (12.0-16.0)
[2024-02-22 08:33] LABS: Chloride* 106 mmol/L (96-114); Potassium* 4.5 mmol/L (3.6-5.1); Sodium* 141 mmol/L (135-149)
[2024-02-22 08:36] LABS: Anion Gap 11 mEq/L (7-15); Blood Urea Nitrogen* 41 mg/dL (7-30); Carbon Dioxide* 24 mmol/L (20-32); Cholesterol* 164 mg/dL (90-199); Creatinine* 1.1 mg/dL (0.5-1.5); Estimated Glomerular Filt Rate 49 ml/min; Glucose* 148 mg/dL (60-115); Triglycerides* 147 mg/dL (40-149)
[2024-02-22 08:37] LABS: Calcium* 9.6 mg/dL (8.4-10.6); HDL Cholesterol* 70 mg/dL (>=50); LDL Cholesterol Calculated 65 mg/dL (<100)
== END 2024-02-22 08:06 | disposition home or self-care (01) ==
LOC: NPINS 08:05
PROVIDERS: PCP Internal Medicine; Visit Provider Nurse Practitioner Gerontology
DX: I50.9 Heart failure, unspecified (principal); E87.5 Hyperkalemia; D64.9 Anemia, unspecified
CPT/HCPCS: 80048; 80061; 85018

== ENCOUNTER 2024-02-29 14:33 | Outpatient (REF) | payer MEDICARE, BC, OTHER, SELFPAY ==
--- OUTSIDE RECORDS SUMMARY | 2024-02-29 14:36 | XMS_ITS | Continuity of Care Document ---
Author Name Unknown Organization [facility] Address [address] [place] [address] Phone Care Team Providers Care Disbursing Agent Name Role Phone Seth Woods MD Unavailable [...] Copied on Encounter [facility], [address], [place], [id number], tel:[phone] [facility] [place] No Information Peggy Ann. [facility], [address], [address], [place], [place], [id number], [place]. tel:[phone] Office/Outpati ent Visit,Est, Mod [facility], [address], [place], [place], [id number], [place] tel:[phone] [facility] Spondylolisth esis, lumbar region Pierce Jose. [facility], [address], [place], [place], [id number], [place]. tel:[phone] Referring Provider: Angel Jaramillo, [facility] [address] [place], [address]. tel:[phone] Family History Family Member Type Diagnosis Age At Onset No Information Payers Payer name Insurance type Covered democrat ID Authoriza tion(s) Medicare [place] [id number] [facility] [id number] Social History Type Description Quantity Date Captured [...]
--- OUTSIDE RECORDS SUMMARY | 2024-02-29 14:36 | XMS_ITS | Continuity of Care Document ---
Author Name Unknown Organization [facility] Address [address] [place] [address] Phone Care Team Providers Care Database Report Writer Name Role Phone RN, RN Unavailable Unavailable Allergies, Adverse Reactions, Alerts Substance Reaction Status Criticality No Known Drug Allergies Active No I nformation Medications Medication Instructions Dosage Effective Dates (start - stop) Status Comments [place] 5 mg-325 mg tablet take 1-2 tablet(s) [...] Date Provider Providers Copied on Encounter [facility], [address], [place], [id number], [place] tel:[phone] [facility] No Information 7 RN RN. [address], [place], [place], [id number], [place]. tel:[phone] [facility], [address], [place], [address], [place] tel:[phone] [facility] Rachel Spondylosis w/o myelopathy or radiculopathy, lumbar regionOther specified dorsopathies, lumbar regionOther intervertebral disc degeneration, lumbar region No Information [facility], [address], [place], [place], [id number], [place] tel:[phone] [facility] [place] No Information No Information [facility], [address], [place], [address], [place] tel:[phone] [facility] Rachel Spondylosis w/o myelopathy or radiculopathy, lumbar regionOther specified dorsopathies, lumbar region 6 No Information [facility], [address], [place], [place], [id number], [place] tel:[phone] [facility] [place] No Information 6 No Information [facility], [address], [place], [address], [place] tel:[phone] [facility] [place] Spondylosis without myelopathy or radiculopathy, lumbar regionOther specified dorsopathies, lumbar region Sep-0 6 No Information [facility], [address], [place], [place], [id number], [place] tel:[phone] [facility] [place] No Information Sep-0 6 No Information [facility], [address], [place], [address], [place] tel:[phone] [facility] [place] Spondylosis without myelopathy or radiculopathy, lumbar regionOther specified dorsopathies, lumbar region 6 No Information [facility], [address], [place], [place], [id number], [place] tel:[phone] [facility] [place] No Information 6 No Information [facility], [address], [place], [address], [place] tel:[phone] [facility] Rachel Sacroiliitis, not elsewhere classified Jun-0 6 No Information [facility], [address], [place], [place], [id number], [place] tel:[phone] [facility] [place] No Information 6 No Information [facility], [address], [place], [address], [place] tel:[phone] [facility] Sacroiliitis, not elsewhere classified 6 No Information [facility] [place], [facility], [address], [place], [place], [address], [place] tel:[phone] [facility] [place] No Information 6 No Information [facility], [address], [place], [address], [place] tel:[phone] [facility] [place] Sacroiliitis, not elsewhere classified 6 No Information [facility], [facility], [address], [place], [place], [id number], [place] tel:[phone] [facility] [place] No Information No Information New Pt Eval [facility], [address], [place], [place], [id number], [place] tel:[phone] [facility] Sacroiliitis, not elsewhere classifiedTroc hanteric bursitis, left hip No Information Referring Provider: Angel Bermudez MD C, [address] , [place], [address]. tel:[phone] Family History Family Member Type Diagnosis Age At Onset Sister Problem (finding) hypertension Brother Problem (finding) hypertension Mother Problem (finding) Heart Disease Father Problem (finding) Heart Disease Sister Problem (finding) Renal disease Payers Payer name Insurance type Covered green party ID Authorsivaa tion(s) Medicare Part B [id number] Social History Type Description Quantity Date Captured Comments Sex Female Smoking Status No Information Chief Complaint And Reason For Visit No Information Reason For Referral Reason For Referral No Information Plan Of Treatment Date Type Action Status Future Order: Radiology Order MR I - Lumbar Spine W/O Contrast ([id number]), Ordered on: Ordered History Of Present Illness Encounter Date Complaint History Of Prese nt Illness No Information Functional Status Date Functional Assessmen t No Information Instructions Date Instruction Additional Infor mation No Information Assessments Type Assessment Date No Information Patient Care Teams Name Effective Dates (start - stop) Status Members No Information
--- OUTSIDE RECORDS SUMMARY | 2024-02-29 14:36 | XMS_ITS | Clinical Summary ---
Author Name Unknown Organization [facility] Address [place], [place] [address] Care Team Providers Care Stock Controller Name Role Phone Gómez Bermudez MD Primary [...] Please schedule annual apt for further refills [phone] 180 tablet 08/11/2019 Active oxyCODONE (ROXICODONE) 5 [...] Comments Blood Pressure 136/85 12/31/2020 10:15 AM GATE TECHNICIAN Pulse 94 12/31/2020 10:15 AM GATE TECHNICIAN Temperature 35.7 ??C (96.2 ??F) 12/31/2020 1 0:15 AM GATE TECHNICIAN Respiratory Rate 16 12/03/2020 8:57 AM GATE TECHNICIAN Oxygen Saturation 97% 12/31/2020 10: 15 AM GATE TECHNICIAN Inhaled Oxygen Concentration - - Weight 81.6 [...] 65+ 07/16/2024 Medical Devices Implanted Type Area Crop Duster Device Identifier Shelf Expiration Date Model / Serial / Lot Patch Vasc 0.8x8cm Xenosure Biological Pericardial - [id number] Implanted:Qty: 1 on 06/22/2018 by Zeina Bocanegra MD at [facility] Right: Femoral Artery [employer] 12/12/2023 0.8P8# / / [id number] Advance Directives Documents on File Type Date Recorded Patient Director Toxicology Expl anation Healthcare Directive 04/11/2009 EXP * [...] 3:04 PM 04/10/2009 5:21 PM Care Teams Stock Controller Relationship Specialty Start Date End Date Gómez Bermudez MD PCP - General 09/28/07
[2024-03-01 06:48] LABS: Hemoglobin A1C* 5.4 % (0-5.6)
== END 2024-02-29 14:34 | disposition home or self-care (01) ==
LOC: NPINS 14:33
PROVIDERS: PCP Internal Medicine; Visit Provider Nurse Practitioner Gerontology
DX: R73.9 Hyperglycemia, unspecified (principal)
CPT/HCPCS: 83036; 85018

== ENCOUNTER 2024-07-04 13:03 | Outpatient (REF) | payer MEDICARE, BC, OTHER, SELFPAY ==
--- OUTSIDE RECORDS SUMMARY | 2024-07-04 13:19 | XMS_ITS | Clinical Summary ---
Author Organization [facility] Address [place], [place] [address] Care Team Providers Care Tourist Guide Name Role Phone Gómez Bermudez MD Primary [...] Please schedule annual apt for further refills [phone] 180 tablet 08/11/2019 Active oxyCODONE (ROXICODONE) 5 [...] Comments Blood Pressure 136/85 12/31/2020 10:15 AM WEED CONTROLLER Pulse 94 12/31/2020 10:15 AM WEED CONTROLLER Temperature 35.7 ??C (96.2 ??F) 12/31/2020 1 0:15 AM WEED CONTROLLER Respiratory Rate 16 12/03/2020 8:57 AM WEED CONTROLLER Oxygen Saturation 97% 12/31/2020 10: 15 AM WEED CONTROLLER Inhaled Oxygen Concentration - - Weight 81.6 [...] 65+ 07/16/2024 Medical Devices Implanted Type Area Manager Line Device Identifier Shelf Expiration Date Model / Serial / Lot Patch Vasc 0.8x8cm Xenosure Biological Pericardial - [id number] Implanted:Qty: 1 on 06/22/2018 by Zeina Bocanegra MD at [facility] Right: Femoral Artery [employer] 12/12/2023 0.8P8# / / [id number] Advance Directives Documents on File Type Date Recorded Patient Controls Engineer Expl anation Healthcare Directive 04/11/2009 EXP * [...] 3:04 PM 04/10/2009 5:21 PM Care Teams Tourist Guide Relationship Specialty Start Date End Date Gómez Bermudez MD PCP - General 09/28/07
[2024-07-04 14:23] LABS: Chloride* 106 mmol/L (96-114)
[2024-07-04 14:24] LABS: Sodium* 138 mmol/L (135-149)
[2024-07-04 14:26] LABS: Creatinine* 1.3 mg/dL (0.5-1.5); Estimated Glomerular Filt Rate 40 ml/min
[2024-07-04 14:27] LABS: Anion Gap 8 mEq/L (7-15); Blood Urea Nitrogen* 45 mg/dL (7-30); Calcium* 9.1 mg/dL (8.4-10.6); Carbon Dioxide* 24 mmol/L (20-32); Glucose* 103 mg/dL (60-115)
== END 2024-07-04 13:04 | disposition home or self-care (01) ==
LOC: NPINS 13:03
PROVIDERS: PCP Internal Medicine; Visit Provider Nurse Practitioner Gerontology
DX: I50.9 Heart failure, unspecified (principal)
CPT/HCPCS: 80048

== ENCOUNTER 2024-07-25 12:04 | Outpatient (REF) | payer MEDICARE, BC, OTHER, SELFPAY ==
[2024-07-25 12:28] LABS: Basophils Absolute Auto 0.02 K/uL (0.00-0.30); Basophils Percent Auto 0.3 % (0.0-3.0); Eosinophils Absolute Auto 0.32 K/uL (0.00-0.50); Eosinophils Percent Auto 4.2 % (0.0-7.0); Hematocrit 40.6 % (33.0-51.0); Hemoglobin* 12.2 gm/dL (12.0-16.0); Immature Granulocytes Abs Auto 0.04 K/uL (0.00-0.30); Immature Granulocytes Pct Auto 0.5 %; Lymphocytes Percent Auto 19.8 % (20-44); Mean Corpuscular HGB Conc 30 gm/dL (32-36); Mean Corpuscular Hemoglobin 30 pg (26-34); Mean Corpuscular Volume 100 fL (80-100); Monocytes Percent Auto 8.7 % (0.0-11.0); Neutrophils Absolute Auto 5.06 K/uL (1.7-7.0); Neutrophils Percent Auto 66.5 % (42.0-72.0); Platelet Count* 124 K/uL (140-440); Red Blood Count 4.05 m/uL (4.00-5.20); White Blood Count* 7.61 K/uL (4.50-11.00)
[2024-07-25 12:58] LABS: Slide Review Reflex No
[2024-07-25 13:03] LABS: Uric Acid* 7.8 mg/dL (2.2-8.4)
[2024-07-25 13:06] LABS: C Reactive Protein* 1.4 mg/dL (0.5-1.0)
== END 2024-07-25 12:05 | disposition home or self-care (01) ==
LOC: NPINS 12:04
PROVIDERS: PCP Internal Medicine; Visit Provider Nurse Practitioner Gerontology
DX: M10.9 Gout, unspecified (principal)
CPT/HCPCS: 84550; 85025; 86140

== ENCOUNTER 2024-10-10 11:49 | Outpatient (REF) | payer MEDICARE, BC, OTHER, SELFPAY ==
[2024-10-10 13:08] LABS: Appearance Urine Slightly Cloudy (Clear); Bilirubin Urine Negative (Negative); Blood Urine Trace-intact (Negative); Color Urine Yellow (Yellow); Glucose Urine Negative (Negative); Ketones Urine Negative (Negative); Leukocyte Esterase Urine 1+ (Negative); Nitrite Urine Negative (Negative); Protein Urine Negative (Negative); Urobilinogen Urine 0.2 (0.2-1.0); pH Urine 5.5 (5.0-8.5)
[2024-10-10 13:25] LABS: Bacteria Urine Few; Squamous Epithelial Cell Urine Few (None-Few)
== END 2024-10-10 11:50 | disposition home or self-care (01) ==
LOC: NPINS 11:49
PROVIDERS: PCP Family Medicine; Visit Provider Nurse Practitioner Gerontology
DX: N39.0 Urinary tract infection, site not specified (principal)
CPT/HCPCS: 81001; 87086; 87186

== ENCOUNTER 2024-12-07 15:41 | Outpatient (REF) | payer MEDICARE, BC, OTHER, SELFPAY ==
[2024-12-07 17:11] LABS: Basophils Absolute Auto 0.01 K/uL (0.00-0.30); Basophils Percent Auto 0.1 % (0.0-3.0); Eosinophils Absolute Auto 0.03 K/uL (0.00-0.50); Eosinophils Percent Auto 0.3 % (0.0-7.0); Hematocrit 37.8 % (33.0-51.0); Hemoglobin* 11.4 gm/dL (12.0-16.0); Immature Granulocytes Abs Auto 0.03 K/uL (0.00-0.30); Immature Granulocytes Pct Auto 0.3 %; Lymphocytes Percent Auto 17.1 % (20-44); Mean Corpuscular HGB Conc 30 gm/dL (32-36); Mean Corpuscular Hemoglobin 30 pg (26-34); Mean Corpuscular Volume 99 fL (80-100); Monocytes Percent Auto 13.9 % (0.0-11.0); Neutrophils Absolute Auto 6.42 K/uL (1.7-7.0); Neutrophils Percent Auto 68.3 % (42.0-72.0); Platelet Count* 156 K/uL (140-440); RDW Coefficient of Variation % 14.3 % (11.5-15.5); Red Blood Count 3.81 m/uL (4.00-5.20); White Blood Count* 9.41 K/uL (4.50-11.00)
[2024-12-07 17:13] LABS: Slide Review Reflex No
[2024-12-07 17:39] LABS: Chloride* 105 mmol/L (96-114); Potassium* 4.6 mmol/L (3.6-5.1); Sodium* 136 mmol/L (135-149)
[2024-12-07 17:42] LABS: Anion Gap 12 mEq/L (7-15); Blood Urea Nitrogen* 67 mg/dL (7-30); Calcium* 8.6 mg/dL (8.4-10.6); Carbon Dioxide* 19 mmol/L (20-32); Creatinine* 1.7 mg/dL (0.5-1.5); Estimated Glomerular Filt Rate 29 ml/min; Glucose* 100 mg/dL (60-115)
== END 2024-12-07 15:42 | disposition home or self-care (01) ==
LOC: NPINS 15:41
PROVIDERS: PCP Family Medicine; Visit Provider Nurse Practitioner Gerontology
DX: R53.1 Weakness (principal); E87.8 Other disorders of electrolyte and fluid balance, not elsewhere classified
CPT/HCPCS: 80048; 81001; 85025; 87086

== ENCOUNTER 2024-12-19 16:42 | Outpatient (REF) | payer MEDICARE, BC, OTHER, SELFPAY ==
[2024-12-19 18:42] LABS: Chloride* 109 mmol/L (96-114); Potassium* 5.3 mmol/L (3.6-5.1); Sodium* 137 mmol/L (135-149)
[2024-12-19 18:45] LABS: Anion Gap 12 mEq/L (7-15); Blood Urea Nitrogen* 48 mg/dL (7-30); Calcium* 8.6 mg/dL (8.4-10.6); Carbon Dioxide* 16 mmol/L (20-32); Creatinine* 1.2 mg/dL (0.5-1.5); Estimated Glomerular Filt Rate 44 ml/min
[2024-12-19 19:02] LABS: Glucose* 76 mg/dL (60-115)
== END 2024-12-19 16:43 | disposition home or self-care (01) ==
LOC: NPINS 16:42
PROVIDERS: PCP Family Medicine; Visit Provider Nurse Practitioner Gerontology
DX: I50.9 Heart failure, unspecified (principal)
CPT/HCPCS: 80048

== ENCOUNTER 2025-01-02 13:47 | Outpatient (REF) | payer MEDICARE, BC, OTHER, SELFPAY ==
[2025-01-02 14:45] LABS: Chloride* 106 mmol/L (96-114); Potassium* 4.8 mmol/L (3.6-5.1); Sodium* 139 mmol/L (135-149)
[2025-01-02 14:48] LABS: Anion Gap 9 mEq/L (7-15); Blood Urea Nitrogen* 37 mg/dL (7-30); Calcium* 9.2 mg/dL (8.4-10.6); Carbon Dioxide* 24 mmol/L (20-32); Estimated Glomerular Filt Rate 55 ml/min; Glucose* 89 mg/dL (60-115)
== END 2025-01-02 13:48 | disposition home or self-care (01) ==
LOC: NPINS 13:47
PROVIDERS: PCP Family Medicine; Visit Provider Nurse Practitioner Gerontology
DX: I50.9 Heart failure, unspecified (principal)
CPT/HCPCS: 80048

== ENCOUNTER 2025-06-25 12:08 | Outpatient (REF) | payer MEDICARE, BC, OTHER, SELFPAY ==
[2025-06-25 16:39] LABS: Appearance Urine Cloudy (Clear)
--- OUTSIDE RECORDS SUMMARY | 2025-06-26 00:13 | XMS_ITS ---
Author Name Auto Generated, Auto Generated Organization [facility] Functional Status No Results Mental Status No Results Allergies and Intolerances No Known Allergies Problems No Known Problems Reason for Referral
--- OUTSIDE RECORDS SUMMARY | 2025-06-26 00:14 | XMS_ITS | Clinical Summary ---
Author Organization [facility] Address [address] [place] [address] Care Team Providers Care Coat Finisher Name Role Phone Gómez Bermudez MD Primary Care Provider Allergies Active Allergy Reactions Criticality Noted Date Comments Cephalexin Itching 07/04/2020 Medications OMEPRAZOLE 20 MG CAP, DELAYED RELEASE 20 mg Oral EVERY DAY 1 month 3 04/10/20 09 Active allopurinol (ZYLOPRIM) 100 mg tablet Take 200 mg by mouth once daily. Active furosemide (LASIX) 40 mg tablet Take 40 mg by mouth 2 times daily. Active multivit-minerals /folic acid (DAILY MULTIPLE FOR WOMEN 50+ ORAL) Take 1 tablet by mouth once daily. Active HYDROcodone-aceta minophen, 5-325 mg, (NORCO) per tablet Take 0.5-1 [...] formula Active metoprolol tartrate (LOPRESSOR) 50 mg tabletIndications :Hypertension, unspecified type Take 1 tablet by mouth 2 times daily. 60 tablet 8 12:01 PM CDT 06/26/20 18 Active HYDROcodone-aceta minophen, 5-325 mg, (NORCO) per tabletIndications :PAD (peripheral artery disease) Take 1 tablet by mouth every 6 hours if needed for Pain Max acetaminophen dose: 4000 mg in 24 hrs. 20 tablet 06/26/20 18 Active atorvastatin (LIPITOR) 40 mg tabletIndications :PAD (peripheral artery disease),Permanen t atrial fibrillation (HC) Take 1 tablet by mouth at bedtime. 90 tablet 3 07/22/20 18 Active apixaban (ELIQUIS) 2.5 mg tabletIndications :Permanent atrial fibrillation (HC) Take 1 tablet by mouth 2 times daily. Please schedule annual apt for further refills [phone] 180 tablet 08/11/20 19 Active oxyCODONE (ROXICODONE) 5 mg immediate release tablet 07/01/20 20 Active SENNA PLUS 8.6-50 mg cap 06/24/20 20 Active traMADoL (ULTRAM) 50 mg tablet TAKE 1 TABLET (50 MG) BY MOUTH EVERY SIX HOURS NEEDED 07/15/20 20 Active triamcinolone (ARISTOCORT; KENALOG) 0.1 % creamIndications: Wound of left lower extremity, subsequent encounter Apply to reddened areas with each dressing change to assist with itching. 15 g 2 12/26/19 21 Active medical supply, miscellaneous (GRADUATED COMPRESSION STOCKINGS)Indicat ions:Venous insufficiency of both lower extremities For personal use. Length: calf Strength: 20-30 mmHg juxtalite velcro compression bilateral left lower extremity 2 Packet 3 12/31/19 21 Active Active Problems Problem Noted Date Diagnosed [...] Excess fluid volume 04/05/2009 06/20/20 18 Immunizations Immunization Administration Dates Next Due Pneumococcal Poly,23-Valent (Pneumovax) [...] Paying Living Expenses Not on file 11/15/2021 Comments No Sex and Gender Information Value Date Recorded Sex Assigned at Not on file Legal Sex Female 6:50 AM SUPERVISOR IRRIGATION Gender Identity Female 08/20/2020 12:26 PM CDT Sexual Orientation Not on file Obstetrics History Last Filed Vital Signs Vital Sign Reading Time Taken Comments Blood Pressure 136/85 12/31/2020 10:15 AM SUPERVISOR IRRIGATION Pulse 94 12/31/2020 10:15 AM SUPERVISOR IRRIGATION Temperature 35.7 C (96.2 F) 12/31/2020 10:15 AM SUPERVISOR IRRIGATION Respiratory Rate 16 12/03/2020 8:57 AM SUPERVISOR IRRIGATION Oxygen Saturation 97% 12/31/2020 10: 15 AM SUPERVISOR IRRIGATION Inhaled Oxygen Concentration - - Weight 81.6 kg (179 lb 12.8 oz) 09/06/2018 8:35 AM CDT Pt weighed with shoes on. Height 160 cm (5' 3) 07/22/2018 11:18 AM CDT Body Mass Index 31.85 07/22/2018 11:18 AM CDT Plan of Treatment Health Maintenance Due Date Last Done Comments Tetanus booster 1949 Depression screening for age 12+ 1950 Zoster (shingles) series for age 50+ (1 of 2) 1988 DEXA/DXA scan for age 65+ 2003 Medicare Wellness for age 65+ 2003 Pneumococcal series for age 50+ (2 of 2 - PCV) 04/26/2005 04/26/2004 RSV vaccine for adults or (1 - 1-dose 75+ series) 2013 BMI (ht and wt on same day) for age 18+ 07/22/2019 07/22/2018 COVID-19 vaccine series (2023- season) 2024 03/19/2022, 10/03/2021, 01/18/2021, Additional history exists Influenza Vaccine (#1) 2025 Hepatitis B series for 19+ Aged Out N o longer eligible based on patient's age to complete this topic Medical Devices Implanted Type Area Hospital Recruiter Device Identifier Shelf Expiration Date Model / Serial / Lot Patch Vasc 0.8x8cm Xenosure Biological Pericardial - [id number] Implanted:Qty: 1 on 06/22/2018 by Zeina Bocangera MD at [facility] Right: Femoral Artery [employer] 12/12/2023 0.8P8# / / [id number] Insurance MEDICARE PB ONLY MEDICARE PART B HB ONLY MEDICARE PART A HB ONLY FOR LIFE [facility] [place] [address] Advance Directives Documents on File Type Date Recorded Patient Pharmacy Laboratory Technician Expl anation Healthcare Directive 04/11/2009 EXP * [...] 3:04 PM 04/10/2009 5:21 PM Care Teams Coat Finisher Relationship Specialty Start Date End Date Gómez Bermudez MD PCP - General 09/28/07
== END 2025-06-25 12:09 | disposition home or self-care (01) ==
LOC: NPINS 12:08
PROVIDERS: PCP Family Medicine; Referring Provider Nurse Practitioner Gerontology; Visit Provider Nurse Practitioner Gerontology
DX: R42 Dizziness and giddiness (principal); N39.0 Urinary tract infection, site not specified
CPT/HCPCS: 81001; 87086

== ENCOUNTER 2025-07-31 11:56 | Outpatient (REF) | payer MEDICARE, BC, OTHER, SELFPAY ==
[2025-07-31 12:10] LABS: Hematocrit* 34.3 % (33.0-51.0); Hemoglobin* 10.5 gm/dL (12.0-16.0); Immature Granulocytes Abs Auto 0.01 K/uL (0.00-0.30); Immature Granulocytes Pct Auto 0.1 %; Lymphocytes Absolute Auto 1.92 K/uL (0.90-2.90); Mean Corpuscular HGB Conc 31 gm/dL (32-36); Mean Corpuscular Hemoglobin 30 pg (26-34); Mean Corpuscular Volume 99 fL (80-100); RDW Coefficient of Variation % 13.8 % (11.5-15.5); Red Blood Count* 3.46 m/uL (4.00-5.20); White Blood Count* 7.19 K/uL (4.50-11.00)
[2025-07-31 12:11] LABS: Slide Review Reflex No
[2025-07-31 12:22] LABS: Chloride* 104 mmol/L (96-114); Sodium* 137 mmol/L (135-149)
[2025-07-31 12:23] LABS: Potassium* 4.3 mmol/L (3.6-5.1)
[2025-07-31 12:25] LABS: Anion Gap 6 mEq/L (7-15); Blood Urea Nitrogen* 47 mg/dL (7-30); Carbon Dioxide* 27 mmol/L (20-32); Creatinine* 1.3 mg/dL (0.5-1.5); Estimated Glomerular Filt Rate 40 ml/min
[2025-07-31 12:26] LABS: Calcium* 9.0 mg/dL (8.4-10.6); Glucose* 88 mg/dL (60-115)
--- OUTSIDE RECORDS SUMMARY | 2025-08-01 00:19 | XMS_ITS | Clinical Summary ---
Author Organization [facility] Address [address] [place] [address] Care Team Providers Care Passenger Tire Builder Name Role Phone Gómez Bermudez MD Primary Care Provider [phone] Allergies Active Allergy Reactions Criticality Noted Date [...] Please schedule annual apt for further refills [phone] 180 tablet 08/11/20 19 Active oxyCODONE (ROXICODONE) [...] on file Legal Sex Female 6:50 AM HUMAN MACHINE INTERFACE ENGINEER Gender Identity Female 08/20/2020 12:26 PM CDT Sexual Orientation Not on file Obstetrics History Last Filed Vital Signs Vital Sign Reading Time Taken Comments Blood Pressure 136/85 12/31/2020 10:15 AM HUMAN MACHINE INTERFACE ENGINEER Pulse 94 12/31/2020 10:15 AM HUMAN MACHINE INTERFACE ENGINEER Temperature 35.7 C (96.2 F) 12/31/2020 10:15 AM HUMAN MACHINE INTERFACE ENGINEER Respiratory Rate 16 12/03/2020 8:57 AM HUMAN MACHINE INTERFACE ENGINEER Oxygen Saturation 97% 12/31/2020 10: 15 AM HUMAN MACHINE INTERFACE ENGINEER Inhaled Oxygen Concentration - - Weight 81.6 [...] age 18+ 07/22/2019 07/22/2018 COVID-19 vaccine series (2024- season) 2025 03/19/2022, 10/03/2021, 01/18/2021, Additional history exists Influenza Vaccine (#1) 2025 Hepatitis B series for 19+ Aged Out N o longer eligible based on patient's age to complete this topic Medical Devices Implanted Type Area Business Professor Device Identifier Shelf Expiration Date Model / Serial / Lot Patch Vasc 0.8x8cm Xenosure Biological Pericardial - [id number] Implanted:Qty: 1 on 06/22/2018 by Zeina Bocanegra MD at [facility] Right: Femoral Artery [employer] 12/12/2023 0.8P8# / / [id number] Insurance MEDICARE PB ONLY MEDICARE PART B HB ONLY MEDICARE PART A HB ONLY FOR LIFE [facility] [place] [place] [address] Advance Directives Documents on File Type Date Recorded Patient Consumer Electronics Merchandiser Expl anation Healthcare Directive 04/11/2009 EXP * [...] 3:04 PM 04/10/2009 5:21 PM Care Teams Passenger Tire Builder Relationship Specialty Start Date End Date Gómez Bermudez MD PCP - General 09/28/07
== END 2025-07-31 11:57 | disposition home or self-care (01) ==
LOC: NPINS 11:56
PROVIDERS: PCP Family Medicine; Visit Provider Family Medicine
DX: I50.30 Unspecified diastolic (congestive) heart failure (principal); M10.9 Gout, unspecified; D64.9 Anemia, unspecified
CPT/HCPCS: 80048; 84550; 85025

== ENCOUNTER 2025-10-23 12:36 | Outpatient (REF) | payer MEDICARE, BC, OTHER, SELFPAY ==
[2025-10-23 13:15] LABS: Hematocrit* 38.5 % (33.0-51.0); Hemoglobin* 11.8 gm/dL (12.0-16.0); Immature Granulocytes Abs Auto 0.01 K/uL (0.00-0.30); Immature Granulocytes Pct Auto 0.1 %; Lymphocytes Absolute Auto 1.83 K/uL (0.90-2.90); Mean Corpuscular HGB Conc 31 gm/dL (32-36); Mean Corpuscular Hemoglobin 30 pg (26-34); Mean Corpuscular Volume 98 fL (80-100); RDW Coefficient of Variation % 14.6 % (11.5-15.5); Red Blood Count* 3.93 m/uL (4.00-5.20); White Blood Count* 7.44 K/uL (4.50-11.00)
[2025-10-23 13:21] LABS: Slide Review Reflex No
[2025-10-23 13:44] LABS: Chloride* 101 mmol/L (96-114); Potassium* 4.7 mmol/L (3.6-5.1); Sodium* 140 mmol/L (135-149)
[2025-10-23 13:47] LABS: Blood Urea Nitrogen* 48 mg/dL (7-30); Creatinine* 1.1 mg/dL (0.5-1.5); Estimated Glomerular Filt Rate 49 ml/min
[2025-10-23 13:48] LABS: Anion Gap 14 mEq/L (7-15); Calcium* 9.4 mg/dL (8.4-10.6); Carbon Dioxide* 25 mmol/L (20-32); Glucose* 102 mg/dL (60-115)
--- OUTSIDE RECORDS SUMMARY | 2025-10-24 00:47 | XMS_ITS | Clinical Summary ---
Author Organization [facility] Address [address] [place] [address] Care Team Providers Care Triage Rn Name Role Phone Gómez Bermudez MD Primary Care Provider Allergies Active AllergyReactionsCriticalityNoted KngqAfcmzpqiDhjxfyeyzfSvpbvle62/20/2020 Medications MedicationSigDispense QuantityRefillsLast FilledStart DateEnd DateStatus OMEPRAZOLE 20 MG CAP, DELAYED RELEASE 20 mg Oral EVERY DAY 1 month ctive allopurinol (ZYLOPRIM) 100 mg tablet Take 200 mg by mouth once daily.Active furosemide (LASIX) 40 mg tablet Take 40 mg by mouth 2 times daily.Active multivit-minerals/folic acid (DAILY MULTIPLE FOR WOMEN 50+ ORAL) Take 1 tablet by mouth once daily.Active HYDROcodone-acetaminophen, 5-325 mg, (NORCO) per tablet Take 0.5-1 tablets by mouth every 6 hours if needed for Pain Max acetaminophen dose: 4000 mg in 24 hrs.Active ferrous gluconate 324 mg (37 mg iron) tablet Take 1 tablet by mouth once daily with a meal.Active ascorbic acid, vitamin C, (VITAMIN C) 250 mg tablet Take 250 mg by mouth once daily.Active fish oil-omega-3 fatty acids (FISH OIL) 1,200-360 mg cap Take 1 capsule by mouth once daily. One capsule is 1200 mg-360 mgActive vitamin a-vitamin c-vitamin e-minerals (VISION FORMULA) tablet Take 1 tablet by mouth once daily.Active artificial tears, PEG 400-0.25%, (BLINK GEL TEARS) 0.25 % ophthalmic drop Place 1 Drop into both eyes each time if needed for Dry Eyes. Uses Blink tears (non-gel) formulaActive metoprolol tartrate (LOPRESSOR) 50 mg tablet Indications:Hypertension, unspecified typeTake 1 tablet by mouth 2 times daily. 60 tablet 06/26/2018 12:01 PM CDT06/26/2018Active HYDROcodone-acetaminophen, 5-325 mg, (NORCO) per tablet Indications:PAD (peripheral artery disease)Take 1 tablet by mouth every 6 hours if needed for Pain Max acetaminophen dose: 4000 mg in 24 hrs. 20 tablet 06/26/2018Active atorvastatin (LIPITOR) 40 mg tablet Indications:PAD (peripheral artery disease),Permanent atrial fibrillation (HC) Take 1 tablet by mouth at bedtime. 90 tablet Active apixaban (ELIQUIS) 2.5 mg tablet Indications:Permanent atrial fibrillation (HC)Take 1 tablet by mouth 2 times daily. Please schedule annual apt for further refills [phone] 180 tablet 08/11/2019Active oxyCODONE (ROXICODONE) 5 mg immediate release tablet 07/01/2020Active SENNA PLUS 8.6-50 mg cap 06/24/2020Active traMADoL (ULTRAM) 50 mg tablet TAKE 1 TABLET (50 MG) BY MOUTH EVERY SIX HOURS CNKFQO0707/15/2020Active triamcinolone (ARISTOCORT; KENALOG) 0.1 % cream Indications:Wound of left lower extremity, subsequent encounterApply to reddened areas with each dressing change to assist with itching. 15 g 1Active medical supply, miscellaneous (GRADUATED COMPRESSION STOCKINGS) Indications:Venous insufficiency of both lower extremitiesFor personal use. Length: calf Strength: 20-30 mmHg juxtalite velcro compression bilateral left lower extremity 2 Packet 1Active Active Problems ProblemNoted DateDiagnosed DateStaph anwctaxaa76/06/2020Positive culture finding 08/20/2020Non-healing non-surgical wound08/20/2020Leg wound, left07/04/2020 Ckcxfpntul94/20/2020PAD (peripheral artery disease)06/23/2018Diastolic heart tbxkznv7406/20/2018Elevated arsnnruv25/06/2018GERD (gastroesophageal reflux disease)06/20/2018Pulmonary bxwjddrjxubr67/06/7791Yrzo07/06/2018Atrial zjvnzffocele50/06/2018HLD (hyperlipidemia)06/20/20187975Agiwrnrqfmuz47/22/2009Stasis edema04/05/2009nemia due to acute blood loss04/05/2009IPMN (intraductal papillary mucinous neoplasm)03/30/2009Critical lower limb ischemia Resolved Problems ProblemNoted DateDiagnosed DateResolved DateLeg wound, right Czmgiogvekiv07HyponatremiaExcess fluid Immunizations ImmunizationAdministration DatesNext DuePneumococcal Poly,23-Valent (Pneumovax) 04/26/2004 Family History Medical HistoryRelationNameCommentsHypertensionBrother 1HypertensionBrother 2 HypertensionFatherHeart DiseaseMotherASCVD, CHFRelationNameStatusCommentsBrother 1Brother 2FatherDeceased (Age 78)MotherDeceased (Age 76) Social History Tobacco UseTypesPacks/DayYears UsedDateSmoking Tobacco: FormerCigarettes0.340 Smokeless Tobacco: Never Tobacco Cessation:Counseling Given: Yes Comments:Smokes about 1 pack/week Alcohol UseStandard Drinks/WeekCommentsYes0 (1 standard drink = 0.6 oz pure alcohol)rareSocial ConnectionsAnswerDate RecordedFrequency of Communication with Friends and FamilyNot on file07/27/2023Financial Resource StrainAnswerDate RecordedDifficulty of Paying Living ExpensesNot on file2Difficulty of Paying Living ExpensesNot on file2CommentsNoSex and Gender InformationValueDate RecordedSex Assigned at BirthNot on fileLegal SexFemale 11/28/2012 6:50 AM CSTGender QserwyxmLsanei14/06/2020 12:26 PM CDTSexual OrientationNot on file Last Filed Vital Signs Vital SignReadingTime TakenCommentsBlood Umlvlcdd187/8502 10:15 AM CABLE LACER Ogcyf9644 10:15 AM DYYKqwzwnxdnsg61.7 ??C (96.2 ??F)12/31/2020 10:15 AM CSTRespiratory Hynd369412/03/2020 8:57 AM CSTOxygen Afigingfsv35%12/31/2020 10:15 AM CSTInhaled Oxygen Concentration--Hssgkp43.6 kg (179 lb 12.8 oz)09/06/2018 8:35 AM CDTPt weighed with shoes on.Nifhfu710 cm (5' 3)07/22/2018 11:18 AM CDT Body Mass Index31.85007/22/2018 11:18 AM CDT Plan of Treatment Health MaintenanceDue DateLast DoneCommentsTetanus otpidkc0303/05/1949Depression screening for age 12+1950Zoster (shingles) series for age 50+ (1 of 2) 1988DEXA/DXA scan for age 65+2003Medicare Wellness for age 65+ 2003Pneumococcal series for age 50+ (2 of 2 - PCV)RSV vaccine for adults or (1 - 1-dose 75+ series)2013MI (ht and wt on same day) for age 18+COVID-19 vaccine series (2024- season)/03/2022, 10/03/2021, 01/18/2021, Additional history exists Influenza Vaccine (#1)2025Hepatitis B series for 19+Aged OutNo longer eligible based on patient's age to complete this topic Medical Devices ImplantedTypeAreaManufacturerDevice IdentifierShelf Expiration DateModel / Serial / LotPatch Vasc 0.8x8cm Xenosure Biological Pericardial - [id number] Implanted:Qty: 1 on 06/22/2018 [facility] Femoral ArteryLeMaitre Vascular Inc40.8P8# / / [id number] Insurance [place] [id number] * Guarantor: St [employer], [facility] 2012Account TypeRelation to Patient Date of BirthPhoneBilling AddressContractOther [address] [id number] Advance Directives TypeDate RecordedPatient RepresentativeExplanationHealthcare Directive04/11/2009 EXP * DNR (Latest Code Status on File) Date ActivatedDate InactivatedComments06/20/2018 2:10 PM06/26/2018 5:54 PM * Full Code Date ActivatedDate InactivatedComments06/20/2018 12:34 PM06/20/2018 2:10 PM * Full Code Date ActivatedDate InactivatedComments04/15/2009 5:37 PM04/16/2009 10:32 PM * Full Code Date ActivatedDate InactivatedComments04/15/2009 4:49 PM04/15/2009 5:37 PM * Full Code Date ActivatedDate InactivatedComments03/29/2009 3:04 PM04/10/2009 5:21 PM Care Teams Team MemberRelationshipSpecialtyStart DateEnd Date Gómez Bermudez MD [facility]09/28/07
== END 2025-10-23 12:37 | disposition home or self-care (01) ==
LOC: NPINS 12:36
PROVIDERS: PCP Family Medicine; Visit Provider Nurse Practitioner Gerontology
DX: I50.9 Heart failure, unspecified (principal); D64.9 Anemia, unspecified
CPT/HCPCS: 80048; 85025